=== PATIENT | female | born 1960 | race Caucasian/White ===

== ENCOUNTER 2019-12-29 12:49 | Outpatient (CLI) | payer OTHER, SELFPAY ==
[2019-12-29 13:36] LABS: Basophils Absolute Auto 0.1 K/mm3 (0.0-0.1); Basophils Percent Auto 0.7 % (0.2-1.2); Eosinophils Absolute Auto 0.5 K/mm3 (0-0.3); Eosinophils Percent Auto 4.9 % (0-4.4); Hematocrit 41.5 % (37.0-47.0); Immature Granulocyte Absolute 0.09 K/mm3 (0.00-0.031); Immature Granulocyte Percent A 0.9 % (0-0.5); Lymphocytes Absolute Auto 3.86 K/mm3 (0.9-3.2); Lymphocytes Percent Auto 38.1 % (18.3-44.2); Mean Corpuscular HGB Conc 31.3 g/dl (32-36); Mean Corpuscular Hemoglobin 27.8 pg (26-34); Mean Corpuscular Volume 88.9 fl (80-100); Mean Platelet Volume 9.9 fl (7.4-10.4); Monocytes Absolute Auto 0.7 K/mm3 (0.1-0.6); Monocytes Percent Auto 6.4 % (2.6-8.5); Platelet Count Result 323 k/mm3 (150-375); Red Blood Count 4.67 M/mm3 (4.2-5.4); Red Cell Distribution Width 14.9 % (11.5-14.5); White Blood Count 10.1 K/mm3 (4.5-10.0)
[2019-12-29 13:37] LABS: Albumin Level 4.2 g/dL (3.5-5.1); Blood Urea Nitrogen 11 mg/dL (7-17); Calcium 8.8 mg/dL (8.4-10.2); Carbon Dioxide 29 mmol/L (22-30); Chloride 96 mmol/L (98-107); Estimated Glomerular Filt Rate > 60; Glucose 175 mg/dL (65-105); Potassium 4.6 mmol/L (3.4-5.0); Sodium 138 mmol/L (137-145); Urine Cotinine NEGATIVE
[2019-12-29 13:39] LABS: Partial Thromboplastin Time 27.6 SECONDS (22.3-36.8)
[2019-12-29 13:42] LABS: Add Urine Microscopic? YES; Appearance Urine Clear (Clear); Bacteria Urine Trace /hpf; Bilirubin Urine Negative (Negative); Blood Urine Negative (Negative); Color Urine Yellow (Yellow); Glucose Urine UA Negative (Negative); Ketones Urine Trace mg/dL (Negative); Leukocyte Esterase Ur Trace LEU/UL (Negative); Mucus Urine Rare /lpf; Nitrate Urine Negative (Negative); Protein Urine Negative (Negative); RBC Urine 0-2 /hpf (0-2); Specific Grav Ur 1.017 (1.001-1.035); Squamous Epithelial Cell Urine Many /hpf (Few); WBC Urine 0-3 /hpf
[2019-12-29 13:52] LABS: Hemoglobin A1C 6.7 % (<5.7)
== END 2019-12-29 12:50 | disposition home or self-care (01) ==
LOC: ANHSURGERY 12:51
PROVIDERS: PCP Internal Medicine; Visit Provider Orthopaedic Surgery
DX: M16.11 Unilateral primary osteoarthritis, right hip (principal)
CPT/HCPCS: 36415; 80048; 80307; 81001; 82040; 83036; 85025; 85610; 85730; 86850; 86900; 86901; 87081

== ENCOUNTER 2020-01-08 15:27 | Observation (INO) | payer OTHER, SELFPAY ==
[2019-11-06 12:30] VITALS: BMI 41.8
[2019-11-06 13:54] VITALS: BP 129/69; PULSE 76; RESP 18; TEMP 36.6; O2SAT 96
[2019-11-06 14:04] VITALS: BMI 41.8
--- NOTE | 2019-12-18 13:47 | PC.NURSE ---
PT STATES NO CHANGE IN HEALTH HX
[2020-01-07] VITALS (16 sets, daily range): BP systolic 98–132; BP diastolic 53–80; PULSE 73–99; RESP 10–20; TEMP 36.1–36.8; O2SAT 91–100; BMI 46.9
[2020-01-07] MEDS: LACTATED RINGERS 1,000 ML 30 ML IV CONT ×2 (06:40→10:59)
[2020-01-07] MEDS: IBUPROFEN IV 800 MG/200 ML 800 MG/200 ML BAG 400 MG IVPB ×2 (06:46→20:31)
[2020-01-07 06:52] LABS: Glucose Point of Care 146 (65-105)
--- NOTE | 2020-01-07 06:52 | WPDANESEPPF ---
Anes - Initial Pre Proc Eval Procedure: Operation Date: 01/07/20 07:30 Proposed Procedures p Right Total Hip Arthroplasty(Right) - Darci Gonzalez MD Date/Time: 01/07/20 06:52 Surgeon: Darci Gonzalez MD Pre Op Diagnosis: Right Hip DJD Patient Data Age: 59 Gender: F Height: 5 ft 3 in Weight: 107 kg Last Vital Signs Temp 36.6 C 11/06/19 13:54 Pulse 76 11/06/19 13:54 Resp 18 11/06/19 13:54 BP 129/69 11/06/19 13:54 Pulse Ox 96 11/06/19 13:54 Allergies Allergy/AdvReac Type Severity Reaction Status Date / Time Sulfa (Sulfonamide Allergy Unknown NAUSEA AND Verified 01/02/20 11:57 Antibiotics) ITCHING Home Medications Medication Instructions Recorded Confirmed Type clopidogrel 75 mg tablet 75 mg PO DAILY #90 tablet 10/14/19 01/07/20 Rx metformin 1,000 mg tablet 1,000 mg PO BID #180 tablet 10/14/19 01/07/20 Rx metoprolol tartrate 50 mg tablet 50 mg PO BID #180 tablet 10/14/19 01/07/20 Rx pantoprazole 20 mg tablet,delayed 20 mg PO QAM #90 tablet 10/14/19 01/07/20 Rx release albuterol sulfate [Proventil HFA] 2 puff INHALATION QID PRN 11/06/19 01/07/20 History atorvastatin 10 mg PO HS 11/06/19 01/07/20 History cholecalciferol (vitamin D3) 50,000 unit PO MONTHLY 11/06/19 01/07/20 History duloxetine 30 mg PO DAILY 11/06/19 01/07/20 History fexofenadine [Kennedi Allergy] 180 mg PO DAILY 11/06/19 01/07/20 History gabapentin 600 mg PO BID 11/06/19 01/07/20 History insulin glargine U-300 conc 70 unit SUB-Q HS 11/06/19 01/07/20 History [Toujeo Max U-300 SoloStar] insulin glargine U-300 conc 24 unit SUBCUT DAILY 11/06/19 01/07/20 History [Toujeo SoloStar U-300 Insulin] nortriptyline 50 mg PO HS 11/06/19 01/07/20 History oxycodone-acetaminophen 5 mg-325 1 tablet PO Q6H PRN #120 tablet 12/03/19 01/07/20 Rx mg tablet Laboratory Tests 01/07/20 06:48 POC Capillary Glucose 146 mg/dl H mg/dl (65-105) Patient hx anesthesia problems: none Family hx anesthesia problems: none PMFSH Past Medical History Medical History Degenerative joint disease (DJD) of hip Right hip pain Family History Family History Sibling Patient's sister is in good health Patient's brother is in good health Father Family history of heart disease in male family member before age 55 Patient's father is Family history of cardiovascular disease Mother Family history of heart disease in male family member before age 55 Patient's mother is Family history of cardiovascular disease Other Diabetes mellitus Family history of arthritis Family history of malignant neoplasm Family history of tuberculosis Hypertension Social History Social History Smoking status: Former smoker Smoking end date: 11/19/03 Alcohol intake: never Anes - Eval Final PreProcedure Day of Procedure 01/07/20 06:52 Patient weight: morbidly obese Heart: regular rate and rhythm Lungs: decreased breath sounds Airway: Mallampati scale class III Neurological: alert and oriented Last oral intake: >/= 8 hours ASA classification: III Emergent: no Anesthetic plan: proceed Anesthesia type and monitoring: general ETT and standard monitoring Informed Consent: The patient's anesthetic plan and its attendant risks and benefits were discussed with the patient/family/POA. Questions were solicited and answers provided to the satisfaction of the patient/family/POA.
--- NOTE | 2020-01-07 07:36 | WPDHPUPDATE1 ---
History and Physical Update Update Date/Time: 01/07/20 07:36 History and Physical has been reviewed, including an updated exam of the patient. There are NO changes in the patient's condition. Risks, benefits, and alternatives have been discussed and questions answered. Patient agrees to proceed with procedure.
[2020-01-07] MEDS: ceFAZolin 2 GM/D5W 50 ML 2 GM/50 ML BAG IVPB ×3 (07:42→23:29)
--- NOTE | 2020-01-07 11:02 | PM.OP ---
Procedure Note - Brief Procedure Note - Brief Date of procedure: 01/07/20 Pre-op diagnosis: Right Hip DJD Post-op diagnosis: same Procedure performed: R HENRIETTA Anesthesia: GETA Surgeon: Darci Gonzalez MD Estimated blood loss (mL): 200 Drains: No Complications: No immediate complications Condition: stable Disposition: PACU
[2020-01-07 11:19] LABS: Glucose Point of Care 163 (65-105)
[2020-01-07] MEDS: HYDROMORPHONE HCL 1 MG/ML INJ 0.5 MG IV PUSH ×4 (12:08→12:41)
--- NOTE | 2020-01-07 12:14 | SUR.PHASEI ---
Report given to KUMAR Hurtado at 1211.
--- NOTE | 2020-01-07 13:00 | ADMGEN ---
This patient, Roseanna Blackwell, was admitted to [facility] Surg Room 326-01. Patient/family oriented to hospital policies and general routines including ID bracelet, bed and alarms, visiting hours, pain management, procedures, bathroom and other care routines, personal items, smoking policy, room service/diet, and visiting hours. Valuables list has been completed. Information on how to activate the Rapid Response Team has been discussed. Patient/Family are encouraged to report perceived risks to care and to ask questions if they do not understand what they are told or what they should do.
[2020-01-07 13:40] LABS: Hematocrit 34.3 % (37.0-47.0); Hemoglobin 10.4 g/dL (12.0-15.0)
[2020-01-07] MEDS: SODIUM CHLORIDE 0.9% IV 1,000 ML 125 ML IV CONT ×2 (13:44→23:22)
[2020-01-07 13:53] LABS: Estimated CRCL calculation 92 ml/min; Estimated Glomerular Filt Rate > 60
[2020-01-07] MEDS: DIAZEPAM 5 MG TABLET PO ×2 (17:30→23:27)
[2020-01-07] MEDS: DOCUSATE SODIUM 100 MG CAPSULE PO (17:30)
[2020-01-07] MEDS: metFORMIN HCL 500 MG TABLET 1000 MG PO (17:31)
[2020-01-07 18:10] LABS: Glucose Point of Care 211 (65-105)
[2020-01-07] MEDS: MORPHINE SULFATE 4 MG/ML INJ 3 MG IV PUSH (18:17)
[2020-01-07] MEDS: ONDANSETRON INJ 4 MG/2 ML VIAL IV PUSH (19:35)
[2020-01-07] MEDS: ATORVASTATIN 10 MG TABLET PO (20:39)
[2020-01-07] MEDS: NORTRIPTYLINE HCL 25 MG CAPSULE 50 MG PO (20:40)
[2020-01-07] MEDS: METOPROLOL TARTRATE 50 MG TAB PO (20:40)
[2020-01-07] MEDS: INSULIN GLARGINE (*BKC) 100 UNITS/ML 70 UNITS SUB-Q (20:52)
[2020-01-07 22:56] LABS: Glucose Point of Care 167 (65-105)
[2020-01-08] VITALS (9 sets, daily range): BP systolic 97–136; BP diastolic 48–57; PULSE 85–104; RESP 18–20; TEMP 36.6–37.1; O2SAT 94–100
--- NOTE | ~2020-01-08 | XR_ITS ---
EXAMINATION: XR hip RT 1V DATE: 01/07/2020 11:15 INDICATION: Postoperative evaluation following right total hip arthroplasty TECHNIQUE: Anteroposterior view of the right hip were obtained. COMPARISON: Intraoperative radiograph dated 11/06/2019 FINDINGS: Interval placement of a noncemented right total hip arthroplasty which appears well seated in near an atomic alignment on the single provided frontal projection. Acetabular component is affixed with at l east a single screw. Expected subcutaneous gas in the postoperative bed with overlying skin amari. No fractures identified. IMPRESSION: 1. Right total hip arthroplasty, negative for postoperative purposes. Reviewed, dictated and finalized at location A. [employer]
[2020-01-08] MEDS: IBUPROFEN IV 800 MG/200 ML 800 MG/200 ML BAG 400 MG IVPB ×2 (03:00→18:08)
[2020-01-08 06:34] LABS: Basophils Absolute Auto 0.1 K/mm3 (0.0-0.1); Basophils Percent Auto 0.6 % (0.2-1.2); Eosinophils Absolute Auto 0.1 K/mm3 (0-0.3); Eosinophils Percent Auto 0.4 % (0-4.4); Hematocrit 28.1 % (37.0-47.0); Hemoglobin 8.5 g/dL (12.0-15.0); Immature Granulocyte Absolute 0.04 K/mm3 (0.00-0.031); Immature Granulocyte Percent A 0.4 % (0-0.5); Lymphocytes Absolute Auto 3.18 K/mm3 (0.9-3.2); Lymphocytes Percent Auto 27.9 % (18.3-44.2); Mean Corpuscular HGB Conc 30.2 g/dl (32-36); Mean Corpuscular Hemoglobin 27.3 pg (26-34); Mean Corpuscular Volume 90.4 fl (80-100); Mean Platelet Volume 9.9 fl (7.4-10.4); Monocytes Absolute Auto 0.9 K/mm3 (0.1-0.6); Monocytes Percent Auto 8.2 % (2.6-8.5); Neutrophils Absolute Auto 7.1 K/mm3 (1.3-6.7); Neutrophils Percent Auto 62.5 % (45.5-73.1); Platelet Count Result 233 k/mm3 (150-375); Red Blood Count 3.11 M/mm3 (4.2-5.4); Red Cell Distribution Width 15.3 % (11.5-14.5); White Blood Count 11.4 K/mm3 (4.5-10.0)
[2020-01-08 06:49] LABS: Blood Urea Nitrogen 12 mg/dL (7-17); Calcium 7.6 mg/dL (8.4-10.2); Carbon Dioxide 29 mmol/L (22-30); Chloride 97 mmol/L (98-107); Estimated CRCL calculation 92 ml/min; Estimated Glomerular Filt Rate > 60; Glucose 123 mg/dL (65-105); Potassium 3.9 mmol/L (3.4-5.0); Sodium 137 mmol/L (137-145)
[2020-01-08] MEDS: SODIUM CHLORIDE 0.9% IV 1,000 ML 125 ML IV CONT ×2 (07:52→16:53)
[2020-01-08] MEDS: ceFAZolin 2 GM/D5W 50 ML 2 GM/50 ML BAG IVPB (08:22)
[2020-01-08] MEDS: DOCUSATE SODIUM 100 MG CAPSULE PO ×2 (08:23→16:59)
[2020-01-08] MEDS: ASPIRIN 325 MG ENTERIC TABLET 650 MG PO (08:23)
[2020-01-08] MEDS: CLOPIDOGREL BISULFATE 75 MG TABLET PO (08:23)
[2020-01-08] MEDS: metFORMIN HCL 500 MG TABLET 1000 MG PO ×2 (08:23→17:00)
[2020-01-08] MEDS: PANTOPRAZOLE SOD SESQUIHYDRATE 20 MG TAB PO (08:25)
--- NOTE | 2020-01-08 08:48 | WPDANESPN ---
Anes - Prog Note Post-Op Date/Time: 01/08/20 08:48 Cardiovascular status: normal Respiratory status: normal Airway patency: baseline Mental status: baseline Post-Op hydration status: normal Vital Signs: Last Vital Signs Temp 36.6 C 01/08/20 06:00 Pulse 88 01/08/20 08:25 Resp 20 01/08/20 06:00 BP 97/52 L 01/08/20 08:01 Pulse Ox 95 01/08/20 06:00 I/O: Intake & Output 01/07/20 01/08/20 01/08/20 23:59 07:59 15:59 Intake Total 1900 1450 Output Total 400 1200 Balance 1500 250 Laboratory Tests 01/08/20 06:16 01/08/20 06:16 01/07/20 01/07/20 01/07/20 11:17 13:25 13:25 WBC RBC Hgb 10.4 L Hct 34.3 L MCV MCH MCHC RDW Plt Count MPV Immature Gran % (Auto) Neut % (Auto) Lymph % (Auto) [place] % (Auto) Eos % (Auto) Baso % (Auto) Lymph # (Auto) [place] # (Auto) Eos # (Auto) Baso # (Auto) Abs Immat Gran (auto) Absolute Neuts (auto) Absolute Nucleated RBC Nucleated RBC % Sodium Potassium Chloride Carbon Dioxide BUN Creatinine 0.70 Estim Creat Clear Calc 92 Estimated GFR > 60 Glucose POC Capillary Glucose 163 H Calcium 01/07/20 01/07/20 01/08/20 18:08 20:58 06:16 WBC 11.4 H RBC 3.11 L Hgb 8.5 L Hct 28.1 L MCV 90.4 MCH 27.3 MCHC 30.2 L RDW 15.3 H Plt Count 233 MPV 9.9 Immature Gran % (Auto) 0.4 Neut % (Auto) 62.5 Lymph % (Auto) 27.9 [place] % (Auto) 8.2 Eos % (Auto) 0.4 Baso % (Auto) 0.6 Lymph # (Auto) 3.18 [place] # (Auto) 0.9 H Eos # (Auto) 0.1 Baso # (Auto) 0.1 Abs Immat Gran (auto) 0.04 H Absolute Neuts (auto) 7.1 H Absolute Nucleated RBC 0.0 Nucleated RBC % 0.0 Sodium Potassium Chloride Carbon Dioxide BUN Creatinine Estim Creat Clear Calc Estimated GFR Glucose POC Capillary Glucose 211 H 167 H Calcium 01/08/20 06:16 WBC RBC Hgb Hct MCV MCH MCHC RDW Plt Count MPV Immature Gran % (Auto) Neut % (Auto) Lymph % (Auto) [place] % (Auto) Eos % (Auto) Baso % (Auto) Lymph # (Auto) [place] # (Auto) Eos # (Auto) Baso # (Auto) Abs Immat Gran (auto) Absolute Neuts (auto) Absolute Nucleated RBC Nucleated RBC % Sodium 137 Potassium 3.9 Chloride 97 L Carbon Dioxide 29 BUN 12 Creatinine 0.70 Estim Creat Clear Calc 92 Estimated GFR > 60 Glucose 123 H POC Capillary Glucose Calcium 7.6 L Post-procedural complaints: none Patient Feedback: Patient satisfied with anesthetic care.
--- NOTE | 2020-01-08 09:15 | PM.IMCN ---
Assessment and Plan Assessment and plan (1) Degenerative joint disease (DJD) of hip: Qualifiers: Osteoarthritis type: primary Laterality: right Qualified Code(s): M16.11 - Unilateral primary osteoarthritis, right hip Code(s): M16.9 - Osteoarthritis of hip, unspecified Status: Acute Assessment and Plan: Doing well postoperative day 1 Continue with PT OT\ PE prophylaxis per Orthopedic Service (2) Chronic obstructive pulmonary disease, unspecified: Code(s): J44.9 - Chronic obstructive pulmonary disease, unspecified Status: Acute Assessment and Plan: Currently has only mild dyspnea on exertion Monitor for symptoms (3) Essential (primary) hypertension: Code(s): I10 - Essential (primary) hypertension Status: Acute Assessment and Plan: Antihypertensives held this morning due to relatively low blood pressure Continue to monitor (4) Type 2 diabetes mellitus with diabetic neuropathy, unspecified: Code(s): E11.40 - Type 2 diabetes mellitus with diabetic neuropathy, unspecified Status: Acute Assessment and Plan: Continue metformin Continue basal insulin at reduced dose Monitor with sliding scale insulin (5) GERD without esophagitis: Onset Date: 06/17/19 Code(s): K21.9 - Gastro-esophageal reflux disease without esophagitis Status: Acute Assessment and Plan: Continue PPI (6) Restless legs syndrome: Code(s): G25.81 - Restless legs syndrome Status: Acute Assessment and Plan: Continue carbidopa levodopa (7) Postoperative anemia: Code(s): D64.9 - Anemia, unspecified Status: Acute Assessment and Plan: Significant decrease and H&H overnight Continue to monitor and transfuse as needed for symptomatic anemia or hemoglobin below 7 HPI Data of Consult Consult date: 01/08/20 Requesting Physician: Darci Gonzalez MD Primary Care Provider: Angel Luis Rodgers DO Consult Narrative Narrative: Roseanna Blackwell is a 59 year old female with a history of severe osteoarthritis affecting the hips. She had an uncomplicated left total hip arthroplasty 2010. Right hip pain dose becoming severe, limiting her day-to-day activities, causing moderate to severe pain even at rest. Because the progression of pain and decreased mobility she opted to have an elective right total hip arthroplasty. Surgery was performed on January 07 and was uncomplicated. Currently only complaint is moderate to severe pain at the operative site. Worse with activity. She was unable to ambulate with a walker yesterday with physical therapy. But was able to get up and transfer to the chair. She has chronic dyspnea on exertion. No chest pain. History of recurrent UTIs but currently no dysuria or hematuria. Last bowel movement was 2 days ago. No abnormal bleeding. No focal weakness or numbness, except for chronic stinging and burning in her toes worse at night. She does have a history of restless leg syndrome at night control with medication. Review of Systems Review of Systems: All systems reviewed & are unremarkable except as noted in HPI and below PMFSH Past Medical History Medical History (Updated 01/08/20 @ 09:48 by Aristides Whitten MD) Chronic obstructive pulmonary disease, unspecified Degenerative joint disease (DJD) of hip GERD without esophagitis (06/17/19) Hyperlipidemia, unspecified Nontoxic multinodular goiter Restless legs syndrome Right hip pain Type 2 diabetes mellitus with diabetic neuropathy, unspecified Vitamin D deficiency (06/17/19) Surgical History Surgical History (Updated 01/08/20 @ 09:39 by Aristides Whitten MD) H/O oophorectomy History of coronary artery stent placement History of total left hip arthroplasty Hx of section S/P MARY-BSO Family History Family History (Updated 01/08/20 @ 09:40 by Aristides Whitten MD) Sibling Patient's sister is in good health Kajal
[2020-01-08 12:35] LABS: Glucose Point of Care 180 (65-105)
[2020-01-08] MEDS: ONDANSETRON INJ 4 MG/2 ML VIAL IV PUSH (14:11)
[2020-01-08] MEDS: DIAZEPAM 5 MG TABLET PO ×2 (14:11→20:12)
--- NOTE | 2020-01-08 16:57 | PM.PNORT ---
Progress Note: A&P Additional Plan POD 1 DOING WELL. SLOW PROGRESS WITH PT. RECOMMEND CONTINUE PT. Subjective Subjective Date/Time Seen: 01/08/20 16:57 POD 1 DOING WELL. SLOW PROGRESS WITH PT. 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 NEG [employer] SIGN Objective Data Vital Signs Vital Signs: Vital Signs - 24 hr 01/07/20 18:00 01/07/20 20:40 01/07/20 22:00 Temperature 36.7 C 36.8 C Pulse Rate 80 80 99 Respiratory Rate 19 20 Blood Pressure 125/71 115/53 L Pulse Oximetry 96 93 01/08/20 02:00 01/08/20 06:00 01/08/20 06:15 Temperature 36.8 C 36.6 C Pulse Rate 91 85 Respiratory Rate 20 20 Blood Pressure 102/48 L 98/56 L Pulse Oximetry 94 95 01/08/20 08:01 01/08/20 08:25 01/08/20 10:00 Temperature 36.7 C Pulse Rate 88 88 90 Respiratory Rate 20 Blood Pressure 97/52 L 100/57 L Pulse Oximetry 94 01/08/20 15:38 Temperature 36.7 C Pulse Rate 100 Respiratory Rate 18 Blood Pressure 136/57 L Pulse Oximetry 100 Intake/Output Intake/Output: Intake & Output 01/05/20 01/06/20 01/07/20 01/08/20 23:59 23:59 23:59 23:59 Intake Total 2450 1860 Output Total 540 1200 Balance 1910 660 Meds/Results Medications: Active Medications Generic Name Dose Route Start Last Admin Trade Name Freq PRN Reason Stop Dose Admin Hydrocodone Bitart/Acetaminophen 1 tab 01/07/20 11:04 [place] 7.5-325 Mg PO Q3H PRN Pain Rated 4-6 Albuterol 2 puff 01/07/20 11:10 Proventil Hfa INHALATION QID PRN Shortness Of Breath Aspirin 650 mg 01/08/20 09:00 01/08/20 08:23 Aspirin Ec PO 650 mg DAILY MAI Administration Atorvastatin Calcium 10 mg 01/07/20 21:00 01/07/20 20:39 Lipitor PO 10 mg HS MAI Administration Carbidopa/Levodopa 1 tablet 01/08/20 21:00 Sinemet 25/100 Mg PO HS MAI Clopidogrel Bisulfate 75 mg 01/08/20 09:00 01/08/20 08:23 Plavix PO 75 mg DAILY MAI Administration Dextrose 12.5 gm 01/07/20 16:56 Dextrose 50% Syringe IV PUSH PRN PRN Hypoglycemia Protocol Diazepam 5 mg 01/07/20 11:09 01/08/20 14:11 Valium Po PO 5 mg Q6H PRN Administration Anxiety/Muscle Spasm Docusate Sodium 100 mg 01/07/20 17:00 01/08/20 08:23 Colace Capsule PO 100 mg BID [facility] Administration Ergocalciferol 50,000 unit 01/22/20 09:00 Drisdol PO MONTHLY [facility] Glucagon 1 mg 01/07/20 16:56 Glucagon For Inj IM PRN PRN Hypoglycemia Protocol Glucose 15 gm 01/07/20 16:56 Glutose 15 PO PRN PRN Hypoglycemia Protocol Sodium Chloride 1,000 mls @ 125 mls/hr 01/07/20 11:05 01/08/20 07:52 Normal Saline Iv IV CONT 125 mls/hr .Q8H [facility] Administration Ibuprofen 800 mg in 200 mls @ 400 mls/hr 01/07/20 11:04 01/08/20 03:30 Caldolor 800 Mg/200 Ml IVPB Infused Q6H PRN Infusion Pain Rated 4-6 Dextrose 1,000 mls @ 100 mls/hr 01/07/20 16:56 Dextrose 5% 1,000 Ml IVPB PRN PRN Hypoglycemia Protocol Insulin Aspart 4 - 8 units 01/08/20 12:00 01/08/20 12:28 Novolog SUB-Q Not Given TIDWM [facility] Protocol Insulin Glargine 50 units 01/08/20 09:51 Lantus SUB-Q 01/10/20 21:01 [facility] Magnesium Hydroxide 30 ml 01/07/20 11:04 Milk Of Magnesia PO BID PRN Constipation Metformin HCl 1,000 mg 01/07/20 17:00 01/08/20 08:23 Glucophage PO 1,000 mg BIDWM [facility] Administration Metoprolol Tartrate 50 mg 01/07/20 21:00 01/08/20 08:25 Lopressor PO Not Given Q12HR MAI Morphine Sulfate 3 mg 01/07/20 11:04 01/07/20 18:17 Morphine Sulfate Inj IV PUSH 3 mg Q3H PRN Administration Pain Rated 7-10 Naloxone HCl 0.1 mg 01/07/20 11:04 Narcan IV PUSH Q2M PRN Opiate Reversal Nortriptyline HCl 50 mg 01/07/20 21:00 01/07/20 20:40 Pamelor PO 50 mg HS MAI Administration Ondansetron HCl 4 mg 01/07/20 11:09 01/08/20 14:11
[2020-01-08 17:11] LABS: Glucose Point of Care 149 (65-105)
[2020-01-08] MEDS: CARBIDOPA/LEVODOPA 25/100 MG TABLET 1 TABLET PO (21:14)
[2020-01-08] MEDS: NORTRIPTYLINE HCL 25 MG CAPSULE 50 MG PO (21:15)
[2020-01-08] MEDS: ATORVASTATIN 10 MG TABLET PO (21:17)
[2020-01-08] MEDS: INSULIN GLARGINE (*BKC) 100 UNITS/ML 50 UNITS SUB-Q (21:19)
[2020-01-08] MEDS: METOPROLOL TARTRATE 50 MG TAB PO (21:32)
[2020-01-08 22:35] LABS: Glucose Point of Care 139 (65-105)
[2020-01-09] MEDS: SODIUM CHLORIDE 0.9% IV 1,000 ML 125 ML IV CONT ×3 (00:03→12:10)
[2020-01-09] MEDS: DIAZEPAM 5 MG TABLET PO ×2 (02:00→08:15)
--- NOTE | 2020-01-09 06:18 | OP_ITS ---
DATE OF PROCEDURE: 01/07/2020 PREOPERATIVE DIAGNOSIS: Right hip degenerative joint disease. POSTOPERATIVE DIAGNOSIS: Right hip degenerative joint disease. PROCEDURE: Right total hip arthroplasty. ANESTHESIA: General. COMPLICATIONS: None. INDICATIONS: This is a 59-year-old female with end-stage right hip DJD. She was indicated for right total hip arthroplasty. DESCRIPTION OF PROCEDURE: The patient was taken to the operating room in stable condition and placed in the supine position. General anesthesia was induced and then she was placed in lateral decubitus with the right hip up and the right lower extremity, was prepped and draped sterilely from the toes to the iliac crest region. Incision was made over the greater trochanter down in line with the shaft of the femur and then down through the subcutaneous tissues until the fascia was identified. Bleeders were cauterized in the subcutaneous tissue. Incision was made over the fascia. Fascia was retracted in the short external rotators and the piriformis of the hip joint were identified. The gluteus medius and minimus were retracted and the piriformis tendon then was incised and as was the capsule of the hip joint and then the short external rotators as well were incised until the lesser trochanter was exposed. The hip was dislocated and an osteotomy approximately 1 cm proximal to the lesser trochanter was performed. There was severe arthrosis to the head of the femur into the acetabulum. Acetabulum then was exposed and then sequential reaming was performed, 1st starting with a 42 reamer and ending with a 47 reamer and approximately of 35 degrees of abduction and the version was in alignment with the transacetabular ligament. A 47 trial acetabular component was placed and it bottomed out well and was very stable and then a 48 Biomet acetabular component was press-fit into place in approximately 40 degrees abduction and version was in alignment with the transacetabular ligament. One screw was placed for extra security and had an excellent bite. Once that was performed, a liner was placed and it was secure. Next, the femur was prepared first with box chisel osteotome and canal finder and then sequential broaching was performed first with the 4 mm broach until a #5 broach and 50 degrees of anteversion was placed. A trial head/neck was placed with a high offset neck and a 32 mm +0 head. The hip was reduced, taken through range of motion. Leg lengths were grossly equal. The Shuck test was excellent and the hip was very stable in internal and external rotation 90 degrees. The trial components were removed and then a Biomet Taperloc #5 stem with a high offset neck was tapped into place. The fit was excellent. This was placed in 50 degrees of anteversion and then a ceramic +0 32 mm head was tapped on to the prosthesis and then it was reduced, taken through range of motion found to be very stable. Leg lengths were grossly equal. The hip joint was irrigated thoroughly with sterile Betadine and sterile water and then the capsule and the short external rotators were approximated with #1 Vicryl. The fascia was approximated with #2 Quill. Subcutaneous tissues were used on the subcu and amari were used on the skin. Sterile dressing was applied. The patient was placed back in the supine position. She was extubated and sent to Recovery. Hussein Roberto MT: Dennis
[2020-01-09 06:59] VITALS: BP 90/55; PULSE 87; RESP 18; TEMP 36.6; O2SAT 96
[2020-01-09] MEDS: IBUPROFEN IV 800 MG/200 ML 800 MG/200 ML BAG 400 MG IVPB ×3 (07:16→15:03)
[2020-01-09] MEDS: metFORMIN HCL 500 MG TABLET 1000 MG PO (08:07)
[2020-01-09 08:08] LABS: Glucose Point of Care 111 (65-105)
[2020-01-09] MEDS: PANTOPRAZOLE SOD SESQUIHYDRATE 20 MG TAB PO (08:08)
[2020-01-09] MEDS: DOCUSATE SODIUM 100 MG CAPSULE PO (08:08)
[2020-01-09] MEDS: CLOPIDOGREL BISULFATE 75 MG TABLET PO (08:08)
[2020-01-09] MEDS: ASPIRIN 325 MG ENTERIC TABLET 650 MG PO (08:08)
[2020-01-09 12:31] LABS: Glucose Point of Care 160 (65-105)
--- NOTE | 2020-01-09 13:20 | PCOTNOTE ---
Attempted to see patient this pm, however patient refused stating, If you don't want to do anything today, then I don't want to do anything either. I'm going to rehab tomorrow. Encouraged patient to participate in therapy at this time, however patient refused stating she was tired and experiencing increased pain. Pt reported having 6 out of 10 pain and having a pain pill just under an hour ago.
--- NOTE | 2020-01-09 14:10 | PM.IMPN ---
Progress Note: A&P Assessment and Plan (1) Degenerative joint disease (DJD) of hip: Qualifiers: Osteoarthritis type: primary Laterality: right Qualified Code(s): M16.11 - Unilateral primary osteoarthritis, right hip Code(s): M16.9 - Osteoarthritis of hip, unspecified Status: Acute Assessment and Plan: Doing well postoperative day 2 Continue with PT OT at [facility] PE prophylaxis per Orthopedic Service (2) Chronic obstructive pulmonary disease, unspecified: Code(s): J44.9 - Chronic obstructive pulmonary disease, unspecified Status: Acute Assessment and Plan: Currently has only mild dyspnea on exertion (3) Essential (primary) hypertension: Code(s): I10 - Essential (primary) hypertension Status: Acute Assessment and Plan: BP remains lower than her usual continue to hold antihypertensives (4) Type 2 diabetes mellitus with diabetic neuropathy, unspecified: Code(s): E11.40 - Type 2 diabetes mellitus with diabetic neuropathy, unspecified Status: Acute Assessment and Plan: Continue metformin Continue basal insulin at reduced dose Monitor with sliding scale insulin (5) GERD without esophagitis: Onset Date: 06/17/19 Code(s): K21.9 - Gastro-esophageal reflux disease without esophagitis Status: Acute Assessment and Plan: Continue PPI (6) Restless legs syndrome: Code(s): G25.81 - Restless legs syndrome Status: Acute Assessment and Plan: Continue carbidopa levodopa (7) Postoperative anemia: Code(s): D64.9 - Anemia, unspecified Status: Acute Assessment and Plan: Hgb 8.5 and asymptomatic 01/09 without overt signs of bleeding Subjective Date/time seen: 01/09/20 14:10 Interval history: Pain is tolerable. Tolerating diet. Bowels have not moved yet. Pain only at operative site. No chest pain abdominal pain back pain. No shortness of breath. No abnormal bleeding. No fevers or chills. No nausea or vomiting. No dysuria or hematuria. Review of Systems Review of Systems: All systems reviewed & are unremarkable except as noted in HPI and below Exam Narrative: Exam Narrative: HEENT: EOMI, PERRL, pharyngeal mucosa pink and intact NECK: No JVD CHEST: Clear to auscultation. Normal effort. HEART: NL S1/S2, regular, no murmur ABDOMEN: BS+, soft, nontender, no mass, no bruits EXTREMITIES: No cyanosis, edema, or clubbing NEUROLOGIC: CN intact and symmetric to inspection. MUSCULOSKELETAL: Tone and strength symmetric. PSYCH: Alert. Oriented to person, place, and time. Objective Data Vital Signs Vital Signs: Vital Signs - 24 hr 01/08/20 15:38 01/08/20 21:32 01/08/20 22:00 Temperature 98.0 F 98.7 F Pulse Rate 100 102 H 104 H Respiratory Rate 18 18 Blood Pressure 136/57 L 118/54 L Pulse Oximetry 100 97 01/09/20 06:59 Temperature 98 F Pulse Rate 87 Respiratory Rate 18 Blood Pressure 90/55 L Pulse Oximetry 96 Intake/Output Intake/Output: Intake & Output 01/06/20 01/07/20 01/08/20 01/09/20 23:59 23:59 23:59 23:59 Intake Total 2450 3060 4440 Output Total 540 1200 1000 Balance 1910 1860 3440 Meds/Results Medications: Active Medications Generic Name Dose Route Start Last Admin Trade Name Freq PRN Reason Stop Dose Admin Hydrocodone Bitart/Acetaminophen 1 tab 01/07/20 11:04 01/09/20 12:32 [place] 7.5-325 Mg PO 1 tab Q3H PRN Administration Pain Rated 4-6 Albuterol 2 puff 01/07/20 11:10 Proventil Hfa INHALATION QID PRN Shortness Of Breath Aspirin 650 mg 01/08/20 09:00 01/09/20 08:08 Aspirin Ec PO 650 mg DAILY MAI Administration Atorvastatin Calcium 10 mg 01/07/20 21:00 01/08/20 21:17 Lipitor PO 10 mg HS MAI Administration Carbidopa/Levodopa 1 tablet 01/08/20 21:00 01/08/20 21:14 Sinemet 25/100 Mg PO 1 tablet HS MAI Administration Clopidogrel Bisulfate 75 mg 01/08/20
--- NOTE | 2020-01-09 14:15 | PCPTNOTE ---
Patient refused treatment this session due to expected discharge.
--- NOTE | 2020-01-09 14:24 | PM.PNORT ---
Progress Note: A&P Additional Plan POD 2 DOING WELL, SLOW PROGRESS WITH PT. RECOMMEND SNF PLACEMENT. SHE WILL F/U IN 3 WEEKS. Time Spent With Patient Time with patient: 15 - 25 minutes Subjective Subjective Date/Time Seen: 01/09/20 14:24 pod 2. DOING MUCH BETTER. PAIN IS WELL CONTROLLED. 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 CALF SOFT NON TENDER NEG HOMANS SIGN Objective Data Vital Signs Vital Signs: Vital Signs - 24 hr 01/08/20 15:38 01/08/20 21:32 01/08/20 22:00 Temperature 36.7 C 37.1 C Pulse Rate 100 102 H 104 H Respiratory Rate 18 18 Blood Pressure 136/57 L 118/54 L Pulse Oximetry 100 97 01/09/20 06:59 Temperature 36.6 C Pulse Rate 87 Respiratory Rate 18 Blood Pressure 90/55 L Pulse Oximetry 96 Intake/Output Intake/Output: Intake & Output 01/06/20 01/07/20 01/08/20 01/09/20 23:59 23:59 23:59 23:59 Intake Total 2450 3060 4440 Output Total 540 1200 1000 Balance 1910 1860 3440 Meds/Results Medications: Active Medications Generic Name Dose Route Start Last Admin Trade Name Freq PRN Reason Stop Dose Admin Hydrocodone Bitart/Acetaminophen 1 tab 01/07/20 11:04 01/09/20 12:32 [place] 7.5-325 Mg PO 1 tab Q3H PRN Administration Pain Rated 4-6 Albuterol 2 puff 01/07/20 11:10 Proventil Hfa INHALATION QID PRN Shortness Of Breath Aspirin 650 mg 01/08/20 09:00 01/09/20 08:08 Aspirin Ec PO 650 mg DAILY MAI Administration Atorvastatin Calcium 10 mg 01/07/20 21:00 01/08/20 21:17 Lipitor PO 10 mg HS MAI Administration Carbidopa/Levodopa 1 tablet 01/08/20 21:00 01/08/20 21:14 Sinemet 25/100 Mg PO 1 tablet HS MAI Administration Clopidogrel Bisulfate 75 mg 01/08/20 09:00 01/09/20 08:08 Plavix PO 75 mg DAILY MAI Administration Dextrose 12.5 gm 01/07/20 16:56 Dextrose 50% Syringe IV PUSH PRN PRN Hypoglycemia Protocol Diazepam 5 mg 01/07/20 11:09 01/09/20 08:15 Valium Po PO 5 mg Q6H PRN Administration Anxiety/Muscle Spasm Docusate Sodium 100 mg 01/07/20 17:00 01/09/20 08:08 Colace Capsule PO 100 mg BID MAI Administration Ergocalciferol 50,000 unit 01/22/20 09:00 Drisdol PO MONTHLY MAI Glucagon 1 mg 01/07/20 16:56 Glucagon For Inj IM PRN PRN Hypoglycemia Protocol Glucose 15 gm 01/07/20 16:56 Glutose 15 PO PRN PRN Hypoglycemia Protocol Sodium Chloride 1,000 mls @ 125 mls/hr 01/07/20 11:05 01/09/20 12:10 Normal Saline Iv IV CONT 125 mls/hr .Q8H MAI Administration Ibuprofen 800 mg in 200 mls @ 400 mls/hr 01/07/20 11:04 01/09/20 08:02 Caldolor 800 Mg/200 Ml IVPB Infused Q6H PRN Infusion Pain Rated 4-6 Dextrose 1,000 mls @ 100 mls/hr 01/07/20 16:56 Dextrose 5% 1,000 Ml IVPB PRN PRN Hypoglycemia Protocol Insulin Aspart 4 - 8 units 01/08/20 12:00 01/09/20 12:31 Novolog SUB-Q Not Given TIDWM [facility] Protocol Insulin Glargine 50 units 01/08/20 09:51 01/08/20 21:19 Lantus SUB-Q 01/10/20 21:01 50 units HS MAI Administration Magnesium Hydroxide 30 ml 01/07/20 11:04 Milk Of Magnesia PO BID PRN Constipation Metformin HCl 1,000 mg 01/07/20 17:00 01/09/20 08:07 Glucophage PO 1,000 mg BIDWM MAI Administration Metoprolol Tartrate 50 mg 01/07/20 21:00 01/08/20 21:32 Lopressor PO 50 mg Q12HR MAI Administration Morphine Sulfate 3 mg 01/07/20 11:04 01/07/20 18:17 Morphine Sulfate Inj IV PUSH 3 mg Q3H PRN Administration Pain Rated 7-10 Naloxone HCl 0.1 mg 01/07/20 11:04 Narcan IV PUSH Q2M PRN Opiate Reversal Nortriptyline HCl 50 mg 01/07/20 21:00 01/08/20 21:15 Pamelor PO 50 mg HS MAI Administration Ondansetron HCl 4 mg 01/07/20 11:09 01/08/20 14:11 Zofran Inj IV PUSH 4 mg Q4H PRN Administration Nausea And Vomiting Oxycod
--- NOTE | 2020-01-09 14:50 | PM.DS ---
DS: Diagnosis Admitting Diagnosis Admitting Diagnosis: Osteoarthritis of hip, unspecified DS: Summary Time Spent with Patient Time attestation: Total time spent providing and/or coordinating discharge services: DS: Data Data Completed and Pending Labs on day of discharge: Labs from last 24 hours 01/09/20 01/09/20 01/08/20 12:08 07:23 21:19 POC Capillary Glucose 160 H 111 H 139 H 01/08/20 16:56 POC Capillary Glucose 149 H Discharge Plan Discharge Attending physician on discharge: Darci Gonzalez Consulting providers: Kacey Finn Discharging Clinician: Aristides Whitten Patient Disposition: SNF Activity: may shower, no driving and follow weight bearing status Diet: as tolerated Wound Care Instructions: follow printed instructions and keep dressing dry Discharge Instructions: LEAVE DRESSING ON FOR 5 DYAS. [address]URSE WILL REPLACE WITH NEW DRESSING. NEW DRESSING SHOULD REMAIN ON TILL HEATHER ARE REMOVED ON THE 14TH DAY AFTER SURGERY Patient Instructions: How to Choose and Use a Walker (GEN), Total Hip Replacement (DC) Stand Alone Forms: General Discharge Information Follow-up/Referrals: Darci Gonazlez MD [Physician] - 3 Weeks Angel Luis Rodgers DO [Primary Care Provider] - 2 Weeks Discharge Medications: New Lantus U-100 Insulin 100 unit/mL Solution 50 units subcut HS Qty: 15 RF: 0 dextrose [Glutose-15] 40 % Gel 15 g PO PRN PRN (Reason: Hypoglycemia) Qty: 15 RF: 0 oxycodone-acetaminophen 5-325 mg Tablet 1 tablet PO Q4H PRN (Reason: Pain (Scale Score 7-10)) Qty: 30 RF: 0 magnesium hydroxide [Milk of Magnesia] 400 mg/5 mL Suspension 30 ml PO BID PRN (Reason: Constipation) Qty: 240 RF: 0 insulin aspart U-100 [Novolog U-100 Insulin aspart] 100 unit/mL Solution 4 - 8 units subcut TIDWM Qty: 15 RF: 0 docusate sodium 100 mg Capsule 100 mg PO BID Qty: 60 RF: 0 GlucaGen Diagnostic Kit 1 mg/mL Recon Soln 1 mg IM PRN PRN (Reason: Hypoglycemia) Qty: 1 RF: 0 hydrocodone-acetaminophen [[place]] 5-325 mg tablet 1 tablet PO Q6H PRN (Reason: pain) Qty: 60 RF: 0 Xarelto 10 mg tablet 10 mg PO DAILY Qty: 14 RF: 0 Continued fexofenadine [Kennedi Allergy] 180 mg Tablet 180 mg PO DAILY RF: 0 albuterol sulfate [Proventil HFA] 90 mcg/actuation Hfa Aerosol Inhaler 2 puff INHALATION QID PRN (Reason: Shortness Of Breath) RF: 0 cholecalciferol (vitamin D3) 50,000 unit Tablet 50,000 unit PO MONTHLY RF: 0 atorvastatin 10 mg tablet 10 mg PO DAILY RF: 0 gabapentin 300 mg capsule 600 mg PO BID RF: 0 nortriptyline 50 mg capsule 50 mg PO HS RF: 0 duloxetine 60 mg capsule,delayed release(DR/EC) 30 mg PO DAILY RF: 0 carbidopa-levodopa 25-100 mg tablet 1 tablet PO HS RF: 0 pantoprazole 20 mg tablet,delayed release (DR/EC) 20 mg PO QAM Qty: 90 RF: 1 metformin 1,000 mg tablet 1,000 mg PO BID Qty: 180 RF: 1 clopidogrel 75 mg tablet 75 mg PO DAILY Qty: 90 RF: 1 Changed oxycodone-acetaminophen [Percocet] 5-325 mg tablet 1 tablet PO Q4H PRN (Reason: Pain (Scale Score 4-6)) Qty: 10 RF: 0 Discontinued Toujeo SoloStar U-300 Insulin 300 unit/mL (1.5 mL) Insulin Pen 24 unit SUBCUT DAILY RF: 0 Toujeo Max U-300 SoloStar 300 unit/mL (3 mL) insulin pen 70 unit SUB-Q HS RF: 0 metoprolol tartrate 50 mg tablet 50 mg PO BID Qty: 180 RF: 1 Date of admission: 01/08/20 15:27 Primary Care Provider: Angel Luis Rodgers Admitting Provider: Darci Gonzalez Attending physician on admission: Darci Gonzalez Condition: Stable Quality VTE Prophylaxis VTE prophylaxis: mechanical ordered and pharmacologic ordered
--- NOTE | 2020-01-09 14:52 | PM.PNORT ---
Progress Note: A&P Additional Plan POD 2 DOING WELL BUT WITH STILL SOME SLOW PROGRESS WITH PT. SHE WILL GO TO SNF AND F/U IN 3 WEEKS Time Spent With Patient Time with patient: 15 - 25 minutes Subjective Subjective Date/Time Seen: 01/09/20 14:52 POD 2 IMPROVING. NO CALF PAIN. NO SOB OR CP Exam Extrem: Other: VSS AFEBRILE DRESSING DRY NV INTACT NEG HOMANS SIGN Objective Data Vital Signs Vital Signs: Vital Signs - 24 hr 01/08/20 15:38 01/08/20 21:32 01/08/20 22:00 Temperature 36.7 C 37.1 C Pulse Rate 100 102 H 104 H Respiratory Rate 18 18 Blood Pressure 136/57 L 118/54 L Pulse Oximetry 100 97 01/09/20 06:59 Temperature 36.6 C Pulse Rate 87 Respiratory Rate 18 Blood Pressure 90/55 L Pulse Oximetry 96 Intake/Output Intake/Output: Intake & Output 01/06/20 01/07/20 01/08/20 01/09/20 23:59 23:59 23:59 23:59 Intake Total 2450 3060 4440 Output Total 540 1200 1000 Balance 1910 1860 3440 Meds/Results Medications: Active Medications Generic Name Dose Route Start Last Admin Trade Name Freq PRN Reason Stop Dose Admin Hydrocodone Bitart/Acetaminophen 1 tab 01/07/20 11:04 01/09/20 12:32 [place] 7.5-325 Mg PO 1 tab Q3H PRN Administration Pain Rated 4-6 Albuterol 2 puff 01/07/20 11:10 Proventil Hfa INHALATION QID PRN Shortness Of Breath Aspirin 650 mg 01/08/20 09:00 01/09/20 08:08 Aspirin Ec PO 650 mg DAILY MAI Administration Atorvastatin Calcium 10 mg 01/07/20 21:00 01/08/20 21:17 Lipitor PO 10 mg HS MAI Administration Carbidopa/Levodopa 1 tablet 01/08/20 21:00 01/08/20 21:14 Sinemet 25/100 Mg PO 1 tablet HS MAI Administration Clopidogrel Bisulfate 75 mg 01/08/20 09:00 01/09/20 08:08 Plavix PO 75 mg DAILY MAI Administration Dextrose 12.5 gm 01/07/20 16:56 Dextrose 50% Syringe IV PUSH PRN PRN Hypoglycemia Protocol Diazepam 5 mg 01/07/20 11:09 01/09/20 08:15 Valium Po PO 5 mg Q6H PRN Administration Anxiety/Muscle Spasm Docusate Sodium 100 mg 01/07/20 17:00 01/09/20 08:08 Colace Capsule PO 100 mg BID MAI Administration Ergocalciferol 50,000 unit 01/22/20 09:00 Drisdol PO MONTHLY MAI Glucagon 1 mg 01/07/20 16:56 Glucagon For Inj IM PRN PRN Hypoglycemia Protocol Glucose 15 gm 01/07/20 16:56 Glutose 15 PO PRN PRN Hypoglycemia Protocol Sodium Chloride 1,000 mls @ 125 mls/hr 01/07/20 11:05 01/09/20 12:10 Normal Saline Iv IV CONT 125 mls/hr .Q8H MAI Administration Ibuprofen 800 mg in 200 mls @ 400 mls/hr 01/07/20 11:04 01/09/20 08:02 Caldolor 800 Mg/200 Ml IVPB Infused Q6H PRN Infusion Pain Rated 4-6 Dextrose 1,000 mls @ 100 mls/hr 01/07/20 16:56 Dextrose 5% 1,000 Ml IVPB PRN PRN Hypoglycemia Protocol Insulin Aspart 4 - 8 units 01/08/20 12:00 01/09/20 12:31 Novolog SUB-Q Not Given TIDWM [facility] Protocol Insulin Glargine 50 units 01/08/20 09:51 01/08/20 21:19 Lantus SUB-Q 01/10/20 21:01 50 units HS MAI Administration Magnesium Hydroxide 30 ml 01/07/20 11:04 Milk Of Magnesia PO BID PRN Constipation Metformin HCl 1,000 mg 01/07/20 17:00 01/09/20 08:07 Glucophage PO 1,000 mg BIDWM MAI Administration Metoprolol Tartrate 50 mg 01/07/20 21:00 01/08/20 21:32 Lopressor PO 50 mg Q12HR MAI Administration Morphine Sulfate 3 mg 01/07/20 11:04 01/07/20 18:17 Morphine Sulfate Inj IV PUSH 3 mg Q3H PRN Administration Pain Rated 7-10 Naloxone HCl 0.1 mg 01/07/20 11:04 Narcan IV PUSH Q2M PRN Opiate Reversal Nortriptyline HCl 50 mg 01/07/20 21:00 01/08/20 21:15 Pamelor PO 50 mg HS MAI Administration Ondansetron HCl 4 mg 01/07/20 11:09 01/08/20 14:11 Zofran Inj IV PUSH 4 mg Q4H PRN Administration Nausea And Vomiting Oxycodone/Acetaminophen 2 tablet
== END 2020-01-09 15:50 ==
LOC: ANHSURGERY 18:45 → ANH3MEDSUR 18:45
PROVIDERS: Admitting Provider Orthopaedic Surgery; PCP Internal Medicine; Visit Provider Orthopaedic Surgery
PROC: (CPT 27130; principal; 2020-01-07 07:30)
DX: M16.11 Unilateral primary osteoarthritis, right hip (principal); J44.9 Chronic obstructive pulmonary disease, unspecified; I10 Essential (primary) hypertension; E11.40 Type 2 diabetes mellitus with diabetic neuropathy, unspecified; K21.9 Gastro-esophageal reflux disease without esophagitis; G25.81 Restless legs syndrome; D64.9 Anemia, unspecified; E78.5 Hyperlipidemia, unspecified; E55.9 Vitamin D deficiency, unspecified; E66.01 Morbid (severe) obesity due to excess calories; Z68.41 Body mass index [BMI] 40.0-44.9, adult; Z79.4 Long term (current) use of insulin; Z79.899 Other long term (current) drug therapy; Z87.891 Personal history of nicotine dependence; Z88.2 Allergy status to sulfonamides
CPT/HCPCS: 27130; 36415; 73501; 80048; 82565; 85014; 85018; 85025; 97110; 97116; 97161; 97165; 97530; A9270; C1776; G0378; J0131; J0171; J0690; J1100; J1170; J1741; J1815; J2250; J2270; J2370; J2405; J2704; J2710; J2795; J3010; J7030; J7120

== ENCOUNTER 2020-03-17 12:30 | Outpatient (RCR) | payer OTHER, SELFPAY ==
--- NOTE | 2020-02-18 13:35 | PTOPEVAL ---
PHYSICAL THERAPY EVALUATION AND PLAN OF CARE 02-18-2020 The PT evaluation was completed for the diagnosis of s/p R THR. The plan of treatment is 1-2x/week for 5 weeks. Thank you for referring Leilani to [facility]. Please review, sign, date and return this plan of care AURELIA. I agree with and certify that the following plan of care is medically necessary. Referring Physician Date Attending Provider: Darci Gonzalez MD *PT Outpatient Evaluation Start: 02/18/20 12:41 Document 02/18/20 12:41 RAMÓN (Rec: 02/18/20 13:31 RAMÓN [id number]) Outpatient Past Medical History Neurological History Hx Other Neurological Disorders Yes: RLS, NEUROPATHY LEGS AND FEET Cardiovascular History Hx Coronary Artery Disease Yes Hx Coronary Stent Yes: ONE STENT 2005 AND ONE STENT 2016 Hx Hypercholesterolemia Yes: meds Hx Hypertension Yes: meds Hx Other Cardiac Disorders Yes: DR KAYE Q 6 MONTHS. LAST SEEN Sep 2019 Respiratory History Hx Asthma Yes Hx Chronic Obstructive Pulmonary Disease Yes: USES INHALER PRN (COPD) Hx Sleep Apnea Yes: DOES NOT USE CPAP. STATES CAN'T TOLERATE Gastrointestinal History Hx Gastroesophageal Reflux Disease Yes Genitourinary History Hx Genitourinary Disorders No Significant History Musculoskeletal History Hx Arthritis Yes: GENERALIZED Hx Back Pain Yes Hx Fibromyalgia Yes: take percocet for pain; overall pain and achiness Hx Fractures Yes: RT WRIST as child Hx Joint Replacement Yes: 2010 L HEN[place], 01/07/2020 R [place] Hx Other Musculoskeletal Disorders Yes Hematological History Hx Hematological Disorders No Significant History Endocrine History Hx Diabetes Yes: meds Hx Other Endocrine Disorders Yes: NODULES ON THYROID HEENT History Hx Sinus Problems Yes Integumentary History Hx Other Skin Disorders Yes: MRSA infection over stomach and back-surgery debride Reproductive History Hx Hysterectomy Yes Psychosocial History Hx Depression Yes Pain History Has Past Pain Affected Your Daily Life Yes: CHRONIC BACK PAIN History of Long-Term Prescription Pain Yes: PERCOCET X 10 YRS Medication Use (Opiates) Anesthesia History Hx Anesthesia Reactions No Significant History Other History Hx MRSA Yes: 2003 ABD Evaluation Information Problem Diagnosis s/p R THR Onset Dec Subjective Information in pt rehab and ECF, [facility]
--- NOTE | 2020-03-03 12:47 | PCPTNOTE ---
Patient called & cancelled scheduled appointment this date, just can't make it.
--- NOTE | 2020-03-24 13:32 | PCPTNOTE ---
pt did not show for today's reevaluation; called pt and left message on her voice mail.
--- NOTE | 2020-04-05 11:48 | PCPTNOTE ---
PHYSICAL THERAPY DISCHARGE 04-05-2020 Attending Provider: Darci Gonzalez MD Patient:Roseanna Blackwell Date of :1960 Ms. Blackwell has not returned for any further treatments since 03/17/2020, therefore she will be discharged at this time. She received 4 PT sessions, from February 17 to , for the diagnosis of s/p R THR. She did not show for one and called/canceled one appointment. The goals were not assessed. Thank you for referring Leilani to [facility]. Please review, sign, date and return this discharge summary AURELIA. I have been updated about the patient's current status and I agree with discharge from the above service at this time. Referring Physician Date
== END 2020-04-05 16:14 | disposition home or self-care (01) ==
LOC: ANHPT 12:30
PROVIDERS: PCP Internal Medicine; Visit Provider Orthopaedic Surgery
DX: Z47.1 Aftercare following joint replacement surgery (principal); Z96.641 Presence of right artificial hip joint; J44.9 Chronic obstructive pulmonary disease, unspecified; E11.40 Type 2 diabetes mellitus with diabetic neuropathy, unspecified
CPT/HCPCS: 97110; 97116; 97161

== ENCOUNTER 2020-07-12 13:26 | Outpatient (CLI) | payer OTHER, SELFPAY ==
--- NOTE | ~2020-07-12 | US_ITS ---
EXAMINATION: US soft tissue UE LT DATE: 07/12/2020 14:05 INDICATION: Localized swelling, mass or lump at the left upper arm TECHNIQUE: Multiple grayscale and Doppler ultrasound images of the anterior left upper arm at the reg ion of concern were obtained. COMPARISON: None FINDINGS: No abnormal masses or fluid collections identified. There is focal thickening of the subcutaneous fat with a bulging inferior contour in the region of concern. No clearly definable capsule identified to more specifically suggest lipoma. IMPRESSION: 1. Focal thickening of the subcutaneous fat at the region of concern without a clearly defined lipoma . Reviewed, dictated and finalized at location A. IMPRESSION: 1. Focal thickening of the subcutaneous fat at the region of concern without a clearly defined lipoma.
--- NOTE | ~2020-07-12 | CT_ITS ---
EXAMINATION: CT abdomen wo con EXAM DATE: 07/12/2020 14:13 INDICATION: Upper abdominal pain. Early satiety. Gastric pain, bloating, nausea. TECHNIQUE: Spiral CT of the abdomen was performed without contrast. Axial, coronal and sagittal jeremy ges were reviewed. The dose-length product (DLP) for this examination was 959.30 mGy-cm. The exposu re was tailored according to patient size (auto mA exposure control), and iterative reconstruction (A SIR) was used as additional dose reduction technique. Comparison is made to prior examination from . FINDINGS: The liver, spleen, adrenal glands and pancreas are unremarkable. Gallbladder is unremarkab le. No biliary obstruction. There is no nephrolithiasis or hydronephrosis. There is no retroperi toneal lymphadenopathy. The stomach and small bowel are unremarkable. There is expected amount of colonic stool. No free i ntraperitoneal gas. The heart is normal in size. There are no pericardial or pleural effusions. T he lung bases are unremarkable. There are no osteoblastic or osteolytic lesions identified. IMPRESSION: Unremarkable abdomen CT exam. Reviewed, dictated and finalized at location A.
== END 2020-07-12 13:27 | disposition home or self-care (01) ==
LOC: ANHIMG 13:31
PROVIDERS: PCP Internal Medicine; Visit Provider Internal Medicine
DX: R10.9 Unspecified abdominal pain (principal); R22.32 Localized swelling, mass and lump, left upper limb
CPT/HCPCS: 74150; 76882

== ENCOUNTER 2020-07-22 15:30 | Outpatient (CLI) | payer OTHER, SELFPAY ==
--- NOTE | ~2020-07-22 | MR_ITS ---
EXAMINATION: MR lumbar spine wo con DATE: 07/22/2020 16:27 INDICATION: Low back pain. TECHNIQUE: Magnetic resonance imaging (MRI) of the lumbar spine was performed without intravenous con trast. Sequences included sagittal T2-weighted FSE, sagittal T2-weighted FS FSE, sagittal T1-weighted FSE, and axial T2-weighted FSE. COMPARISON: Lumbar spine MRI 02/25/2011 FINDINGS: There is 7 degrees dextrocurvature of lumbar spine. There is mild chronic anterior wedging of T12 and L1 vertebral bodies, likely physiologic. Intervertebral disc heights are normal. The dista l spinal cord signal intensity is normal. The conus medullaris is at L1. The following disc levels ar e specifically discussed: L1-L2: The disc does not extend beyond the endplate margin. There is mild bilateral facet joint osteo arthritis. There is no neural foraminal stenosis. There is no central canal stenosis. L2-L3: The disc does not extend beyond the endplate margin. There is no facet joint osteoarthritis. T here is no neural foraminal stenosis. There is no central canal stenosis. L3-L4: The disc does not extend beyond the endplate margin. There is moderate left facet joint osteoa rthritis. There is mild left neural foraminal stenosis. There is no central canal stenosis. L4-L5: The disc does not extend beyond the endplate margin. There is severe bilateral facet joint ost eoarthritis. There is mild bilateral neural foraminal stenosis. There is no central canal stenosis. L5-S1: The disc is bulging with superimposed central extrusion. There is severe bilateral facet joint osteoarthritis. There is mild bilateral neural foraminal stenosis. There is mild central canal steno sis. IMPRESSION: 1. Mild lumbar spondylosis, slightly worsened from 02/21/2011. Reviewed, dictated and finalized at location A.
== END 2020-07-22 15:31 | disposition home or self-care (01) ==
PROVIDERS: PCP Internal Medicine; Visit Provider Internal Medicine
DX: M47.896 Other spondylosis, lumbar region (principal)
CPT/HCPCS: 72148

== ENCOUNTER 2020-10-30 22:06 | Observation (INO) | payer OTHER, SELFPAY ==
--- NOTE | ~2020-10-30 | XR_ITS ---
EXAMINATION: XR chest 1V portable DATE: 10/30/2020 22:55 INDICATION: Shortness of breath TECHNIQUE: frontal view of the chest was obtained. COMPARISON: Chest radiograph dated 11/03/2011 FINDINGS: The lungs remain clear with no focal airspace opacities, pulmonary edema, pleural effusion or pneumot horax. The cardiomediastinal silhouette is normal. Mild thoracic spondylosis. IMPRESSION: 1. No acute cardiopulmonary disease. Reviewed, dictated and finalized at location A. RINGER
--- NOTE | 2020-10-30 22:18 | ECG_ITS ---
Measurements Intervals [place] Rate: 98 P: 26 DC: 124 QRS: 10 QRSD: 109 T: 32 QT: 364 QTc: 465 Interpretive Statements SINUS RHYTHM VOLTAGE CRITERIA FOR LVH NONSPECIFIC ST & T-WAVE ABNORMALITY- ANT/INF LEADS BASELINE WANDER- V1-V6 BORDERLINE ECG Electronically Signed On 10-31-2020 9:22:27 FIRE EXTINGU[employer] MECH[employer]IC by Joseph Bowling D.O.
[2020-10-30 22:19] VITALS: BP 118/59; PULSE 99; RESP 20; TEMP 36.3; O2SAT 92
[2020-10-30 22:41] LABS: Glucose Point of Care 205 (65-105)
[2020-10-30 22:45] LABS: Basophils Percent Auto 0.3 % (0.2-1.2); Eosinophils Absolute Auto 0.1 K/mm3 (0-0.3); Eosinophils Percent Auto 1.2 % (0-4.4); Hematocrit 39.3 % (37.0-47.0); Hemoglobin 11.6 g/dL (12.0-15.0); Immature Granulocyte Absolute 0.05 K/mm3 (0.00-0.031); Immature Granulocyte Percent A 0.7 % (0-0.5); Lymphocytes Absolute Auto 1.92 K/mm3 (0.9-3.2); Lymphocytes Percent Auto 25.4 % (18.3-44.2); Mean Corpuscular HGB Conc 29.5 g/dl (32-36); Mean Corpuscular Hemoglobin 22.1 pg (26-34); Monocytes Absolute Auto 0.6 K/mm3 (0.1-0.6); Monocytes Percent Auto 8.2 % (2.6-8.5); Neutrophils Absolute Auto 4.9 K/mm3 (1.3-6.7); Neutrophils Percent Auto 64.2 % (45.5-73.1); Platelet Count Result 259 k/mm3 (150-375); Red Blood Count 5.24 M/mm3 (4.2-5.4); White Blood Count 7.6 K/mm3 (4.5-10.0)
[2020-10-30 22:59] LABS: Anion Gap 14 mmol/L (8-16); Blood Urea Nitrogen 12 mg/dL (7-17); Calcium 8.5 mg/dL (8.4-10.2); Carbon Dioxide 24 mmol/L (22-30); Chloride 95 mmol/L (98-107); Estimated CRCL calculation 96 ml/min; Estimated Glomerular Filt Rate > 60; Glucose 230 mg/dL (65-105); Potassium 4.2 mmol/L (3.4-5.0); Sodium 133 mmol/L (137-145)
[2020-10-30 23:14] LABS: Platelet Estimate Adequate (Adequate)
[2020-10-30 23:15] LABS: Hyperchromasia 2+ (NORMAL); Hypochromasia 1+ (NORMAL)
--- NOTE | 2020-10-30 23:45 | ED.SOB ---
HPI - SOB/Dyspnea General Chief Complaint: Shortness of Breath/Dyspnea Stated Complaint: sob, weak Time Seen by Provider: 10/30/20 22:39 History of Present Illness HPI Narrative: Patient is a 60-year-old female who presents ER with shortness of breath and weakness. Patient reports she was diagnosed with a UTI 1 week ago however when 2 days later she began to develop productive cough and weakness. Patient did develop exertional shortness of breath to the point today where she could barely walk to her bathroom and nearly fell. She not strike her head. She does report that she has had fevers and chills. No known sick contacts. She is without exertional chest pain. Related Data Home Medications Medication Instructions Recorded Confirmed albuterol sulfate [Proventil HFA] 2 puff INHALATION QID PRN 11/06/19 03/04/20 fexofenadine [Kennedi Allergy] 180 mg PO DAILY 11/06/19 03/04/20 Allergies Allergy/AdvReac Type Severity Reaction Status Date / Time Sulfa (Sulfonamide Allergy Unknown NAUSEA AND Verified 10/30/20 22:22 Antibiotics) ITCHING Review of Systems Constitutional: Constitutional: Reports chills, Reports fever(s) and Reports weakness ENT: Denies nasal congestion and Denies sore throat Cardiovascular: Cardiovascular: Denies chest pain and Denies radiating jaw, neck or arm pain Respiratory: Respiratory: Reports chest congestion, Reports cough, Reports dyspnea and Reports wheezing Gastrointestinal: Gastrointestinal: Denies abdominal pain, Denies nausea and Denies vomiting PMFSH Past Medical History Medical History (Updated 10/31/20 @ 00:41 by Vadim Hernandez MD) Chronic obstructive pulmonary disease, unspecified Degenerative joint disease (DJD) of hip GERD without esophagitis (06/17/19) Hyperlipidemia, unspecified Nontoxic multinodular goiter Postmenopausal Restless legs syndrome Right hip pain Screening for breast cancer Type 2 diabetes mellitus with diabetic neuropathy, unspecified Vitamin D deficiency (06/17/19) Surgical History Surgical History (Updated 07/08/20 @ 10:23 by Darci Gonzalez MD) H/O oophorectomy History of coronary artery stent placement History of total left hip arthroplasty Hx of section S/P MARY-BSO Family History Family History Sibling Patient's sister is in good health Patient's brother is in good health Father Family history of heart disease in male family member before age 55 Patient's father is Family history of cardiovascular disease Diabetes mellitus Mother Patient's mother is Family history of cardiovascular disease Diabetes mellitus Other Family history of arthritis Family history of malignant neoplasm Family history of tuberculosis Hypertension Social History Social History Smoking status: Former smoker Smoking end date: 11/19/03 Alcohol intake: never Substance use: never Additional living arrangements comments: Lives with 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: [employer] Gender identity (if verbalized by the patient): Female Exam Narrative: Exam Narrative: GENERAL: Well-appearing, well-nourished, and in no acute distress. HEAD: Normocephalic, atraumatic. ENT: Mucous membranes moist. CHEST: Coarse rales wheezing throughout, frequent coughing. No respiratory distress. HEART: Regular rate and rhythm. Normal peripheral pulses. ABDOMEN: Soft, nontender, nondistended. EXTREMITIES: Normal range of motion. No edema. SKIN: Warm, dry, no rash. NEURO: Alert and oriented x3. PSYCH: Normal mood and affect. Course Course Emergency Course: Hypoxic with ambulation to the commode. Patient with significant coarse wheezing. Admit for [place]. Will swab for Covid. Vital Signs Vital signs: Vital Signs Temperature 97.3 F L 10/30/20 22:19 Pulse Rate
[2020-10-31] VITALS (10 sets, daily range): BP systolic 104–122; BP diastolic 49–75; PULSE 70–95; RESP 18–22; TEMP 36–38.8; O2SAT 91–95; BMI 38.9
[2020-10-31] MEDS: methylPREDNISolone SOD SUCC 125 MG VIAL 60 MG IV PUSH ×3 (01:10→11:08)
[2020-10-31] MEDS: HYDROcodone/acetaminophen (*CRX) 5-325 MG TABLET 1 TAB PO ×3 (02:08→20:14)
[2020-10-31] MEDS: ACETAMINOPHEN 325 MG TABLET 650 MG PO (02:08)
--- NOTE | 2020-10-31 07:58 | PM.IMHP ---
H&P: HPI History of Present Illness Date/Time: 10/31/20 07:58 Chief complaint: copd exacerbation, covid pui Narrative: Roseanna Blackwell is a 60 year old female With history of COPD. She was in her usual state of health until October 24. At that time she developed a cough productive of peacock sputum and shortness of breath with wheezing. She was short of breath with walking 10 ft her last. No increased edema orthopnea or PND. No chest pain. Did feel some chest tightness with her shortness of breath that resolved with the shortness of breath. No pleuritic pain. Some body aches. Some loose stools. Some chills and sweats. Thinks she might have had a low-grade temperature but did not measure it. Has had some Mild headache. Denied history of travel or exposure to ill individuals or individuals who had known exposure or prior COVID-19. however she [facility]. Chronic low back pain is not changed. Has chronic joint and musculoskeletal discomfort but no joint swelling. Review of Systems Review of Systems: All systems reviewed & are unremarkable except as noted in HPI and below PMFSH Past Medical History Medical History Chronic obstructive pulmonary disease, unspecified Degenerative joint disease (DJD) of hip GERD without esophagitis (06/17/19) Hyperlipidemia, unspecified Nontoxic multinodular goiter Postmenopausal Restless legs syndrome Right hip pain Screening for breast cancer Type 2 diabetes mellitus with diabetic neuropathy, unspecified Vitamin D deficiency (06/17/19) Surgical History Surgical History H/O oophorectomy History of coronary artery stent placement History of total left hip arthroplasty Hx of section S/P MARY-BSO Family History Family History Sibling Patient's sister is in good health Patient's brother is in good health Father Family history of heart disease in male family member before age 55 Patient's father is Family history of cardiovascular disease Diabetes mellitus Mother Patient's mother is Family history of cardiovascular disease Diabetes mellitus Other Family history of arthritis Family history of malignant neoplasm Family history of tuberculosis Hypertension Social History Social History (Updated 10/31/20 @ 11:24 by Aristides Whitten MD) Smoking packs per day: 1.5 Smoking cigarettes per day: 30.0 Years smoked: 30 Smoking pack-years: 45.00 Smoking status: Former smoker Smoking end date: 11/19/03 Alcohol intake: never Substance use: never Living arrangements: with family Additional living arrangements comments: Lives with Occupation/Education: retired 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: 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 Gender identity (if verbalized by the patient): Female Spiritual care concerns: No Meds Home Medications and Allergies Home Medications Medication Instructions Recorded Confirmed Type albuterol sulfate [Proventil HFA] 2 puff INHALATION QID PRN 11/06/19 10/31/20 History fexofenadine [Kennedi Allergy] 180 mg PO DAILY 11/06/19 10/31/20 History glucagon (human recombinant) 1 mg IM PRN PRN #1 ea 01/09/20 10/31/20 Rx [GlucaGen Diagnostic Kit] flash glucose scanning reader #1 each 01/21/20 10/31/20 Rx flash glucose sensor #1 each 01/21/20 10/31/20 Rx metoprolol tartrate 50 mg tablet 50 mg PO BID #180 tablet 04/27/20 10/31/20 Rx pen needle, diabetic 31 gauge x #200 each 07/06/20 10/31/20 Rx 04/03 insulin glargine U-300 conc 300 See Rx Instructions .ROUTE 07/28/20 10/31/20 Rx unit/mL (3 mL) subcutaneous pen .COMPLEX #9 syringe carbidopa 25 mg-levodopa 100 mg 1 tablet PO HS #90 tablet 09/17/20 10/31/20 Rx tablet oxycodone-acetaminophen 5 mg-325 1
[2020-10-31] MEDS: GABAPENTIN 300 MG CAPSULE 600 MG PO ×2 (11:06→20:11)
[2020-10-31] MEDS: ATORVASTATIN 10 MG TABLET PO (11:06)
[2020-10-31] MEDS: LORATADINE 10 MG TABLET PO (11:06)
[2020-10-31] MEDS: metFORMIN HCL 500 MG TABLET 1000 MG PO ×2 (11:06→17:41)
[2020-10-31] MEDS: PANTOPRAZOLE SOD SESQUIHYDRATE 20 MG TAB PO (11:06)
[2020-10-31] MEDS: DULoxetine HCL 60 MG CAPSULE.DR PO (11:06)
[2020-10-31] MEDS: METOPROLOL TARTRATE 50 MG TAB PO ×2 (11:07→20:12)
[2020-10-31 12:02] LABS: Hematocrit 34.4 % (37.0-47.0); Hemoglobin 10.6 g/dL (12.0-15.0); Mean Corpuscular HGB Conc 30.8 g/dl (32-36); Mean Corpuscular Hemoglobin 22.4 pg (26-34); Mean Corpuscular Volume 72.7 fl (80-100); Mean Platelet Volume 9.8 fl (7.4-10.4); Platelet Count Result 239 k/mm3 (150-375); Red Blood Count 4.73 M/mm3 (4.2-5.4); Red Cell Distribution Width 18.4 % (11.5-14.5); White Blood Count 4.1 K/mm3 (4.5-10.0)
[2020-10-31] MEDS: ALBUTEROL SULFATE (*SP) AEROSOL 1 PUFF 2 PUFF INHALATION ×3 (12:15→20:07)
[2020-10-31 12:16] LABS: D Dimer 0.58 ug/mL (<0.48); Potassium 4.1 mmol/L (3.4-5.0)
[2020-10-31 12:25] LABS: Troponin I < 0.012 ng/mL (0.000-0.034)
[2020-10-31 12:27] LABS: Alanine Aminotransferase 38 U/L (4-35); Albumin Level 3.6 g/dL (3.5-5.1); Alkaline Phosphatase 75 U/L (38-126); Anion Gap 10 mmol/L (8-16); Aspartate Amino Transferase 39 U/L (14-36); Bilirubin,Total 0.4 mg/dL (0.2-1.3); Blood Urea Nitrogen 15 mg/dL (7-17); CRP 4.4 mg/dL (<1.0); Calcium 8.4 mg/dL (8.4-10.2); Carbon Dioxide 22 mmol/L (22-30); Chloride 100 mmol/L (98-107); Estimated CRCL calculation 111 ml/min; Estimated Glomerular Filt Rate > 60; Glucose 323 mg/dL (65-105); Lactate Dehydrogenase 426 U/L (313-618); Sodium 132 mmol/L (137-145)
[2020-10-31] MEDS: CLOPIDOGREL BISULFATE 75 MG TABLET PO (13:00)
[2020-10-31] MEDS: CEFDINIR 300 MG CAPSULE PO ×2 (13:00→20:11)
[2020-10-31] MEDS: DOXYCYCLINE HYCLATE 100 MG TABLET PO ×2 (13:01→20:12)
[2020-10-31] MEDS: INSULIN ASPART (*BKC) 100 UNITS/ML 8 UNITS SUB-Q ×2 (13:02→17:43)
[2020-10-31 13:07] LABS: Glucose Point of Care 317 (65-105)
[2020-10-31] MEDS: ENOXAPARIN 40 MG/0.4 ML SYRINGE SUB-Q (17:41)
[2020-10-31 17:56] LABS: Glucose Point of Care 275 (65-105)
[2020-10-31] MEDS: NORTRIPTYLINE HCL 25 MG CAPSULE 50 MG PO (20:11)
[2020-10-31] MEDS: INSULIN GLARGINE (*BKC) 100 UNITS/ML 30 UNITS SUB-Q (20:12)
[2020-10-31] MEDS: CARBIDOPA/LEVODOPA 25/100 MG TABLET 1 TABLET PO (20:12)
[2020-10-31 21:59] LABS: Glucose Point of Care 272 (65-105)
[2020-11-01] VITALS (11 sets, daily range): BP systolic 109–136; BP diastolic 45–67; PULSE 64–96; RESP 16–22; TEMP 36.1–36.5; O2SAT 93–100
[2020-11-01] MEDS: HYDROcodone/acetaminophen (*CRX) 5-325 MG TABLET 1 TAB PO ×3 (05:44→22:15)
[2020-11-01 08:56] LABS: Glucose Point of Care 157 (65-105)
[2020-11-01] MEDS: INSULIN ASPART (*BKC) 100 UNITS/ML 8 UNITS SUB-Q ×3 (09:06→17:22)
[2020-11-01] MEDS: DOXYCYCLINE HYCLATE 100 MG TABLET PO ×2 (09:10→21:56)
[2020-11-01] MEDS: CLOPIDOGREL BISULFATE 75 MG TABLET PO (09:10)
[2020-11-01] MEDS: metFORMIN HCL 500 MG TABLET 1000 MG PO ×2 (09:10→17:24)
[2020-11-01] MEDS: ATORVASTATIN 10 MG TABLET PO (09:10)
[2020-11-01] MEDS: LORATADINE 10 MG TABLET PO (09:10)
[2020-11-01] MEDS: DULoxetine HCL 60 MG CAPSULE.DR PO (09:10)
[2020-11-01] MEDS: CEFDINIR 300 MG CAPSULE PO ×2 (09:11→21:55)
[2020-11-01] MEDS: DEXAMETHASONE SOD PHOS INJ 4 MG/ML VIAL 6 MG IV PUSH (09:11)
[2020-11-01] MEDS: PANTOPRAZOLE SOD SESQUIHYDRATE 20 MG TAB PO (09:11)
[2020-11-01] MEDS: GABAPENTIN 300 MG CAPSULE 600 MG PO ×2 (09:11→21:56)
[2020-11-01] MEDS: ALBUTEROL SULFATE (*SP) AEROSOL 1 PUFF 2 PUFF INHALATION ×4 (09:14→23:28)
[2020-11-01] MEDS: METOPROLOL TARTRATE 50 MG TAB PO ×2 (09:14→21:55)
[2020-11-01 13:21] LABS: Glucose Point of Care 200 (65-105)
--- NOTE | 2020-11-01 16:50 | P.PNIM_ITS ---
Progress Note: A&P Assessment and Plan (1) COPD exacerbation: Code(s): J44.1 - Chronic obstructive pulmonary disease with (acute) exacerbation Status: Acute Assessment and Plan: * differential diagnosis includes: COVID-19, pulmonary embolus, congestive heart failure, anginal equivalent * reduce steroids to dexamethasone 6 mg IV daily * due to increased sputum production add cefdinir and doxycycline * continue bronchodilators * continue supplemental oxygen as needed (2) Person under investigation for COVID-19: Code(s): Z20.828 - Contact with and (suspected) exposure to other viral communicable diseases Status: Acute Assessment and Plan: * SARS-CoV-2 RT PCR pending * Dexamethasone 6mg iv daily for COPD and empirically for possible COVID-19 * change IV to oral as pt is having high glucose levels (3) Hypoxia: Code(s): R09.02 - Hypoxemia Status: Acute Assessment and Plan: * due to COPD exacerbation * exclude COVID with PCR pending (4) GERD without esophagitis: Onset Date: 06/17/19 Code(s): K21.9 - Gastro-esophageal reflux disease without esophagitis Status: Acute (5) Type 2 diabetes mellitus with diabetic neuropathy, unspecified: Qualifiers: Diabetes mellitus intermediate school teacher insulin use: with intermediate school teacher use Qualified Code(s): E11.40 - Type 2 diabetes mellitus with diabetic neuropathy, unspecified; Z79.4 - assisted (current) use of insulin Code(s): E11.40 - Type 2 diabetes mellitus with diabetic neuropathy, unspecified Status: Acute Assessment and Plan: * basal Lantus 30 units with pre meal insulin 8 units * continue metformin (6) Degenerative joint disease (DJD) of hip: Qualifiers: Osteoarthritis type: primary Laterality: right Qualified Code(s): M16.11 - Unilateral primary osteoarthritis, right hip Code(s): M16.9 - Osteoarthritis of hip, unspecified Status: Acute Assessment and Plan: * analgesics as needed (7) Hepatic steatosis: Code(s): K76.0 - Fatty (change of) liver, not elsewhere classified Status: Acute Assessment and Plan: * due to morbid obesity (8) Fibromyalgia: Onset Date: 06/17/19 Code(s): M79.7 - Fibromyalgia Status: Acute Assessment and Plan: * analgesics as needed * may benefit from physical therapy pending COVID-19 testing (9) Obstructive sleep apnea (adult) (pediatric): Code(s): G47.33 - Obstructive sleep apnea (adult) (pediatric) Status: Acute Subjective Date/time seen: 11/01/20 16:50 Interval history: Pt is having sore throat cough and heartburn. pt feels sob when she walks, home oxygen assessment before she leaves, pt still awaiting covid test. Review of Systems Review of Systems: All systems reviewed & are unremarkable except as noted in HPI and below Exam Narrative: Exam Narrative: HEENT: EOMI, Bernadine, wet cough NECK: No JVD CHEST: Normal respiratory pattern on RA HEART: NL S1/S2, regular, no murmur ABDOMEN: BS+, soft, nontender, no mass, no bruits EXTREMITIES: No cyanosis, edema, or clubbing NEUROLOGIC: CN intact and symmetric to inspection. MUSCULOSKELETAL: Tone and strength symmetric. PSYCH: Alert. Oriented to person, place, and time. Objective Data Vital Signs Vital Signs: Vital Signs - 24 hr 10/31/20 20:00 10/31/20 20:12 11/01/20 00:00 Temperature 36.1 C L 36.2 C L
--- NOTE | 2020-11-01 16:50 | PM.IMPN ---
Progress Note: A&P Assessment and Plan (1) COPD exacerbation: Code(s): J44.1 - Chronic obstructive pulmonary disease with (acute) exacerbation Status: Acute Assessment and Plan: differential diagnosis includes: COVID-19, pulmonary embolus, congestive heart failure, anginal equivalent reduce steroids to dexamethasone 6 mg IV daily due to increased sputum production add cefdinir and doxycycline continue bronchodilators continue supplemental oxygen as needed (2) Person under investigation for COVID-19: Code(s): Z20.828 - Contact with and (suspected) exposure to other viral communicable diseases Status: Acute Assessment and Plan: SARS-CoV-2 RT PCR pending Dexamethasone 6mg iv daily for COPD and empirically for possible COVID-19 change IV to oral as pt is having high glucose levels (3) Hypoxia: Code(s): R09.02 - Hypoxemia Status: Acute Assessment and Plan: due to COPD exacerbation exclude COVID with PCR pending (4) GERD without esophagitis: Onset Date: 06/17/19 Code(s): K21.9 - Gastro-esophageal reflux disease without esophagitis Status: Acute (5) Type 2 diabetes mellitus with diabetic neuropathy, unspecified: Qualifiers: Diabetes mellitus skilled nursing insulin use: with intermediate card tender use Qualified Code(s): E11.40 - Type 2 diabetes mellitus with diabetic neuropathy, unspecified; Z79.4 - intermediate card tender (current) use of insulin Code(s): E11.40 - Type 2 diabetes mellitus with diabetic neuropathy, unspecified Status: Acute Assessment and Plan: basal Lantus 30 units with pre meal insulin 8 units continue metformin (6) Degenerative joint disease (DJD) of hip: Qualifiers: Osteoarthritis type: primary Laterality: right Qualified Code(s): M16.11 - Unilateral primary osteoarthritis, right hip Code(s): M16.9 - Osteoarthritis of hip, unspecified Status: Acute Assessment and Plan: analgesics as needed (7) Hepatic steatosis: Code(s): K76.0 - Fatty (change of) liver, not elsewhere classified Status: Acute Assessment and Plan: due to morbid obesity (8) Fibromyalgia: Onset Date: 06/17/19 Code(s): M79.7 - Fibromyalgia Status: Acute Assessment and Plan: analgesics as needed may benefit from physical therapy pending COVID-19 testing (9) Obstructive sleep apnea (adult) (pediatric): Code(s): G47.33 - Obstructive sleep apnea (adult) (pediatric) Status: Acute Subjective Date/time seen: 11/01/20 16:50 Interval history: Pt is having sore throat cough and heartburn. pt feels sob when she walks, home oxygen assessment before she leaves, pt still awaiting covid test. Review of Systems Review of Systems: All systems reviewed & are unremarkable except as noted in HPI and below Exam Narrative: Exam Narrative: HEENT: EOMI, Bernadine, wet cough NECK: No JVD CHEST: Normal respiratory pattern on RA HEART: NL S1/S2, regular, no murmur ABDOMEN: BS+, soft, nontender, no mass, no bruits EXTREMITIES: No cyanosis, edema, or clubbing NEUROLOGIC: CN intact and symmetric to inspection. MUSCULOSKELETAL: Tone and strength symmetric. PSYCH: Alert. Oriented to person, place, and time. Objective Data Vital Signs Vital Signs: Vital Signs - 24 hr 10/31/20 20:00 10/31/20 20:12 11/01/20 00:00 Temperature 36.1 C L 36.2 C L Pulse Rate 87 80 82 Respiratory Rate 20 18 Blood Pressure 116/58 L 123/67 Pulse Oximetry 93 95 11/01/20 04:00 11/01/20 08:00 11/01/20 09:14 Temperature 36.2 C L 36.1 C L Pulse Rate 73 72 64 Respiratory Rate 18 16 Blood Pressure 116/58 L 115/55 L Pulse Oximetry 95 100 11/01/20 11:00 11/01/20 12:00 Temperature 36.2 C L Pulse Rate 78 Respiratory Rate 16 Blood Pressure 135/61 Pulse Oximetry 93 94 Intake/Output Intake/Output: Intake & Output 10/29/20 10/30/20 10/31/20 11/01/20 23
[2020-11-01] MEDS: ENOXAPARIN 40 MG/0.4 ML SYRINGE SUB-Q (17:25)
[2020-11-01 17:41] LABS: Glucose Point of Care 208 (65-105)
[2020-11-01 18:35] LABS: SARS-CoV-2 RNA PCR Positive
[2020-11-01] MEDS: NORTRIPTYLINE HCL 25 MG CAPSULE 50 MG PO (21:55)
[2020-11-01] MEDS: CARBIDOPA/LEVODOPA 25/100 MG TABLET 1 TABLET PO (21:55)
[2020-11-01] MEDS: INSULIN GLARGINE (*BKC) 100 UNITS/ML 30 UNITS SUB-Q (21:57)
[2020-11-02] VITALS (9 sets, daily range): BP systolic 106–137; BP diastolic 48–66; PULSE 64–99; RESP 18–20; TEMP 36.2–38; O2SAT 91–97
[2020-11-02 03:23] LABS: Glucose Point of Care 155 (65-105)
[2020-11-02] MEDS: HYDROcodone/acetaminophen (*CRX) 5-325 MG TABLET 1 TAB PO ×4 (04:56→22:45)
[2020-11-02 08:20] LABS: Glucose Point of Care 96 (65-105)
[2020-11-02] MEDS: metFORMIN HCL 500 MG TABLET 1000 MG PO ×2 (08:29→17:54)
[2020-11-02] MEDS: CEFDINIR 300 MG CAPSULE PO ×2 (08:29→21:02)
[2020-11-02] MEDS: DEXAMETHASONE 2 MG TABLET 6 MG PO (08:29)
[2020-11-02] MEDS: DULoxetine HCL 60 MG CAPSULE.DR PO (08:29)
[2020-11-02] MEDS: DOXYCYCLINE HYCLATE 100 MG TABLET PO ×2 (08:29→21:02)
[2020-11-02] MEDS: LORATADINE 10 MG TABLET PO (08:29)
[2020-11-02] MEDS: ATORVASTATIN 10 MG TABLET PO (08:29)
[2020-11-02] MEDS: ACETAMINOPHEN 325 MG TABLET 650 MG PO (08:30)
[2020-11-02] MEDS: GABAPENTIN 300 MG CAPSULE 600 MG PO ×2 (08:30→21:02)
[2020-11-02] MEDS: CLOPIDOGREL BISULFATE 75 MG TABLET PO (08:30)
[2020-11-02] MEDS: METOPROLOL TARTRATE 50 MG TAB PO ×2 (08:30→21:02)
[2020-11-02] MEDS: ALBUTEROL SULFATE (*SP) AEROSOL 1 PUFF 2 PUFF INHALATION ×4 (08:31→21:01)
[2020-11-02 12:34] LABS: Glucose Point of Care 195 (65-105)
--- NOTE | 2020-11-02 12:39 | PC.NURSE ---
This nurse took a call from the patients daughter. She was yelling and screaming at the day nurse that was taking care of the patient. She began yelling and cussing at me saying how dare I dictate who gets to call for updates. She said if you think I am bad wait for my dad to call up here. I apologized and explained the process of one family member for each patient to give updates to and she continued to scream at me. She demanded to speak to administration and I gave her the patient advocates number. The nurse caring for the patient stated that she was fine with us making the daughter the contact and service clerks supervisor but the daughter was not happy with that.
[2020-11-02] MEDS: PANTOPRAZOLE SOD SESQUIHYDRATE 20 MG TAB PO (12:49)
[2020-11-02 17:18] LABS: Glucose Point of Care 289 (65-105)
--- NOTE | 2020-11-02 17:42 | PM.IMPN ---
Progress Note: A&P Assessment and Plan (1) COPD exacerbation: Code(s): J44.1 - Chronic obstructive pulmonary disease with (acute) exacerbation Status: Acute Assessment and Plan: reduce steroids to dexamethasone 6 mg oral as sugars are running too high due to increased sputum production add cefdinir and doxycycline continue bronchodilators Dc feng after home oxygen assessment (2) Person under investigation for COVID-19: Code(s): Z20.828 - Contact with and (suspected) exposure to other viral communicable diseases Status: Acute Assessment and Plan: SARS-CoV-2 RT is positive Dexamethasone 6mg oral COPD and empirically for possible COVID-19 (3) Hypoxia: Code(s): R09.02 - Hypoxemia Status: Acute Assessment and Plan: due to COPD exacerbation not needing oxygen so far (4) GERD without esophagitis: Onset Date: 06/17/19 Code(s): K21.9 - Gastro-esophageal reflux disease without esophagitis Status: Acute (5) Type 2 diabetes mellitus with diabetic neuropathy, unspecified: Qualifiers: Diabetes mellitus senior care insulin use: with senior care use Qualified Code(s): E11.40 - Type 2 diabetes mellitus with diabetic neuropathy, unspecified; Z79.4 - roasterman (current) use of insulin Code(s): E11.40 - Type 2 diabetes mellitus with diabetic neuropathy, unspecified Status: Acute Assessment and Plan: basal Lantus 30 units with pre meal insulin 8 units continue metformin (6) Degenerative joint disease (DJD) of hip: Qualifiers: Osteoarthritis type: primary Laterality: right Qualified Code(s): M16.11 - Unilateral primary osteoarthritis, right hip Code(s): M16.9 - Osteoarthritis of hip, unspecified Status: Acute Assessment and Plan: analgesics as needed (7) Hepatic steatosis: Code(s): K76.0 - Fatty (change of) liver, not elsewhere classified Status: Acute Assessment and Plan: due to morbid obesity (8) Fibromyalgia: Onset Date: 06/17/19 Code(s): M79.7 - Fibromyalgia Status: Acute Assessment and Plan: analgesics as needed may benefit from physical therapy pending COVID-19 testing (9) Obstructive sleep apnea (adult) (pediatric): Code(s): G47.33 - Obstructive sleep apnea (adult) (pediatric) Status: Acute Subjective Date/time seen: 11/02/20 17:42 Interval history: Pt is having sore throat cough and heartburn. pt feels sob when she walks, home oxygen assessment tomorrow and discharge. pt is covid positive but not requiring oxygen. pt states she does not feel well enough to leave today Review of Systems Review of Systems: All systems reviewed & are unremarkable except as noted in HPI and below Exam Narrative: Exam Narrative: HEENT: EOMI, Bernadine, wet cough NECK: No JVD CHEST: Normal respiratory pattern on RA HEART: NL S1/S2, regular, no murmur ABDOMEN: BS+, soft, nontender, no mass, no bruits EXTREMITIES: No cyanosis, edema, or clubbing NEUROLOGIC: CN intact and symmetric to inspection. MUSCULOSKELETAL: Tone and strength symmetric. PSYCH: Alert. Oriented to person, place, and time. Objective Data Vital Signs Vital Signs: Vital Signs - 24 hr 11/01/20 20:00 11/01/20 21:00 11/01/20 21:55 Temperature 36.4 C L Pulse Rate 86 96 Respiratory Rate 20 Blood Pressure 136/45 L Pulse Oximetry 97 96 11/01/20 23:48 11/02/20 04:00 11/02/20 05:43 Temperature 36.3 C L 36.6 C 36.9 C Pulse Rate 73 85 84 Respiratory Rate 22 H 20 20 Blood Pressure 109/56 L 128/51 L 137/56 L Pulse Oximetry 96 97 97 11/02/20 08:30 11/02/20 08:58 11/02/20 12:00 Temperature 38.0 C H 38.0 C H 37.1 C Pulse Rate 93 93 95 Respiratory Rate 20 18 Blood Pressure 108/48 L 106/49 L Pulse Oximetry 91 93 11/02/20 16:30 Temperature 36.4 C L Pulse Rate 99 Respiratory Rate 20 Blood Pressure 134/66 Pulse Oximetry 94
[2020-11-02] MEDS: ENOXAPARIN 40 MG/0.4 ML SYRINGE SUB-Q (17:54)
[2020-11-02] MEDS: INSULIN ASPART (*BKC) 100 UNITS/ML 8 UNITS SUB-Q (17:55)
[2020-11-02] MEDS: BENZONATATE 100 MG CAPSULE PO (18:49)
[2020-11-02] MEDS: INSULIN GLARGINE (*BKC) 100 UNITS/ML 30 UNITS SUB-Q (21:01)
[2020-11-02] MEDS: CARBIDOPA/LEVODOPA 25/100 MG TABLET 1 TABLET PO (21:02)
[2020-11-02] MEDS: NORTRIPTYLINE HCL 25 MG CAPSULE 50 MG PO (21:13)
[2020-11-02 21:51] LABS: Glucose Point of Care 202 (65-105)
[2020-11-03] VITALS (8 sets, daily range): BP systolic 105–143; BP diastolic 50–68; PULSE 73–94; RESP 18; TEMP 36.4–37; O2SAT 90–96
[2020-11-03] MEDS: HYDROcodone/acetaminophen (*CRX) 5-325 MG TABLET 1 TAB PO ×3 (06:05→14:35)
[2020-11-03 08:17] LABS: Glucose Point of Care 125 (65-105)
[2020-11-03] MEDS: DEXAMETHASONE 2 MG TABLET 6 MG PO (10:29)
[2020-11-03] MEDS: INSULIN ASPART (*BKC) 100 UNITS/ML 8 UNITS SUB-Q ×2 (10:29→12:28)
[2020-11-03] MEDS: CLOPIDOGREL BISULFATE 75 MG TABLET PO (10:30)
[2020-11-03] MEDS: BENZONATATE 100 MG CAPSULE PO ×2 (10:30→14:42)
[2020-11-03] MEDS: CEFDINIR 300 MG CAPSULE PO (10:30)
[2020-11-03] MEDS: PANTOPRAZOLE SOD SESQUIHYDRATE 20 MG TAB PO (10:30)
[2020-11-03] MEDS: LORATADINE 10 MG TABLET PO (10:30)
[2020-11-03] MEDS: metFORMIN HCL 500 MG TABLET 1000 MG PO (10:31)
[2020-11-03] MEDS: GABAPENTIN 300 MG CAPSULE 600 MG PO (10:31)
[2020-11-03] MEDS: DULoxetine HCL 60 MG CAPSULE.DR PO (10:31)
[2020-11-03] MEDS: DOXYCYCLINE HYCLATE 100 MG TABLET PO (10:31)
[2020-11-03] MEDS: ATORVASTATIN 10 MG TABLET PO (10:31)
[2020-11-03] MEDS: METOPROLOL TARTRATE 50 MG TAB PO (10:33)
[2020-11-03] MEDS: ALBUTEROL SULFATE (*SP) AEROSOL 1 PUFF 2 PUFF INHALATION ×2 (10:33→12:28)
--- NOTE | 2020-11-03 12:11 | PM.DS ---
DS: Admitting Diagnosis Admitting Diagnosis Admitting Diagnosis: copd exacerbation, covid pui DS: Discharge Diagnosis Discharge Diagnosis (1) COPD exacerbation: Code(s): J44.1 - Chronic obstructive pulmonary disease with (acute) exacerbation Status: Acute Assessment and Plan: Pt is doing better not needing oxygen pt was on iv steroids switched to oral now. cefdinir and doxycycline added to help with wet cough continue bronchodilators and tessalon perles, abx and steroids at home. Dc feng after home oxygen assessment (2) Person under investigation for COVID-19: Code(s): Z20.828 - Contact with and (suspected) exposure to other viral communicable diseases Status: Acute Assessment and Plan: SARS-CoV-2 RT is positive Dexamethasone 6mg oral COPD and COVID (3) Hypoxia: Code(s): R09.02 - Hypoxemia Status: Resolved Assessment and Plan: home oxygen assessment prior to discharge not needing oxygen so far (4) GERD without esophagitis: Onset Date: 06/17/19 Code(s): K21.9 - Gastro-esophageal reflux disease without esophagitis Status: Acute (5) Type 2 diabetes mellitus with diabetic neuropathy, unspecified: Qualifiers: Diabetes mellitus group home insulin use: with group home use Qualified Code(s): E11.40 - Type 2 diabetes mellitus with diabetic neuropathy, unspecified; Z79.4 - longterm (current) use of insulin Code(s): E11.40 - Type 2 diabetes mellitus with diabetic neuropathy, unspecified Status: Acute Assessment and Plan: discharge on pts home regime continue metformin (6) Degenerative joint disease (DJD) of hip: Qualifiers: Osteoarthritis type: primary Laterality: right Qualified Code(s): M16.11 - Unilateral primary osteoarthritis, right hip Code(s): M16.9 - Osteoarthritis of hip, unspecified Status: Acute Assessment and Plan: analgesics as needed (7) Hepatic steatosis: Code(s): K76.0 - Fatty (change of) liver, not elsewhere classified Status: Acute Assessment and Plan: due to morbid obesity (8) Fibromyalgia: Onset Date: 06/17/19 Code(s): M79.7 - Fibromyalgia Status: Acute Assessment and Plan: analgesics as needed (9) Obstructive sleep apnea (adult) (pediatric): Code(s): G47.33 - Obstructive sleep apnea (adult) (pediatric) Status: Acute Assessment and Plan: Pt uses CPAP at home DS: Summary Hospital Course Hospital Course: Pt is having sore throat cough and heartburn. Pt is being treated for COpd excerbation and is found to be COVID positive. Pt feels sob when she walks, home oxygen assessment prior to discharge. Pt is covid positive but has not required oxygen and feels better, pt stable for discharge on oral steroids, oral ABX, albuterol inhaler and Tessalon perles. Time Spent with Patient Time attestation: Total time spent providing and/or coordinating discharge services:40 minutes on day of discharge Exam Narrative: Exam Narrative: HEENT: EOMI, wet cough NECK: No JVD CHEST: Normal respiratory pattern HEART: NL S1/S2, regular, no murmur ABDOMEN: BS+, soft, nontender, no mass, no bruits EXTREMITIES: No cyanosis, edema, or clubbing NEUROLOGIC: CN intact and symmetric to inspection. MUSCULOSKELETAL: Tone and strength symmetric. PSYCH: Alert. Oriented to person, place, and time. DS: Data Data Completed and Pending Labs on day of discharge: Labs from last 24 hours 11/03/20 11/02/20 11/02/20 07:58 21:03 16:43 POC Capillary Glucose 125 H 202 H 289 H 11/02/20 12:06 POC Capillary Glucose 195 H Discharge Plan Discharge Attending physician on discharge: Lexy Ramírez Discharging Clinician: Lexy Ramírez Anticipated Discharge Date/Time: 11/03/20 13:00 Patient Disposition: Home, Self-Care Activity: as tolerated Diet: diabetic
[2020-11-03 12:15] LABS: Glucose Point of Care 128 (65-105)
--- NOTE | 2020-11-03 15:21 | PCRCNOTE ---
HOME O2 EVAL COMPLETE, NO REQUIREMENTS
== END 2020-11-03 15:11 | disposition home or self-care (01) ==
LOC: ANHED 10-31 00:05 → ANH3MEDSUR 10-31 00:41
PROVIDERS: Emergency Medicine; Internal Medicine; Admitting Provider Student in an Organized Health Care Education/Training Program; Emergency Provider Emergency Medicine; PCP Internal Medicine; Visit Provider Family Medicine
DX: U07.1 COVID-19 (principal); J44.1 Chronic obstructive pulmonary disease with (acute) exacerbation; R09.02 Hypoxemia; E11.42 Type 2 diabetes mellitus with diabetic polyneuropathy; E78.5 Hyperlipidemia, unspecified; G47.33 Obstructive sleep apnea (adult) (pediatric); K21.9 Gastro-esophageal reflux disease without esophagitis; K76.0 Fatty (change of) liver, not elsewhere classified; M79.7 Fibromyalgia; M16.11 Unilateral primary osteoarthritis, right hip; Z79.4 Long term (current) use of insulin; Z96.642 Presence of left artificial hip joint; Z87.891 Personal history of nicotine dependence; Z95.5 Presence of coronary angioplasty implant and graft
CPT/HCPCS: 36415; 71045; 80048; 80053; 82728; 83615; 84484; 85025; 85027; 85380; 86140; 87635; 93005; 94618; 94640; 96372; 96374; 96375; 96376; 99285; A9270; C9803; G0378; J1100; J1650; J1815; J2930; J8540; U0003

== ENCOUNTER 2021-01-25 08:08 | Outpatient (CLI) | payer OTHER, SELFPAY ==
--- NOTE | ~2021-01-25 | MM_ITS ---
EXAMINATION: MM screening esthela BI w charla HISTORY: Screening mammogram TECHNIQUE: Craniocaudal and mediolateral oblique 3-D tomosynthesis images were obtained and synthetic 2-D images were generated. CAD analysis was submitted and interpreted. COMPARISON: 08/27/2019, 07/16/2018, 06/06/2017 bilateral digital screening mammogram examinations BREAST PARENCHYMAL COMPOSITION: The breasts are almost entirely fatty. FINDINGS: There is no evidence of suspicious mass, calcification, or architectural distortion to sugg est malignancy in either breast. There has been no suspicious interval change. IMPRESSION: 1. No mammographic evidence of malignancy. 2. Recommend routine screening mammography in one year. BI-RADS Category 1: Negative Reviewed, dictated and finalized at location A. ER OPERATOR
== END 2021-01-25 08:09 | disposition home or self-care (01) ==
LOC: ANHIMG 08:12
PROVIDERS: PCP Internal Medicine; Visit Provider Surgery
DX: Z12.31 Encounter for screening mammogram for malignant neoplasm of breast (principal)
CPT/HCPCS: 77063; 77067

== ENCOUNTER → 2021-03-26 01:07 | Outpatient (CLI) | payer OTHER, SELFPAY ==
[2021-03-27 14:52] LABS: SARS-CoV-2 RNA PCR Negative
== END ==
PROVIDERS: PCP Internal Medicine; Visit Provider Internal Medicine Gastroenterology
DX: Z01.812 Encounter for preprocedural laboratory examination (principal); Z20.822 Contact with and (suspected) exposure to COVID-19
CPT/HCPCS: C9803; U0003; U0005

== ENCOUNTER 2021-03-30 00:26 | Day surgery (SDC) | payer OTHER, SELFPAY ==
[2021-03-22 11:53] VITALS: BMI 42.5
[2021-03-30 07:30] VITALS: BP 138/76; PULSE 104; RESP 19; TEMP 36.9; O2SAT 97; BMI 41.1
--- NOTE | 2021-03-30 07:35 | WPDANESEPPF ---
Anes - Initial Pre Proc Eval Procedure: Operation Date: 03/30/21 08:30 Proposed Procedures p Screening Colonoscopy - Rinku Zavala MD Date/Time: 03/30/21 07:35 Surgeon: Rinku Zavala MD Pre Op Diagnosis: hx colon polyps Patient Data Age: 60 Gender: F Height: 1.6 m Weight: 105.2 kg Last Vital Signs Temp 36.9 C 03/30/21 07:30 Pulse 104 H 03/30/21 07:30 Resp 19 03/30/21 07:30 BP 138/76 03/30/21 07:30 Pulse Ox 97 03/30/21 07:30 Allergies Allergy/AdvReac Type Severity Reaction Status Date / Time Sulfa (Sulfonamide Allergy Mild NAUSEA AND Verified 03/30/21 07:27 Antibiotics) ITCHING Home Medications Medication Instructions Recorded Confirmed Type albuterol sulfate [Proventil HFA] 2 puff INHALATION QID PRN 11/06/19 03/30/21 History fexofenadine [Kennedi Allergy] 180 mg PO DAILY 11/06/19 03/30/21 History GlucaGen Diagnostic Kit 1 mg IM PRN PRN #1 ea 01/09/20 03/30/21 Rx flash glucose scanning reader #1 each 01/21/20 03/30/21 Rx flash glucose sensor #1 each 01/21/20 03/30/21 Rx pen needle, diabetic 31 gauge x #200 each 07/06/20 03/30/21 Rx 5/16 atorvastatin 10 mg PO DAILY 10/31/20 03/30/21 History duloxetine 60 mg PO DAILY 10/31/20 03/30/21 History gabapentin 600 mg PO BID 10/31/20 03/30/21 History metformin 1,000 mg PO BID 10/31/20 03/30/21 History nortriptyline 50 mg PO HS 10/31/20 03/30/21 History albuterol sulfate [Proventil HFA] 2 puff INHALATION QIDRT #1 inh 11/03/20 03/30/21 Rx cholecalciferol (vitamin D3) 1,250 See Rx Instructions .ROUTE 12/14/20 03/30/21 Rx mcg (50,000 unit) capsule .COMPLEX #4 capsule pantoprazole 40 mg tablet,delayed 40 mg PO QAM #90 tablet 01/13/21 03/30/21 Rx release ferrous sulfate 325 mg (65 mg 325 mg PO DAILY #90 tablet 01/14/21 03/30/21 Rx iron) tablet,delayed release baclofen 10 mg tablet See Rx Instructions .ROUTE 02/07/21 03/30/21 Rx .COMPLEX #60 tablet clopidogrel 75 mg tablet 75 mg PO DAILY #90 tablet 03/04/21 03/30/21 Rx oxycodone-acetaminophen 5 mg-325 1 tablet PO Q4H PRN #120 tablet 03/10/21 03/30/21 Rx mg tablet carbidopa-levodopa 1 tablet PO HS 03/22/21 03/30/21 History metoprolol tartrate 50 mg PO BID 03/22/21 03/30/21 History insulin glargine U-300 conc 300 See Rx Instructions .ROUTE 03/24/21 03/30/21 Rx unit/mL (3 mL) subcutaneous pen .COMPLEX #6 syr Patient hx anesthesia problems: none Family hx anesthesia problems: none PMFSH Past Medical History Medical History (Updated 03/29/21 @ 13:02 by Merritt Olivera DO) Chronic obstructive pulmonary disease, unspecified Degenerative joint disease (DJD) of hip Fibromyalgia (06/17/19) GERD without esophagitis (06/17/19) Hyperlipidemia, unspecified Nontoxic multinodular goiter Postmenopausal Restless legs syndrome Right hip pain Screening for breast cancer Type 2 diabetes mellitus with diabetic neuropathy, unspecified Vitamin D deficiency (06/17/19) Surgical History Surgical History (Updated 03/29/21 @ 13:02 by Merritt Olivera DO) H/O oophorectomy History of coronary artery stent placement x1 2006, x1 2017 History of total left hip arthroplasty Hx of section S/P MARY-BSO Family History Family History Sibling Patient's sister is in good health Patient's brother is in good health Father Family history of heart disease in male family member before age 55 Patient's father is Family history of cardiovascular disease Diabetes mellitus Mother Patient's mother is Family history of cardiovascular disease Diabetes mellitus Other Family history of arthritis Family history of malignant neoplasm Family history of tuberculosis Hypertension Social History Social History Smoking packs per day: 1.5 Smoking cigarettes per day: 30.0 Years smoked: 30 [employer]
[2021-03-30 07:47] LABS: Glucose Point of Care 177 (65-105)
[2021-03-30] MEDS: LACTATED RINGERS 1,000 ML 150 ML IV CONT (08:00)
--- NOTE | 2021-03-30 08:21 | PM.HPGS ---
History of Present Illness History of Present Illness Consent: Risks, benefits, and alternatives have been discussed and questions answered. Patient agrees to proceed with procedure. Chief complaint: hx colon polyps Narrative: Roseanna Blackwell is a 60 year old female with colon polyps 2018, due to have another colonoscopy Review of Systems Constitutional: Constitutional: Denies headache(s) and Denies weakness Eyes: Eyes: Denies blurry vision ENT: Reports Normal hearing present, Denies headache(s) and Denies neck pain Cardiovascular: Cardiovascular: Denies chest pain and Denies dyspnea Respiratory: Respiratory: Denies dyspnea Gastrointestinal: Gastrointestinal: Reports no additional gastrointestinal complaints Genitourinary: Genitourinary: Denies dysuria Musculoskeletal: Musculoskeletal: Denies neck pain Integumentary/Breasts: Skin/Breast: Denies dry skin Neurologic: Reports Normal hearing present, Denies headache(s) and Denies weakness Psychiatric: Psychiatric: Denies anxiety Endocrine: Endocrine: Denies change in body appearance Hematologic/Lymphatic: Hematologic/Lymphatic: Denies easy bleeding Allergic/Immunologic: Allergic/Immunologic: Denies urticaria PMFSH Past Medical History Medical History (Updated 03/29/21 @ 13:02 by Merritt Olivera DO) Chronic obstructive pulmonary disease, unspecified Degenerative joint disease (DJD) of hip Fibromyalgia (06/17/19) GERD without esophagitis (06/17/19) Hyperlipidemia, unspecified Nontoxic multinodular goiter Postmenopausal Restless legs syndrome Right hip pain Screening for breast cancer Type 2 diabetes mellitus with diabetic neuropathy, unspecified Vitamin D deficiency (06/17/19) Surgical History Surgical History (Updated 03/29/21 @ 13:02 by Merritt Olivera DO) H/O oophorectomy History of coronary artery stent placement x1 2006, x1 2017 History of total left hip arthroplasty Hx of section S/P MARY-BSO Family History Family History Sibling Patient's sister is in good health Patient's brother is in good health Father Family history of heart disease in male family member before age 55 Patient's father is Family history of cardiovascular disease Diabetes mellitus Mother Patient's mother is Family history of cardiovascular disease Diabetes mellitus Other Family history of arthritis Family history of malignant neoplasm Family history of tuberculosis Hypertension Social History Social History Smoking packs per day: 1.5 Smoking cigarettes per day: 30.0 Years smoked: 30 Smoking pack-years: 45.00 Smoking status: Former smoker Tobacco type: cigarettes Smoking end date: 11/19/03 Alcohol intake: never Substance use: never Substance use type: does not use Living arrangements: with family Additional living arrangements comments: Lives with 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: 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 Gender identity (if verbalized by the patient): Female Spiritual care concerns: No Meds Home Medications and Allergies Home Medications Medication Instructions Recorded Confirmed Type albuterol sulfate [Proventil HFA] 2 puff INHALATION QID PRN 11/06/19 03/30/21 History fexofenadine [Kennedi Allergy] 180 mg PO DAILY 11/06/19 03/30/21 History GlucaGen Diagnostic Kit 1 mg IM PRN PRN #1 ea 01/09/20 03/30/21 Rx flash glucose scanning reader #1 each 01/21/20 03/30/21 Rx flash glucose sensor #1 each 01/21/20 03/30/21 Rx pen needle, diabetic 31 gauge x #200 each 07/06/20 03/30/21 Rx 5/16 atorvastatin 10 mg PO DAILY 10/31/20 03/30/21 History duloxetine 60 mg PO DAILY 10/31/20 03/30/21 History gabapentin 600 mg PO BID 10/31/20 03/30/21 History metformin 1,000 mg PO BID 10/31/20 03/30/21 History nortriptyline 50 mg PO HS 10/31/2003/19
[2021-03-30 08:44] VITALS: BP 94/50; PULSE 75; RESP 14; O2SAT 95
[2021-03-30 08:54] VITALS: BP 85/57; PULSE 79; RESP 21; O2SAT 96
[2021-03-30 09:04] VITALS: BP 99/78; PULSE 74; RESP 17; O2SAT 94
== END 2021-03-30 09:10 | disposition home or self-care (01) ==
PROVIDERS: PCP Internal Medicine; Visit Provider Internal Medicine Gastroenterology
PROC: 0DJD8ZZ Inspection of Lower Intestinal Tract, Via Natural or Artificial Opening Endoscopic (ICD-10-PCS; CPT 45378; principal; 2021-03-30 08:30)
DX: Z12.11 Encounter for screening for malignant neoplasm of colon (principal); D12.4 Benign neoplasm of descending colon; K64.8 Other hemorrhoids; J44.9 Chronic obstructive pulmonary disease, unspecified; M79.7 Fibromyalgia; E78.5 Hyperlipidemia, unspecified; K21.9 Gastro-esophageal reflux disease without esophagitis; G25.81 Restless legs syndrome; E11.40 Type 2 diabetes mellitus with diabetic neuropathy, unspecified; E55.9 Vitamin D deficiency, unspecified; E04.2 Nontoxic multinodular goiter; Z95.5 Presence of coronary angioplasty implant and graft; Z87.891 Personal history of nicotine dependence; E66.01 Morbid (severe) obesity due to excess calories; Z68.41 Body mass index [BMI] 40.0-44.9, adult; Z79.51 Long term (current) use of inhaled steroids; Z79.84 Long term (current) use of oral hypoglycemic drugs; Z79.02 Long term (current) use of antithrombotics/antiplatelets; Z79.4 Long term (current) use of insulin; Z79.891 Long term (current) use of opiate analgesic
CPT/HCPCS: 45385; 82948; 88305; C9803; J2001; J2704; J7120; U0003; U0005

== ENCOUNTER → 2021-04-11 12:41 | Outpatient (CLI) | payer OTHER, SELFPAY ==
--- NOTE | ~2021-04-11 | US_ITS ---
US retroperitoneal comp 04/11/2021 13:07 Procedure: Realtime transabdominal ultrasound of the kidneys and bladder. Indication: Abdominal pain. Frequency of urination. Comparison: No prior studies for comparison. Findings: Renal echotexture is normal bilaterally without hydronephrosis, contour deforming mass or r enal calculus. The right kidney measures 10.8 cm and left kidney measures 10.4 cm. Bladder within no rmal limits. Impression: 1: Unremarkable renal ultrasound. No stones, masses or hydronephrosis. Reviewed, dictated and finalized at location A. Impression: 1: Unremarkable renal ultrasound. No stones, masses or hydronephrosis.
== END ==
PROVIDERS: PCP Internal Medicine; Visit Provider Nurse Practitioner Adult Health
DX: R10.84 Generalized abdominal pain (principal)
CPT/HCPCS: 76770

== ENCOUNTER → 2021-06-28 12:41 | Outpatient (CLI) | payer OTHER, SELFPAY ==
--- NOTE | ~2021-06-28 | US_ITS ---
EXAMINATION: US thyroid DATE: 06/28/2021 13:01 INDICATION: Nontoxic single thyroid nodule TECHNIQUE: Multiple ultrasound images of the thyroid were obtained. COMPARISON: 08/27/2019 FINDINGS: The right thyroid lobe measures 4.9 x 1.0 x 1.9 cm. The left thyroid lobe measures 4.1 x 1.0 x 1.3 c m. No interval change in a 4 mm is solid, very hypoechoic wider than tall nodule with smooth margins and without echogenic foci. (TI-RADS 4, moderately suspicious , FNA if >=1.5 cm, annual followup is >=1 cm) in the right thyroid lobe. Also unchanged in the right thyroid lobe is a 7 mm solid hypoechoi c wider than tall nodule with ill-defined margins and without echogenic foci (TI-RADS 3, mildly suspi cious , FNA if >=2.5 cm, annual followup is >=1.5 cm). Mild increase in size of a now 7 mm wider than tall, solid very hypoechoic nodule with ill-defined margins in the left thyroid lobe, also TI RADS 4 . IMPRESSION: 1. No significant change in several small bilateral thyroid nodules, all of which remain below size c riteria for recommendation of either biopsy or follow-up. Reviewed, dictated and finalized at location A. IMPRESSION: 1. No significant change in several small bilateral thyroid nodules, all of whi ch remain below size criteria for recommendation of either biopsy or follow-up.
== END ==
PROVIDERS: PCP Internal Medicine; Visit Provider Nurse Practitioner
DX: E04.1 Nontoxic single thyroid nodule (principal)
CPT/HCPCS: 76536

== ENCOUNTER → 2021-07-19 15:15 | Outpatient (REF) | payer OTHER, SELFPAY | LOC: ANHLAB 15:15 | PROVIDERS: PCP Internal Medicine; Visit Provider Nurse Practitioner | DX: L82.1 Other seborrheic keratosis (principal) | CPT/HCPCS: 88305 ==

== ENCOUNTER → 2021-07-21 15:19 | Outpatient (CLI) | payer OTHER, SELFPAY ==
--- NOTE | ~2021-07-21 | XR_ITS ---
EXAMINATION: XR foot RT min 3V DATE: 07/21/2021 15:50 INDICATION: Right foot hammertoe. TECHNIQUE: 3 views of right foot standing were obtained. COMPARISON: None. FINDINGS: There is flexion of some of the interphalangeal joints of the lesser toes. There is mild os teoarthritis of first through fourth metatarsophalangeal joints and some of the interphalangeal joint s and midfoot joints. There are enthesophytes at the posterior and plantar aspects of calcaneal tuber osity. IMPRESSION: 1. Polyarticular osteoarthritis. Reviewed, dictated and finalized at location A.
--- NOTE | ~2021-07-21 | XR_ITS ---
EXAMINATION: XR foot LT min 3V DATE: 07/21/2021 15:50 INDICATION: Left foot hammertoe. TECHNIQUE: 3 views of left ascending were obtained. COMPARISON: None. FINDINGS: There is flexion of some of the interphalangeal joints of the lesser toes. No fracture. The re is moderate osteoarthritis of first metatarsophalangeal joint and mild osteoarthritis of second-fo urth metatarsophalangeal joints and some of the interphalangeal joints and midfoot joints. There is m oderate osteoarthritis of talonavicular joint. There are enthesophytes at the posterior and plantar a spects of calcaneal tuberosity. IMPRESSION: 1. Polyarticular osteoarthritis. Reviewed, dictated and finalized at location A.
== END ==
PROVIDERS: Visit Provider Podiatrist Foot & Ankle Surgery
DX: M20.42 Other hammer toe(s) (acquired), left foot (principal); M20.41 Other hammer toe(s) (acquired), right foot; M15.9 Polyosteoarthritis, unspecified
CPT/HCPCS: 73630

== ENCOUNTER → 2021-10-03 12:40 | Outpatient (CLI) | payer OTHER, SELFPAY ==
--- NOTE | ~2021-10-03 | XR_ITS ---
XR foot LT min 3V DATE: 10/03/2021 14:07 INDICATION: Bilateral foot pain TECHNIQUE: 3 views COMPARISON: 07/21/2021 left foot FINDINGS: There is osteoarthritic change at the first metatarsophalangeal joint and tarsal joints. There is prominent plantar and posterior calcaneal enthesopathy. No recent fracture or dislocation, periosteal reaction or bone destruction. Pro able postoperative change at the second digit proximal and middle phalanges. IMPRESSION: Osteoarthritis Calcaneal enthesopathy Reviewed, dictated and finalized at location A. CAL BILLING REPRESENTATIVE
--- NOTE | ~2021-10-03 | XR_ITS ---
XR foot RT min 3V DATE: 10/03/2021 13:18 INDICATION: Bilateral foot pain TECHNIQUE: 3 views COMPARISON: None FINDINGS: A K wire extends longitudinally in the distal aspect of the second digit to the midshaft of the proximal phalanx. No fracture or dislocation is detected. There is mild osteoarthritis at the first metatarsophalangeal joint. There is osteoarthritis at the tarsal and tarsal metatarsal joints. Prominent plantar and posterior calcaneal enthesopathy. IMPRESSION: K wire of second digit Plantar and posterior calcaneal enthesopathy Osteoarthritic changes Reviewed, dictated and finalized at location A. AL SERVICES OFFICER
== END ==
PROVIDERS: Visit Provider Podiatrist Foot & Ankle Surgery
DX: M19.072 Primary osteoarthritis, left ankle and foot (principal); M77.32 Calcaneal spur, left foot; M19.071 Primary osteoarthritis, right ankle and foot; M77.31 Calcaneal spur, right foot
CPT/HCPCS: 73630

== ENCOUNTER → 2021-10-17 11:30 | Outpatient (CLI) | payer OTHER, SELFPAY ==
--- NOTE | ~2021-10-17 | XR_ITS ---
EXAMINATION: XR foot LT min 3V DATE: 10/17/2021 12:08 INDICATION: Hammertoe. TECHNIQUE: 3 views of left foot standing were obtained. COMPARISON: Left foot radiographs 10/03/2021 FINDINGS: Pes planus is noted. There are changes of arthrodesis procedure at second proximal interpha langeal joint. No fracture. There is mild osteoarthritis of first and second metatarsophalangeal join t and some of the interphalangeal joints. There is moderate osteoarthritis of talonavicular joint and mild osteoarthritis of some of the other midfoot joints. There are enthesophytes at the posterior an d plantar aspects of calcaneal tuberosity. IMPRESSION: 1. Arthrodesis procedure of second proximal interphalangeal joint. 2. Polyarticular osteoarthritis. 3. Pes planus. Reviewed, dictated and finalized at location A. UNTING MACHINE SERVICER
--- NOTE | ~2021-10-17 | XR_ITS ---
EXAMINATION: XR foot RT min 3V DATE: 10/17/2021 12:08 INDICATION: Hammertoe. TECHNIQUE: 3 views of right foot standing were obtained. COMPARISON: Right foot radiographs 10/03/2021 FINDINGS: Pes planus is noted. There are changes of resection of the heads of the second and third pr oximal phalanges. There is a percutaneous wire through second distal, middle, and proximal phalanges. No fracture. There is moderate osteoarthritis of talonavicular joint. There is mild osteoarthritis o f many of the midfoot and forefoot joints. There are enthesophytes at the posterior and plantar aspec ts of calcaneal tuberosity. IMPRESSION: 1. Wire fixation of second digit. 2. Polyarticular osteoarthritis. 3. Pes planus. Reviewed, dictated and finalized at location A. TAPER HELPER
== END ==
PROVIDERS: PCP Internal Medicine; Visit Provider Podiatrist Foot & Ankle Surgery
DX: M20.42 Other hammer toe(s) (acquired), left foot (principal); M20.41 Other hammer toe(s) (acquired), right foot
CPT/HCPCS: 73630

== ENCOUNTER → 2021-10-27 11:17 | Outpatient (CLI) | payer OTHER, SELFPAY ==
--- NOTE | ~2021-10-27 | XR_ITS ---
EXAMINATION: XR foot LT min 3V, XR foot RT min 3V DATE: 10/27/2021 12:00 INDICATION: Follow-up bilateral hammertoe surgeries. TECHNIQUE: 1. Standing dorsal plantar, oblique and lateral views of the affected foot were obtained. 2. Standing dorsal plantar, oblique and lateral views of the affected foot were obtained. COMPARISON: None. FINDINGS: Left foot: Pes planus. No fracture. Osteotomy at the head of the left second proximal phalanx consistent with pr ovided history of prior hammertoe correction. Lucent fixation pin tract seen extending across the rem aining head of the second proximal phalanx in the mid and distal phalanges. Polyarticular osteoarthri tis, mild to moderate at the talonavicular joint and mild at the ankle and many of the remaining join ts throughout the left foot. Moderate to large Achilles and plantar calcaneal spurs. Additional smaller enthesophytes at the dorsal aspect of the tarsal bones. Right foot: Pes planus and hindfoot valgus. Osteotomies at the heads of the right second and third metatarsals fo r hammertoe corrections with additional residual lucent fixation pin tracks at the second and third t oes. Relatively symmetric pattern of polyarticular osteoarthritis the right foot, mild to moderate at the talonavicular and ankle joints and mild at many of the remaining joints throughout the right rekha t. Similar there is also asymmetric moderate to large Achilles and plantar calcaneal spurs. Additiona l smaller enthesophytes at the dorsal aspect of the tarsal bones. IMPRESSION: 1. Expected appearance of osteotomies for hammertoe corrections at the left second and right second a nd third proximal phalanges. 2. Bilateral pes planus and mild right hindfoot valgus. 3. Relatively symmetric bilateral mild to moderate polyarticular osteoarthritis at the feet and ankle s. 4. Relatively symmetric moderate to large Achilles and plantar calcaneal spurs. Reviewed, dictated and finalized at location B. SHER HOT STRIP IMPRESSION: 1. Expected appearance of osteotomies for hammertoe corrections at the left sec ond and right second and third proximal phalanges. 2. Bilateral pes planus and mild right hindfoot valgus. 3. Relatively symmetric bilateral mild to moderate polyarticular osteoarthritis at the feet and ankles. 4. Relatively symmetric moderate to large Achilles and plantar calcaneal spurs.
== END ==
PROVIDERS: Visit Provider Podiatrist Foot & Ankle Surgery
DX: M20.42 Other hammer toe(s) (acquired), left foot (principal); M20.41 Other hammer toe(s) (acquired), right foot
CPT/HCPCS: 73630

== ENCOUNTER → 2021-11-14 13:31 | Outpatient (CLI) | payer OTHER, SELFPAY ==
--- NOTE | ~2021-11-14 | CT_ITS ---
EXAMINATION: CT abdomen wo con DATE: 11/14/2021 13:47 INDICATION: Generalized abdominal pain TECHNIQUE: Computed tomography (CT) of the abdomen was performed without intravenous contrast. The do se-length product (DLP) was 747.97 mGy-cm. Automated exposure control and iterative reconstruction te chnique were employed. COMPARISON: 07/12/2020 FINDINGS: The lung bases are clear. The heart size is normal. Punctate calcification in an otherwise normal liver likely represents healed granulomatous disease. The spleen, pancreas, gallbladder, and a drenal glands are normal. The kidneys are unremarkable. There are no pathologically enlarged abdomina l lymph nodes. There is no free intraperitoneal gas or evidence of bowel obstruction. There is modera te thoracolumbar spondylosis. There is a circumscribed area of fat attenuation to the right of midli ne in the anterior right upper abdominal wall likely reflecting a small area of fat necrosis, possibl y related to prior trauma. IMPRESSION: 1. No CT correlate for the patient's symptoms. Reviewed, dictated and finalized at location F. ER MACHINE HAND
== END ==
PROVIDERS: PCP Internal Medicine; Visit Provider Internal Medicine
DX: R10.9 Unspecified abdominal pain (principal)
CPT/HCPCS: 74150

== ENCOUNTER → 2021-12-06 09:02 | Outpatient (CLI) | payer OTHER, SELFPAY ==
--- NOTE | ~2021-12-06 | XR_ITS ---
EXAMINATION: XR foot RT min 3V EXAM DATE: 12/06/2021 09:34 INDICATION: Arthrodesis 2nd toe, hammertoe bilateral TECHNIQUE: Right foot dorsoplantar, lateral and oblique projections obtained and reviewed. Images o btained standing. Comparison is made to prior examination from 10/27/2021. FINDINGS: Right metatarsal bones unremarkable. Surgical changes right 2nd, 3rd proximal phalangeal h johana again noted. Pes planus. Moderate sized inferior, small posterior calcaneal spurs. Mild to moder ate polyarticular midfoot Polyarticular osteoarthritis. There are no acute fractures or dislocations identified. There is no subcutaneous gas. The soft tissue is unremarkable. There are no radiopaqu e foreign bodies. IMPRESSION: Pes planus. Surgical changes. Polyarticular osteoarthritis. Reviewed, dictated and finalized at location G. FINISHER
--- NOTE | ~2021-12-06 | XR_ITS ---
EXAMINATION: XR foot LT min 3V DATE: 12/06/2021 09:34 INDICATION: Hammertoe correction width arthrodesis at the left second proximal interphalangeal joint. TECHNIQUE: Dorsoplantar, oblique and lateral views of the left foot were obtained. COMPARISON: 10/27/2021 and 10/03/2021 FINDINGS: Mild pes planus. Again seen is an osteotomy at the head of the left second proximal phalanx with luce nt tract from a prior fixation pin extending across the middle phalanx into the neck of the proximal phalanx. The second proximal interphalangeal joint. Remain ununited with residual lucency and no evid ent osseous bridging on the lateral projection which profiles the joint space. No fracture. Mild to m oderate osteoarthritis of the talonavicular joint and mild osteoarthritis at the left ankle and multi ple joints in the remainder of the left foot. Achilles and plantar calcaneal spurs. IMPRESSION: 1. Osteotomy for hammertoe correction at the head of the left second proximal phalanx without evident fusion across the second proximal interphalangeal joint space. Reviewed, dictated and finalized at location A. PERFORMANCE SUPPORT ANALYST IMPRESSION: 1. Osteotomy for hammertoe correction at the head of the left second proximal p halanx without evident fusion across the second proximal interphalangeal joint space.
== END ==
PROVIDERS: PCP Internal Medicine; Visit Provider Podiatrist Foot & Ankle Surgery
DX: M20.41 Other hammer toe(s) (acquired), right foot (principal); M20.42 Other hammer toe(s) (acquired), left foot
CPT/HCPCS: 73630

== ENCOUNTER 2022-03-16 07:23 | Outpatient (CLI) | payer OTHER, SELFPAY ==
--- NOTE | ~2022-03-16 | XR_ITS ---
EXAMINATION: XR UGIAC w barium swallow DATE: 03/16/2022 08:26 INDICATION: Dysphagia. TECHNIQUE: The patient drank thick barium, gas-producing crystals, and thin barium. Fluoroscopy of th e esophagus, stomach, and proximal small bowel was performed. Fluoroscopy exposure time was 0.6 minut es. The total number of images was 279. Total dose-area product was 3.0 Gy-cm^2. COMPARISON: Chest CT 03/16/2022 FINDINGS: There is no mass or stricture of the esophagus. Esophageal motility is normal. There is no hiatal hernia. The stomach and proximal small bowel show normal folding patterns. IMPRESSION: 1. Normal esophagram and upper gastrointestinal series. Reviewed, dictated and finalized at location A.
--- NOTE | ~2022-03-16 | CT_ITS ---
EXAMINATION: CT lung screening DATE: 03/16/2022 07:54 INDICATION: Z87.891 - Personal history of nicotine dependence TECHNIQUE: Computed tomography (CT) of the chest was performed without intravenous contrast. Addition al 3D reconstructions utilizing coronal maximum intensity projection (MIP) were performed. Automated exposure control and iterative reconstruction technique were employed. The dose-length product was 38 1.56 mGy-cm. COMPARISON: 08/17/2007 FINDINGS: Lungs are clear with no suspicious pulmonary nodules, pneumonia, pulmonary edema or pleural effusion. Heart size is normal. Atherosclerotic coronary artery calcification. No pericardial effusion. Thorac ic aorta is normal in caliber. No pathologically enlarged thoracic lymphadenopathy. Small hepatic liliane cific lesions consistent with old granulomatous disease. There are bridging osteophytes at multiple l evels in the spine, consistent with diffuse idiopathic skeletal hyperostosis (DISH). IMPRESSION: 1. . Lung-RADS category 1: Negative. Continue annual screening with noncontrast low-dose chest CT in 12 months. Reviewed, dictated and finalized at location B.
== END 2022-03-16 07:24 | disposition home or self-care (01) ==
PROVIDERS: PCP Internal Medicine; Visit Provider Nurse Practitioner
DX: Z12.2 Encounter for screening for malignant neoplasm of respiratory organs (principal); Z87.891 Personal history of nicotine dependence; R13.10 Dysphagia, unspecified
CPT/HCPCS: 71271; 74246

== ENCOUNTER 2023-01-04 08:00 | Outpatient (CLI) | payer OTHER, SELFPAY ==
--- NOTE | ~2023-01-04 | MM_ITS ---
EXAMINATION: MM screening esthela BI w charla HISTORY: Screening mammogram TECHNIQUE: Craniocaudal and mediolateral oblique 3-D tomosynthesis images were obtained and synthetic 2-D images were generated. CAD analysis was submitted and interpreted. COMPARISON: 01/25/2021, 08/27/2019, 07/16/2018 bilateral screening mammogram examinations BREAST PARENCHYMAL COMPOSITION: The breasts are almost entirely fatty. FINDINGS: There is no evidence of suspicious mass, calcification, or architectural distortion to sugg est malignancy in either breast. There has been no suspicious interval change. IMPRESSION: 1. No mammographic evidence of malignancy. 2. Recommend routine screening mammography in one year. BI-RADS Category 1: Negative Reviewed, dictated and finalized at location A. STAPLER
== END 2023-01-04 08:01 | disposition home or self-care (01) ==
LOC: ANHIMG 08:01
PROVIDERS: PCP Internal Medicine; Visit Provider Nurse Practitioner
DX: Z12.31 Encounter for screening mammogram for malignant neoplasm of breast (principal)
CPT/HCPCS: 77063; 77067

== ENCOUNTER → 2023-04-18 11:37 | Outpatient (CLI) | payer OTHER, SELFPAY ==
--- NOTE | ~2023-04-18 | XR_ITS ---
EXAM: XR soft tissue neck DATE: 04/18/2023 12:55 HISTORY: R05.9 - Cough, unspecified . COMPARISON: None available. FINDINGS: Normal airway soft tissues. Normal mineralization. No fracture or dislocation. No abnormal intracranial calcification. Aerated spaces are clear. Clear lung apices. Generative changes in the c ervical spine. IMPRESSION: Normal airway soft tissues. Reviewed, dictated and finalized at location K. IMPRESSION: Normal airway soft tissues.
--- NOTE | ~2023-04-18 | XR_ITS ---
Clinical Indication: COPD PA and lateral views of the chest: Comparison: 10/30/2020 Findings: The lungs are clear, without evidence of focal consolidation or pleural effusion. Cardiome diastinal silhouette is within normal limits. Bones and soft tissues are unremarkable. Impression: Normal chest. Reviewed, dictated and finalized at [facility]. Impression: Normal chest.
== END ==
PROVIDERS: PCP Family Medicine; Visit Provider Nurse Practitioner Family
DX: E04.1 Nontoxic single thyroid nodule (principal); J44.1 Chronic obstructive pulmonary disease with (acute) exacerbation; R05.9 Cough, unspecified
CPT/HCPCS: 70360; 71046

== ENCOUNTER → 2023-04-23 10:39 | Outpatient (CLI) | payer OTHER, SELFPAY ==
--- NOTE | ~2023-04-23 | US_ITS ---
EXAMINATION: US thyroid DATE: 04/23/2023 11:32 INDICATION: Nontoxic single thyroid nodule. TECHNIQUE: Multiple ultrasound images of the thyroid were obtained. COMPARISON: Ultrasound 03/28/2021, 07/16/2018 FINDINGS: The right thyroid lobe measures 5.1 x 1.1 x 1.3 cm. The left thyroid lobe measures 4.4 x 1.1 x 1.0 c m. In the left thyroid lobe, there is a 7 mm solid, very hypoechoic, wider than tall nodule with lob ulated margin without echogenic foci (TI-RADS TR5), stable from 07/16/18. In the right thyroid lobe, t here is a 6 mm solid, very hypoechoic, more than tall nodule with smooth margin without echogenic foc i (TR4). In the left thyroid lobe, there is a 3 mm nodule. IMPRESSION: 1. Small thyroid nodules, likely not clinically significant. No follow-up is needed. Reviewed, dictated and finalized at location A. IMPRESSION: 1. Small thyroid nodules, likely not clinically significant. No follow-up is ne eded.
== END ==
PROVIDERS: PCP Nurse Practitioner Family; Visit Provider Nurse Practitioner Family
DX: E04.2 Nontoxic multinodular goiter (principal)
CPT/HCPCS: 76536

== ENCOUNTER 2023-05-30 08:57 | Outpatient (CLI) | payer OTHER, SELFPAY ==
[2023-05-30 09:05] VITALS: PULSE 80; O2SAT 95
[2023-05-30 09:10] VITALS: PULSE 96; O2SAT 92
[2023-05-30 09:15] VITALS: PULSE 82; O2SAT 94
--- NOTE | 2023-05-30 09:34 | HOMEO2EVAL ---
Evaluation was performed at [facility] Home Oxygen Evaluation RC: Home Oxygen (O2) Evaluation Start: 05/30/23 09:30 Freq: Status: Active Protocol: RPE Activity Type Activity Date Activity User E-sign Co-sign Detail Recorded Client Recorded Date Recorded By Document 05/30/23 09:05 DJO [email or web address] 05/30/23 09:34 DJO Document 05/30/23 09:10 DJO [id number] 05/30/23 09:34 DJO Document 05/30/23 09:15 DJO [email or web address] 05/30/23 09:34 DJO 05/30/23 05/30/23 05/30/23 09:05 09:10 09:15 Home O2 Evaluation [Oxygen] -Test Phase Resting Exercise Resting -Oxygen Delivery Room Air Room Air Room Air [Pulse Oximetry] -Pulse Oximetry (90-100 %) 95 92 94 [Pulse Rate] -Pulse Rate (60-100 beats/min) 80 96 82 [Evaluation] -Activity Tolerance Poor [Exercise] -Ambulation Distance (feet) 120 -Ambulation Distance (meters) 36.57 [Comments] -Home Oxygen Evaluation Comments PT ORDERED ON A 6 MINUTE WALK. PT WAS ONLY ABLE TO WALK 2 MINUTES AND HAD TO STOP DUE TO WEAKNESS. PT WALKED WITH A CANE. [Charges] -Treatment Charges O2 Evaluation - Outpatient
--- NOTE | 2023-06-01 15:42 | WPDPFTINT ---
PFT Procedure Performed PFT Procedure Performed Spirometry with Pre/Post Bronchodilator Plethysmography (Lung Vol) Diffusing Cap (DLCO) Flow Vol Loop PFT Interpretation DOS: 05/30/2023 REQUESTING: Fatoumata Espino PA-C REASON FOR TESTING: Cough PULMONARY FUNCTION TESTS Results are reliable and reproducible. Spirometry: Pre bronchodilator FEV1 is 1.43 L, 61%, decreased. Pre bronchodilator FEV1 is 1.79 L, 60%, reduced. FEV1/FVC ratio is 80, normal. After bronchodilator there is a 9% increase in FEV1, 1.56 L, 67% predicted, not significant increased. After bronchodilator there is a 5% increase in the FVC, 1.88 L, 63% predicted, insignificant increase. Lung volumes: Total lung capacity is 3.37 L, 69%, below normal, consistent with a restrictive pattern. Residual volume is 1.57 L, 79% predicted, normal. RV/TLC is 47%, in the normal range. Diffusion: DLCO is 13.8, 66% predicted, below normal. DLCO/VA is 5.49 L, 123%, normal. Flow volume loop: This shows a restrictive pattern. IMPRESSION: This study shows a mild restrictive pattern, no obvious obstruction, a mild decrease in diffusion that corrects for alveolar volume, without response to bronchodilator. Restriction can mask obstruction. No prior studies for comparison, clinical correlation is recommended. Althea Low MD
== END 2023-05-30 08:58 | disposition home or self-care (01) ==
LOC: ANHPFT 08:58
PROVIDERS: PCP Family Medicine; Visit Provider Physician Assistant
DX: J44.9 Chronic obstructive pulmonary disease, unspecified (principal); R94.2 Abnormal results of pulmonary function studies
CPT/HCPCS: 94060; 94618; 94726; 94729

== ENCOUNTER → 2023-06-07 11:48 | Outpatient (CLI) | payer OTHER, SELFPAY ==
--- NOTE | ~2023-06-07 | XR_ITS ---
Left foot Technique: AP, oblique, and lateral views were obtained. Clinical History: [facility] COMPARISON: 12/06/2021 Findings: No acute fracture or dislocation is seen. Osseous alignment is anatomic. Mild degenerative change of the first metatarsophalangeal joint is similar to prior exam. There is stable lucent change s about the second PIP joint. Plantar calcaneal spur is present. Degenerative changes of the talonavi cular articulation noted.. Soft tissues are unremarkable. Impression: Degenerative changes, as above, particularly the talonavicular articulation and first MTP joint, esse ntially stable from prior exam. Stable lucency about the second PIP joint, which could be postoperative in nature. Reviewed, dictated and finalized at location M. Impression: Degenerative changes, as above, particularly the talonavicular articulation and first MTP joint, essentially stable from prior exam. Stable lucency about the second PIP joint, which could be postoperative in natu re.
== END ==
PROVIDERS: PCP Podiatrist Foot & Ankle Surgery; Visit Provider Podiatrist Foot & Ankle Surgery
DX: M20.42 Other hammer toe(s) (acquired), left foot (principal); M19.072 Primary osteoarthritis, left ankle and foot
CPT/HCPCS: 73630

== ENCOUNTER 2023-06-27 01:38 | Day surgery (SDC) | payer OTHER, SELFPAY ==
[2023-06-19 09:59] VITALS: BMI 40.8
[2023-06-27 07:16] VITALS: BP 148/82; PULSE 76; RESP 18; TEMP 36.3; O2SAT 97; BMI 38.8
[2023-06-27] MEDS: LACTATED RINGERS 1,000 ML 150 ML IV CONT (07:32)
[2023-06-27 07:33] LABS: Glucose Point of Care 123 mg/dl (65-105)
--- NOTE | 2023-06-27 08:00 | WPDANESEPPF ---
Anes - Initial Pre Proc Eval Procedure: Operation Date: 06/27/23 08:30 Proposed Procedures p Esophagogastroduodenoscopy - Rinku Zavala MD Date/Time: 06/27/23 08:00 Surgeon: Rinku Zavala MD Pre Op Diagnosis: GERD, Dysphagia Patient Data Age: 63 Gender: F Height: 1.6 m Weight: 99.5 kg Last Vital Signs Temp 97.3 F L 06/27/23 07:16 Pulse 76 06/27/23 07:16 Resp 18 06/27/23 07:16 BP 148/82 H 06/27/23 07:16 Pulse Ox 97 06/27/23 07:16 O2 Del Method Room Air 06/27/23 07:16 Allergies Allergy/AdvReac Type Severity Reaction Status Date / Time Sulfa (Sulfonamide Allergy Intermediate Itching Verified 06/27/23 07:14 Antibiotics) Home Medications Medication Instructions Recorded Confirmed Type blood sugar diagnostic (Contour #100 ea 12/20/21 06/27/23 Rx Next Test Strips) pen needle, diabetic 31 gauge x #200 ea 06/15/22 06/27/23 Rx 5/16 (Comfort EZ Pen Jesse) albuterol sulfate 90 mcg/actuation 2 puff inhalation QID PRN 10/27/22 06/27/23 Rx aerosol inhaler (Proventil HFA) Shortness Of Breath #8.5 grams cholecalciferol (vitamin D3) 1,250 See Rx Instructions .Route 11/08/22 06/27/23 Rx mcg (50,000 unit) capsule .COMPLEX #4 caps fexofenadine 180 mg tablet 180 mg PO DAILY 12/28/22 06/27/23 History (Kennedi Allergy) insulin glargine U-300 conc 300 See Rx Instructions .Route .COMPLEX 12/28/22 06/27/23 History unit/mL (3 mL) subcutaneous pen (Toujeo Max U-300 SoloStar) tolterodine 4 mg capsule,extended 4 mg PO DAILY #90 caps 01/22/23 06/27/23 Rx release 24 hr atorvastatin 10 mg tablet 10 mg PO DAILY #90 tabs 02/12/23 06/27/23 Rx duloxetine 30 mg capsule,delayed 30 mg PO QHS #90 caps 02/12/23 06/27/23 Rx release (Cymbalta) fluticasone propionate 50 2 spray intranasal DAILY #16 mL 03/12/23 06/27/23 Rx mcg/actuation nasal spray,suspension (Flonase Allergy Relief) nortriptyline 50 mg capsule 50 mg PO HS #90 caps 04/11/23 06/27/23 Rx budesonide 160 mcg-glycopyr 9 2 inh inhalation BID #10.7 grams 04/18/23 06/27/23 Rx mcg-formot 4.8 mcg/actuation HFA inhaler (Breztri Aerosphere) carbidopa 25 mg-levodopa 100 mg 1 tablet PO HS #90 tabs 04/26/23 06/27/23 Rx tablet gabapentin 600 mg tablet 600 mg PO TID #180 tabs 04/27/23 06/27/23 Rx (Neurontin) baclofen 10 mg tablet See Rx Instructions .Route 05/11/23 06/27/23 Rx .COMPLEX #90 tabs ferrous sulfate 325 mg (65 mg 325 mg PO DAILY #90 tabs 05/11/23 06/27/23 Rx iron) tablet terbinafine HCl 250 mg tablet 250 mg PO DAILY #84 tabs 05/11/23 06/27/23 Rx duloxetine 60 mg capsule,delayed 60 mg PO DAILY #90 caps 05/24/23 06/27/23 Rx release hydrocodone 7.5 mg-acetaminophen 1 tablet PO Q6H PRN pain #120 tabs 05/30/23 06/27/23 Rx 325 mg tablet semaglutide 0.25 mg or 0.5 mg (2 0.25 mg subcut WEEKLY 06/12/23 06/27/23 History mg/3 mL) subcutaneous pen injector (Ozempic) clobetasol 0.05 % scalp solution See Rx Instructions .Route 06/19/23 06/27/23 History .COMPLEX PRN Rash clopidogrel 75 mg tablet 75 mg PO DAILY 06/19/23 06/27/23 History metformin 1,000 mg tablet 1,000 mg PO BID 06/19/23 06/27/23 History metoprolol tartrate 50 mg tablet 50 mg PO BID 06/19/23 06/27/23 History pantoprazole 40 mg tablet,delayed 40 mg PO DAILY 06/19/23 06/27/23 History release Laboratory Tests 06/27/23 07:27 POC Capillary Glucose 123 H mg/dl (65-105) Patient hx anesthesia problems: none Family hx anesthesia problems: none Results Review: All pre-operative results and documents have been reviewed as part of the pre-operative evaluation. [facility] Past Medical History Medical History Adenomatous colon polyp Chronic obstructive pulmonary disease, unspecified Degenerative joint disease (DJD) of hip Essential (primary) hypertension Fibromyalgia (06/17/19) GERD without esophagitis (06/17/19) Hyperlipidemi
--- NOTE | 2023-06-27 08:06 | WPDHPUPDATE1 ---
History and Physical Update Update Date/Time: 06/27/23 08:06 History and Physical has been reviewed, including an updated exam of the patient. There are NO changes in the patient's condition. Risks, benefits, and alternatives have been discussed and questions answered. Patient agrees to proceed with procedure.
[2023-06-27 08:33] VITALS: BP 107/46; PULSE 77; RESP 13; O2SAT 94
[2023-06-27 08:43] VITALS: BP 112/53; PULSE 79; RESP 22; O2SAT 99
[2023-06-27 08:53] VITALS: BP 127/63; PULSE 76; RESP 18; O2SAT 99
[2023-06-27 09:07] LABS: Glucose Point of Care 87 mg/dl (65-105)
== END 2023-06-27 09:06 | disposition home or self-care (01) ==
PROVIDERS: PCP Family Medicine; Visit Provider Internal Medicine Gastroenterology
PROC: 0DJ08ZZ Inspection of Upper Intestinal Tract, Via Natural or Artificial Opening Endoscopic (ICD-10-PCS; CPT 43235; principal; 2023-06-27 08:30)
DX: R13.10 Dysphagia, unspecified (principal); K21.9 Gastro-esophageal reflux disease without esophagitis; J44.9 Chronic obstructive pulmonary disease, unspecified; I10 Essential (primary) hypertension; M79.7 Fibromyalgia; E78.5 Hyperlipidemia, unspecified; E11.40 Type 2 diabetes mellitus with diabetic neuropathy, unspecified; E55.9 Vitamin D deficiency, unspecified; G25.81 Restless legs syndrome; Z79.4 Long term (current) use of insulin; Z79.51 Long term (current) use of inhaled steroids; Z79.891 Long term (current) use of opiate analgesic; Z79.899 Other long term (current) drug therapy; Z79.02 Long term (current) use of antithrombotics/antiplatelets; Z79.84 Long term (current) use of oral hypoglycemic drugs; Z95.5 Presence of coronary angioplasty implant and graft; Z87.891 Personal history of nicotine dependence; E66.9 Obesity, unspecified; Z68.38 Body mass index [BMI] 38.0-38.9, adult
CPT/HCPCS: 43239; 82948; 88305; 88342; J2704; J7120

== ENCOUNTER 2023-08-30 19:17 | Observation (INO) | payer OTHER, SELFPAY ==
[2023-08-30] VITALS (22 sets, daily range): BP systolic 97–112; BP diastolic 66–76; PULSE 102–125; RESP 18–28; TEMP 37.7; O2SAT 93–100
--- NOTE | ~2023-08-30 | XR_ITS ---
XR chest 2V 08/30/2023 21:26 Indication: Fever Procedure: 2 view chest Comparison: Comparison to multiple prior studies sequentially, with oldest reviewed study dated 05/06. Findings: Borderline heart size. Bibasilar interstitial infiltrates with peribronchial thickening. No pleural effusion or pneumothorax. No acute osseous abnormality. Impression: 1: Bibasilar interstitial infiltrates with peribronchial thickening. Consider bronchitis, atypical pn eumonia and interstitial edema. Reviewed, dictated and finalized at location A. Impression: 1: Bibasilar interstitial infiltrates with peribronchial thickening. Consider b ronchitis, atypical pneumonia and interstitial edema.
--- NOTE | 2023-08-30 21:11 | ECG_ITS ---
Measurements Intervals [place] Rate: 113 P: 24 IN: 131 QRS: -2 QRSD: 101 T: 18 QT: 302 QTc: 415 Interpretive Statements SINUS TACHYCARDIA LEFT VENTRICULAR HYPERTROPHY AND ST-T CHANGE [VOLTAGE CRITERIA PLUS ST/T ABNORMALITY] ABNORMAL ECG COMPARED TO ECG 10/30/2020 22:17:55 HEART RATE INCREASED NO OTHER SIGNIFICANT CHANGE Electronically Signed On 08-31-2023 7:38:25 CDT by Augustus Medina M.D.
[2023-08-30] MEDS: LACTATED RINGERS 1,000 ML 999 ML IV CONT (21:39)
[2023-08-30 21:42] LABS: Basophils Percent Auto 0.4 % (0.2-1.2); Eosinophils Absolute Auto 0.4 K/mm3 (0-0.3); Eosinophils Percent Auto 3.8 % (0-4.4); Hematocrit 36.8 % (37.0-47.0); Hemoglobin 11.6 g/dL (12.0-15.0); Immature Granulocyte Absolute 0.07 K/mm3 (0.00-0.031); Immature Granulocyte Percent A 0.7 % (0-0.5); Lymphocytes Absolute Auto 1.14 K/mm3 (0.9-3.2); Lymphocytes Percent Auto 11.2 % (18.3-44.2); Mean Corpuscular HGB Conc 31.5 g/dl (32-36); Mean Corpuscular Hemoglobin 25.3 pg (26-34); Mean Corpuscular Volume 80.2 fl (80-100); Mean Platelet Volume 9.1 fl (7.4-10.4); Monocytes Absolute Auto 0.6 K/mm3 (0.1-0.6); Monocytes Percent Auto 6.1 % (2.6-8.5); Neutrophils Absolute Auto 7.9 K/mm3 (1.3-6.7); Neutrophils Percent Auto 77.8 % (45.5-73.1); Platelet Count Result 285 k/mm3 (150-375); Red Blood Count 4.59 M/mm3 (4.2-5.4); Red Cell Distribution Width 16.6 % (11.5-14.5); White Blood Count 10.1 K/mm3 (4.5-10.0)
[2023-08-30 21:50] LABS: Lactic Acid Reflex 2.9 mmol/L (0.7-2.0)
[2023-08-30 21:52] LABS: INR 1.1; Prothrombin Time 14.5 Seconds (11.1-14.7)
[2023-08-30 21:53] LABS: Partial Thromboplastin Time 29.2 SECONDS (22.3-36.8)
[2023-08-30 22:26] LABS: Alanine Aminotransferase 27 U/L (6-35); Albumin Level 3.9 g/dL (3.5-5.1); Alkaline Phosphatase 70 U/L (38-126); Anion Gap 12 mmol/L (8-16); Aspartate Amino Transferase 29 U/L (14-36); Bilirubin,Total 0.6 mg/dL (0.2-1.3); Blood Urea Nitrogen 12 mg/dL (7-17); CRP 4.1 mg/dL (<1.0); Calcium 8.7 mg/dL (8.4-10.2); Carbon Dioxide 24 mmol/L (22-30); Chloride 95 mmol/L (98-107); Estimated CRCL calculation 79 ml/min; Estimated Glomerular Filt Rate > 60; Glucose 152 mg/dL (65-110); Sodium 131 mmol/L (137-145)
[2023-08-30 22:36] LABS: Appearance Urine Clear (Clear); Bacteria Urine None Seen /hpf; Bilirubin Urine Negative (Negative); Blood Urine Negative (Negative); Color Urine Yellow (Yellow); Glucose Urine UA Negative (Negative); Ketones Urine Negative (Negative); Leukocyte Esterase Ur Trace LEU/UL (Negative); Nitrate Urine Negative (Negative); Non Pathogenic Casts 0-2; Protein Urine Negative (Negative); RBC Urine 0-2 /hpf (0-2); Squamous Epithelial Cell Urine None seen /hpf (Few); WBC Urine 0-5 /hpf; pH Urine 7.5 (5.0-9.0)
[2023-08-30 22:38] LABS: Add Urine Microscopic? YES
[2023-08-30] MEDS: ACETAMINOPHEN 500 MG TABLET 1000 MG PO (23:09)
[2023-08-30] MEDS: AZITHROMYCIN 500 MG/NS 250 ML 500 MG/250 ML BAG 250 MG IVPB (23:10)
--- NOTE | 2023-08-30 23:16 | ED.WEAKNESS ---
HPI - Weakness General Chief complaint: Weakness Stated complaint: weakness Time Seen by Provider: 08/30/23 21:10 Source: patient Mode of arrival: ambulatory Limitations: no limitations History of Present Illness HPI Narrative: 63-year-old female presents today with concerns for weakness, dizziness, confusion, and shakiness, not feeling well. Patient did get her COVID and flu vaccine yesterday and last night she started not feeling well. Does endorse fevers, body aches, chills, cough, runny nose, and confusion. Patient is alert and oriented upon assessment. She is tachycardic. Patient did not take her temp at home but stated she was very hot. Temp here was 98.8 oral 99.9 temporal. Patient is very warm to the touch. Denies any chest pain, or shortness of breath at this time Related Data Home Medications Medication Instructions Recorded Confirmed fexofenadine 180 mg tablet 180 mg PO DAILY 12/28/22 08/31/23 (Kennedi Allergy) clobetasol 0.05 % scalp solution See Rx Instructions .Route 06/19/23 08/31/23 .COMPLEX PRN Rash clopidogrel 75 mg tablet 75 mg PO DAILY 06/19/23 08/31/23 metformin 1,000 mg tablet 1,000 mg PO BID 06/19/23 08/31/23 metoprolol tartrate 50 mg tablet 50 mg PO BID 06/19/23 08/31/23 pantoprazole 40 mg tablet,delayed 40 mg PO DAILY 06/19/23 08/31/23 release atorvastatin 10 mg tablet 10 mg PO HS 08/31/23 08/31/23 baclofen 10 mg tablet 10 mg PO BID PRN Muscle Spasm 08/31/23 08/31/23 insulin glargine U-300 conc 300 35 unit subcut QAM 08/31/23 08/31/23 unit/mL (3 mL) subcutaneous pen (Toujeo Max U-300 SoloStar) insulin glargine U-300 conc 300 80 unit subcut HS 08/31/23 08/31/23 unit/mL (3 mL) subcutaneous pen (Toujeo Max U-300 SoloStar) Allergies Allergy/AdvReac Type Severity Reaction Status Date / Time Sulfa (Sulfonamide Allergy Intermediate Itching Verified 07/11/23 15:08 Antibiotics) Review of Systems Review of Systems: All systems reviewed & are unremarkable except as noted in HPI and below PMFSH Past Medical History Medical History Adenomatous colon polyp Chronic obstructive pulmonary disease, unspecified Degenerative joint disease (DJD) of hip Essential (primary) hypertension Fibromyalgia (06/17/19) GERD without esophagitis (06/17/19) Hyperlipidemia, unspecified Nontoxic multinodular goiter Postmenopausal Restless legs syndrome Right hip pain Screening for breast cancer Type 2 diabetes mellitus with diabetic neuropathy, unspecified Vitamin D deficiency (06/17/19) Surgical History Surgical History H/O oophorectomy History of coronary artery stent placement x1 2006, x1 2017 History of total left hip arthroplasty Hx of section S/P MARY-BSO Family History Family History Sibling Patient's sister is in good health Patient's brother is in good health Father Family history of heart disease in male family member before age 55 Patient's father is Family history of cardiovascular disease Diabetes mellitus Mother Patient's mother is Family history of cardiovascular disease Diabetes mellitus Other Family history of arthritis Family history of malignant neoplasm Family history of tuberculosis Hypertension Social History Social History Smoking packs per day: 1 Smoking cigarettes per day: 20.0 Years smoked: 30 Smoking pack-years: 30.00 Smoking status: Former smoker Tobacco type: cigarettes Second hand tobacco smoke exposure: Yes Smoking end date: 11/19/03 Alcohol intake: never Substance use: never Substance use type: does not use Lack of Transportation: No Lack of Food: Never True Current Housing: I Have Housing Concerned About Future Housing: No Difficulty Pay
--- NOTE | 2023-08-30 23:25 | PC.NURSE ---
Patient report given to KUMAR Brown. All questions answered and care of patient transferred
[2023-08-30] MEDS: ALBUTEROL SULFATE NEB 2.5 MG/3 ML INH INHALATION (23:34)
[2023-08-31] VITALS (13 sets, daily range): BP systolic 100–127; BP diastolic 48–65; PULSE 74–108; RESP 13–21; TEMP 36.6–37.4; O2SAT 94–99; BMI 42.3
[2023-08-31] MEDS: LACTATED RINGERS 1,000 ML 999 ML IV CONT (00:08)
[2023-08-31 00:37] LABS: Reflex Lactic Acid Yes or No Add Lactic
[2023-08-31 01:14] LABS: Glucose Point of Care 127 mg/dl (65-105)
[2023-08-31] MEDS: BACLOFEN 10 MG TABLET PO ×2 (01:31→20:56)
[2023-08-31] MEDS: HYDROcodone/acetaminophen (*CRX) 7.5-325 MG TABLET 1 TAB PO ×4 (01:31→20:56)
--- NOTE | 2023-08-31 01:37 | ADMGEN ---
This patient, Roseanna Blackwell, was admitted to [facility] Surg Room 327-01. Patient/family oriented to hospital policies and general routines including ID bracelet, bed and alarms, visiting hours, pain management, procedures, bathroom and other care routines, personal items, smoking policy, room service/diet, and visiting hours. Information on how to activate the Rapid Response Team has been discussed. Patient/Family are encouraged to report perceived risks to care and to ask questions if they do not understand what they are told or what they should do.
--- NOTE | 2023-08-31 03:10 | PC.NURSE ---
Pt reports hx sleep apnea, does not wear device or mask, reports that she only elevates her head when sleeping.
[2023-08-31 06:16] LABS: Basophils Percent Auto 0.3 % (0.2-1.2); Eosinophils Percent Auto 0.2 % (0-4.4); Hematocrit 32.7 % (37.0-47.0); Hemoglobin 10.1 g/dL (12.0-15.0); Immature Granulocyte Absolute 0.04 K/mm3 (0.00-0.031); Immature Granulocyte Percent A 0.7 % (0-0.5); Lymphocytes Absolute Auto 1.29 K/mm3 (0.9-3.2); Lymphocytes Percent Auto 21.3 % (18.3-44.2); Mean Corpuscular HGB Conc 30.9 g/dl (32-36); Mean Corpuscular Hemoglobin 25.1 pg (26-34); Mean Corpuscular Volume 81.1 fl (80-100); Mean Platelet Volume 9.5 fl (7.4-10.4); Monocytes Absolute Auto 0.5 K/mm3 (0.1-0.6); Monocytes Percent Auto 8.1 % (2.6-8.5); Neutrophils Absolute Auto 4.2 K/mm3 (1.3-6.7); Neutrophils Percent Auto 69.4 % (45.5-73.1); Platelet Count Result 255 k/mm3 (150-375); Red Blood Count 4.03 M/mm3 (4.2-5.4); Red Cell Distribution Width 16.8 % (11.5-14.5); White Blood Count 6.1 K/mm3 (4.5-10.0)
[2023-08-31 06:21] LABS: Lactic Acid 1.2 mmol/L (0.7-2.0)
[2023-08-31 06:24] LABS: Anion Gap 5 mmol/L (8-16); Blood Urea Nitrogen 10 mg/dL (7-17); Calcium 8.3 mg/dL (8.4-10.2); Carbon Dioxide 31 mmol/L (22-30); Chloride 98 mmol/L (98-107); Estimated CRCL calculation 83 ml/min; Estimated Glomerular Filt Rate > 60; Glucose 119 mg/dL (65-110); Potassium 3.6 mmol/L (3.4-5.0); Sodium 134 mmol/L (137-145)
[2023-08-31 07:50] LABS: Glucose Point of Care 100 mg/dl (65-105)
[2023-08-31] MEDS: FERROUS SULFATE 325 MG TABLET DR PO (08:01)
[2023-08-31] MEDS: CLOPIDOGREL BISULFATE 75 MG TABLET PO (08:01)
[2023-08-31] MEDS: DULoxetine HCL 60 MG CAPSULE.DR PO (08:01)
[2023-08-31] MEDS: METOPROLOL TARTRATE 50 MG TAB PO ×2 (08:01→20:48)
[2023-08-31] MEDS: LORATADINE 10 MG TABLET PO (08:01)
[2023-08-31] MEDS: PANTOPRAZOLE 40 MG TABLET PO (08:02)
[2023-08-31] MEDS: GABAPENTIN 300 MG CAPSULE 600 MG PO ×3 (08:02→16:27)
[2023-08-31] MEDS: TOLTERODINE TARTRATE LA 4 MG CAP.ER.24H PO (08:31)
--- NOTE | 2023-08-31 09:07 | PM.IMHP ---
H&P: HPI History of Present Illness Date/Time: 08/31/23 09:07 Chief Complaint: Weakness Narrative: 63yo female with fibromyalgia, DM and HTN who presents to the ED with complaints of weakness. Patient received a flu and COVID vaccine on 08/29/2023. Prior to the vaccine, she denied any fever, chills, cough, nausea, vomiting. She has chronic shortness of breath without change prior to the vaccines. Patient received the vaccines on 08/29/2023 and the following day around 2:00 p.m. she became weak. She has poor memory of the events but states that she had trouble walking because of pain as well as difficulty talking. She felt confused. No loss of consciousness. She was dizzy with lightheadedness. No tongue biting or urine incontinence. No history of seizures. No sick contacts. No recent travel. She feels ?hot all the time? but no max fevers or chills. She does have fibromyalgia with chronic muscle aches but this was worse. She also had nausea with vomiting. No abdominal pain. No diarrhea. She was having left lower back pain but again this is chronic. She had a slight cough developed that is nonproductive but no increasing shortness of breath. She denies chest pain, palpitations, dysuria or hematuria. Family insisted that she come to the emergency room and she present to the emergency room last evening for evaluation. In the emergency room, patient was tachycardic at 125 and mildly tachypneic with respiratory rate of 22. Lactic acid was 2.9. White count was 10K and sodium 131. CRP 4.1. UA was clear. EKG shows sinus tachycardia with LVH but overall no significant change from prior. Chest x-ray showed bibasilar interstitial infiltrates with peribronchial thickening. Patient given IV fluids and started on Rocephin and azithromycin. She was given Tylenol and nebulizer treatment. She was admitted for further care. Review of Systems Review of Systems: All systems reviewed & are unremarkable except as noted in HPI and below PMFSH Past Medical History Medical History (Updated 08/31/23 @ 09:32 by Marshall Lafleur MD) Adenomatous colon polyp CAD (coronary artery disease) Chronic obstructive pulmonary disease, unspecified Degenerative joint disease (DJD) of hip Essential (primary) hypertension Fibromyalgia (06/17/19) GERD without esophagitis (06/17/19) Hyperlipidemia, unspecified Nontoxic multinodular goiter Postmenopausal Restless legs syndrome Right hip pain Screening for breast cancer Type 2 diabetes mellitus with diabetic neuropathy, unspecified Vitamin D deficiency (06/17/19) Surgical History Surgical History H/O oophorectomy History of coronary artery stent placement x1 2006, x1 2017 History of total left hip arthroplasty History of total right hip arthroplasty Hx of section S/P MARY-BSO Family History Family History Sibling Patient's sister is in good health Patient's brother is in good health Father Family history of heart disease in male family member before age 55 Patient's father is Family history of cardiovascular disease Diabetes mellitus Mother Patient's mother is Family history of cardiovascular disease Diabetes mellitus Other Family history of arthritis Family history of malignant neoplasm Family history of tuberculosis Hypertension Social History Social History (Updated 08/31/23 @ 09:17 by Marshall Lafleur MD) Social History: Patient smoked a pack a day for 30 years and quit in 2003. No alcohol use. No drug use history. Lives at home with her . She is a full code. She nominates her to be the individual would make medical decisions for her if she is unable. Smoking packs per day: 1 Smoking cigarettes per day: 20.0 Years smoked: 30 Smoking pack-years: 30.00 Smoking status: Former
[2023-08-31] MEDS: ALBUTEROL SULFATE NEB 2.5 MG/3 ML INH INHALATION ×3 (10:10→20:52)
[2023-08-31 10:12] LABS: NT Pro B Type Natriuretic Pept 626 pg/mL (19.9-100)
[2023-08-31 10:31] LABS: Lactate Dehydrogenase 163 U/L (120-246)
[2023-08-31 11:13] LABS: Folic Acid 5.3 ng/mL (2.76->20)
[2023-08-31] MEDS: ENOXAPARIN 40 MG/0.4 ML SYRINGE SUB-Q (11:19)
[2023-08-31 11:38] LABS: Glucose Point of Care 149 mg/dl (65-105)
[2023-08-31 12:04] LABS: Influenza A QL RT-PCR Negative (Negative); Influenza B QL RT-PCR Negative (Negative); RSV RNA, RT-PCR Negative (Negative); SARS-CoV-2 RNA PCR Negative (Negative)
[2023-08-31 16:42] LABS: Glucose Point of Care 110 mg/dl (65-105)
[2023-08-31 20:19] LABS: Glucose Point of Care 137 mg/dl (65-105)
[2023-08-31] MEDS: ATORVASTATIN 10 MG TABLET PO (20:47)
[2023-08-31] MEDS: CARBIDOPA/LEVODOPA 25/100 MG TABLET 1 TABLET PO (20:47)
[2023-08-31] MEDS: DULoxetine HCL 30 MG CAPSULE.DR PO (20:48)
[2023-08-31] MEDS: NORTRIPTYLINE HCL 25 MG CAPSULE 50 MG PO (20:48)
[2023-08-31] MEDS: AZITHROMYCIN 500 MG/NS 250 ML 500 MG/250 ML BAG 250 MG IVPB (23:15)
[2023-09-01] VITALS (11 sets, daily range): BP systolic 103–118; BP diastolic 54; PULSE 71–96; RESP 12–18; TEMP 37–37.1; O2SAT 93–96
[2023-09-01] MEDS: ALBUTEROL SULFATE NEB 2.5 MG/3 ML INH INHALATION ×3 (02:27→14:54)
[2023-09-01] MEDS: HYDROcodone/acetaminophen (*CRX) 7.5-325 MG TABLET 1 TAB PO ×2 (06:45→12:31)
[2023-09-01 06:58] LABS: Basophils Percent Auto 0.5 % (0.2-1.2); Eosinophils Absolute Auto 0.1 K/mm3 (0-0.3); Eosinophils Percent Auto 2.1 % (0-4.4); Hematocrit 36.3 % (37.0-47.0); Hemoglobin 10.6 g/dL (12.0-15.0); Immature Granulocyte Absolute 0.04 K/mm3 (0.00-0.031); Immature Granulocyte Percent A 0.6 % (0-0.5); Lymphocytes Absolute Auto 1.74 K/mm3 (0.9-3.2); Lymphocytes Percent Auto 28.1 % (18.3-44.2); Mean Corpuscular HGB Conc 29.2 g/dl (32-36); Mean Corpuscular Hemoglobin 24.8 pg (26-34); Mean Platelet Volume 9.4 fl (7.4-10.4); Monocytes Absolute Auto 0.6 K/mm3 (0.1-0.6); Monocytes Percent Auto 8.9 % (2.6-8.5); Neutrophils Absolute Auto 3.7 K/mm3 (1.3-6.7); Neutrophils Percent Auto 59.8 % (45.5-73.1); Platelet Count Result 242 k/mm3 (150-375); Red Blood Count 4.27 M/mm3 (4.2-5.4); Red Cell Distribution Width 17.2 % (11.5-14.5); White Blood Count 6.2 K/mm3 (4.5-10.0)
[2023-09-01 07:10] LABS: Anion Gap 9 mmol/L (8-16); Blood Urea Nitrogen 10 mg/dL (7-17); Calcium 8.3 mg/dL (8.4-10.2); Carbon Dioxide 27 mmol/L (22-30); Chloride 98 mmol/L (98-107); Estimated CRCL calculation 83 ml/min; Estimated Glomerular Filt Rate > 60; Glucose 137 mg/dL (65-110); Potassium 3.8 mmol/L (3.4-5.0); Sodium 134 mmol/L (137-145)
[2023-09-01 07:42] LABS: Glucose Point of Care 139 mg/dl (65-105)
[2023-09-01 08:34] LABS: Hypochromasia 2+ (NORMAL); Platelet Estimate Adequate (Adequate); Schistocytes None Seen (NORMAL)
[2023-09-01 08:35] LABS: Anisocytosis 1+ (NORMAL)
[2023-09-01] MEDS: ENOXAPARIN 40 MG/0.4 ML SYRINGE SUB-Q (08:39)
[2023-09-01] MEDS: CYANOCOBALAMIN 1,000 MCG TABLET 1000 MCG PO (08:39)
[2023-09-01] MEDS: CLOPIDOGREL BISULFATE 75 MG TABLET PO (08:39)
[2023-09-01] MEDS: DULoxetine HCL 60 MG CAPSULE.DR PO (08:39)
[2023-09-01] MEDS: GABAPENTIN 300 MG CAPSULE 600 MG PO ×3 (08:39→16:40)
[2023-09-01] MEDS: FERROUS SULFATE 325 MG TABLET DR PO (08:39)
[2023-09-01] MEDS: METOPROLOL TARTRATE 50 MG TAB PO (08:40)
[2023-09-01] MEDS: LORATADINE 10 MG TABLET PO (08:40)
[2023-09-01] MEDS: TOLTERODINE TARTRATE LA 4 MG CAP.ER.24H PO (08:41)
[2023-09-01] MEDS: PANTOPRAZOLE 40 MG TABLET PO (08:41)
[2023-09-01] MEDS: INSULIN GLARGINE (*BKC) 100 UNITS/ML 35 UNITS SUB-Q (08:42)
[2023-09-01] MEDS: CYANOCOBALAMIN INJ 1,000 MCG/ML VIAL 1000 MCG IM (08:45)
[2023-09-01 11:36] LABS: Glucose Point of Care 191 mg/dl (65-105)
--- NOTE | 2023-09-01 15:58 | PM.DS ---
DS: Admitting Diagnosis Discharge Date 09/01/23 Admitting Diagnosis Weakness DS: Discharge Diagnosis Discharge Diagnosis (1) Sepsis: Code(s): A41.9 - Sepsis, unspecified organism Status: Acute (2) Pneumonia: Qualifiers: Laterality: bilateral Lung location: lower lobe of lung Pneumonia type: due to unspecified organism Qualified Code(s): J18.9 - Pneumonia, unspecified organism Code(s): J18.9 - Pneumonia, unspecified organism Status: Acute (3) Weakness: Code(s): R53.1 - Weakness Status: Acute (4) Hyponatremia: Code(s): E87.1 - Hypo-osmolality and hyponatremia Status: Acute (5) Chronic obstructive pulmonary disease, unspecified: Code(s): J44.9 - Chronic obstructive pulmonary disease, unspecified Status: Acute (6) Type 2 diabetes mellitus with diabetic neuropathy, unspecified: Qualifiers: 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: with local intermodal truck driver use Qualified Code(s): E11.40 - Type 2 diabetes mellitus with diabetic neuropathy, unspecified; Z79.4 - termite helper (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 Please see H&P for details. Hospital Course: Patient presents with weakness and found to be tachycardic, tachypneic with elevated white count and lactic acid.? Probably sepsis related to atypical pneumonia.? Blood cultures were collected and are negative to date.? Chest x-ray on admission shows bibasilar interstitial infiltrates with peribronchial thickening.? This could be bronchitis or atypical pneumonia.? Given the severity of her symptoms, concern for pneumonia.?COVID, RSV and influenza PCR negative.? BNP was 626. She was started on Rocephin and azithromycin.? White count has normalized.? Lactic acid has also normalized.? Patient with weakness but also with trouble talking. No focal weakness on exam. Probably related to above. TSH normal but she was found to be B12 deficient. B12 was replaced. Opted not to order CT brain since she had a normal neuro exam and other diagnoses more likely. She worked with PT/OT and was walking in the halls 160ft. Na 131 on admission. [place] related to dehydration. With IV fluids, Na better at 134. Patient with known COPD.? She had some mild wheezing noted probably related to the atypical pneumonia more so than from COPD exacerbation.?She was treated with albuterol nebulizer treatments.?She overall did well and was able to be discharged home on 09/01/23. Status at Discharge Cognitive/behavioral status at discharge: stable Time Spent with Patient Time attestation: Total time spent providing and/or coordinating discharge services: 35 minutes Time spent: Greater than 30 minutes Exam Narrative: AF 98.7 118/54 74 18 95% ra Gen - NARD sitting up in the chair Chest - few basilar crackles o/w clear. nml RR CV - RRR, S1-S2. Abd - soft, obese, NT Ext - no pedal edema. Psych - normal mood and affect. Skin - warm and dry. DS: Data Data Completed and Pending Labs on day of discharge: Labs from last 24 hours 09/01/23 09/01/23 09/01/23 11:31 07:38 06:46 WBC 6.2 RBC 4.27 Hgb 10.6 L Hct 36.3 L MCV 85.0 MCH 24.8 L MCHC 29.2 L RDW 17.2 H Plt Count 242 MPV 9.4 Immature Gran % (Auto) 0.6 H Neut % (Auto) 59.8 Lymph % (Auto) 28.1 [place] % (Auto) 8.9 H Eos % (Auto) 2.1 Baso % (Auto) 0.5 Lymph # (Auto) 1.74 [place] # (Auto) 0.6
[2023-09-01 16:30] LABS: Glucose Point of Care 139 mg/dl (65-105)
[2023-09-02 23:02] LABS: Pneumococcal Antigen Urine Not Detected (Not Detected)
[2023-09-04 03:16] LABS: Legionella pneumophila Ag Ur Not Detected (Not Detected)
--- NOTE | 2023-09-04 09:53 | PC.NURSE ---
Urine legionella and urine pneumococcal Ag are both not detected. Dr. Miquel everett.
--- NOTE | 2023-09-07 07:04 | PC.NURSE ---
Blood cx are negative. Dr. Miquel everett.
== END 2023-09-01 18:00 | disposition home or self-care (01) ==
LOC: ANHED 23:50 → ANH3MEDSUR 08-31 00:25
PROVIDERS: Internal Medicine; Admitting Provider Internal Medicine; Emergency Provider Nurse Practitioner Family; PCP Family Medicine; Visit Provider Internal Medicine
DX: J18.9 Pneumonia, unspecified organism (principal); R53.81 Other malaise; R42 Dizziness and giddiness; Z20.822 Contact with and (suspected) exposure to COVID-19; I10 Essential (primary) hypertension; J44.9 Chronic obstructive pulmonary disease, unspecified; K21.9 Gastro-esophageal reflux disease without esophagitis; E78.5 Hyperlipidemia, unspecified; E11.42 Type 2 diabetes mellitus with diabetic polyneuropathy; M79.7 Fibromyalgia; I25.10 Atherosclerotic heart disease of native coronary artery without angina pectoris; Z95.5 Presence of coronary angioplasty implant and graft; R94.31 Abnormal electrocardiogram [ECG] [EKG]; G25.81 Restless legs syndrome; R21 Rash and other nonspecific skin eruption; E55.9 Vitamin D deficiency, unspecified; M62.838 Other muscle spasm; Z87.891 Personal history of nicotine dependence; Z79.01 Long term (current) use of anticoagulants; Z79.85 Long-term (current) use of injectable non-insulin antidiabetic drugs; Z79.84 Long term (current) use of oral hypoglycemic drugs; Z79.02 Long term (current) use of antithrombotics/antiplatelets; Z79.4 Long term (current) use of insulin; Z79.899 Other long term (current) drug therapy
CPT/HCPCS: 36415; 71046; 80048; 80053; 81001; 82607; 82746; 82948; 83036; 83605; 83615; 83880; 84443; 85025; 85610; 85730; 86140; 87040; 87449; 87637; 87899; 93005; 94640; 96361; 96365; 96366; 96368; 96372; 97110; 97116; 97161; 97165; 97530; 99285; A9270; G0378; J0456; J0696; J1650; J1815; J3420; J7120

== ENCOUNTER 2024-04-11 13:51 | Outpatient (CLI) | payer OTHER, SELFPAY ==
--- NOTE | ~2024-04-11 | DEXA_ITS ---
Bone Density Report Name: ABRAHAM BARRIENTOS Age: 63 Sex: Female Ethnicity: White Date of : 1960 Indication: postmenopausal; screening for osteoporosis; history of glucocorticoids; asthma or emphysema; hysterectomy; Referring Provider: SURJIT LINDSAY Study: Bone densitometry was performed. Exam Date: April 11, 2024 Accession number: [id number] Bone Density: Region BMD T-score Z-score Classification AP Spine(L1-L4) 1.152 1.0 2.7 Normal World Health Organization criteria for BMD impression classify patients as: Normal (T-score at or above -1.0), Osteopenia (T-score between -1.0 and -2.5), or Osteoporosis (T-score at or below -2.5). Clinical Information Provided by Patient: Has taken Glucocorticoids Is being treated for osteoporosis Has used the following medications: Vitamin D Has the following medical conditions: Asthma or Emphysema, Hysterectomy Patient maximum height was 63 Menopause Age: 34 No regular weight bearing exercise Onset of menses at age 10 Number of children 1 Impression: The patient has normal bone mass. The patient has risk factors, including: history of glucocorticoid therapy. Discussion: It is important to ask patients whether they are taking their medications and to encourage continued and appropriate compliance with their osteoporosis therapies to reduce fracture risk. It is also important to review their risk factors and encourage appropriate calcium and vitamin D intakes, exercise, fall prevention and other lifestyle measures. Follow-Up: Consider a repeat BMD and Vertebral Fracture Assessment (VFA) exam in 2 years or sooner if medically necessary, to reassess this patient's status. Reported by: JESSICA on 04/11/2024 2:17:00 PM. Reviewed, dictated and finalized at location A.
--- NOTE | ~2024-04-11 | MM_ITS ---
EXAMINATION: MM screening esthela BI w charla HISTORY: Screening mammogram TECHNIQUE: Craniocaudal and mediolateral oblique 3-D tomosynthesis images were obtained and synthetic 2-D images were generated. CAD analysis was submitted and interpreted. COMPARISON: January 04, 2023, January 25, 2021 bilateral screening mammogram examinations BREAST PARENCHYMAL COMPOSITION: The breasts are almost entirely fatty. FINDINGS: There is no evidence of suspicious mass, calcification, or architectural distortion to sugg est malignancy in either breast. There has been no suspicious interval change. IMPRESSION: 1. No mammographic evidence of malignancy. 2. Recommend routine screening mammography in one year. BI-RADS Category 1: Negative Reviewed, dictated and finalized at location B.
== END 2024-04-11 13:52 | disposition home or self-care (01) ==
LOC: ANHIMG 13:54
PROVIDERS: PCP Family Medicine; Visit Provider Nurse Practitioner Family
DX: Z12.31 Encounter for screening mammogram for malignant neoplasm of breast (principal); Z78.0 Asymptomatic menopausal state
CPT/HCPCS: 77063; 77067; 77080

== ENCOUNTER 2024-06-28 21:01 | Emergency (ER) | payer OTHER, SELFPAY ==
--- NOTE | ~2024-06-28 | CT_ITS ---
EXAMINATION: CT brain wo con DATE: 06/28/2024 21:45 INDICATION: Head injury. TECHNIQUE: Computed tomography (CT) of the head was performed without intravenous contrast. The mA wa s adjusted according to patient size. Iterative reconstruction technique was employed. The dose-lengt h product was 605.33 mGy-cm. COMPARISON: Head CT 08/07/2019 FINDINGS: There is no intracranial hemorrhage, acute infarction, or abnormal intracranial mass lesion . The ventricles are normal in size. The orbits are normal. There is mucosal thickening in right maxi llary sinus. The mastoid air cells are normal. IMPRESSION: 1. Normal brain. Reviewed, dictated and finalized at location E. IMPRESSION: 1. Normal brain.
--- NOTE | ~2024-06-28 | XR_ITS ---
EXAMINATION: XR shoulder RT min 2V DATE: 06/28/2024 21:38 INDICATION: Fall. TECHNIQUE: 4 views of right shoulder were obtained. COMPARISON: None. FINDINGS: Bone alignment is normal. There is a fracture of anteroinferior glenoid. There is mild oste oarthritis of glenohumeral joint and severe osteoarthritis of acromioclavicular joint. IMPRESSION: 1. Fracture of anteroinferior glenoid. 2. Polyarticular osteoarthritis. Reviewed, dictated and finalized at location E.
--- NOTE | ~2024-06-28 | CT_ITS ---
EXAMINATION: CT cervical spine wo con DATE: 06/28/2024 21:45 INDICATION: Head injury. TECHNIQUE: Computed tomography (CT) of the cervical spine was performed without intravenous contrast. Automated exposure control and iterative reconstruction technique were employed. The dose-length pro duct was 605.33 mGy-cm. COMPARISON: CT cervical spine 08/07/2019 FINDINGS: Bone alignment is normal. Vertebral body heights are normal. There is mildly decreased disc height at C5-C6 and C6-C7. The following disc levels are specifically discussed: C2-C3: There is no uncovertebral joint osteoarthritis. There is mild right and moderate left facet joan int osteoarthritis. There is no neural foraminal stenosis. There is no central canal stenosis. C3-C4: There is mild bilateral uncovertebral joint osteoarthritis. There is mild bilateral facet join t osteoarthritis. There is no neural foraminal stenosis. There is mild central canal stenosis. C4-C5: There is no uncovertebral joint osteoarthritis. There is no facet joint osteoarthritis. There is no neural foraminal stenosis. There is mild central canal stenosis. C5-C6: There is mild left uncovertebral joint osteoarthritis. There is no facet joint osteoarthritis. There is no neural foraminal stenosis. There is mild central canal stenosis. C6-C7: There is no uncovertebral joint osteoarthritis. There is mild right and moderate left facet joan int osteoarthritis. There is no neural foraminal stenosis. There is mild central canal stenosis. C7-T1: There is no uncovertebral joint osteoarthritis. There is moderate right and severe left facet joint osteoarthritis. There is mild left neural foraminal stenosis. There is no central canal stenosi s. IMPRESSION: 1. No fracture. 2. Mild cervical spondylosis. Reviewed, dictated and finalized at location E.
[2024-06-28 21:04] VITALS: PULSE 87; RESP 18; TEMP 36.8; O2SAT 100
--- NOTE | 2024-06-28 22:25 | PC.NURSE ---
Ice pack provided
--- NOTE | 2024-06-28 23:40 | ED.FALL ---
HPI - Fall General Chief Complaint: Fall Stated Complaint: fall Time Seen by Provider: 06/28/24 22:20 History of Present Illness HPI Narrative: Patient was sitting on her walker being pushed along when the walker hit a large bump and she unfortunately fell backwards and hit her head and upper right shoulder/neck/upper back. Reporting some pain there initially had some nausea which has resolved. No loss of consciousness or focal numbness or weakness Related Data Home Medications Medication Instructions Recorded Confirmed fexofenadine 180 mg tablet 180 mg PO DAILY 12/28/22 06/03/24 (Kennedi Allergy) clobetasol 0.05 % scalp solution See Rx Instructions .Route 06/19/23 06/03/24 .COMPLEX PRN Rash budesonide 160 mcg-glycopyr 9 2 inh inhalation BID 06/03/24 06/03/24 mcg-formot 4.8 mcg/actuation HFA inhaler (Breztri Aerosphere) Allergies Allergy/AdvReac Type Severity Reaction Status Date / Time Sulfa (Sulfonamide Allergy Intermediate Itching Verified 06/03/24 14:59 Antibiotics) Review of Systems Review of Systems: All systems reviewed & are unremarkable except as noted in HPI and below PMFSH Past Medical History Medical History Adenomatous colon polyp CAD (coronary artery disease) Chronic obstructive pulmonary disease, unspecified Degenerative joint disease (DJD) of hip Essential (primary) hypertension Fibromyalgia (06/17/19) GERD without esophagitis (06/17/19) Hyperlipidemia, unspecified Nontoxic multinodular goiter Postmenopausal Restless legs syndrome Right hip pain Screening for breast cancer Type 2 diabetes mellitus with diabetic neuropathy, unspecified Vitamin D deficiency (06/17/19) Surgical History Surgical History H/O oophorectomy History of coronary artery stent placement x1 2006, x1 2017 History of total left hip arthroplasty History of total right hip arthroplasty Hx of section S/P MARY-BSO Family History Family History Sibling Patient's sister is in good health Patient's brother is in good health Father Family history of heart disease in male family member before age 55 Patient's father is Family history of cardiovascular disease Diabetes mellitus Mother Patient's mother is Family history of cardiovascular disease Diabetes mellitus Other Family history of arthritis Family history of malignant neoplasm Family history of tuberculosis Hypertension Social History Social History Social History: Patient smoked a pack a day for 30 years and quit in 2003. No alcohol use. No drug use history. Lives at home with her . She is a full code. She nominates her to be the individual would make medical decisions for her if she is unable. Smoking packs per day: 1 Smoking cigarettes per day: 20.0 Years smoked: 30 Smoking pack-years: 30.00 Smoking status: Former smoker Tobacco type: cigarettes Second hand tobacco smoke exposure: Yes Smoking end date: 11/19/03 Alcohol intake: never Substance use: never Substance use type: does not use Lack of Transportation: No Lack of Food: Never True Current Housing: I Have Housing Concerned About Future Housing: No Difficulty Paying Gas/Electric Bills: No Difficulty Paying for Meds: No Currently Unemployed: No Education: Grade School Difficulty w/ Childcare or Family Care: No Living arrangements: with family Additional living arrangements comments: Lives with Occupation/Education: retired 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: disabled [employer] Gender identity (if verbalized by the patient): Female Spiritual care concerns: No Exam Narrative: EXAMINATION OF ORGAN SYSTEMS/BODY
== END 2024-06-28 22:33 | disposition home or self-care (01) ==
PROVIDERS: Emergency Provider Emergency Medicine; PCP Family Medicine
DX: S42.141A Displaced fracture of glenoid cavity of scapula, right shoulder, initial encounter for closed fracture (principal); I25.10 Atherosclerotic heart disease of native coronary artery without angina pectoris; J44.9 Chronic obstructive pulmonary disease, unspecified; I10 Essential (primary) hypertension; E78.5 Hyperlipidemia, unspecified; E11.9 Type 2 diabetes mellitus without complications; Z87.891 Personal history of nicotine dependence; W18.30XA Fall on same level, unspecified, initial encounter
CPT/HCPCS: 70450; 72125; 73030; 99284; A4565

== ENCOUNTER 2024-07-02 15:14 | Outpatient (CLI) | payer OTHER, SELFPAY ==
--- NOTE | ~2024-07-02 | XR_ITS ---
EXAMINATION: XR shoulder LT min 2V, XR humerus LT DATE: 07/02/2024 15:40 INDICATION: Left upper arm and shoulder pain post fall TECHNIQUE: 1. AP internally and externally rotated, AP oblique externally rotated and transscapular Y views of t he left shoulder were obtained. 2. AP and lateral views of the left humerus were obtained. COMPARISON: None FINDINGS: Normal alignment. No fracture. Glenohumeral joint is normal. Mild osteoarthritis at the left acromio clavicular and elbow joints. Moderate-sized subacromial spur. There are enthesophytes along the more cephalad margin of the lateral rim of the acromion on the origin of the deltoid muscle and enthesophy ricardo at the medial and lateral epicondyles of the elbow at the origins of the common flexor and extens or tendon wads respectively. Small calcific lesions along the posterior facet of the greater tuberosi ty consistent with rotator cuff calcific tendinitis. Soft tissues are unremarkable. Left lung is nhung r with no pleural effusion or pneumothorax. IMPRESSION: 1. Mild osteoarthritis at the left acromioclavicular and elbow joints. No acute osseous abnormality. 2. Likely left rotator cuff calcific tendinitis region of the distal teres minor or subscapularis ten dons. Reviewed, dictated and finalized at location A. IMPRESSION: 1. Mild osteoarthritis at the left acromioclavicular and elbow joints. No acute osseous abnormality. 2. Likely left rotator cuff calcific tendinitis region of the distal teres robert r or subscapularis tendons.
== END 2024-07-02 15:15 | disposition home or self-care (01) ==
PROVIDERS: PCP Family Medicine; Visit Provider Nurse Practitioner Family
DX: M19.012 Primary osteoarthritis, left shoulder (principal); M75.32 Calcific tendinitis of left shoulder
CPT/HCPCS: 73030; 73060

== ENCOUNTER 2024-07-09 13:27 | Outpatient (CLI) | payer OTHER, SELFPAY ==
[2024-07-09 13:49] LABS: Basophils Absolute Auto 0.1 K/mm3 (0.0-0.1); Basophils Percent Auto 0.5 % (0.2-1.2); Eosinophils Absolute Auto 0.2 K/mm3 (0-0.3); Eosinophils Percent Auto 0.9 % (0-4.4); Hematocrit 44.4 % (37.0-47.0); Hemoglobin 14.1 g/dL (12.0-15.0); Immature Granulocyte Absolute 0.14 K/mm3 (0.00-0.031); Immature Granulocyte Percent A 0.8 % (0-0.5); Lymphocytes Absolute Auto 3.46 K/mm3 (0.9-3.2); Lymphocytes Percent Auto 19.9 % (18.3-44.2); Mean Corpuscular HGB Conc 31.8 g/dl (32-36); Mean Corpuscular Hemoglobin 28.8 pg (26-34); Mean Corpuscular Volume 90.6 fl (80-100); Mean Platelet Volume 9.4 fl (7.4-10.4); Monocytes Percent Auto 5.6 % (2.6-8.5); Neutrophils Absolute Auto 12.6 K/mm3 (1.3-6.7); Neutrophils Percent Auto 72.3 % (45.5-73.1); Platelet Count Result 341 k/mm3 (150-375); Red Cell Distribution Width 14.7 % (11.5-14.5); White Blood Count 17.4 K/mm3 (4.5-10.0)
[2024-07-09 13:52] LABS: Blood Urea Nitrogen 22 mg/dL (8-26); Carbon Dioxide 29 mmol/L (22-30); Chloride 96 mmol/L (98-109); Estimated Glomerular Filt Rate > 60; Glucose 148 mg/dL (70-105); Ionized Calcium (POC) 1.17 mmol/L (1.11-1.31); Potassium 4.6 mmol/L (3.5-4.9); Sodium 135 mmol/L (138-146)
[2024-07-09 16:31] LABS: Alanine Aminotransferase 50 U/L (6-35); Alkaline Phosphatase 78 U/L (38-126); Anion Gap 11 mmol/L (4-12); Aspartate Amino Transferase 42 U/L (14-36); Bilirubin,Total 0.3 mg/dL (0.2-1.3); Blood Urea Nitrogen 22 mg/dL (7-17); Calcium 9.2 mg/dL (8.4-10.2); Carbon Dioxide 28 mmol/L (22-30); Chloride 94 mmol/L (98-107); Estimated Glomerular Filt Rate > 60; Glucose 147 mg/dL (65-110); Potassium 4.6 mmol/L (3.4-5.0); Sodium 133 mmol/L (137-145)
== END 2024-07-09 13:28 | disposition home or self-care (01) ==
LOC: ANHLAB 13:29
PROVIDERS: Nurse Practitioner Family; PCP Family Medicine; Visit Provider Internal Medicine Hematology & Oncology
DX: D72.829 Elevated white blood cell count, unspecified (principal)
CPT/HCPCS: 36415; 80047; 80053; 85025; 88184

== ENCOUNTER 2024-10-22 14:09 | Outpatient (CLI) | payer OTHER, SELFPAY ==
[2024-10-22 14:26] LABS: Basophils Absolute Auto 0.1 K/mm3 (0.0-0.1); Basophils Percent Auto 0.6 % (0.2-1.2); Eosinophils Absolute Auto 0.3 K/mm3 (0-0.3); Eosinophils Percent Auto 2.1 % (0-4.4); Hematocrit 42.3 % (37.0-47.0); Hemoglobin 13.6 g/dL (12.0-15.0); Immature Granulocyte Absolute 0.05 K/mm3 (0.00-0.031); Immature Granulocyte Percent A 0.4 % (0-0.5); Lymphocytes Absolute Auto 3.79 K/mm3 (0.9-3.2); Lymphocytes Percent Auto 31.7 % (18.3-44.2); Mean Corpuscular HGB Conc 32.2 g/dl (32-36); Mean Corpuscular Hemoglobin 28.9 pg (26-34); Mean Corpuscular Volume 89.8 fl (80-100); Mean Platelet Volume 9.4 fl (7.4-10.4); Monocytes Absolute Auto 0.7 K/mm3 (0.1-0.6); Monocytes Percent Auto 5.7 % (2.6-8.5); Neutrophils Absolute Auto 7.1 K/mm3 (1.3-6.7); Neutrophils Percent Auto 59.5 % (45.5-73.1); Platelet Count Result 289 k/mm3 (150-375); Red Blood Count 4.71 M/mm3 (4.2-5.4); Red Cell Distribution Width 13.8 % (11.5-14.5)
[2024-10-22 14:30] LABS: Blood Urea Nitrogen 10 mg/dL (8-26); Carbon Dioxide 26 mmol/L (22-30); Chloride 96 mmol/L (98-109); Estimated Glomerular Filt Rate > 60; Glucose 123 mg/dL (70-105); Ionized Calcium (POC) 1.19 mmol/L (1.11-1.31); Potassium 4.8 mmol/L (3.5-4.9); Sodium 134 mmol/L (138-146)
== END 2024-10-22 14:10 | disposition home or self-care (01) ==
LOC: ANHLAB 14:10
PROVIDERS: PCP Family Medicine; Visit Provider Internal Medicine Hematology & Oncology
DX: D72.829 Elevated white blood cell count, unspecified (principal)
CPT/HCPCS: 36415; 80047; 85025

== ENCOUNTER 2024-12-30 12:20 | Emergency (ER) | payer OTHER, SELFPAY ==
--- NOTE | ~2024-12-30 | CT_ITS ---
EXAMINATION: CT brain wo con DATE: 12/30/2024 12:56 INDICATION: Head injury. TECHNIQUE: Computed tomography (CT) of the head was performed without intravenous contrast. The mA wa s adjusted according to patient size. Iterative reconstruction technique was employed. The dose-lengt h product was 605.33 mGy-cm. COMPARISON: Head CT 06/28/2024 FINDINGS: There is no intracranial hemorrhage, acute infarction, or abnormal intracranial mass lesion . The ventricles are normal in size. The orbits are normal. There is mucosal thickening in right sphe noid sinus. The mastoid air cells are normal. There is left-sided scalp soft tissue swelling. IMPRESSION: 1. Normal brain. Reviewed, dictated and finalized at location A. ING SAW OPERATOR IMPRESSION: 1. Normal brain.
--- NOTE | ~2024-12-30 | CT_ITS ---
EXAMINATION: CT cervical spine wo con DATE: 12/30/2024 12:57 INDICATION: Head injury. TECHNIQUE: Computed tomography (CT) of the cervical spine was performed without intravenous contrast. Automated exposure control and iterative reconstruction technique were employed. The dose-length pro duct was 415.74 mGy-cm. COMPARISON: CT cervical spine 06/28/24 FINDINGS: Alignment is normal. Vertebral body heights are normal. There is mildly decreased disc heig ht at C5-C6, C6-C7, and C7-T1. The following disc levels are specifically discussed: C2-C3: There is no uncovertebral joint osteoarthritis. There is mild right and severe left facet join t osteoarthritis. There is no neural foraminal stenosis. There is no central canal stenosis. C3-C4: There is mild bilateral uncovertebral joint osteoarthritis. There is mild right and moderate l eft facet joint osteoarthritis. There is no neural foraminal stenosis. There is no central canal sten osis. C4-C5: There is mild left uncovertebral joint osteoarthritis. There is mild bilateral facet joint ost eoarthritis. There is no neural foraminal stenosis. There is mild central canal stenosis. C5-C6: There is mild left uncovertebral joint osteoarthritis. There is mild left facet joint osteoart hritis. There is mild bilateral neural foraminal stenosis. There is mild central canal stenosis. C6-C7: There is mild right uncovertebral joint osteoarthritis. There is mild right facet joint osteoa rthritis. There is no neural foraminal stenosis. There is mild central canal stenosis. C7-T1: There is no uncovertebral joint osteoarthritis. There is moderate bilateral facet joint osteoa rthritis. There is mild left neural foraminal stenosis. There is no central canal stenosis. IMPRESSION: 1. No fracture. 2. Mild cervical spondylosis. Reviewed, dictated and finalized at location A. ATION REVIEWER
[2024-12-30 12:24] VITALS: BP 111/62; PULSE 88; RESP 16; TEMP 36.6; O2SAT 96
--- NOTE | 2024-12-30 14:57 | ED.HEATRA ---
HPI - Head Injury General Chief complaint: Head Injury Stated complaint: fall, hit head, no LOC head laceration, on antigoa Time Seen by Provider: 12/30/24 14:57 Source: patient Mode of arrival: EMS Limitations: no limitations History of Present Illness HPI Narrative: Patient is a 64-year-old female who presents the ED via EMS with report of a head injury. Patient reports he was at physical therapy today and doing squats when she lost her balance and fell. She hit her L sided head against a metal door frame. Sustained a laceration to her L scalp. Patient is on plavix for hx of CAD. Sent here for further evaluation. Patient denied LOC. Denies dizziness or lightheadedness. Denies vision changes, nausea, vomiting. Denies any other areas of pain. Tetanus unknown. Related Data Home Medications ?Medication ?Instructions ?Recorded ?Confirmed ?Last Taken ?Type fexofenadine 180 mg tablet 180 mg PO DAILY 12/28/22 12/03/24 08/30/23 History (Kennedi Allergy) clobetasol 0.05 % scalp solution See Rx Instructions .Route 06/19/23 12/03/24 08/20/23 History .COMPLEX PRN Rash budesonide 160 mcg-glycopyr 9 2 inh inhalation BID 06/03/24 12/03/24 Unknown History mcg-formot 4.8 mcg/actuation HFA inhaler (Breztri Aerosphere) Allergies Allergy/AdvReac Type Severity Reaction Status Date / Time Sulfa (Sulfonamide Allergy Intermediate Itching Verified 10/06/24 10:13 Antibiotics) Review of Systems Review of Systems: All systems reviewed & are unremarkable except as noted in HPI. All systems reviewed & are unremarkable except as noted in HPI and below PMFSH Past Medical History Medical History Diabetic polyneuropathy Adenomatous colon polyp CAD (coronary artery disease) Screening for breast cancer Postmenopausal Degenerative joint disease (DJD) of hip Right hip pain Chronic obstructive pulmonary disease, unspecified Essential (primary) hypertension Fibromyalgia (06/17/19) GERD without esophagitis (06/17/19) Hyperlipidemia, unspecified Nontoxic multinodular goiter Restless legs syndrome Type 2 diabetes mellitus with diabetic neuropathy, unspecified Vitamin D deficiency (06/17/19) Surgical History Surgical History History of total right hip arthroplasty Hx of section H/O oophorectomy S/P MARY-BSO History of total left hip arthroplasty History of coronary artery stent placement x1 2006, x1 2017 Family History Family History Sibling Patient's sister is in good health Patient's brother is in good health Father Family history of heart disease in male family member before age 55 Patient's father is Family history of cardiovascular disease Diabetes mellitus Mother Patient's mother is Family history of cardiovascular disease Diabetes mellitus Other Family history of arthritis Family history of malignant neoplasm Family history of tuberculosis Hypertension Social History Social History Social History: Patient smoked a pack a day for 30 years and quit in 2003. No alcohol use. No drug use history. Lives at home with her . She is a full code. She nominates her to be the individual would make medical decisions for her if she is unable. Smoking packs per day: 1 Smoking cigarettes per day: 20.0 Years smoked: 30 Smoking pack-years: 30.00 Smoking status: Former smoker Tobacco type: cigarettes Second hand tobacco smoke exposure: Yes Smoking end date: 11/19/03 Alcohol intake: never Substance use: never Substance use type: does not use Lack of Transportation: No Lack of Food: Never True Current Housing: I Have Housing Concerned About Future Housing: No Difficulty Paying Gas/Electric Bills: No Difficulty Paying for Meds: No Currently Unemployed: No Education: Grade School Difficulty w/ Childcare or Family Care: No Living arrangements: with family Additional living arrangements comments: Lives with Occupation/Education: retired 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 HEAD: Normocephalic. 2cm laceration to L temporal region without active bleeding. Dried blood throughout hair EYES: PERRL/EOMI NECK: No tenderness throughout midline cervical spine. RESPIRATORY: Airway patent, respirations nonlabored. Clear to auscultation bilaterally, no rales, rhonchi, wheezing. CARDIOVASCULAR: Regular rate and rhythm MUSCULOSKELETAL: Moves all extremities. No gross deformities. No tenderness throughout thoracic midline spine. SKIN: Warm, dry, normal color. NEURO: A&O X3. Speech clear. Cranial nerves II-XII grossly intact. Steady gait. No ataxic movements. No focal deficits. PSYCHIATRIC: Appropriate mood and affect. Normal interaction. Course Vital Signs Vital signs: Vital Signs Temperature 97.9 F 12/30/24 12:24 Pulse Rate 88 12/30/24 12:24 Respiratory Rate 16 12/30/24 12:24 Blood Pressure 111/62 12/30/24 12:24 Pulse Oximetry 96 12/30/24 12:24 Oxygen Delivery Room Air 12/30/24 12:24 Temperature 97.9 F 12/30/24 12:24 Pulse Rate 88 12/30/24 12:24 Respiratory Rate 16 12/30/24 12:24 Blood Pressure 111/62 12/30/24 12:24 Pulse Oximetry 96 12/30/24 12:24 Oxygen Delivery Room Air 12/30/24 12:24 Procedures Laceration Laceration 1: Date: 12/30/24 Time: 15:30 Site: scalp Side (If applicable): left Size (cm): 2 Description: linear Depth: simple, single layer Local Anesthetic: none Pre-repair: wound explored and irrigated ====== Skin Level ====== Skin layer closed with: amari (#4) ====== Subcutaneous Layer ====== ====== Muscle Layer ====== ====== Tendon Layer ====== MDM - Head Injury MDM Narrative Medical decision making narrative: Patient presented to ED status post ground level mechanical fall with head injury. Sustained small laceration to left scalp. On plavix. VSS upon arrival. Patient in no acute distress. Wound was cleaned in the ED and approximated with amari. Patient tolerated this well. CT brain and cervical spine are without acute traumatic findings. Patient denies any other areas of pain or concern. Patient is otherwise neurologically intact. Tetanus updated in the ED. Feel she is safe for discharge home with close outpatient follow-up. Recommended close follow-up with PCP for further evaluation in stable removal. Patient given strict return precautions. She agrees with plan. Discharged in stable condition. Medical Records Attestation: I reviewed the patient's medical records. Imaging Data Attestation: I personally reviewed and interpreted this imaging study as follows: Radiologist's impression: ITS Impressions Head CT 12/30/24 12:57 IMPRESSION: 1. Normal brain. Cervical Spine CT 12/30/24 13:03 IMPRESSION: 1. No fracture. 2. Mild cervical spondylosis. Discharge Plan Discharge Clinical Impression: Fall from ground level Closed head injury Qualifiers: Encounter type: initial encounter Qualified Code(s): S09.90XA - Unspecified injury of head, initial encounter Laceration of scalp Qualifiers: Encounter type: initial encounter Qualified Code(s): S01.01XA - Laceration without foreign body of scalp, initial encounter Patient Disposition: Home, Self-Care Condition: Stable Instructions: Antibiotic Form, Concussion (ED), Head Injury (ED), Scalp Contusion in Adults (ED), Staple Care (ED) Additional Instructions: Your imaging here did not show any evidence of traumatic findings. You received 4 amari in your scalp. Your amari will need to be removed within the next 1 week. Follow-up with your primary care doctor for further evaluation of this. Recommend ice to areas of pain, Tylenol as needed for pain. Return to the ED if you experience worsening or severe pain, recurrent fall or injury, severe dizziness, passing out, vision changes, confusion, or any other symptoms of concern. Patient Language: Icelandic Prescriptions: No Action Breztri Aerosphere 160-9-4.8 mcg/actuation HFA aerosol inhaler 2 inh inhalation BID carbidopa-levodopa 25-100 mg tablet See Rx Instructions .ROUTE .COMPLEX Qty: 90 4RF Dose Instruction: TAKE 1 TABLET BY MOUTH EVERYDAY AT BEDTIME Rx Instructions: TAKE 1 TABLET BY MOUTH EVERYDAY AT BEDTIME vitamin O42-poxtp acid 500-400 mcg tablet 1 tablet PO DAILY Qty: 90 3RF Rx Instructions: administer with a meal albuterol sulfate 90 mcg/actuation HFA aerosol inhaler 2 puff INHALATION QID PRN (Reason: Shortness Of Breath) Qty: 8.5 4RF fexofenadine [Kennedi Allergy] 180 mg tablet 180 mg PO DAILY clobetasol 0.05 % solution See Rx Instructions .ROUTE .COMPLEX PRN (Reason: Rash) Rx Instructions: APPLY TO AFFECTED AREA EVERY DAY ferrous sulfate 325 mg (65 mg iron) tablet See Rx Instructions .ROUTE .COMPLEX Qty: 180 0RF Dose Instruction: TAKE 1 TABLET ORALLY TWICE A DAY Rx Instructions: TAKE 1 TABLET ORALLY TWICE A DAY gabapentin [Neurontin] 600 mg tablet 600 mg PO TID Qty: 180 1RF Mounjaro 7.5 mg/0.5 mL pen injector 7.5 mg subcut WEEKLY Qty: 2 3RF duloxetine 60 mg capsule,delayed release(DR/EC) See Rx Instructions .ROUTE .COMPLEX Qty: 90 1RF Dose Instruction: TAKE 1 CAPSULE BY MOUTH EVERY DAY Rx Instructions: TAKE 1 CAPSULE BY MOUTH EVERY DAY Mounjaro 10 mg/0.5 mL pen injector 10 mg subcut WEEKLY Qty: 2 0RF metformin 1,000 mg tablet See Rx Instructions .ROUTE .COMPLEX Qty: 180 1RF Dose Instruction: TAKE 1 TABLET BY MOUTH TWICE A DAY Rx Instructions: TAKE 1 TABLET BY MOUTH TWICE A DAY pantoprazole 40 mg tablet,delayed release (DR/EC) See Rx Instructions .ROUTE .COMPLEX Qty: 90 1RF Dose Instruction: TAKE 1 TABLET BY MOUTH EVERY DAY IN THE MORNING Rx Instructions: TAKE 1 TABLET BY MOUTH EVERY DAY IN THE MORNING metoprolol tartrate 50 mg tablet See Rx Instructions .ROUTE .COMPLEX Qty: 180 1RF Dose Instruction: TAKE 1 TABLET BY MOUTH TWICE A DAY Rx Instructions: TAKE 1 TABLET BY MOUTH TWICE A DAY tolterodine 4 mg capsule,extended release 24hr See Rx Instructions .ROUTE .COMPLEX Qty: 90 1RF Dose Instruction: TAKE 1 CAPSULE BY MOUTH EVERY DAY Rx Instructions: TAKE 1 CAPSULE BY MOUTH EVERY DAY folic acid 1 mg tablet 1 mg PO DAILY Qty: 90 3RF nortriptyline 50 mg capsule 50 mg PO HS Qty: 90 1RF clopidogrel 75 mg tablet See Rx Instructions .ROUTE .COMPLEX Qty: 90 1RF Dose Instruction: TAKE 1 TABLET BY MOUTH EVERY DAY Rx Instructions: TAKE 1 TABLET BY MOUTH EVERY DAY atorvastatin 10 mg tablet 10 mg PO HS Qty: 90 1RF Rx Instructions: TAKE 1 TABLET BY MOUTH EVERY DAY Mounjaro 15 mg/0.5 mL pen injector 15 mg subcut WEEKLY Qty: 2 3RF baclofen 10 mg tablet See Rx Instructions .ROUTE .COMPLEX Qty: 180 0RF Dose Instruction: TAKE 1 TABLET BY MOUTH TWICE A DAY NEEDED FOR MUSCLE SPASMS Rx Instructions: TAKE 1 TABLET BY MOUTH TWICE A DAY NEEDED FOR MUSCLE SPASMS (DME) Contour Next Test Strips Strip See Rx Instructions .ROUTE .COMPLEX Qty: 100 1RF Dose Instruction: USE 3-4 TIMES A DAY Rx Instructions: USE 3-4 TIMES A DAY duloxetine 30 mg capsule,delayed release(DR/EC) See Rx Instructions .ROUTE .COMPLEX Qty: 90 1RF Dose Instruction: TAKE 1 CAPSULE BY MOUTH AT BEDTIME Rx Instructions: TAKE 1 CAPSULE BY MOUTH AT BEDTIME hydrocodone-acetaminophen 7.5-325 mg tablet 1 tablet PO Q6H PRN (Reason: pain) Qty: 120 0RF Follow-up/Referrals: PHYSICIAN NOT ON STAFF,NONSTAFF [Non-Staff] - Time of Disposition: 15:40
[2024-12-30] MEDS: HYDROcodone/acetaminophen (*CRX) 5-325 MG TABLET 1 TAB PO (15:33)
[2024-12-30] MEDS: TETANUS,DIPHTHERIA,AC PERTUSSIS ADULT (0.5 ML) BOOSTRIX IM (15:43)
--- OUTSIDE RECORDS SUMMARY | 2024-12-30 16:01 | XMS_ITS | Encounter Summary ---
Author Organization [employer] [facility] Address [address] [place] [address] Care Team Providers Care Crystal Mounter Name Role Phone Alahji Mendez MD Primary Care Provider [phone] Encounter Details Date Type Department Care Team (Late st Contact Info) Description 02/25/2007 Outpatient Historical [facility] Support Serv. (Adt Cardiology-[facility]) [address] 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
--- OUTSIDE RECORDS SUMMARY | 2024-12-30 16:01 | XMS_ITS | Encounter Summary ---
Author Organization [facility] Address [address] [place] [address] Care Team Providers Care Credit Consultant Name Role Phone Alhaji Mendez MD Primary Care Provider [phone] Encounter Details Date Type Department Care Team (Late st Contact Info) Description 06/12/2003 Outpatient Historical [facility] Internal Medicine - [place] [address] [place] [address] [place] [address] [place] [id number] Social History Tobacco Use Types Packs/Day Years Used Date Smoking Tobacco: Never Assessed Comments Unknown Sex and Gender Information Value Date Recorded Sex Assigned at Not on file 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 Gender Identity Not on file Sexual Orientation Not on file documented as of this encounter Last Filed Vital Signs Vital Sign Reading Time Taken Comments Blood Pressure 110/70 06/12/2003 1:30 PM CDT Pulse 68 06/12/2003 1:30 PM CDT Temperature - - Respiratory Rate - - Oxygen Saturation - - Inhaled Oxygen Concentration - - Weight 105.7 kg (233 lb) 06/12/2003 1:30 PM CDT Height - - Body Mass Index - - documented in this encounter Plan of Treatment Not on file documented as of this encounter Visit Diagnoses Not on filedocumented in this encounter Care Teams Credit Consultant Relationship Specialty Start Date End Date Alhaji Mendez MD [address] [place] [address] PCP - General Family Practice 06/04/24 documented as of this encounter
--- OUTSIDE RECORDS SUMMARY | 2024-12-30 16:01 | XMS_ITS | Encounter Summary ---
Author Organization [email or web address] Address [address] [place] [address] Care Team Providers Care Door Frame Builder Name Role Phone Alhaji Mendez MD Primary Care Provider [phone] Encounter Details Date Type Department Care Team (Late st Contact Info) Description 06/26/2004 Outpatient Historical [facility] Support Serv. (Adt Cardiology[facility]) [address] 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
--- OUTSIDE RECORDS SUMMARY | 2024-12-30 16:01 | XMS_ITS | Encounter Summary ---
Author Organization [facility] Address 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
--- OUTSIDE RECORDS SUMMARY | 2024-12-30 16:01 | XMS_ITS | Encounter Summary ---
Author Organization [facility] Address [address] [place] [address] Care Team Providers Care [employer] Executive Director Name Role Phone Alhaji Mendez MD Primary Care Provider [phone] Encounter Details Date Type Department Care Team (Late st Contact Info) Description 04/28/2004 Outpatient Historical [facility] Internal Medicine - [place] [address] [place] [address] [place] [address] [place] [address] Social History Tobacco Use Types Packs/Day Years Used Date Smoking Tobacco: Never Assessed Comments Unknown Sex and Gender Information Value Date Recorded Sex Assigned at Not on file 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 Gender Identity Not on file Sexual Orientation Not on file documented as of this encounter Last Filed Vital Signs Vital Sign Reading Time Taken Comments Blood Pressure 118/76 04/28/2004 3:00 PM CDT Pulse 72 04/28/2004 3:00 PM CDT Temperature - - Respiratory Rate - - Oxygen Saturation - - Inhaled Oxygen Concentration - - Weight 95.3 kg (210 lb) 04/28/2004 3:00 PM CDT Height - - Body Mass Index - - documented in this encounter Plan of Treatment Not on file documented as of this encounter Visit Diagnoses Not on filedocumented in this encounter Care Teams [employer] Executive Director Relationship Specialty Start Date End Date Alhaji Mendez MD [address] [place] [address] PCP - General Family Practice 06/04/24 documented as of this encounter
--- OUTSIDE RECORDS SUMMARY | 2024-12-30 16:01 | XMS_ITS | Encounter Summary ---
Author Organization [facility] Address [address] [place] [address] Care Team Providers Care Shield Cleaner Name Role Phone Alhaji Mendez MD Primary Care Provider +1 [phone] Encounter Details Date Type Department Care Team (Late st Contact Info) Description 12/23/2003 Outpatient Historical [facility] Internal Medicine - [place] [address] [place] [address] [place] [address] [facility] [place] [address]2004 Social History Tobacco Use Types Packs/Day Years Used Date Smoking Tobacco: Never Assessed Comments Unknown Sex and Gender Information Value Date Recorded Sex Assigned at Not on file 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 Gender Identity Not on file Sexual Orientation Not on file documented as of this encounter Last Filed Vital Signs Vital Sign Reading Time Taken Comments Blood Pressure 108/76 12/23/2003 11:30 AM CLASSIFYING MACHINE OPERATOR Pulse 58 12/23/2003 11:30 AM CLASSIFYING MACHINE OPERATOR Temperature - - Respiratory Rate - - Oxygen Saturation - - Inhaled Oxygen Concentration - - Weight 103.4 kg (228 lb) 12/23/2003 11:30 AM CLASSIFYING MACHINE OPERATOR Height - - Body Mass Index - - documented in this encounter Plan of Treatment Not on file documented as of this encounter Visit Diagnoses Not on filedocumented in this encounter Care Teams Shield Cleaner Relationship Specialty Start Date End Date Alhaji Mendez MD [address] [place] [address] PCP - General Family Practice 06/04/24 documented as of this encounter
--- OUTSIDE RECORDS SUMMARY | 2024-12-30 16:01 | XMS_ITS | Encounter Summary ---
Author Organization [facility] Address 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 Delta[facility] Augustus Medina MD [address] [facility] [address] [place] [address] Coronary Atherosclerosis of [place] Coronary Artery (Primary Dx) Social History Tobacco Use Types Packs/Day Years Used Date Smoking Tobacco: Never Assessed Comments Unknown Sex and Gender Information Value Date Recorded Sex Assigned at Not on file 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 Gender Identity Not on file Sexual Orientation Not on file documented as of this encounter Plan of Treatment Not on file documented as of this encounter Procedures Procedure Name Priority Date/Time Associated Diagnosis Comments CKMB W/REFLEX CK Routine 02/26/2007 10:0 0 AM CDT CBC WITH DIFFERENTIAL Routine 02/26/2007 10:00 AM CDT CBC WITH DIFFERENTIAL Routine 02/26/2007 10:00 AM CDT POC ACTIVATED CLOTTING TIME Routine 02/25/2007 8:58 PM CDT CBC WITH DIFFERENTIAL Routine 02/25/2007 8:55 PM CDT CBC WITH DIFFERENTIAL Routine 02/25/2007 8:55 PM CDT POC ACTIVATED CLOTTING TIME Routine 02/25/2007 6:04 PM CDT POC ACTIVATED CLOTTING TIME Routine 02/25/2007 3:42 PM CDT documented in this encounter Results * CKMB W/REFLEX CK (02/26/2007 10:00 AM CDT) CKMB 1.9 <=3.8 ng/mL INTERFACE SYSTEM CKMB INTERP Negative INTERFAC E SYSTEM 02/26/2007 10:0 0 AM CDT us Augustus Medina MD CHEMISTRY ORDERABLES Edit ed Performing Organization Address [facility] Phone Number INTERFACE SYSTEM Refer to clinic/hospital department * (ABNORMAL) CBC WITH DIFFERENTIAL (02/26/2007 10:00 AM CDT) NEUTROPHILS 71(H) 45 - 70 % INTERFAC E SYSTEM LYMPHOCYTES 21 16 - 45 % INTERFAC E SYSTEM MONOCYTES 7 3 - 13 % INTERFACE SYSTEM EOSINOPHILS 1 0 - 7 % INTERFAC E SYSTEM BASOPHILS 0 0 - 2 % INTERFACE SYSTEM NEUTROPHIL ABSOLUTE 5.32 1.90 - 7.00 K/uL INTERFACE SYSTEM LYMPHOCYTE ABSOLUTE 1.56 0.70 - 4.50 K/uL INTERFACE SYSTEM MONOCYTE ABSOLUTE 0.53 0.10 - 1.30 K/uL INTERFACE SYSTEM EOSINOPHIL ABSOLUTE 0.07 0.00 - 0.70 K/uL INTERFACE SYSTEM BASOPHILS ABSOLUTE 0.02 0.00 - 0.20 K/uL INTERFACE SYSTEM 02/26/2007 10:0 0 AM CDT us Augustus Median MD HEMATOLOGY ORDERABLES Chris amrita Performing Organization Address [facility] Co de Phone Number INTERFACE SYSTEM Refer to clinic/hospital department * CBC WITH DIFFERENTIAL (02/26/2007 10:00 AM CDT) WBC 7.5 4.0 - 9.8 K/uL INTERFACE SYSTEM RBC 4.68 3.90 - 4.90 M/uL INTERFACE SYSTEM HEMOGLOBIN 14.5 11.8 - 14.8 g/dL INTERFACE SYSTEM HEMATOCRIT 42.2 35.5 - 44.0 % INTERFACE SYSTEM MCV 90.2 82.0 - 99.0 fL INTERFACE SYSTEM MCH 31.0 27.2 - 32.6 pg INTERFACE SYSTEM MCHC 34.4 31.5 - 35.5 % INTERFACE SYSTEM RDW 13.3 11.5 - 14.5 % INTERFACE SYSTEM RDW-STDEV 43.6 37.1 - 48.7 fL INTERFACE SYSTEM PLATELETS 227 140 - 350 K/uL INTERFACE SYSTEM MPV 11.0 9.3 - 12.4 fL INTERFACE SYSTEM 02/26/2007 10:0 0 AM CDT us Augustus Medina MD HEMATOLOGY ORDERABLES Chris amrita Performing Organization Address City/[facility] Co de Phone Number INTERFACE SYSTEM Refer to clinic/hospital department * POC ACTIVATED CLOTTING TIME (02/25/2007 8:58 PM CDT) ACT POC 123 Seconds INTERFACE SYSTEM Comment: Note sheath pull range change effective 05/11/2006. ACT value for sheath pull at [facility] has been established to be < or = to 1 40. (See also Nursing Procedures for sheath pull in related nursing areas) 02/25/2007 8:58 PM CDT us Augustus Medina MD POINT OF CARE TESTING Chris amrita Performing Organization Address [facility] Co de Phone Number INTERFACE SYSTEM Refer to clinic/hospital department * CBC WITH DIFFERENTIAL (02/25/2007 8:55 PM CDT) NEUTROPHILS 63 45 - 70 % INTERFAC E SYSTEM LYMPHOCYTES 29 16 - 45 % INTERFAC E SYSTEM MONOCYTES 8 3 - 13 % INTERFACE SYSTEM EOSINOPHILS 1 0 - 7 % INTERFAC E SYSTEM BASOPHILS 0 0 - 2 % INTERFACE SYSTEM NEUTROPHIL ABSOLUTE 6.88 1.90 - 7.00 K/uL INTERFACE SYSTEM LYMPHOCYTE ABSOLUTE 3.13 0.70 - 4.50 K/uL INTERFACE SYSTEM MONOCYTE ABSOLUTE 0.82 0.10 - 1.30 K/uL INTERFACE SYSTEM EOSINOPHIL ABSOLUTE 0.10 0.00 - 0.70 K/uL INTERFACE SYSTEM BASOPHILS ABSOLUTE 0.02 0.00 - 0.20 K/uL INTERFACE SYSTEM 02/25/2007 8:55 PM CDT Augustus Medina MD HEMATOLOGY ORDERABLES Chris amrita Performing Organization Address [facility] Phone Number INTERFACE SYSTEM Refer to clinic/hospital department * (ABNORMAL) CBC WITH DIFFERENTIAL (02/25/2007 8:55 PM CDT) WBC 11.0(H) 4.0 - 9.8 K/uL INTERFACE SYSTEM RBC 4.84 3.90 - 4.90 M/uL INTERFACE SYSTEM HEMOGLOBIN 15.0(H) 11.8 - 14.8 g/dL INTERFACE SYSTEM HEMATOCRIT 43.3 35.5 - 44.0 % INTERFACE SYSTEM MCV 89.5 82.0 - 99.0 fL INTERFACE SYSTEM MCH 31.0 27.2 - 32.6 pg INTERFACE SYSTEM MCHC 34.6 31.5 - 35.5 % INTERFACE SYSTEM RDW 13.0 11.5 - 14.5 % INTERFACE SYSTEM RDW-STDEV 42.4 37.1 - 48.7 fL INTERFACE SYSTEM PLATELETS 249 140 - 350 K/uL INTERFACE SYSTEM MPV 11.1 9.3 - 12.4 fL INTERFACE SYSTEM 02/25/2007 8:55 PM CDT Augustus Medina MD HEMATOLOGY ORDERABLES Chris amrita Performing Organization Address [facility] Phone Number INTERFACE SYSTEM Refer to clinic/hospital department * POC ACTIVATED CLOTTING TIME (02/25/2007 6:04 PM CDT) ACT POC 178 Seconds INTERFACE SYSTEM Comment: Note sheath pull range change effective 05/11/2006. ACT value for sheath pull at [facility] has been established to be < or = to 1 40. (See also Nursing Procedures for sheath pull in related nursing areas) 02/25/2007 6:04 PM CDT Augustus Medina MD POINT OF CARE TESTING Chris amrita Performing Organization Address [facility] Phone Number INTERFACE SYSTEM Refer to clinic/hospital department * POC ACTIVATED CLOTTING TIME (02/25/2007 3:42 PM CDT) ACT POC 150 Seconds INTERFACE SYSTEM Comment: Note sheath pull range change effective 05/11/2006. ACT value for sheath pull at [facility] has been established to be < or = to 1 40. (See also Nursing Procedures for sheath pull in related nursing areas) 02/25/2007 3:42 PM CDT us Augustus Medina MD POINT OF CARE TESTING Chris amrita INTERFACE SYSTEM Refer to clinic/hospital department documented in this encounter Visit Diagnoses Diagnosis Coronary atherosclerosis of [place] coronary artery- Primary documented in this encounter Care Teams Rag Cutting Machine Tender Relationship Specialty Start Date End Date Alhaji Mendez MD [address] [place] [address] PCP - General Family Practice 06/04/24 documented as of this encounter
--- OUTSIDE RECORDS SUMMARY | 2024-12-30 16:01 | XMS_ITS | Clinical Summary ---
Author Organization [facility] [address] Address [address] [place] [address] Care Team Providers Care Support Architect Name Role Phone Alhaji Mendez MD Primary Care Provider +1 [phone] Allergies Active Allergy Reactions Criticality Noted Date Comments Sulfa (Sulfonamide Antibiotics) Itching Low Medications fexofenadine (ULISES) 180 mg tablet take 1 tablet (180MG) by oral route every day 0 2 Active oxyCODONE-aceta minophen (PERCOCET) 5-325 mg per tablet take 1 tablet by oral route every 6 hours as needed 0 2 Active metFORMIN (GLUCOPHAGE) 1,000 mg tablet take 1 tablet (1000MG) by oral route 2 times every day with morning and evening meals 0 3 Active atorvastatin (LIPITOR) 10 mg tablet take 1 tablet by oral route every day at bedtime 0 0 4 Active metoprolol (LOPRESSOR) 50 mg tablet take 1 Tablet by oral route 2 times every day with meals 15 0 3 Active albuterol HFA (PROVENTIL HFA,VENTOLIN HFA) 90 mcg/actuation inhaler Inhale 2 puffs every 6 (six) hours as needed for shortness of breath Active nortriptyline HCl (NORTRIPTYLINE ORAL) Take 50 mg by mouth nightly Active pantoprazole sodium (PANTOPRAZOLE ORAL) Take 40 mg by mouth daily Active aspirin 81 mg tablet Take 1 tablet (81 mg total) by mouth daily Active GABAPENTIN ORAL Take 600 mg by mouth 3 (three) times a day Active carbidopa-levod opa (SINEMET) 25-100 mg per tablet 1 tablet nightly 5 9 Active baclofen (LIORESAL) 10 mg tablet 0 Active clopidogreL (PLAVIX) 75 mg tablet Take 1 tablet (75 mg total) by mouth daily [address] (CYMBALTA) 60 mg capsule Take by mouth daily 0 Active oxybutynin (DITROPAN) 5 mg tablet Active cholecalciferol (VITAMIN D-3) 50,000 unit capsule TAKE 1 CAPSULE BY MOUTH ONCE MONTHLY ON THE OF EACH MONTH 1 Active clobetasoL (TEMOVATE) 0.05 % external solution Active ferrous sulfate 325 mg (65 mg of elemental iron) tablet ferrous sulfate 325 mg (65 mg iron) tablet TAKE 1 TABLET BY MOUTH EVERY DAY Active pen needle, diabetic 31 gauge x 02/01 needle 31 gauze x 04/03 Active fesoterodine ER (TOVIAZ) 4 mg tablet extended release 24 hr Take 1 tablet (4 mg total) by mouth daily Active tolterodine LA (DETROL LA) 4 mg 24 hr capsule Take 1 capsule (4 mg total) by mouth daily [address] (CYMBALTA) 30 mg capsule Take 1 capsule (30 mg total) by mouth nightly Active TOUJEO MAX 300 unit/mL (3 mL) pen for injection INJECT 35UNITS UNDER THE SKIN EVERY MORNING AND 80 UNITS AT BEDTIME 3 Active tirzepatide (MOUNJARO) 7.5 mg/0.5 mL pen injector 3 Active HYDROcodone-camelia taminophen (NORCO) 7.5-325 mg per tablet Take by mouth every 6 (six) hours as needed 4 Active nitroglycerin (NITROSTAT) 0.[address] 1 tablet (0.4 mg total) under the tongue every 5 (five) minutes as needed for chest pain 25 tablet 11 4 Active Active Problems Problem Noted Date Diagnosed Date Morbid (severe) obesity due to excess calories 0 12/05/2023 Body mass index 40.0-44.9, adult (CMS/HCC) 12/05 Exertional dyspnea 08/31/2020 Status post percutaneous transluminal coronary a ngioplasty 05/03/2017 Presence of stent in coronary artery 05/03/2017 Acute respiratory infection 05/03/2017 Dietary counseling 05/03/2017 Coronary arteriosclerosis in [place] artery 08/28 Overview (02/23/2017): Coronary arteriosclerosis in [place] artery Non-toxic multinodular goiter 04/04/2014 Overview (02/22/2017): NONTOX MULTINODUL GOITER Cyst of thyroid 04/04/2014 Overview (02/23/2017): CYST OF THYROID Medical History Medical History Date Comments Hypertension Hypertension Hx Other Medical Diabetes Type I I Adiposity Obesity Family History Medical History Relation Name Comments Coronary artery disease Brother 2 Ahmet nary Artery Bypass Graft; Heart failure Father Congestive Hea rt Failure; Cause of : Congestive Heart Failure Cardiomyopathy Mother Cardiomyopath y; Heart attack Mother Myocardial Infa rction; Other Mother Pacemaker; Thyroid disease Other 2 Thyroid diso rder; Relation Name Status Comments Brother 1 Alive Brother 2 Father Mother Alive Other 1 Alive Other 2 Social History Tobacco Use Types Packs/Day Years Used Date Smoking Tobacco: Former Smokeless Tobacco: Never Alcohol Use Standard Drinks/Week Comments No 0 (1 standard drink = 0.6 oz pur e alcohol) Personal Safety Answer Date Recorded Getting School Help Needed Not on file 11/14 Comments Unknown Sex and Gender Information Value Date Recorded Sex Assigned at Not on file 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 Gender Identity Not on file Sexual Orientation Not on file Obstetrics History Last Filed Vital Signs Vital Sign Reading Time Taken Comments Blood Pressure 120/74 07/31/2024 10:41 AM CDT Pulse 90 07/31/2024 10:41 AM CDT Temperature - - Respiratory Rate 16 08/09/2017 9:08 AM CDT Oxygen Saturation 95% 07/31/2024 10: 41 AM CDT Inhaled Oxygen Concentration - - Weight 93.4 kg (205 lb 14.4 oz) 024 10:41 AM CDT Height 160 cm (5' 3 ) 07/31/2024 10:41 AM CDT Body Mass Index 36.47 07/31/2024 10:41 AM CDT Plan of Treatment Health Maintenance Due Date Last Done Comments Breast Cancer Screening-Mammogram 1959 Cervical Cancer Screening 1959 Colon Cancer Screening-Colonoscopy 1959 Depression Screening 1959 Fall Risk Assessment 1959 Hepatitis C Screening 1959 Osteoporosis Screening-Bone Density Scan 1959 DTaP/Tdap/Td Vaccine (1 - Tdap) 1970 Hepatitis B Screening 1977 Zoster Vaccine (3 of 3) 05/24/2018 03/29/20 18, 12/31/2017, 12/24/2017 Pneumococcal vaccine 65+ (2 of 2 - PCV) 01/23/2019 01/23/2018 Well Visit 65+ 2024 Influenza Vaccine (#1) 2024 08/06/2018 Insurance [facility] Care Teams Support Architect Relationship Specialty Start Date End Date Alhaji Mendez MD PCP - General Family Practice 12/20/23
--- OUTSIDE RECORDS SUMMARY | 2024-12-30 16:01 | XMS_ITS | Encounter Summary ---
Author Organization [facility] Address [address] [place] [address] Care Team Providers Care Water Resource Manager Name Role Phone Alhaji Mendez MD Primary Care Provider +1 -[phone] Encounter Details Date Type Department Care Team (Late st Contact Info) Description 04/29/2004 Outpatient Historical [facility] Adult 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
--- OUTSIDE RECORDS SUMMARY | 2024-12-30 16:01 | XMS_ITS | Encounter Summary ---
Author Organization [facility] Address 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
--- OUTSIDE RECORDS SUMMARY | 2024-12-30 16:01 | XMS_ITS | Encounter Summary ---
Author Organization [facility] Address [address] [place] [address] Care Team Providers Care Milk Collector Name Role Phone Alhaji Mendez MD Primary Care Provider +1 -[phone] Encounter Details Date Type Department Care Team (Late st Contact Info) Description 04/25/2004 Outpatient Historical [facility] Internal Medicine - [place] [address] [place] [address] [place] [address] [place] [address] Social History Tobacco Use Types Packs/Day Years Used Date Smoking Tobacco: Never Assessed Comments Unknown Sex and Gender Information Value Date Recorded Sex Assigned at Not on file 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 Gender Identity Not on file Sexual Orientation Not on file documented as of this encounter Last Filed Vital Signs Vital Sign Reading Time Taken Comments Blood Pressure 120/80 04/25/2004 1:30 PM CDT Pulse 88 04/25/2004 1:30 PM CDT Temperature - - Respiratory Rate - - Oxygen Saturation - - Inhaled Oxygen Concentration - - Weight 95.7 kg (211 lb) 04/25/2004 1:30 PM CDT Height - - Body Mass Index - - documented in this encounter Plan of Treatment Not on file documented as of this encounter Visit Diagnoses Not on filedocumented in this encounter Care Teams Milk Collector Relationship Specialty Start Date End Date Alhaji Mendez MD [address] [place] [address] PCP - General Family Practice 06/04/24 documented as of this encounter
--- OUTSIDE RECORDS SUMMARY | 2024-12-30 16:01 | XMS_ITS | Encounter Summary ---
Author Organization [facility] Address 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
--- OUTSIDE RECORDS SUMMARY | 2024-12-30 16:01 | XMS_ITS | Encounter Summary ---
Author Organization [facility] Address [address] [place] [address] Care Team Providers Care Industrial Relations Specialist Name Role Phone Alhaji Mendez MD Primary Care Provider +1 [phone] Encounter Details Date Type Department Care Team (Late st Contact Info) Description 12/12/2002 Outpatient Historical [facility] Internal Medicine - [place] [address] [place] [address] [place] [address] [facility] [place] [address] Social History Tobacco Use Types Packs/Day Years Used Date Smoking Tobacco: Never Assessed Comments Unknown Sex and Gender Information Value Date Recorded Sex Assigned at Not on file 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
--- OUTSIDE RECORDS SUMMARY | 2024-12-30 16:01 | XMS_ITS | Encounter Summary ---
Author Organization [facility] Address [address] [place] [address] Care Team Providers Care Supervisor Extruding Department Name Role Phone Alhaji Mendez MD Primary Care Provider [phone] [phone] Encounter Details Date Type Department Care Team (Late st Contact Info) Description 05/11/2004 Outpatient Historical 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 Gender Identity Not on file Sexual Orientation Not on file documented as of this encounter Last Filed Vital Signs Vital Sign Reading Time Taken Comments Blood Pressure 110/70 05/11/2004 9:45 AM CDT Pulse 64 05/11/2004 9:45 AM CDT Temperature - - Respiratory Rate - - Oxygen Saturation - - Inhaled Oxygen Concentration - - Weight 96.6 kg (213 lb) 05/11/2004 9:45 AM CDT Height - - Body Mass Index - - documented in this encounter Plan of Treatment Not on file documented as of this encounter Visit Diagnoses Not on filedocumented in this encounter Care Teams Supervisor Extruding Department Relationship Specialty Start Date End Date Alhaji Mendez MD [address] [place] [address] PCP - General Family Practice 06/04/24 documented as of this encounter
--- OUTSIDE RECORDS SUMMARY | 2024-12-30 16:01 | XMS_ITS | Encounter Summary ---
Author Organization [facility] Address [address] [place] [address] Care Team Providers Care Playground Aide Name Role Phone Alhaji Mendez MD Primary Care Provider [phone] [phone] Encounter Details Date Type Department Care Team (Late st Contact Info) Description 06/18/2002 Outpatient Historical [facility] [facility] Internal Medicine - [place] [address] [place] [phone] [place] [address] [facility] [place] [id number] Social History Tobacco Use Types Packs/Day Years Used Date Smoking Tobacco: Never Assessed Comments Unknown Sex and Gender Information Value Date Recorded Sex Assigned at Not on file Legal 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
--- OUTSIDE RECORDS SUMMARY | 2024-12-30 16:01 | XMS_ITS | Referral Summary ---
Author Organization [facility] [address] Address [address] [place] [address] Care Team Providers Care Hand Finisher Name Role Phone Alhaji Mendez MD Primary Care Provider [phone] [phone] Allergies Active Allergy Reactions Criticality Noted Date [...] 05/03/2017 Dietary counseling 05/03/2017 Coronary arteriosclerosis in [place] artery 08/28 Overview (02/23/2017): Coronary arteriosclerosis in [place] artery Non-toxic multinodular goiter 04/04/2014 Overview (02/22/2017): NONTOX MULTINODUL GOITER Cyst of thyroid 04/04/2014 Overview (02/23/2017): CYST OF THYROID Social History Tobacco Use Types Packs/Day Years [...] on file 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 Care Teams Hand Finisher Relationship Specialty Start Date End Date Alhaji Mendez MD PCP - General Family Practice 12/20/23
--- OUTSIDE RECORDS SUMMARY | 2024-12-30 16:01 | XMS_ITS | Encounter Summary ---
Author Organization [facility] Address 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
--- OUTSIDE RECORDS SUMMARY | 2024-12-30 16:01 | XMS_ITS | Encounter Summary ---
Author Organization [facility] Address [address] [place] [address] Care Team Providers Care Tie Bucker Name Role Phone Alhaji Mendez MD Primary Care Provider [phone] [phone] Encounter Details Date Type Department Care Team (Late st Contact Info) Description 12/04/2003 Outpatient Historical [facility] Internal Medicine - [place] [address] [place] [phone] [place] [address] [facility] [place] [address] Social History Tobacco Use Types Packs/Day Years Used Date Smoking Tobacco: Never Assessed Comments Unknown Sex and Gender Information Value Date Recorded Sex Assigned at Not on file 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
--- OUTSIDE RECORDS SUMMARY | 2024-12-30 16:01 | XMS_ITS | Encounter Summary ---
Author Organization [facility] Address 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
--- OUTSIDE RECORDS SUMMARY | 2024-12-30 16:02 | XMS_ITS | Encounter Summary ---
Author Organization [facility] Address [address] [place] [address] Care Team Providers Care Buying Intern Name Role Phone Alhaji Mendez MD Primary Care Provider [phone] [phone] Encounter Details Date Type Department Care Team (Late st Contact Info) Description 08/21/2005 Outpatient Historical [facility] Internal Medicine - [place] [address] [place] [address] [place] [address] [facility] [place] [phone] Social History Tobacco Use Types Packs/Day Years Used Date Smoking Tobacco: Never Assessed Comments Unknown Sex and Gender Information Value Date Recorded Sex Assigned at Not on file Legal Sex Female 4:52 AM HHAS Gender Identity Not on file Sexual Orientation Not on file documented as of this encounter Last Filed Vital Signs Vital Sign Reading Time Taken Comments Blood Pressure 110/68 08/21/2005 2:30 PM CDT Pulse 74 08/21/2005 2:30 PM CDT Temperature - - Respiratory Rate - - Oxygen Saturation - - Inhaled Oxygen Concentration - - Weight 98.4 kg (217 lb) 08/21/2005 2:30 PM CDT Height - - Body Mass Index - - documented in this encounter Plan of Treatment Not on file documented as of this encounter Visit Diagnoses Not on filedocumented in this encounter Care Teams Buying Intern Relationship Specialty Start Date End Date Alhaji Mendez MD [address] [place] [address] PCP - General Family Practice 06/04/24 documented as of this encounter
--- OUTSIDE RECORDS SUMMARY | 2024-12-30 16:02 | XMS_ITS | Encounter Summary ---
Author Organization [facility] Address [address] [place] [address] Care Team Providers Care Rent Collector Name Role Phone Alhaji Mendez MD Primary Care Provider [phone] [phone] Encounter Details Date Type Department Care Team (Late st Contact Info) Description 07/04/2003 Outpatient Historical [facility] Internal Medicine - [place] [address] [place] [phone] [place] [address] [facility] [place] [phone] Social History Tobacco Use Types Packs/Day Years Used Date Smoking Tobacco: Never Assessed Comments Unknown Sex and Gender Information Value Date Recorded Sex Assigned at Not on file 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
--- OUTSIDE RECORDS SUMMARY | 2024-12-30 16:02 | XMS_ITS | Data Portability ---
Author Organization [place] [facility] [employer], Main Office Address [address] [place] [address] Care Team Providers Care Chemicals Distiller Name Role Phone VU ESTRADA Primary Care Provider JOSE A HUSTON Referring Provider [phone] Assessment Encounter Date Assessment Date Assessment LastModified by Organization Details LastModified Time 06/05/2023 06/05/2023 This note is dictated and transcribed by [employer]. Nursing Staff Development Coordinator variances may occur. Despite proofreading, typographical errors may occur. Not available 06/05/2023 17:25:22 06/12/2023 06/12/2023 This note is dictated and transcribed by [employer]. Nursing Staff Development Coordinator variances may occur. Despite proofreading, typographical errors may occur. Not available 06/12/2023 15:41:45 Plan of Treatment Reminders Order Date Submit Date Provider Last Modified By Organization Details Last Modified Time Details Appointments None record ed. Lab None record ed. Referral None record ed. Procedures None record ed. Surgeries None record ed. Imaging XR, foot, 3 or more view 023 06/05/20 23 [email or web address] [facility] ([facility]), [address] [facility], [place], [address], 08:58:33 Medication Orders None record ed. Patient TargetsNo targets recorded. Patient InstructionsNo instructions recorded. Reason for Referral None Reported. Results Created Date Observation Date Name Description Value Unit Range Abnormal Flag Note LastModifiedBy Organization Detail LastModifiedTime 06/05/20 23 06/05/2023 CULTU RE WOUND /TISS UE+GR .STAI N [email or web address] ===== ===== ===== ===== ===== ===== ===== ===== ===== ===== ===== ===== ===== ===== ===== ===== ===== ===== ===== ===== ===== ===== ===== ===== CULTU RE NO.: [id number] Exam Statu s: Final Exam Type: CULTU RE WOUND /TISS UE+ ===== ===== ===== ===== ===== ===== ===== ===== ===== ===== ===== ===== ===== ===== ===== ===== ===== ===== ===== ===== ===== ===== ===== ===== Cultu re Repor t: Organ ism #01 Staph yloco ccus aureu s (staa ur) Antib iotic s staau r Achie vable Achie vable (01) Dosag e Serum Level Urine Level mcg/m l mcg/m l Beta- Lacta torrey POS + 000A Cefox itin Scree n NEG - 000A Cipro floxa shabnam <=0.5 S 000A Clind amyci n R 000A Dapto mycin 0.25 S 000A Doxyc yclin e <=0.5 S 000A Eryth romyc in R 000A Genta micin <=0.5 S 000A Induc ible Clind amyci POS + 000A Levof loxac in 0.25 S 000A Linez olid 2 S 000A Moxif loxac in <=0.2 5 S 000A Oxaci llin AURELIO 0.5 S 000A Rifam pin <=0.5 S 000A Tetra cycli ne <=1 S 000A Tigec yclin e <=0.1 2 S 000A Trime thopr im/Hopkins lfame <=10 S 000A Vanco mycin 1 S 000A Not Available [facility] ([facility]) [address], [place], [address], 06/09/2023 08:09:32 05/04/20 22 XR, hip + pelvi s, unila teral No observ ation record ed. [id number] [facility] [place] [address] [facility], [place], [address], 01/17/2023 19:30:19 Result Notes None recorded. Problems Name Problem SNOMED Code Status Onset Date Resolution Date Notes Provider Name and Address Organization Details Recorded Time Hammer toe 613987761 Active 2017 Not Available [facility] 3 19:29:07 Postoperat yusuf care Active 2020 Not Available [facility] 3 19:29:07 Asthma 638142206 Active 2017 Not Available [facility] 3 19:29:07 Fibromyalg ia 151483986 Active 2017 Not Available [facility] 3 19:29:07 Neuropathy due to diabetes mellitus 378550524 Active 2017 Not Available [facility] 3 19:29:08 Subluxatio n of toe joint 678178204 Active 2020 Not Available [facility] 3 19:29:08 Pain of left hip joint 2844898759289 00 Active 2021 Not Available [facility] 3 19:29:08 Bronchitis 50946349 Active 2017 Not Available [facility] 3 19:29:08 Arthritis 5049691 Active 2017 Not Available [facility] 3 19:29:08 Migraine 87840338 Active 2017 Not Available [facility] 3 19:29:08 Sleep disorder 87894838 Active 2017 Not Available [facility] 3 19:29:08 Onychomyco sis of toenails 795774117 Active 2017 Not Available [facility] 3 19:29:08 Obesity 232847989 Active 2017 Not Available [facility] 3 19:29:08 Heart disease 05126108 Active 2017 Not Available [facility] 3 19:29:08 Cellulitis of toe 66586091 Active 2020 Not Available [facility] 3 19:29:08 Diabetes mellitus 64318895 Active 2017 Not Available [facility] 3 19:29:08 Dystrophia unguium 04834267 Active 2017 Not Available [facility] 3 19:29:08 Ulcer of toe 509092098 Active 2022 Lex Bosch DPM [address], [place], [address] , [employer] 3 17:16:00 Cellulitis of toe of left foot 3695376935755 9105 Active 2022 Lex Bosch DPM [address], [place], [address] , [employer] 3 17:16:11 Hammer toe 821074356 Active 2022 Lex Bosch DPM [address], [place], [address] , [employer] 3 17:23:47 Notes:allergies, back/neck p roblems, coronary artery disease, thyroid disease, urinary problems, use of blood thinners, vascular disease, constipation, shortness of breath, difficulty swallowing, dry mouth, wears glasses, vision problems, cataracts/glaucoma Problem Notes None recorded. Procedures Surgical History Date Name Laterality Status Provider Name and Address Organization Details Recorded Time 06/12/2023 Wound Care-Podiat ry completed Lex Bosch DPM [address], [place], [address], [employer] 06/12/2023 15:41:17 06/05/2023 Wound Care-Podiat ry completed Lex Bosch, VANESA [address] [facility], [address], [place], [address], [facility] [employer] [facility] 06/05/2023 17:22:37 Imaging Results Imaging Date Name Status LastModified by Organiz ation Details LastModified Time 05/04/2022 XR, hip + pelvis, unilateral completed [id number] [facility] [place] [address] [facility], [place], [address], 01/17/2023 19:30:19 Procedure Notes None recorded. Medical Equipment None Reported. Allergies Allergen ID Allergen Name Allergen Category Reaction Reaction Severity Criticality Documentation Date Start Date Code Code System Note Provider Name and Address Organization Details Recorded Time 28838 Substance with sulfonami de structure and antibacte rial mechanism of action (substanc e) medicatio n Not available Not available Not available 01/17/2023 07522 8003 SNOMED Not Available [facility] 19:30:17 Medications Name Sig Start Date Stop Date Status Note LastModified by Organization Details LastModified Time cyclobenzap rine 10 mg tablet 03/03 completed Not Available Not Available Not Available fluconazole 100 mg tablet 07/06 completed Not Available Not Available Not Available gabapentin 600 mg tablet TAKE 1 TABLET BY MOUTH THREE TIMES A DAY active Not Available Not Available No t Available doxycycline hyclate 100 mg capsule active Not Available Not Available N ot Available cefuroxime axetil 250 mg tablet 05/04 completed Not Available Not Available Not Available atorvastati n 10 mg tablet TAKE 1 TABLET BY MOUTH DAILY active Not Available Not Available No t Available azithromyci n 250 mg tablet TAKE 2 TABLETS BY MOUTH TODAY, THEN TAKE 1 TABLET DAILY FOR 4 DAYS 06/11 completed Not Available Not Available Not Available miconazole nitrate 2 % topical cream APPLY TOPICALLY TWICE A DAY 05/04 completed Not Available Not Available Not Available fluconazole 150 mg tablet TAKE 1 TABLET BY MOUTH ONCE FOR 1 DOSE 06/11 completed Not Available Not Available Not Available tolterodine ER 4 mg capsule,ext ended release 24 hr TAKE 1 CAPSULE BY MOUTH ONCE DAILY active Not Available Not Available No t Available prednisone 20 mg tablet TAKE 2 TABLETS BY MOUTH EVERY DAY 06/11 completed Not Available Not Available Not Available clopidogrel 75 mg tablet TAKE 1 TABLET BY MOUTH EVERY DAY active Not Available Not Available No t Available pantoprazol e 20 mg tablet,blake yed release TAKE 1 TABLET BY MOUTH EVERY DAY IN THE MORNING 05/04 completed Not Available Not Available Not Available oxycodone-a cetaminophe n 5 mg-325 mg tablet TAKE 1 TABLET BY MOUTH EVERY 4 HOURS NEEDED FOR PAIN (SCALE SCORE 7-10) active Not Available Not Available No t Available terbinafine HCl 250 mg tablet TAKE 1 TABLET BY MOUTH EVERY DAY active Not Available Not Available No t Available Kenalog 10 mg/mL suspension for injection In office injection administe red by the provider active [facility]: 0003- 0494- 20 Not Available Not Available Not Available baclofen 10 mg tablet TAKE 1 TABLET BY MOUTH TWICE A DAY NEEDED FOR MUSCLE SPASM active Not Available Not Available No t Available benzonatate 100 mg capsule TAKE 1 CAPSULE BY MOUTH THREE TIMES A DAY NEEDED FOR COUGH active Not Available Not Available No t Available dexamethaso ne 2 mg tablet TAKE 3 TABS BY MOUTH AT 8AM FOR 7 DAYS 05/04 completed Not Available Not Available Not Available hydrocodone 7.5 mg-acetamin ophen 325 mg tablet TAKE 1 TABLET BY MOUTH EVERY 6 HOURS NEEDED FOR PAIN active Not Available Not Available No t Available cephalexin 500 mg capsule TAKE 1 CAPSULE BY MOUTH EVERY 8 HOURS X7 DAYS 06/11 completed Not Available Not Available Not Available pantoprazol e 40 mg tablet,blake yed release TAKE 1 TABLET BY MOUTH EVERY DAY IN THE MORNING active Not Available Not Available No t Available ferrous sulfate 325 mg (65 mg iron) tablet TAKE 1 TABLET BY MOUTH EVERY DAY active Not Available Not Available No t Available metformin 1,000 mg tablet TAKE 1 TABLET BY MOUTH TWICE A DAY active Not Available Not Available No t Available nystatin 100,000 unit/gram topical cream 03/03 completed Not Available Not Available Not Available ranitidine 150 mg tablet 06/11 completed Not Available Not Available Not Available prednisone 50 mg tablet TAKE 1 TABLET BY MOUTH DAILY 06/11 completed Not Available Not Available Not Available metoprolol tartrate 50 mg tablet TAKE 1 TABLET BY MOUTH TWICE A DAY active Not Available Not Available No t Available gabapentin 300 mg capsule TAKE 1 CAPSULE BY MOUTH 5 TIMES DAILY active Not Available Not Available No t Available ergocalcife rol (vitamin D2) 1,250 mcg (50,000 unit) capsule TAKE 1 CAPSULE BY MOUTH ONCE MONTHLY 05/04 completed Not Available Not Available Not Available levofloxaci n 500 mg tablet 10/07 completed Not Available Not Available Not Available levofloxaci n 750 mg tablet TAKE 1 TABLET BY MOUTH EVERY DAY 06/11 completed Not Available Not Available Not Available albuterol sulfate HFA 90 mcg/actuati on aerosol inhaler INHALE 2 PUFFS BY MOUTH 4 TIMES DAILY NEEDED FOR SHORTNESS OF BREATH active Not Available Not Available No t Available carbidopa 25 mg-levodopa 100 mg tablet TAKE 1 TABLET BY MOUTH EVERY DAY AT BEDTIME active Not Available Not Available No t Available oxybutynin chloride 5 mg tablet 05/04 completed Not Available Not Available Not Available clobetasol 0.05 % scalp solution APPLY TO AFFECTED AREA EVERY DAY 05/04 completed Not Available Not Available Not Available cefdinir 300 mg capsule TAKE 1 CAPSULE BY MOUTH EVERY 12 HOURS 05/04 completed Not Available Not Available Not Available doxycycline hyclate 100 mg tablet TAKE 1 TABLET BY MOUTH EVERY 12 HOURS 05/04 completed Not Available Not Available Not Available nortriptyli ne 50 mg capsule TAKE 1 CAPSULE BY MOUTH EVERYDAY AT BEDTIME active Not Available Not Available No t Available amoxicillin 875 mg-potassiu m clavulanate 125 mg tablet TAKE 1 TABLET BY MOUTH TWICE A DAY 06/11 completed Not Available Not Available Not Available amoxicillin 500 mg-potassiu m clavulanate 125 mg tablet Take 1 tablet every 12 hours by oral route as directed for 10 days. 05/04 completed Not Available Not Available Not Available Pneumovax-2 3 25 mcg/0.5 mL injection syringe 09/21 completed Not Available Not Available Not Available nitrofurant oin monohydrate /macrocryst als 100 mg capsule TAKE 1 CAPSULE BY MOUTH TWICE A DAY 06/11 completed Not Available Not Available Not Available duloxetine 30 mg capsule,del ayed release TAKE 1 CAPSULE BY MOUTH EVERYDAY AT BEDTIME active Not Available Not Available No t Available duloxetine 60 mg capsule,del ayed release TAKE 1 CAPSULE BY MOUTH EVERY DAY active Not Available Not Available No t Available BD Ultra-Fine Mini Pen Needle 31 gauge x 3/16 USE TO INJECT INSULIN 2 TIMES DAILY 05/04 completed Not Available Not Available Not Available [facility] 100,000 unit/gram topical powder 03/03 completed Not Available Not Available Not Available lidocaine (PF) 5 mg/mL (0.5 %) injection solution In office injection administe red by the provider active Not Available Not Available No t Available BD Ultra-Fine Short Pen Needle 31 gauge x 5/16 USE TO INJECT INSULIN 2 TIMES DAILY active Not Available Not Available No t Available Advair HFA 115 mcg-21 mcg/actuati on aerosol inhaler INHALE 2 PUFFS TWICE A DAY active Not Available Not Available No t Available Advair HFA 230 mcg-21 mcg/actuati on aerosol inhaler 05/04 completed Not Available Not Available Not Available UltiCare Pen Needle 31 gauge x 1/4 active Not Available Not Available Not Available cholecalcif sabino (vitamin D3) 1,250 mcg (50,000 unit) capsule TAKE 1 CAPSULE BY MOUTH ONCE MONTHLY ON THE OF EACH MONTH active Not Available Not Available No t Available Lantus Solostar U-100 Insulin 100 unit/mL (3 mL) subcutaneou s pen 05/04 completed Not Available Not Available Not Available GaviLyte-N 420 gram oral solution 05/04 completed Not Available Not Available Not Available ropivacaine (PF) 5 mg/mL (0.5 %) injection solution In office injection administe red by the provider active Not Available Not Available No t Available Contour Next Test Strips USE 3-4 TIMES A DAY active Not Available Not Available No t Available Toujeo SoloStar U-300 Insulin 300 unit/mL (1.5 mL) subcutaneou s pen INJECT 23 UNITS INTO THE SKIN EACH MORNING AND 70 UNITS EACH EVENING active Not Available Not Available No t Available Shingrix (PF) 50 mcg/0.5 mL intramuscul ar suspension, kit 09/21 completed Not Available Not Available Not Available [employer]o Max U-300 SoloStar 300 unit/mL (3 mL) subcutaneou s insulin pen INJECT 30 UNITS UNDER THE SKIN EVERY MORNING AND 75 UNITS AT BEDTIME active Not Available Not Available No t Available Flucelvax Quad (PF) 60 mcg (15 mcg x 4)/0.5 mL IM syringe 05/04 completed Not Available Not Available Not Available Wixela Inhub 250 mcg-50 mcg/dose powder for inhalation INHALE 1 PUFF BY MOUTH TWICE A DAY active Not Available Not Available No t Available Fluzone Quad (PF) 60 mcg (15 mcg x 4)/0.5 mL IM syringe TO BE ADMINISTE RED BY PHARMACIS T FOR IMMUNIZAT ION active Not Available Not Available No t Available Vitals Date Recorded Body mass index (BMI) Body height Body height Body height Body weight Provider Name and Address Organization Details Last Updated DateTime 01/17/2023 46.3 kg/m2 157.48 cm 154.94 cm 154.94 cm 017703.1 3 g Not Available [facility] 01/17/2023 19:28:57 Date Recorded Body height Heart rate Respiratory rate Oxygen saturation Oxygen saturation in Arterial blood by Pulse oximetry Systolic blood pressure Diastolic blood pressure Provider Name and Address Organization Details Last Updated DateTime 3 154.94 cm 78 /min 18 /min 98 % 98 % 145 mm[Hg] 76 mm[Hg] Deyanira Thee [employer] 3 16:56:50 Date Recorded Body height Heart rate Respiratory rate Oxygen saturation Oxygen saturation in Arterial blood by Pulse oximetry Systolic blood pressure Diastolic blood pressure Provider Name and Address Organization Details Last Updated DateTime 3 154.94 cm 87 /min 16 /min 97 % 97 % 134 mm[Hg] 69 mm[Hg] Deyanira Thee [employer] 3 15:24:43 Social History Question Answer Notes LastModified by Organizat ion Details LastModified Time Tobacco Smoking Status Never Smoker Not Available [facility] 01/17/2023 19:28:21 What Is Your Level Of Alcohol Consumption? None [id number] Information not available 01/17/2023 Sex: Unknown Functional Status None recorded. Mental Status None recorded. Family History Relationship Description Onset Age of this Age Resolved Age Notes LastModified by Organization Details LastModified Time Brother Heart disease [id number] Not available 01/17/2023 19:28:26 Mother Heart disease [id number] Not available 01/17/2023 19:28:26 Mother Hypertensive disorder [id number] Not available 01/17/2023 19:28:26 Mother Diabetes mellitus [id number] Not available 01/17/2023 19:28:27 Father Diabetes mellitus [id number] Not available 01/17/2023 19:28:27 Medical History Condition Response BLINDNESS N KIDNEY STONES N MRSA N CARPAL TUNNEL SYNDROME N LUNG DISEASE/DISORDER N HISTORY OF DRUG ABUSE N RADIATION / CHEMOTHERAPY N COPD N SPORTS INJURY N ANKLE PAIN N BLOOD DISEASES N SCHIZOPHRENIA N SHINGLES N BOWEL PROBLEMS N SHOULDER PAIN N DEPRESSION (INCLUDING POST ) N STROKE/TIA N KNEE PAIN N ULCERS N BENIGN PROSTATIC HYPERPLASIA N OBESITY N GERD/NAUSEA N ANEURYSM N URINARY/BLADDER/KIDNEY PROBLEMS Y CORONARY ARTERY DISEASE (CAD) Y ADDICTION CONCERNS N USE OF BLOOD THINNERS Y SKIN PROBLEMS N EMPHYSEMA N MUSCLE,JOINT OR BONE PROBLEMS N DVT N STOMACH ULCERS N BLOOD CLOTS N USE OF NSAIDS N CONCUSSION OR SPINAL TRAUMA N NEUROPATHY N AIDS/HIV N FRACTURES N ELBOW PAIN N HYPERTENSION N TOURETTE'S N ANXIETY DISORDER N Metal allergy N BLOOD TRANSFUSION N ANEMIA/BLOOD DISORDER N BIPOLAR DISORDER N BRONCHITIS N OSTEOARTHRITIS N TUBERCULOSIS N FOOT PROBLEM N HEART VALVE DISORDERS N ALLERGIES/HAYFEVER N SOFT TISSUE INJURY N INFECTIOUS DISEASE N HEART ARRHYTHMIA N INSOMNIA N RHEUMATOID ARTHRITIS N HIGH CHOLESTEROL / HYPERLIPIDEMIA N EDEMA N CHRONIC PAIN SYNDROME N CAROTID BLOCKAGE N BACK / NECK PROBLEMS N HAVE YOU BEEN HOSPITALIZED OR SEEN IN [facility] IN THE PAST YEAR ? N BURSITIS N HERNIATED DISC N DIALYSIS N FIBROMYALGIA N OSTEOPOROSIS N ARTHRITIS Y NO SIGNIFICANT PAST MEDICAL HISTORY N PERIPHERAL NEUROPATHY N DIABETES, TYPE N HEARTBURN / REFLUX N HEPATITIS / LIVER DISEASE N GOUT N SLEEP DISORDER N ALZHEIMER'S DISEASE N HERPES N SEIZURES/EPILEPSY N HEADACHES/MIGRAINES N VASCULAR DISEASE N HIP PAIN N Blood Disorder N DIZZINESS N HEAD TRAUMA OR INJURY N HEART DISEASE/HEART PROBLEMS Y MULTIPLE SCLEROSIS N CARDIAC ARRHYTHMIA N CANCER: SPECIFY N ANESTHESIA COMPLICATIONS N ATRIAL FIBRILLATION N AUTOIMMUNE DISEASE N Gynecological HistoryNo gynecological history recorded. Obstetrics History GPAL:G 0 P 0 0 0 0 Past Encounters Encounter ID Performer Location Encounter Start Date Encounter Closed Date Diagnosis/Indication Diagnosis SNOMED-CT Code Diagnosis ICD10 Code Diagnosis Note [id number] [facility]ry [address], [address] [address] 06/16/2021 00:00:00 06/16/2021 22:07:18 [id number] [facility] [place] [address], [address] [place] [address] 07/21/2021 00:00:00 07/21/2021 14:44:46 [id number] [facility] [place] [address], [address] [place] [address] 08/11/2021 00:00:00 08/11/2021 20:34:03 [id number] [facility] [place] [address], [address] [place] [address] 09/26/2021 00:00:00 09/26/2021 12:03:25 [id number] [facility] [place] [address], [facility] [address] [place] [address] 10/03/2021 00:00:00 10/18/2021 15:11:55 [id number] [facility] [place] [address], [facility] [address] [place] [address] 10/04/2021 00:00:00 10/04/2021 09:03:04 [id number] [facility] [place] [address], [facility] [address] [place] [address] 10/10/2021 00:00:00 10/18/2021 15:06:37 [id number] [facility] [place] [address], [facility] [address] [place] [address] 10/18/2021 00:00:00 10/18/2021 14:09:10 [id number] [facility] [place] [address], [facility] [address] [place] [address] 10/31/2021 00:00:00 10/31/2021 13:09:37 [id number] [facility] [place] [address], [facility] [address] [place] [address] 12/08/2021 00:00:00 12/08/2021 14:14:56 [id number] [facility] [place] [address] [place] [address] 05/04/2022 00:00:00 05/04/2022 11:30:37 [id number] [facility] [address] [address] 09/21/2022 00:00:00 09/21/2022 11:38:09 [id number] Lex Bosch DPM [facility] [address], [address] [address] 06/05/2023 16:47:01 06/05/2023 18:01:45 Ulcer of toe 513063152 L97.509 left 3rd toewound debridedwo und care daily with triple antibiotic ointment and dressingof floading of toefollow- up on week Cellulitis of toe of left foot 2261769784 2179997 L03.032 Finish doxycyclin e Hammer toe 651193871 M20 .42 3rd toe [id number] Lex Bosch DPM [facility] [address], [address] [address] 06/12/2023 15:16:26 06/12/2023 15:48:14 Cellulitis of toe of left foot 3827945153 0698936 L03.032 resolved Ulcer of toe 002077836 L 97.509 left 3rd toewound debridedwo und care daily with triple antibiotic ointment and dressingof floading of toefollow- up on week Health Concerns Section Related Observation LastModified by Organization Detai ls LastModified Time None Recorded Concern Status LastModified by Organization Details LastModified Time None Recorded Advance Directives Directive None Recorded Payers Encounter Date Sequence Insurance Name Policy Number Policy Ferrell Covered Member ID Ferrell Member ID Guarantor Name 06/05/2023 1 [facility] (MEDICARE REPLACEMENT HMO) [id number] Roseanna Blackwell [id number] Roseanna Blackwell 06/12/2023 1 [employer] [facility] (MEDICARE REPLACEMENT HMO) [id number] Roseanna Blackwell [id number] Roseanna Blackwell Notes Date Note Type Note Provider Name and Address Organization Details Recorded Time 06/05/2023 text/html . Patient is 63-year-old female who returns to the office for a wound to the distal 3rd left toe. Patient states her is cutting her nails and cut her skin. Patient states she is a wound with eschar to the distal aspect of the toe. Patient states that yesterday she went to her PCP because she had redness and swelling of the toe which she was placed on doxycycline. Patient was referred back to my office for continued wound care. Patient denies any other pedal complaints. Lex Bosch DPM [address], [facility] [address], [place], [address], [employer] 06/05/2023 17:25:54 06/12/2023 text/html . Patient is a 63-year-old female who returns the office for open wound to the left 3rd toe. Patient has been applying Betadine wet-to-dry dressings and has been offloading the area which it has shown improvement. Patient has resumed dissolve the cellulitis of the toe. Patient denies any fever, chills, nausea or vomiting. Lex Bosch DPM [address], [place], [address], [employer] 06/12/2023 15:44:42 OBGyn Episode No OBEpisode recorded.
--- OUTSIDE RECORDS SUMMARY | 2024-12-30 16:02 | XMS_ITS | Encounter Summary ---
Author Organization [facility] Address [address] [place] [address] Care Team Providers Care Cutting Department Supervisor Name Role Phone Alhaji Mendez MD Primary Care Provider [phone] [phone] Encounter Details Date Type Department Care Team (Late st Contact Info) Description 07/29/2004 Outpatient Historical [facility] Internal Medicine - [place] [address] [place] [address] [place] [address] [place] [address] Social History Tobacco Use Types Packs/Day Years Used Date Smoking Tobacco: Never Assessed Comments Unknown Sex and Gender Information Value Date Recorded Sex Assigned at Not on file 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 Gender Identity Not on file Sexual Orientation Not on file documented as of this encounter Last Filed Vital Signs Vital Sign [place] Time Taken Comments Blood Pressure 110/80 07/29/2004 11:45 AM CDT Pulse 80 07/29/2004 11:45 AM CDT Temperature - - Respiratory Rate - - Oxygen Saturation - - Inhaled Oxygen Concentration - - Weight 98 kg (216 lb) 07/29/2004 11:45 AM CDT Height - - Body Mass Index - - documented in this encounter Plan of Treatment Not on file documented as of this encounter Visit Diagnoses Not on filedocumented in this encounter Care Teams Cutting Department Supervisor Relationship Specialty Start Date End Date Alhaji Mendez MD [address] [place] [address] PCP - General Family Practice 06/04/24 documented as of this encounter
--- OUTSIDE RECORDS SUMMARY | 2024-12-30 16:02 | XMS_ITS | Encounter Summary ---
Author Organization [facility] Address [address] [facility] [address] [place] [address] Care Team Providers Care Sales Ambassador Name Role Phone Aristides Whitten MD Primary Care Provider [phone] Angel Luis Rodgers DO Primary Care Provider [phone] Alhaji Mendez MD Primary Care Provider [phone] Encounter Details Date Type Department Care Team (Late st Contact Info) Description 03/13/2017 Orders Only [facility] ProviderMoustapha MD [address] [place] [address] Social History Tobacco Use Types Packs/Day Years Used Date Smoking Tobacco: Former Cigarettes Q uit: 11/19/2007 Alcohol Use Standard Drinks/Week Comments No 0 (1 standard drink = 0.6 oz pur e alcohol) Comments Unknown Sex and Gender Information Value Date Recorded Sex Assigned at Not on file Legal Sex Female 8:53 PM DBAS Gender Identity Not on file Sexual Orientation Not on file documented as of this encounter Plan of Treatment Not on file documented as of this encounter Procedures Procedure Name Priority Date/Time Associated Diagnosis Comments CARDIOLOGY REPORT 03/13/2017 CARDIOLOGY REPORT 03/13/2017 documented in this encounter Results * CARDIOLOGY REPORT (03/13/2017) Anatomical Region Laterality Modality Other Narrative 03/13/2017 Ordered by an unspecified provider. Historical Provider [facility] G[facility] Final Result * CARDIOLOGY REPORT (03/13/2017) Anatomical Region Laterality Modality Other Narrative 03/13/2017 Ordered by an unspecified provider. us Historical Provider [facility] GERALD[facility] HUNT Final Result documented in this encounter Visit Diagnoses Not on filedocumented in this encounter Care Teams Sales Ambassador Relationship Specialty Start Date End Date Aristides Whitten MD PCP - General 11/04/07 06/24/19 Angel Luis Rodgers DO PCP - General Internal Medicine 06/25/19 12/19/23 Alhaji Mendez MD PCP - General Family Practice 12/20/23 documented as of this encounter
--- OUTSIDE RECORDS SUMMARY | 2024-12-30 16:02 | XMS_ITS | Encounter Summary ---
Author Organization [facility] Address [address] [place] [address] Care Team Providers Care Sheet Rock Layer Name Role Phone Alhaji Mendez MD Primary Care Provider [phone] Encounter Details Date Type Department Care Team (Late st Contact Info) Description 04/24/2006 Outpatient Historical [facility] Internal Medicine - [place] [address] [place] [address] [place] [address] [facility] [place] [address] Social History Tobacco Use Types Packs/Day Years Used Date Smoking Tobacco: Never Assessed Comments Unknown Sex and Gender Information Value Date Recorded Sex Assigned at Not on file Legal Sex Female 4:52 AM INSTRUMENTATION FITTER Gender Identity Not on file Sexual Orientation Not on file documented as of this encounter Plan of Treatment Not on file documented as of this encounter Visit Diagnoses Not on filedocumented in this encounter Care Teams Sheet Rock Layer Relationship Specialty Start Date End Date Alhaji Mendez MD [address] [place] [address] PCP - General Family Practice 06/04/24 documented as of this encounter
--- OUTSIDE RECORDS SUMMARY | 2024-12-30 16:02 | XMS_ITS | Encounter Summary ---
Author Organization [facility] Address [address] [place] [address] Care Team Providers Care Metal Fabricator Apprentice Name Role Phone Alhaji Mendez MD Primary Care Provider [phone] Encounter Details Date Type Department Care Team (Late st Contact Info) Description 09/25/2006 Orders Only [facility] Internal Medicine - [place] [address] [place] [address] [place] [address] [facility] [place] [address] Social History Tobacco Use Types Packs/Day Years Used Date Smoking Tobacco: Never Assessed Comments Unknown Sex and Gender Information Value Date Recorded Sex Assigned at Not on file Legal Sex Female 4:52 AM HOOKER ON Gender Identity Not on file Sexual Orientation Not on file documented as of this encounter Plan of Treatment Not on file documented as of this encounter Visit Diagnoses Not on filedocumented in this encounter Care Teams Metal Fabricator Apprentice Relationship Specialty Start Date End Date Alhaji Mendez MD [address] [place] [address] PCP - General Family Practice 06/04/24 documented as of this encounter
--- OUTSIDE RECORDS SUMMARY | 2024-12-30 16:02 | XMS_ITS | Encounter Summary ---
Author Organization [facility] Address [address] [place] [address] Care Team Providers Care Environmental Science Program Director Name Role Phone Alhaji Mendez MD Primary Care Provider [phone] Encounter Details Date Type Department Care Team (Late st Contact Info) Description 08/08/2005 Outpatient Historical [facility] Internal Medicine - [place] [address] [place] [address] [place] [address] [facility] [place] [address] Social History Tobacco Use Types Packs/Day Years Used Date Smoking Tobacco: Never Assessed Comments Unknown Sex and Gender Information Value Date Recorded Sex Assigned at Not on file Legal Sex Female 4:52 AM POLYMER CHEMIST Gender Identity Not on file Sexual Orientation Not on file documented as of this encounter Plan of Treatment Not on file documented as of this encounter Visit Diagnoses Not on filedocumented in this encounter Care Teams Environmental Science Program Director Relationship Specialty Start Date End Date Alhaji Mendez MD [address] [place] [address] PCP - General Family Practice 06/04/24 documented as of this encounter
--- OUTSIDE RECORDS SUMMARY | 2024-12-30 16:02 | XMS_ITS | Encounter Summary ---
Author Organization [facility] Address [address] [place] [address] Care Team Providers Care Turner Machine Operator Name Role Phone Alhaji Mendez MD Primary Care Provider [phone] Encounter Details Date Type Department Care Team (Late st Contact Info) Description 12/08/2002 Outpatient Historical [facility] Internal Medicine - [place] [address] [place] [address] Joseph Hoffmann MD NO ADDRESS ON FILE Social History Tobacco Use Types Packs/Day Years Used Date Smoking Tobacco: Never Assessed Comments Unknown Sex and Gender Information Value Date Recorded Sex Assigned at Not on file Legal Sex Female 4:52 AM LEATHER BELT MAKER Gender Identity Not on file Sexual Orientation Not on file documented as of this encounter Plan of Treatment Not on file documented as of this encounter Visit Diagnoses Not on filedocumented in this encounter Care Teams Turner Machine Operator Relationship Specialty Start Date End Date Alhaji Mendez MD [address] [place] [address] PCP - General Family Practice 06/04/24 documented as of this encounter
--- OUTSIDE RECORDS SUMMARY | 2024-12-30 16:02 | XMS_ITS | Encounter Summary ---
Author Organization [facility] Address [address] [place] [address] Care Team Providers Care Dimpling Machine Operator Name Role Phone Alhaji Mendez MD Primary Care Provider [phone] Encounter Details Date Type Department Care Team (Late st Contact Info) Description 06/26/2004 Outpatient Historical [facility] Mark Naqvi MD [facility] [place], [place] [id number] [place], Authorized P NO ADDRESS ON FILE CHEST PAIN NEC (Primary Dx) Social History Tobacco Use Types Packs/Day Years Used Date Smoking Tobacco: Never Assessed Comments Unknown Sex and Gender Information Value Date Recorded Sex Assigned at Not on file Legal Sex Female 4:52 AM ASSEMBLER CARDS AND ANNOUNCEMENTS Gender Identity Not on file Sexual Orientation Not on file documented as of this encounter Plan of Treatment Not on file documented as of this encounter Visit Diagnoses Diagnosis Other chest pain- Primary documented in this encounter Care Teams Dimpling Machine Operator Relationship Specialty Start Date End Date Alhaji Mendez MD [address] [place] [address] PCP - General Family Practice 06/04/24 documented as of this encounter
--- OUTSIDE RECORDS SUMMARY | 2024-12-30 16:02 | XMS_ITS | Encounter Summary ---
Author Organization [facility] Address [address] [place] [address] Care Team Providers Care Carpenter Assistant Name Role Phone Alhaji Mendez MD Primary Care Provider [phone] Encounter Details Date Type Department Care Team (Late st Contact Info) Description 12/04/2003 Outpatient Historical [facility] Internal Medicine - [place] [address] [place] [address] [place] [address] [facility] [place] [address] Social History Tobacco Use Types Packs/Day Years Used Date Smoking Tobacco: Never Assessed Comments Unknown Sex and Gender Information Value Date Recorded Sex Assigned at Not on file Legal Sex Female 4:52 AM ALMOND BLANCHER Gender Identity Not on file Sexual Orientation Not on file documented as of this encounter Plan of Treatment Not on file documented as of this encounter Visit Diagnoses Not on filedocumented in this encounter Care Teams Carpenter Assistant Relationship Specialty Start Date End Date Alhaji Mendez MD [address] [place] [address] PCP - General Family Practice 06/04/24 documented as of this encounter
--- OUTSIDE RECORDS SUMMARY | 2024-12-30 16:02 | XMS_ITS | Encounter Summary ---
Author Organization [facility] Address [address] [place] [address] Care Team Providers Care Body Recall Instructor Name Role Phone Alhaji Mendez MD Primary Care Provider [phone] [phone] Encounter Details Date Type Department Care Team (Late st Contact Info) Description 07/04/2003 Outpatient Historical [facility] Internal Medicine - [place] [address] [place] [address] [place] [address] [facility] [place] [address] Social History Tobacco Use Types Packs/Day Years Used Date Smoking Tobacco: Never Assessed Comments Unknown Sex and Gender Information Value Date Recorded Sex Assigned at Not on file Legal Sex Female 4:52 AM RENTAL COORDINATOR Gender Identity Not on file Sexual Orientation Not on file documented as of this encounter Plan of Treatment Not on file documented as of this encounter Visit Diagnoses Not on filedocumented in this encounter Care Teams Body Recall Instructor Relationship Specialty Start Date End Date Alhaji Mendez MD [address] [place] [address] PCP - General Family Practice 06/04/24 documented as of this encounter
--- OUTSIDE RECORDS SUMMARY | 2024-12-30 16:02 | XMS_ITS | Clinical Summary ---
Author Organization [facility] [facility] Address [address] [place] [address] Care Team Providers Care Sales Operations Lead Name Role Phone Alhaji Mendez MD Primary Care Provider [phone] [phone] Allergies Active Allergy Reactions Criticality Noted Date Comments No Known Allergies 06/12/2003 Sulfa (Sulfonamide Antibiotics) Itching Low 08/19 Medications atorvastatin (LIPITOR) 10 mg tablet Take 10 mg by mouth daily. Active baclofen (LIORESAL) 10 mg tablet Take 10 mg by mouth 2 times daily. Active carbidopa-levod opa (SINEMET) 25-100 mg tablet Take 1 Tablet by mouth daily at bedtime. Active clopidogreL (PLAVIX) 75 mg Tablet Take 75 mg by mouth daily. Active DULoxetine (CYMBALTA) 60 mg Capsule, Delayed Release(E.C.) Take 60 mg by mouth daily. Active gabapentin (NEURONTIN) 300 mg capsule Take 300 mg by mouth 2 times daily. Active metFORMIN (GLUCOPHAGE) 1,000 mg tablet Take 1,000 mg by mouth 2 times daily with meals. Active nortriptyline (PAMELOR) 50 mg capsule Take 50 mg by mouth daily at bedtime. Active oxybutynin chloride (DITROPAN) 5 mg tablet Take 5 mg by mouth 3 times daily as needed for Spasm. Active oxyCODONE-aceta minophen (PERCOCET) 5-325 mg tablet Take 1 Tablet by mouth every 6 hours as needed for Pain, Moderate. Active pantoprazole (PROTONIX) 20 mg Tablet, Delayed Release (E.C.) Take 20 mg by mouth daily. Active calcium citrate-vitamin d3 (CITRACAL D) 315 mg-5 mcg (200 unit) Tablet Take 2 Tablets by mouth daily. Active CYANOCOBALAMIN, VITAMIN B-12, ORAL Take by mouth. Activ e folic acid (FOLVITE) 1 mg tablet Take 1 mg by mouth daily. Active tirzepatide (Mounjaro) 7.5 mg/0.5 mL Pen Injector Inject by subcutaneous injection. Active ferrous sulfate 325 mg (65 mg iron) tablet Take 325 mg by mouth 2 times daily. 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 Abdominal pain, generalized 04/24/2006 Unspecified hereditary and idiopathic peripheral neuropathy 04/24/2006 Insomnia, unspecified 08/21/2005 Routine general medical exam ination at a health care facility 08/08/2005 Inguinal hernia without ment ion of obstruction or gangrene, unilateral or unspecified, (not specified as recurrent) 07/29/2004 Calculus of kidney 07/29/2004 Abdominal pain, right upper quadrant 06/27/2004 Cellulitis and abscess of trunk 04/25/2004 Rash and other nonspecific skin eruption 004 Other and unspecified hyperlipidemia 12/23/2003 Cervicalgia 12/04/2003 Reflux esophagitis 12/04/2003 Allergic rhinitis, cause unspecified 12/04/2003 Unspecified disorder of thyroid 07/04/2003 Pain in joint, lower leg 07/04/2003 Simple or unspecified chronic serous otitis medi a 06/12/2003 Encounters Date Type Department Care Team Description 12/10/2024 External Device Data ST[facility] ABSTRACTION Provider, Abstract 12/09/2024 External Device Data ST[facility] ABSTRACTION Provider, Abstract 12/02/2024 External Device Data [facility] ABSTRACTION Provider, Abstract 10/24/2024 Orders Only [facility] Oncology and Hematology - [place] [address] [place] [address] Demar Claudio MD 10/22/2024 2:30 PM WIRE COATING OPERATOR METAL Office Visit [facility] Oncology and Hematology - [place] [address] [place] [address] Demar Claudio MD Leukocytosis, unspecified type (Primary Dx) from Last 3 Months Family History Medical History Relation Name Comments No Known Problems Brother 1 No Known Problems Brother 2 No Known Problems Daughter Diabetes Father Heart Disease Father Rheumatoid Arthritis Father Diabetes Mother Heart Disease Mother No Known Problems Sister Relation Name Status Comments Brother 1 Alive Brother 2 Alive Daughter Alive Father Mother Sister Alive Social History Tobacco Use Types Packs/Day Years Used Date Smoking Tobacco: Former Cigarettes Q uit: 2006 Smokeless Tobacco: Never Tobacco Cessation:Counseling Given: Not Answered Alcohol Use Standard Drinks/Week Comments Never 0 (1 standard drink = 0.6 oz pur e alcohol) Comments Unknown Sex and Gender Information Value Date Recorded Sex Assigned at Not on file Legal Sex Female 4:52 AM WIRE COATING OPERATOR METAL Gender Identity Not on file Sexual Orientation Not on file Last Filed Vital Signs Vital Sign [place] Time Taken Comments Blood Pressure 103/66 10/22/2024 2:31 PM WIRE COATING OPERATOR METAL Pulse 82 10/22/2024 2:31 PM WIRE COATING OPERATOR METAL Temperature 36.5 C (97.7 F) 10/22/2024 2:31 PM WIRE COATING OPERATOR METAL Respiratory Rate 16 10/22/2024 2:31 PM WIRE COATING OPERATOR METAL Oxygen Saturation 94% 10/22/2024 2:31 PM WIRE COATING OPERATOR METAL Inhaled Oxygen Concentration - - Weight 93.5 kg (206 lb 3.2 oz) 06/23/2024 1:25 P M CDT Height 160 cm (5' 3 ) 06/23/2024 1:25 PM CDT Body Mass Index 36.53 06/23/2024 1:25 PM CDT Plan of Treatment Health Maintenance Due Date Last Done Comments DIABETES ANNUAL FOOT EXAM 1977 DIABETES ANNUAL RETINAL EXAM 1977 DIABETES HBA1C Q 6 MONTHS 1977 DIABETES MICROALBUMIN ANNUAL SCREEN 1977 LDL CHOLESTEROL ANNUAL 1977 DTAP/TDAP/TD VACCINES (1 - Tdap) 1978 PNEUMOCOCCAL VACCINE 65+ YEARS (1 of 2 - PCV) 06/01/19 78 BREAST CANCER SCREENING 1999 COLORECTAL SCREENING 2004 Colorectal Cancer Screening 2004 FIT-DNA Q 3 years 2004 FIT/FOBT Q 1 year 2004 Flex Sig/CT Colonography Q 5 years 2004 ZOSTER VACCINE (1 of 2) 2009 RSV VACCINE (60+ or ) (1 - Risk 60-74 years 1-dose series) 2019 OSTEOPOROSIS SCREENING 2024 INFLUENZA VACCINE (#1) 2024 Procedures Procedure Name Priority Date/Time Associated Diagnosis Comments CBC WITH DIFFERENTIAL Routine 10/22/2024 12:41 PM WIRE COATING OPERATOR METAL BASIC METABOLIC PANEL Routine 10/22/2024 12:36 PM WIRE COATING OPERATOR METAL from Last 3 Months Results * CBC WITH DIFFERENTIAL (10/22/2024 12:41 PM WIRE COATING OPERATOR METAL) Blood Demar Claudio MD HEMATOLOGY ORDERABLES Final Res ult * BASIC METABOLIC PANEL (10/22/2024 12:36 PM WIRE COATING OPERATOR METAL) Blood Demar Claudio MD CHEMISTRY ORDERABLES Final Resu lt from Last 3 Months Insurance Care Teams Sales Operations Lead Relationship Specialty Start Date End Date Alhaji Mendez MD [address] [place] [address] PCP - General Family Practice 06/04/24
--- OUTSIDE RECORDS SUMMARY | 2024-12-30 16:02 | XMS_ITS | Encounter Summary ---
Author Organization [facility] Address [address] [place] [address] Care Team Providers Care Geometrician Name Role Phone Alhaji Mendez MD Primary Care Provider [phone] [phone] Encounter Details Date Type Department Care Team (Late st Contact Info) Description 08/08/2005 Outpatient Historical [facility] Internal Medicine - [place] [address] [place] [address] [place] [address] [facility] [place] [address] Social History Tobacco Use Types Packs/Day Years Used Date Smoking Tobacco: Never Assessed Comments Unknown Sex and Gender Information Value Date Recorded Sex Assigned at Not on file Legal Sex Female 4:52 AM CONSULTING INTERN Gender Identity Not on file Sexual Orientation Not on file documented as of this encounter Plan of Treatment Not on file documented as of this encounter Visit Diagnoses Not on filedocumented in this encounter Care Teams Geometrician Relationship Specialty Start Date End Date Alhaji Mendez MD [address] [place] [address] PCP - General Family Practice 06/04/24 documented as of this encounter
--- OUTSIDE RECORDS SUMMARY | 2024-12-30 16:02 | XMS_ITS | Encounter Summary ---
Author Organization [facility] Address [address] [place] [address] Care Team Providers Care Filter Pulp Washer Name Role Phone Alhaji Mendez MD Primary Care Provider [phone] [phone] Encounter Details Date Type Department Care Team (Late st Contact Info) Description 04/24/2006 Orders Only [facility] Internal Medicine - [place] [address] [place] [address] [place] [address] [facility] [place] [address] Social History Tobacco Use Types Packs/Day Years Used Date Smoking Tobacco: Never Assessed Comments Unknown Sex and Gender Information Value Date Recorded Sex Assigned at Not on file Legal Sex Female 4:52 AM REPLANTING MACHINE OPERATOR Gender Identity Not on file Sexual Orientation Not on file documented as of this encounter Progress Notes * Delta Morales MD - 08/28/2008 6:57 AM CDT WEIGHT: 220lbs BLOOD PRESSURE: 118/78 Right Arm Sitting PULSE: 72 Right Radial, Regular NURSE NAME: Lilia Currie S ALLERGIES: No known drug allergies. MEDICATIONS: Medication list current. CHIEF COMPLAINT Complains of abdominal pain located in the right lower quadrant. Patient complains of sore throat. numbness in feet HISTORY: HISTORY OF PRESENT ILLNESS: ABDOMINAL PAIN: The abdominal pain began approximately 4 days ago. The location of the pain is in the right lower quadrant. PHYSICAL EXAMINATION: CONSTITUTIONAL: GENERAL APPEARANCE: Healthy appearing patient in no distress. NECK/THYROID: Trachea midline. No thyroid enlargement, tenderness, or mass. No supraclavicular or cervical adenopathy. RESPIRATORY: Clear to auscultation and percussion. Normal respiratory effort. CARDIOVASCULAR: CARDIAC: Regular rhythm. No murmurs, rubs, or gallops. ARTERIAL: Aortic pulses of normal amplitude with no bruits. EDEMA/VARICOSITIES OF EXTREMITIES: No edema or varicosities. GASTROINTESTINAL: ABDOMEN: A TENDER MASS IS NOTED IN THE RIGHT LOWER QUADRANT. LIVER/SPLEEN/KIDNEY: No hepatosplenomegaly, tenderness or nodularity. Kidneys not palpable. OFFICE PROCEDURES: URINALYSIS RESULTS WBC: WBC`s were negative.. NITRITE: nitrites were negative.. UROBILINOGEN urobilinogen was normal. PROTEIN: protein was negative.. pH: pH was 5. U/A BLOOD: blood was negative.. SPECIFIC GRAVITY: specific gravity was 1.010. KETONES: ketones were negative.. BILIRUBIN: bilirubin was negative.. GLUCOSE: glucose was negative.. ASSESSMENT/PLAN: 789.07-ABDOMINAL PAIN GENERALIZED LAB ORDERS: Order number: [id number] Test Ordered: URINALYSIS W/O MICRO 18769 Order number: [id number] Test Ordered: CT ABDOMEN & PELVIS WITH CONTRAST 356.9-PERIPHERAL NEUROPATHY LAB ORDERS: Order number: [id number] Test Ordered: CBC W/ DIFFERENTIAL 3150 Order number: [id number] Test Ordered: COMPREHENSIVE METABOLIC PANEL & GFR 1099 Order number: [id number] Test Ordered: LIPID PANEL 1078 Order number: [id number] Test Ordered: TSH 1720 HEALTH MAINTENANCE: DIABETIC FOOT EXAM: 04-24-2006 Electronically Signed by: Mere Morales MD on Monday, April 24, 2006 documented in this encounter Plan of Treatment Not on file documented as of this encounter Visit Diagnoses Not on filedocumented in this encounter Care Teams Filter Pulp Washer Relationship Specialty Start Date End Date Alhaji Mendez MD [address] [place] [address] PCP - General Family Practice 06/04/24 documented as of this encounter
--- OUTSIDE RECORDS SUMMARY | 2024-12-30 16:02 | XMS_ITS | Encounter Summary ---
Author Organization [facility] Address [address] [place] [address] Care Team Providers Care Assembler Mechanical Ordnance Name Role Phone Alhaji Mendez MD Primary Care Provider +1 [phone] Encounter Details Date Type Department Care Team (Late st Contact Info) Description 04/24/2006 Outpatient Historical [facility] Internal Medicine - [place] [address] [place] [address] [place] [address] [facility] [address] Social History Tobacco Use Types Packs/Day Years Used Date Smoking Tobacco: Never Assessed Comments Unknown Sex and Gender Information Value Date Recorded Sex Assigned at Not on file Legal Sex Female 4:52 AM HYDROMETALLURGICAL ENGINEER Gender Identity Not on file Sexual Orientation Not on file documented as of this encounter Plan of Treatment Not on file documented as of this encounter Visit Diagnoses Not on filedocumented in this encounter Care Teams Assembler Mechanical Ordnance Relationship Specialty Start Date End Date Alhaji Mendez MD [address] [place] [address] PCP - General Family Practice 06/04/24 documented as of this encounter
--- OUTSIDE RECORDS SUMMARY | 2024-12-30 16:02 | XMS_ITS | Encounter Summary ---
Author Organization [facility] Address [address] [place] [address] Care Team Providers Care Home Improvement Installer Name Role Phone Alhaji Mendez MD Primary Care Provider +1 [phone] Encounter Details Date Type Department Care Team (Late st Contact Info) Description 07/01/2004 Outpatient Historical [facility] Juan Luis Morales ABDOMINAL PAIN RUQ (Primary Dx) Social History Tobacco Use Types Packs/Day Years Used Date Smoking Tobacco: Never Assessed Comments Unknown Sex and Gender Information Value Date Recorded Sex Assigned at Not on file Legal Sex Female 4:52 AM TATTOOER Gender Identity Not on file Sexual Orientation Not on file documented as of this encounter Plan of Treatment Not on file documented as of this encounter Visit Diagnoses Diagnosis Abdominal pain, right upper quadrant- Primary documented in this encounter Care Teams Home Improvement Installer Relationship Specialty Start Date End Date Alhaji Mendez MD [address] [place] [address] PCP - General Family Practice 06/04/24 documented as of this encounter
--- OUTSIDE RECORDS SUMMARY | 2024-12-30 16:02 | XMS_ITS | Encounter Summary ---
Author Organization [facility] Address [address] [place] [address] Care Team Providers Care Dot Net Architect Name Role Phone Alhaji Mendez MD Primary Care Provider +1 [phone] Encounter Details Date Type Department Care Team (Late st Contact Info) Description 05/09/2002 Outpatient Historical [facility] Internal Medicine - [place] [address] [place] [phone] [place] [address] [facility] [place] [address] Social History Tobacco Use Types Packs/Day Years Used Date Smoking Tobacco: Never Assessed Comments Unknown Sex and Gender Information Value Date Recorded Sex Assigned at Not on file Legal Sex Female 4:52 AM NARCOTICS AND VICE DETECTIVE Gender Identity Not on file Sexual Orientation Not on file documented as of this encounter Plan of Treatment Not on file documented as of this encounter Visit Diagnoses Not on filedocumented in this encounter Care Teams Dot Net Architect Relationship Specialty Start Date End Date Alhaji Mendez MD [address] [place] [address] PCP - General Family Practice 06/04/24 documented as of this encounter
--- OUTSIDE RECORDS SUMMARY | 2024-12-30 16:02 | XMS_ITS | Encounter Summary ---
Author Organization [facility] Address [address] [place] [address] Care Team Providers Care Blood Bank Technologist Name Role Phone Alhaji Mendez MD Primary Care Provider [phone] [phone] Encounter Details Date Type Department Care Team (Late st Contact Info) Description 04/24/2006 Outpatient Historical [facility] Internal Medicine - [place] [address] [place] [address] [place] [address] [facility] [place] [address] Social History Tobacco Use Types Packs/Day Years Used Date Smoking Tobacco: Never Assessed Comments Unknown Sex and Gender Information Value Date Recorded Sex Assigned at Not on file Legal Sex Female 4:52 AM TIME CLOCK INSPECTOR Gender Identity Not on file Sexual Orientation Not on file documented as of this encounter Plan of Treatment Not on file documented as of this encounter Visit Diagnoses Not on filedocumented in this encounter Care Teams Blood Bank Technologist Relationship Specialty Start Date End Date Alhaji Mendez MD [address] [place] [address] PCP - General Family Practice 06/04/24 documented as of this encounter
== END 2024-12-30 15:48 | disposition home or self-care (01) ==
PROVIDERS: Emergency Provider Physician Assistant; PCP Family Medicine
DX: S01.01XA Laceration without foreign body of scalp, initial encounter (principal); E11.42 Type 2 diabetes mellitus with diabetic polyneuropathy; I25.10 Atherosclerotic heart disease of native coronary artery without angina pectoris; J44.9 Chronic obstructive pulmonary disease, unspecified; I10 Essential (primary) hypertension; M79.7 Fibromyalgia; K21.9 Gastro-esophageal reflux disease without esophagitis; E78.5 Hyperlipidemia, unspecified; G25.81 Restless legs syndrome; Z23 Encounter for immunization; W18.30XA Fall on same level, unspecified, initial encounter
CPT/HCPCS: 12001; 70450; 72125; 90471; 90715; 99284; A9270

== ENCOUNTER 2025-02-18 14:20 | Outpatient (CLI) | payer OTHER, SELFPAY ==
--- NOTE | ~2025-02-18 | MR_ITS ---
MRI of the lumbar spine Clinical History: Back pain Technique: Axial T2-weighted images, and sagittal T1-weighted, T2-weighted, and and T2 fat-sat images were acquired. COMPARISON: 07/22/2020 Findings: There is no acute fracture or sublocation of the lumbar spine. Vertebral bodies maintain no rmal height and alignment. No bone marrow signal abnormality seen. At L1-L2, there is mild degenerative disc 9. No disc bulge or herniation. There is mild facet arthrop athy. No central canal stenosis or neural foraminal narrowing. At L2-L3, there is no disc bulge or herniation. There is mild facet arthropathy. No central canal jackie nosis or neural foraminal narrowing. At L3-L4, there is minimal disc bulge with moderate facet arthropathy. No central canal stenosis. The re is moderate left neural foraminal narrowing. Right neural foramen preserved. At L4-L5, there is minimal disc bulge and severe facet arthropathy. No central canal stenosis. There is mild bilateral neural foraminal narrowing. At L5-S1, there is mild disc bulge and small annular fissure. There is moderate to advanced facet art hropathy. No central canal stenosis. Neural foramina are preserved. Paravertebral soft tissues are unremarkable. Impression: Mild degenerative spondylosis overall, as above. Reviewed, dictated and finalized at [facility]. Impression: Mild degenerative spondylosis overall, as above.
== END 2025-02-18 14:21 | disposition home or self-care (01) ==
LOC: MICIMG 14:20
PROVIDERS: PCP Family Medicine; Visit Provider Nurse Practitioner Family
DX: M47.896 Other spondylosis, lumbar region (principal)
CPT/HCPCS: 72148

== ENCOUNTER 2025-05-01 07:48 | Outpatient (CLI) | payer OTHER, SELFPAY ==
--- NOTE | ~2025-05-01 | US_ITS ---
Thyroid ultrasound. Clinical History: Dysphonia COMPARISON: 04/23/2023 Findings: Real-time sonography of the thyroid gland was performed. The right lobe measures 5.2 x 1.5 x 1.7 cm. The left lobe measures 4.4 x 1.3 x 1.5 cm. The isthmus is 2 mm in AP diameter. There is a 9 mm hypoechoic nodule at the left midpole. There is a 4 mm hypoechoic nodule at the left upper pole. There is a 6 mm hypoechoic nodule at the right upper pole. There is an additional 6 mm no dule at the right lower pole. There is an additional 4 mm hypoechoic nodule at the right lower pole. There is additional probable 6 mm cystic nodule at the right lower pole. Impression: Multiple subcentimeter thyroid nodules, as above, largest measuring 9 mm. Appearance overall is relat ively similar to prior exam. No definite follow-up required.. Reviewed, dictated and finalized at location . Impression: Multiple subcentimeter thyroid nodules, as above, largest measuring 9 mm. Appea yamilka overall is relatively similar to prior exam. No definite follow-up requir ed..
== END 2025-05-01 07:49 | disposition home or self-care (01) ==
LOC: MICIMG 07:48
PROVIDERS: PCP Family Medicine; Visit Provider Family Medicine
DX: R49.0 Dysphonia (principal); R13.10 Dysphagia, unspecified; E04.2 Nontoxic multinodular goiter
CPT/HCPCS: 76536

== ENCOUNTER 2025-05-05 07:51 | Outpatient (CLI) | payer OTHER, SELFPAY ==
--- NOTE | ~2025-05-05 | MM_ITS ---
EXAMINATION: MM screening esthela BI w charla HISTORY: Screening TECHNIQUE: Craniocaudal and mediolateral oblique 3-D tomosynthesis images were obtained and synthetic 2-D images were generated. CAD analysis was submitted and interpreted. COMPARISON: Comparison to multiple prior studies sequentially, with oldest reviewed study dated 06/06. BREAST PARENCHYMAL COMPOSITION: Not Dense. The breasts are almost entirely fatty. FINDINGS: There is no evidence of suspicious mass, calcification, or architectural distortion to sugg est malignancy in either breast. There has been no suspicious interval change. IMPRESSION: 1. No mammographic evidence of malignancy. 2. Recommend routine screening mammography in one year. BI-RADS Category 1: Negative Reviewed, dictated and finalized at location A.
--- OUTSIDE RECORDS SUMMARY | 2025-05-05 07:57 | XMS_ITS | Encounter Summary ---
Author Organization [employer] Address [address] [place] [address] Care Team Providers Care Claims Auditor Name Role Phone Alhaji Mendez MD Primary Care Provider [phone] [phone] Encounter Details Date Type Department Care Team (Late st Contact Info) Description 02/25/2007 Outpatient Historical [facility] Support [facility] (Adt Cardiology[facility]) [address] [facility] [place] [address] Rohith Hill MD NO ADDRESS ON FILE Social History Tobacco Use Types Packs/Day Years Used Date Smoking Tobacco: Never Assessed Comments Unknown Sex and Gender Information Value Date Recorded Sex Assigned at Not on file Legal Sex Female 4:52 AM TOBACCO EDUCATOR Gender Identity Not on file Sexual Orientation Not on file documented as of this encounter Plan of Treatment Not on file documented as of this encounter Visit Diagnoses Not on filedocumented in this encounter Care Teams Claims Auditor Relationship Specialty Start Date End Date Alhaji Mendez MD [address] [place] [address] PCP - General Family Practice 06/04/24 documented as of this encounter
--- OUTSIDE RECORDS SUMMARY | 2025-05-05 07:57 | XMS_ITS | Encounter Summary ---
Author Organization [facility] Address [address] [place] [address] Care Team Providers Care Boilermaker Apprentice Name Role Phone Alhaji Mendez MD Primary Care Provider [phone] [phone] Encounter Details Date Type Department Care Team (Late st Contact Info) Description 04/24/2006 Outpatient Historical [facility] Internal Medicine - [place] [address] [place] [address] [place] [address] [facility] [place] [address] Social History Tobacco Use Types Packs/Day Years Used Date Smoking Tobacco: Never Assessed Comments Unknown Sex and Gender Information Value Date Recorded Sex Assigned at Not on file Legal Sex Female 4:52 AM CURATOR Gender Identity Not on file Sexual Orientation Not on file documented as of this encounter Plan of Treatment Not on file documented as of this encounter Visit Diagnoses Not on filedocumented in this encounter Care Teams Boilermaker Apprentice Relationship Specialty Start Date End Date Alhaji Mendez MD [address] [place] [address] PCP - General Family Practice 06/04/24 documented as of this encounter
--- OUTSIDE RECORDS SUMMARY | 2025-05-05 07:57 | XMS_ITS | Encounter Summary ---
Author Organization [facility] Address [address] [place] [address] Care Team Providers Care Data Processing Clerk Name Role Phone Alhaji Mendez MD Primary Care Provider +1 -[phone] Encounter Details Date Type Department Care Team (Late st Contact Info) Description 12/04/2003 Outpatient Historical [facility] Internal Medicine - [place] [address] [place] [address] [place] [address] [facility] [place] [address] Social History Tobacco Use Types Packs/Day Years Used Date Smoking Tobacco: Never Assessed Comments Unknown Sex and Gender Information Value Date Recorded Sex Assigned at Not on file Legal Sex Female 4:52 AM BAG SORTER Gender Identity Not on file Sexual Orientation Not on file documented as of this encounter Plan of Treatment Not on file documented as of this encounter Visit Diagnoses Not on filedocumented in this encounter Care Teams Data Processing Clerk Relationship Specialty Start Date End Date Alhaji Mendez MD [address] [place] [address] PCP - General Family Practice 06/04/24 documented as of this encounter
--- OUTSIDE RECORDS SUMMARY | 2025-05-05 07:57 | XMS_ITS | Encounter Summary ---
Author Organization [facility] Address [address] [place] [address] Care Team Providers Care Prefabricator Name Role Phone Alhaji Mendez MD Primary Care Provider +1 [phone] Encounter Details Date Type Department Care Team (Late st Contact Info) Description 05/11/2004 Outpatient Historical [facility] Internal Medicine - [place] [address] [place] [address] [place] [address] [facility] [place] [address] Social History Tobacco Use Types Packs/Day Years Used Date Smoking Tobacco: Never Assessed Comments Unknown Sex and Gender Information Value Date Recorded Sex Assigned at Not on file Legal Sex Female 4:52 AM ANALYST MARKET INTELLIGENCE Gender Identity Not on file Sexual Orientation [...] on filedocumented in this encounter Care Teams Prefabricator Relationship Specialty Start Date End Date Alhaji Mendez MD [address] [place] [address] PCP - General Family Practice 06/04/24 documented as of this encounter
--- OUTSIDE RECORDS SUMMARY | 2025-05-05 07:57 | XMS_ITS | Encounter Summary ---
Author Organization [facility] Address [address] [place] [address] Care Team Providers Care Wiping Cloth Cutter Name Role Phone Alhaji Mendez MD Primary Care Provider +1 [phone] Encounter Details Date Type Department Care Team (Late st Contact Info) Description 04/29/2004 Outpatient [facility] [address] [address] Husam Ware MD NO ADDRESS ON FILE Social History Tobacco Use Types Packs/Day Years Used Date Smoking Tobacco: Never Assessed Comments Unknown Sex and Gender Information Value Date Recorded Sex Assigned at Not on file Legal Sex Female 4:52 AM DIRECTOR OF ROOMS Gender Identity Not on file Sexual Orientation Not on file documented as of this encounter Plan of Treatment Not on file documented as of this encounter Visit Diagnoses Not on filedocumented in this encounter Care Teams Wiping Cloth Cutter Relationship Specialty Start Date End Date Alhaji Mendez MD [address] [place] [address] PCP - General Family Practice 06/04/24 documented as of this encounter
--- OUTSIDE RECORDS SUMMARY | 2025-05-05 07:57 | XMS_ITS | Encounter Summary ---
Author Organization [facility] Address [address] [place] [address] Care Team Providers Care Event Marketing Specialist Name Role Phone Alhaji Mendez MD Primary Care Provider [phone] [phone] Encounter Details Date Type Department Care Team (Latest Contact Info) Description 02/25/2007 Outpatient Historical [facility] CARD TEACHER VOCATIONAL TRAINING [facility] Augustus Medina MD [address] [facility] [address] [place] [address] Coronary Atherosclerosis of [place] Coronary Artery (Primary Dx) Social History Tobacco Use Types Packs/Day Years Used Date Smoking Tobacco: Never Assessed Comments Unknown Sex and Gender Information Value Date Recorded Sex Assigned at Not on file Legal Sex Female 4:52 AM JAVA J2EE ARCHITECT Gender Identity Not on file Sexual Orientation [...] CHEMISTRY ORDERABLES Edit ed Performing Organization Address [facility] Phone Number INTERFACE SYSTEM Refer to [...] HEMATOLOGY ORDERABLES Chris amrita Performing Organization Address [facility] Co de Phone Number INTERFACE SYSTEM Refer [...] HEMATOLOGY ORDERABLES Chris amrita Performing Organization Address [facility] Co de Phone Number INTERFACE SYSTEM Refer to clinic/hospital department * POC ACTIVATED CLOTTING TIME (02/25/2007 8:58 PM CDT) ACT POC 123 Seconds INTERFACE SYSTEM Comment: Note sheath pull range change effective 05/11/2006. ACT value for sheath pull at [facility] has been established to be < or = to 1 40. (See also Nursing Procedures for sheath pull in related nursing areas) 02/25/2007 8:58 PM CDT us Augustus Medina MD POINT OF CARE TESTING Chris amrita Performing Organization Address [facility] Co de Phone Number INTERFACE SYSTEM Refer [...] HEMATOLOGY ORDERABLES Chris amrita Performing Organization Address [facility] Phone Number INTERFACE SYSTEM Refer to [...] HEMATOLOGY ORDERABLES Chris amrita Performing Organization Address [facility] Phone Number INTERFACE SYSTEM Refer to clinic/hospital department * POC ACTIVATED CLOTTING TIME (02/25/2007 6:04 PM CDT) ACT POC 178 Seconds INTERFACE SYSTEM Comment: Note sheath pull range change effective 05/11/2006. ACT value for sheath pull at [facility] has been established to be < or = to 1 40. (See also Nursing Procedures for sheath pull in related nursing areas) 02/25/2007 6:04 PM CDT Augustus Medina MD POINT OF CARE TESTING Chris amrita Performing Organization Address [facility] Phone Number INTERFACE SYSTEM Refer to clinic/hospital department * POC ACTIVATED CLOTTING TIME (02/25/2007 3:42 PM CDT) ACT POC 150 Seconds INTERFACE SYSTEM Comment: Note sheath pull range change effective 05/11/2006. ACT value for sheath pull at [facility] has been established to be < or = to 1 40. (See also Nursing Procedures for sheath pull in related nursing areas) 02/25/2007 3:42 PM CDT us Augustus Medina MD POINT OF CARE TESTING Chris amrita INTERFACE SYSTEM Refer to clinic/hospital department documented in this encounter Visit Diagnoses Diagnosis Coronary atherosclerosis of [place] coronary artery- Primary documented in this encounter Care Teams Event Marketing Specialist Relationship Specialty Start Date End Date Alhaji Mendez MD [address] [place] [address] PCP - General Family Practice 06/04/24 documented as of this encounter
--- OUTSIDE RECORDS SUMMARY | 2025-05-05 07:57 | XMS_ITS | Encounter Summary ---
Author Organization [facility] Address [address] [place] [address] Care Team Providers Care Partner Integration Planner Name Role Phone Alhaji Mendez MD Primary Care Provider [phone] [phone] Encounter Details Date Type Department Care Team (Late st Contact Info) Description 06/26/2004 Outpatient Historical [facility] Mark Naqvi MD [facility] [place], [place] [id number] Er, Authorized P NO ADDRESS ON FILE CHEST PAIN NEC (Primary Dx) Social History Tobacco Use Types Packs/Day Years Used Date Smoking Tobacco: Never Assessed Comments Unknown Sex and Gender Information Value Date Recorded Sex Assigned at Not on file Legal Sex Female 4:52 AM BOOK CUTTER Gender Identity Not on file Sexual Orientation Not on file documented as of this encounter Plan of Treatment Not on file documented as of this encounter Visit Diagnoses Diagnosis Other chest pain- Primary documented in this encounter Care Teams Partner Integration Planner Relationship Specialty Start Date End Date Alhaji Mendez MD [address] [place] [address] PCP - General Family Practice 06/04/24 documented as of this encounter
--- OUTSIDE RECORDS SUMMARY | 2025-05-05 07:57 | XMS_ITS | Encounter Summary ---
Author Organization [facility] Address [address] [facility] [address] [place] [address] Care Team Providers Care Seo Intern Name Role Phone Aristides Whitten MD Primary Care Provider [phone] Angel Luis Rodgers DO Primary Care Provider [phone] Alhaji Mendez MD Primary Care Provider [phone] Encounter Details Date Type Department Care Team (Late st Contact Info) Description 03/13/2017 Orders Only [facility] ProviderMoustapha MD [address] [place] [address] Social History Tobacco Use Types Packs/Day Years Used Date Smoking Tobacco: Former Cigarettes Q uit: 11/19/2007 Alcohol Use Standard Drinks/Week Comments No 0 (1 standard drink = 0.6 oz pur e alcohol) Comments Unknown Sex and Gender Information Value Date Recorded Sex Assigned at Not on file Legal Sex Female 8:53 PM REHABILITATION CONSTRUCTION SPECIALIST Gender Identity Not on file Sexual Orientation [...] on filedocumented in this encounter Care Teams Seo Intern Relationship Specialty Start Date End Date Aristides Whitten MD PCP - General 11/04/07 06/24/19 Angel Luis Rodgers DO PCP - General Internal Medicine 06/25/19 12/19/23 Alhaji Mendez MD PCP - General Family Practice 12/20/23 documented as of this encounter
--- OUTSIDE RECORDS SUMMARY | 2025-05-05 07:57 | XMS_ITS | Encounter Summary ---
Author Organization [facility] Address [address] [place] [address] Care Team Providers Care Director Of Design Name Role Phone Alhaji Mendez MD Primary Care Provider [phone] [phone] Encounter Details Date Type Department Care Team (Late st Contact Info) Description 12/19/2002 Outpatient Historical [facility] Juan Luis Morales CYST OF THYROID (Primary Dx) Social History Tobacco Use Types Packs/Day Years Used Date Smoking Tobacco: Never Assessed Comments Unknown Sex and Gender Information Value Date Recorded Sex Assigned at Not on file Legal Sex Female 4:52 AM ELECTRONIC SECURITY SPECIALIST Gender Identity Not on file Sexual Orientation Not on file documented as of this encounter Plan of Treatment Not on file documented as of this encounter Visit Diagnoses Diagnosis Cyst of thyroid- Primary documented in this encounter Care Teams Director Of Design Relationship Specialty Start Date End Date Alhaji Mendez MD [address] [place] [address] PCP - General Family Practice 06/04/24 documented as of this encounter
--- OUTSIDE RECORDS SUMMARY | 2025-05-05 07:57 | XMS_ITS | Encounter Summary ---
Author Organization [facility] Address [address] [place] [address] Care Team Providers Care Photogrammetric Stereo Compiler Name Role Phone Alhaji Mendez MD Primary Care Provider +1 -[phone] Encounter Details Date Type Department Care Team (Late st Contact Info) Description 04/24/2006 Outpatient Historical [facility] Internal Medicine - [place] [address] [place] [address] [place] [address] [facility] [place] [address] Social History Tobacco Use Types Packs/Day Years Used Date Smoking Tobacco: Never Assessed Comments Unknown Sex and Gender Information Value Date Recorded Sex Assigned at Not on file Legal Sex Female 4:52 AM BAGGAGE PORTER HEAD Gender Identity Not on file Sexual Orientation Not on file documented as of this encounter Plan of Treatment Not on file documented as of this encounter Visit Diagnoses Not on filedocumented in this encounter Care Teams Photogrammetric Stereo Compiler Relationship Specialty Start Date End Date Alhaji Mendez MD [address] [place] [address] PCP - General Family Practice 06/04/24 documented as of this encounter
--- OUTSIDE RECORDS SUMMARY | 2025-05-05 07:57 | XMS_ITS | Encounter Summary ---
Author Organization [facility] Address [address] [place] [address] Care Team Providers Care Caddie Supervisor Name Role Phone Alhaji Mendez MD Primary Care Provider +1 -[phone] Encounter Details Date Type Department Care Team (Late st Contact Info) Description 07/04/2003 Outpatient Historical [facility] Internal Medicine - [place] [address] [place] [address] [place] [address] [facility] [place] [address] Social History Tobacco Use Types Packs/Day Years Used Date Smoking Tobacco: Never Assessed Comments Unknown Sex and Gender Information Value Date Recorded Sex Assigned at Not on file Legal Sex Female 4:52 AM DURABLE MEDICAL EQUIPMENT REPAIRER Gender Identity Not on file Sexual Orientation Not on file documented as of this encounter Plan of Treatment Not on file documented as of this encounter Visit Diagnoses Not on filedocumented in this encounter Care Teams Caddie Supervisor Relationship Specialty Start Date End Date Alhaji Mendez MD [address] [place] [address] PCP - General Family Practice 06/04/24 documented as of this encounter
--- OUTSIDE RECORDS SUMMARY | 2025-05-05 07:57 | XMS_ITS | Encounter Summary ---
Author Organization [facility] Address [address] [place] [address] Care Team Providers Care Steamboat Captain Name Role Phone Alhaji Mendez MD Primary Care Provider +1 -[phone] Encounter Details Date Type Department Care Team (Late st Contact Info) Description 04/24/2006 Orders Only [facility] Internal Medicine - [place] [address] [place] [address] [place] [address] [facility] [place] [address] Social History Tobacco Use Types Packs/Day Years Used Date Smoking Tobacco: Never Assessed Comments Unknown Sex and Gender Information Value Date Recorded Sex Assigned at Not on file Legal Sex Female 4:52 AM SHIFT BOSS Gender Identity Not on file Sexual Orientation [...] 789.07-ABDOMINAL PAIN GENERALIZED LAB ORDERS: Order number: [id number] Test Ordered: URINALYSIS W/O MICRO 34403 Order number: [id number] Test Ordered: CT ABDOMEN & PELVIS WITH CONTRAST 356.9-PERIPHERAL NEUROPATHY LAB ORDERS: Order number: [id number] Test Ordered: CBC W/ DIFFERENTIAL 3150 Order number: [id number] Test Ordered: COMPREHENSIVE METABOLIC PANEL & GFR 1099 Order number: [id number] Test Ordered: LIPID PANEL 1078 Order number: [id number] Test Ordered: TSH 1720 HEALTH MAINTENANCE: DIABETIC FOOT EXAM: 04-24-2006 Electronically Signed by: Mere Morales MD on Monday, April 24, 2006 documented in this encounter Plan of Treatment Not on file documented as of this encounter Visit Diagnoses Not on filedocumented in this encounter Care Teams Steamboat Captain Relationship Specialty Start Date End Date Alhaji Mendez MD [address] [place] [address] PCP - General Family Practice 06/04/24 documented as of this encounter
--- OUTSIDE RECORDS SUMMARY | 2025-05-05 07:57 | XMS_ITS | Encounter Summary ---
Author Organization [facility] Address [address] [place] [address] Care Team Providers Care Circulation Worker Name Role Phone lAhaji Mendez MD Primary Care Provider +1 -[phone] Encounter Details Date Type Department Care Team [...] on file Legal Sex Female 4:52 AM PARTS ROOM CLERK Gender Identity Not on file Sexual Orientation Not on file documented as of this encounter Plan of Treatment Not on file documented as of this encounter Visit Diagnoses Diagnosis Cellulitis and abscess of trunk- Primary documented in this encounter Care Teams Circulation Worker Relationship Specialty Start Date End Date Alhaji Mendez MD [address] [place] [address] PCP - General Family Practice 06/04/24 documented as of this encounter
--- OUTSIDE RECORDS SUMMARY | 2025-05-05 07:57 | XMS_ITS | Encounter Summary ---
Author Organization [facility] Address [address] [place] [address] Care Team Providers Care Chemistry Professor Name Role Phone Alhaji Mendez MD Primary Care Provider +1 -[phone] Encounter Details Date Type Department Care Team (Late st Contact Info) Description 08/08/2005 Outpatient Historical [facility] Internal Medicine - [place] [address] [place] [address] [place] [address] [address] [facility] [place] [address] Social History Tobacco Use Types Packs/Day Years [...] on filedocumented in this encounter Care Teams Chemistry Professor Relationship Specialty Start Date End Date Alhaji Mendez MD [address] [place] [address] PCP - General Family Practice 06/04/24 documented as of this encounter
--- OUTSIDE RECORDS SUMMARY | 2025-05-05 07:57 | XMS_ITS | Encounter Summary ---
Author Organization [facility] Address [address] [place] [address] Care Team Providers Care Security System Installer Name Role Phone Alhaji Mendez MD Primary Care Provider +1 -[phone] Encounter Details Date Type Department Care Team (Late st Contact Info) Description 08/21/2005 Outpatient Historical [facility] Internal Medicine - [place] [address] [place] [address] [place] [address] [facility] [place] [address] Social History Tobacco Use Types Packs/Day Years Used Date Smoking Tobacco: Never Assessed Comments Unknown Sex and Gender Information Value Date Recorded Sex Assigned at Not on file Legal Sex Female 4:52 AM DIRECTOR BLOOD BANK Gender Identity Not on file Sexual Orientation [...] on filedocumented in this encounter Care Teams Security System Installer Relationship Specialty Start Date End Date Alhaji Mendez MD [address] [place] [address] PCP - General Family Practice 06/04/24 documented as of this encounter
--- OUTSIDE RECORDS SUMMARY | 2025-05-05 07:57 | XMS_ITS | Encounter Summary ---
Author Organization [facility] Address [address] [place] [address] Care Team Providers Care Roof Plumber Name Role Phone Alhaji Mendez MD Primary Care Provider +1 -[phone] Encounter Details Date Type Department Care Team (Late st Contact Info) Description 08/08/2005 Outpatient Historical [facility] Internal Medicine - [place] [address] [place] [address] [place] [address] [facility] [place] [address] Social History Tobacco Use Types Packs/Day Years Used Date Smoking Tobacco: Never Assessed Comments Unknown Sex and Gender Information Value Date Recorded Sex Assigned at Not on file Legal Sex Female 4:52 AM MAMMAL CONTROL AGENT Gender Identity Not on file Sexual Orientation Not on file documented as of this encounter Plan of Treatment Not on file documented as of this encounter Visit Diagnoses Not on filedocumented in this encounter Care Teams Roof Plumber Relationship Specialty Start Date End Date Alhaji Mendez MD [address] [place] [address] PCP - General Family Practice 06/04/24 documented as of this encounter
--- OUTSIDE RECORDS SUMMARY | 2025-05-05 07:57 | XMS_ITS | Referral Summary ---
Author Organization [facility] [address] [facility] [address] Address [address] [place] [address] Care Team Providers Care Tube Sorter Name Role Phone Alhaji Mendez MD Primary Care Provider +1 -[phone] Encounters Date Type Department Care Team Description 02/25/2025 11:00 AM CDT Office Visit [facility] Cardiology [address] [place] [address] Augustus Medina MD Presence of stent in coronary artery (Primary Dx); Atherosclerosis of [place] coronary artery without angina pectoris, unspecified whether [place] or transplanted heart; Coronary arteriosclerosis in [place] artery from Last 3 Months Allergies Active Allergy Reactions Criticality Noted Date [...] 0 12/05/2023 Body mass index 40.0-44.9, adult ([facility]) 12/05 Exertional dyspnea 08/31/2020 Status post percutaneous transluminal coronary a ngioplasty 05/03/2017 Presence of stent in coronary artery 05/03/2017 Acute respiratory infection 05/03/2017 Dietary counseling 05/03/2017 Coronary arteriosclerosis in [place] artery 08/28 Overview (02/23/2017): Coronary arteriosclerosis in [place] artery Non-toxic multinodular goiter 04/04/2014 Overview (02/22/2017): [...] on file Legal Sex Female 8:53 PM DIRECTOR MOBILE MEDIA SOLUTIONS Gender Identity Not on file Sexual Orientation Not on file Last Filed Vital Signs Vital Sign Reading Time Taken Comments Blood Pressure 110/70 02/25/2025 10:41 AM CDT Pulse 76 02/25/2025 10:41 AM CDT Temperature - - Respiratory Rate 16 08/09/2017 9:08 AM CDT Oxygen Saturation 97% 02/25/2025 10: 41 AM CDT Inhaled Oxygen Concentration - - Weight 84.3 kg (185 lb 14.4 oz) 025 10:41 AM CDT Height 160 cm (5' 3) 02/25/2025 10:41 AM CDT Body Mass Index 32.93 02/25/2025 10:41 AM CDT Plan of Treatment Not on file Procedures Procedure Name Priority Date/Time Associated Diagnosis Comments POCT LIPID PANEL Routine 02/25/2025 11:2 3 AM CDT Coronary arteriosclerosis in [place] artery from Last 3 Months Results * POCT lipid panel (02/25/2025 11:23 AM CDT) Cholesterol, POC 117 mg/dL Comment:GLU = 135 HDL, POC 41 mg/dL Triglycerides, POC 186 mg/dL LDL Cholesterol POC 38 mg/dL Chol/HDL Ratio, POC 0.9 Non-HDL Cholesterol, POC 75 mg/dL Cholesterol Total, POC 117 mg/dL Capillary blood 02/25/2025 1 1:23 AM CDT us Augustus Medina MD POINT OF CARE TEST ORDER IVORY Final Result from Last 3 Months Insurance [facility] Care Teams Tube Sorter Relationship Specialty Start Date End Date Alhaji Mendez MD PCP - General Family Practice 12/20/23
--- OUTSIDE RECORDS SUMMARY | 2025-05-05 07:57 | XMS_ITS | Clinical Summary ---
Author Organization [facility] [address] Address [address] [place] [address] Care Team Providers Care Picture Frames Inspector Name Role Phone Alhaji Mendez MD Primary Care Provider +1 -[phone] Allergies Active Allergy Reactions Criticality Noted Date [...] 05/03/2017 Dietary counseling 05/03/2017 Coronary arteriosclerosis in [place] artery 08/28 Overview (02/23/2017): Coronary arteriosclerosis in [place] artery Non-toxic multinodular goiter 04/04/2014 Overview (02/22/2017): NONTOX MULTINODUL GOITER Cyst of thyroid 04/04/2014 Overview (02/23/2017): CYST OF THYROID Encounters Date Type Department Care Team Description 02/25/2025 11:00 AM CDT Office Visit 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 Gender Identity Not on file Sexual [...] 02/25/2025 10:41 AM CDT Plan of Treatment Health [...] 01/23/2018 Well Visit 65+ 2024 Influenza Vaccine (Season Ended) 2025 08/06/20 18 Procedures Procedure Name Priority Date/Time Associated Diagnosis Comments POCT LIPID PANEL Routine 02/25/2025 11:2 3 AM CDT Coronary arteriosclerosis in [place] artery from Last 3 Months Results * POCT lipid panel (02/25/2025 11:23 AM CDT) Cholesterol, POC 117 mg/dL Comment:GLU = 135 HDL, POC 41 mg/dL Triglycerides, POC 186 mg/dL LDL Cholesterol POC 38 mg/dL Chol/HDL Ratio, POC 0.9 Non-HDL Cholesterol, POC 75 mg/dL Cholesterol Total, POC 117 mg/dL Capillary blood 02/25/2025 1 1:23 AM CDT Augustus Medina MD POINT OF CARE TEST ORDER IVORY Final Result from Last 3 Months Insurance [facility] Member Subscriber Plan / Payer (Ef fective 2014-Present) Name:ROSEANNA BARRIENTOS Relation to Subscriber:Self Name:BarrientosRoseanna Payer ID:[id number] (NAIC) Type:MEDICARE RISK OTHER Address: [place] [id number] Care Teams Picture Frames Inspector Relationship Specialty Start Date End Date Alhaji Mendez MD PCP - General Family Practice 12/20/23
--- OUTSIDE RECORDS SUMMARY | 2025-05-05 07:57 | XMS_ITS | Encounter Summary ---
Author Organization [facility] Address [address] [place] [address] Care Team Providers Care Uplands Division Director Name Role Phone Alhaji Mendez MD Primary Care Provider +1 -[phone] Encounter Details Date Type Department Care Team (Late st Contact Info) Description 04/25/2004 Outpatient Historical [facility] Internal Medicine - [place] [address] [place] [address] [place] [address] [place] [address] Social History Tobacco Use Types Packs/Day Years Used Date Smoking Tobacco: Never Assessed Comments Unknown Sex and Gender Information Value Date Recorded Sex Assigned at Not on file Legal Sex Female 4:52 AM BOILER OPERATOR HELPER Gender Identity Not on file Sexual Orientation [...] on filedocumented in this encounter Care Teams Uplands Division Director Relationship Specialty Start Date End Date Alhaji Mendez MD [address] [place] [address] PCP - General Family Practice 06/04/24 documented as of this encounter
--- OUTSIDE RECORDS SUMMARY | 2025-05-05 07:57 | XMS_ITS | Encounter Summary ---
Author Organization [facility] Address [address] [place] [address] Care Team Providers Care Warehouse Logistics Coordinator Name Role Phone Alhaji Mendez MD Primary Care Provider +1 -[phone] Encounter Details Date Type Department Care Team (Late st Contact Info) Description 06/18/2002 Outpatient Historical [facility] Internal Medicine - [place] [address] [place] [address] [place] [address] [facility] [place] [address] Social History Tobacco Use Types Packs/Day Years Used Date Smoking Tobacco: Never Assessed Comments Unknown Sex and Gender Information Value Date Recorded Sex Assigned at Not on file Legal Sex Female 4:52 AM PROGRAMMER DEVELOPER Gender Identity Not on file Sexual Orientation Not on file documented as of this encounter Plan of Treatment Not on file documented as of this encounter Visit Diagnoses Not on filedocumented in this encounter Care Teams Warehouse Logistics Coordinator Relationship Specialty Start Date End Date Alhaji Mendez MD [address] [place] [address] PCP - General Family Practice 06/04/24 documented as of this encounter
--- OUTSIDE RECORDS SUMMARY | 2025-05-05 07:57 | XMS_ITS | Encounter Summary ---
Author Organization [facility] Address [address] [place] [address] Care Team Providers Care Accounts Receivable Executive Name Role Phone Alhaji Mendez MD Primary Care Provider +1 -[phone] Encounter Details Date Type Department Care Team (Late st Contact Info) Description 06/26/2004 Outpatient Historical [facility] Support Serv. (Adt Cardiology-[facility]) [address] [facility] [place] [address] Rohith Hill MD NO ADDRESS ON FILE Social History Tobacco Use Types Packs/Day Years Used Date Smoking Tobacco: Never Assessed Comments Unknown Sex and Gender Information Value Date Recorded Sex Assigned at Not on file Legal Sex Female 4:52 AM CHIMNEY MECHANIC Gender Identity Not on file Sexual Orientation Not on file documented as of this encounter Plan of Treatment Not on file documented as of this encounter Visit Diagnoses Not on filedocumented in this encounter Care Teams Accounts Receivable Executive Relationship Specialty Start Date End Date Alhaji Mendez MD [address] [place] [address] PCP - General Family Practice 06/04/24 documented as of this encounter
--- OUTSIDE RECORDS SUMMARY | 2025-05-05 07:57 | XMS_ITS | Encounter Summary ---
Author Organization [facility] Address [address] [place] [address] Care Team Providers Care Riveting Machine Operator Automatic Name Role Phone Alhaji Mendez MD Primary Care Provider +1 -[phone] Encounter Details Date Type Department Care Team (Late st Contact Info) Description 09/25/2006 Orders Only [facility] Internal Medicine - [place] [address] [place] [address] [place] [address] [address] [facility] [place] [address] Social History Tobacco Use Types Packs/Day Years Used Date Smoking Tobacco: Never Assessed Comments Unknown Sex and Gender Information Value Date Recorded Sex Assigned at Not on file Legal Sex Female 4:52 AM OFFENDER JOB RETENTION SPECIALIST Gender Identity Not on file Sexual Orientation Not on file documented as of this encounter Plan of Treatment Not on file documented as of this encounter Visit Diagnoses Not on filedocumented in this encounter Care Teams Riveting Machine Operator Automatic Relationship Specialty Start Date End Date Alhaji Mendez MD [address] [place] [address] PCP - General Family Practice 06/04/24 documented as of this encounter
--- OUTSIDE RECORDS SUMMARY | 2025-05-05 07:57 | XMS_ITS | Encounter Summary ---
Author Organization [facility] Address [address] [place] [address] Care Team Providers Care Marine Surveyor Name Role Phone Alhaji Mendez MD Primary Care Provider +1 -[phone] Encounter Details Date Type Department Care Team (Late st Contact Info) Description 12/12/2002 Outpatient Historical [facility] Internal Medicine - [place] [address] [place] [address] [place] [address] [address] [facility] [place] [address] Social History Tobacco Use Types Packs/Day Years Used Date Smoking Tobacco: Never Assessed Comments Unknown Sex and Gender Information Value Date Recorded Sex Assigned at Not on file Legal Sex Female 4:52 AM SENIOR UNIX ADMINISTRATOR Gender Identity Not on file Sexual Orientation Not on file documented as of this encounter Plan of Treatment Not on file documented as of this encounter Visit Diagnoses Not on filedocumented in this encounter Care Teams Marine Surveyor Relationship Specialty Start Date End Date Alhaji Mendez MD [address] [place] [address] PCP - General Family Practice 06/04/24 documented as of this encounter
--- OUTSIDE RECORDS SUMMARY | 2025-05-05 07:57 | XMS_ITS | Encounter Summary ---
Author Organization [facility] Address [address] [place] [address] Care Team Providers Care Senior Javascript Developer Name Role Phone Alhaji Mendez MD Primary Care Provider +1 -[phone] Encounter Details Date Type Department Care Team (Late st Contact Info) Description 04/30/2004 Outpatient Historical [facility] [address] [phone] Mallory Campbell MD NO ADDRESS ON FILE Social History Tobacco Use Types Packs/Day Years Used Date Smoking Tobacco: Never Assessed Comments Unknown Sex and Gender Information Value Date Recorded Sex Assigned at Not on file Legal Sex Female 4:52 AM FURNACE WORKER Gender Identity Not on file Sexual Orientation Not on file documented as of this encounter Plan of Treatment Not on file documented as of this encounter Visit Diagnoses Not on filedocumented in this encounter Care Teams Senior Javascript Developer Relationship Specialty Start Date End Date Alhaji Mendez MD [address] [place] [address] PCP - General Family Practice 06/04/24 documented as of this encounter
--- OUTSIDE RECORDS SUMMARY | 2025-05-05 07:57 | XMS_ITS | Encounter Summary ---
Author Organization [facility] Address [address] [place] [address] Care Team Providers Care Crm Marketing Analyst Name Role Phone Alhaji Mendez MD Primary Care Provider +1 -[phone] Encounter Details Date Type Department Care Team (Late st Contact Info) Description 04/24/2006 Outpatient Historical [facility] Internal Medicine - [place] [address] [place] [address] [place] [address] [facility] [place] [address] Social History Tobacco Use Types Packs/Day Years Used Date Smoking Tobacco: Never Assessed Comments Unknown Sex and Gender Information Value Date Recorded Sex Assigned at Not on file Legal Sex Female 4:52 AM SERVICE CAR DRIVER Gender Identity Not on file Sexual Orientation Not on file documented as of this encounter Plan of Treatment Not on file documented as of this encounter Visit Diagnoses Not on filedocumented in this encounter Care Teams Crm Marketing Analyst Relationship Specialty Start Date End Date Alhaji Mendez MD [address] [place] [address] PCP - General Family Practice 06/04/24 documented as of this encounter
--- OUTSIDE RECORDS SUMMARY | 2025-05-05 07:57 | XMS_ITS | Encounter Summary ---
Author Organization [facility] Address [address] [place] [address] Care Team Providers Care Salt Washer Name Role Phone Alhaji Mendez MD Primary Care Provider +1 -[phone] Encounter Details Date Type Department Care Team (Late st Contact Info) Description 12/19/2003 Outpatient Historical [facility] Juan Luis Morales CERVICALGIA (Primary Dx) Social History Tobacco Use Types Packs/Day Years Used Date Smoking Tobacco: Never Assessed Comments Unknown Sex and Gender Information Value Date Recorded Sex Assigned at Not on file Legal Sex Female 4:52 AM BOX BENDER Gender Identity Not on file Sexual Orientation Not on file documented as of this encounter Plan of Treatment Not on file documented as of this encounter Visit Diagnoses Diagnosis Cervicalgia- Primary documented in this encounter Care Teams Salt Washer Relationship Specialty Start Date End Date Alahji Mendez MD [address] [place] [address] PCP - General Family Practice 06/04/24 documented as of this encounter
--- OUTSIDE RECORDS SUMMARY | 2025-05-05 07:57 | XMS_ITS | Encounter Summary ---
Author Organization [facility] Address [address] [place] [address] Care Team Providers Care Cake Froster Name Role Phone Alhaji Mendez MD Primary Care Provider [phone] [phone] Encounter Details Date Type Department Care Team (Late st Contact Info) Description 12/23/2003 Outpatient Historical [facility] Internal Medicine - [place] [address] [place] [address] [place] [address] [facility] [place] [place] [address] Social History Tobacco Use Types Packs/Day Years Used Date Smoking Tobacco: Never Assessed Comments Unknown Sex and Gender Information Value Date Recorded Sex Assigned at Not on file Legal Sex Female 4:52 AM TRANSMISSION LINE ENGINEER Gender Identity Not on file Sexual Orientation Not on file documented as of this encounter Last Filed Vital Signs Vital Sign Reading Time Taken Comments Blood Pressure 108/76 12/23/2003 11:30 AM TRANSMISSION LINE ENGINEER Pulse 58 12/23/2003 11:30 AM TRANSMISSION LINE ENGINEER Temperature - - Respiratory Rate - - Oxygen Saturation - - Inhaled Oxygen Concentration - - Weight 103.4 kg (228 lb) 12/23/2003 11:30 AM TRANSMISSION LINE ENGINEER Height - - Body Mass Index - - documented in this encounter Plan of Treatment Not on file documented as of this encounter Visit Diagnoses Not on filedocumented in this encounter Care Teams Cake Froster Relationship Specialty Start Date End Date Alhaji Mendez MD [address] [place] [address] PCP - General Family Practice 06/04/24 documented as of this encounter
--- OUTSIDE RECORDS SUMMARY | 2025-05-05 07:57 | XMS_ITS | Encounter Summary ---
Author Organization [facility] Address [address] [place] [address] Care Team Providers Care Director Of Golf Name Role Phone Alhaji Mendez MD Primary Care Provider [phone] [phone] Encounter Details Date Type Department Care Team (Late st Contact Info) Description 06/12/2003 Outpatient Historical [facility] Internal Medicine - [place] [address] [place] [address] [place] [address] [place] [id number] Social History Tobacco Use Types Packs/Day Years Used Date Smoking Tobacco: Never Assessed Comments Unknown Sex and Gender Information Value Date Recorded Sex Assigned at Not on file Legal Sex Female 4:52 AM THERMOSTAT MAKER Gender Identity Not on file Sexual [...] on filedocumented in this encounter Care Teams Director Of Golf Relationship Specialty Start Date End Date Alhaji Mendez MD [address] [place] [address] PCP - General Family Practice 06/04/24 documented as of this encounter
--- OUTSIDE RECORDS SUMMARY | 2025-05-05 07:57 | XMS_ITS | Encounter Summary ---
Author Organization [facility] Address [address] [place] [address] Care Team Providers Care Housekeeping Supervisor Hotel Name Role Phone Alhaji Mendez MD Primary Care Provider [phone] [phone] Encounter Details Date Type Department Care Team (Late st Contact Info) Description 07/01/2004 Outpatient Historical [facility] Juan Luis Morales ABDOMINAL PAIN RUQ (Primary Dx) Social History Tobacco Use Types Packs/Day Years Used Date Smoking Tobacco: Never Assessed Comments Unknown Sex and Gender Information Value Date Recorded Sex Assigned at Not on file Legal Sex Female 4:52 AM FAST FOOD SERVICES MANAGER Gender Identity Not on file Sexual Orientation Not on file documented as of this encounter Plan of Treatment Not on file documented as of this encounter Visit Diagnoses Diagnosis Abdominal pain, right upper quadrant- Primary documented in this encounter Care Teams Housekeeping Supervisor Hotel Relationship Specialty Start Date End Date Alhaji Mendez MD [address] [place] [place] [address] PCP - General Family Practice 06/04/24 documented as of this encounter
--- OUTSIDE RECORDS SUMMARY | 2025-05-05 07:57 | XMS_ITS | Encounter Summary ---
Author Organization [facility] Address [address] [place] [address] Care Team Providers Care Manager Social Services Name Role Phone Alhaji Mendez MD Primary Care Provider [phone] [phone] Encounter Details Date Type Department Care Team (Late st Contact Info) Description 12/04/2003 Outpatient Historical [facility] Internal Medicine - [place] [address] [place] [address] [place] [address] [facility] [place] [address] Social History Tobacco Use Types Packs/Day Years Used Date Smoking Tobacco: Never Assessed Comments Unknown Sex and Gender Information Value Date Recorded Sex Assigned at Not on file Legal Sex Female 4:52 AM SUPERINTENDENT POLICE Gender Identity Not on file Sexual Orientation Not on file documented as of this encounter Plan of Treatment Not on file documented as of this encounter Visit Diagnoses Not on filedocumented in this encounter Care Teams Manager Social Services Relationship Specialty Start Date End Date Alhaji Mendez MD [address] [place] [address] PCP - General Family Practice 06/04/24 documented as of this encounter
--- OUTSIDE RECORDS SUMMARY | 2025-05-05 07:57 | XMS_ITS | Encounter Summary ---
Author Organization [facility] Address [address] [place] [address] Care Team Providers Care Roll Coverer Name Role Phone Alhaji Mendez MD Primary Care Provider [phone] [phone] Encounter Details Date Type Department Care Team (Late st Contact Info) Description 01/15/2003 Outpatient Historical [facility] Mari Hernandez MD [address] [facility] [address] [place] [address] ABDOMINAL PAIN OTHER SPEC SITE (Primary Dx) Social History Tobacco Use Types Packs/Day Years Used Date Smoking Tobacco: Never Assessed Comments Unknown Sex and Gender Information Value Date Recorded Sex Assigned at Not on file Legal Sex Female 4:52 AM SECONDARY SPECIAL EDUCATION TEACHER Gender Identity Not on file Sexual Orientation Not on file documented as of this encounter Plan of Treatment Not on file documented as of this encounter Visit Diagnoses Diagnosis Abdominal pain, other specified site- Primary documented in this encounter Care Teams Roll Coverer Relationship Specialty Start Date End Date Alhaji Mendez MD [address] [place] [address] PCP - General Family Practice 06/04/24 documented as of this encounter
--- OUTSIDE RECORDS SUMMARY | 2025-05-05 07:57 | XMS_ITS | Encounter Summary ---
Author Organization [facility] Address [address] [place] [address] Care Team Providers Care Concrete Tile Machine Operator Name Role Phone Alhaji Mendez MD Primary Care Provider [phone] [phone] Encounter Details Date Type Department Care Team (Late st Contact Info) Description 04/28/2004 Outpatient Historical [facility] Internal Medicine - [place] [address] [place] [address] [place] [address] [place] [address] Social History Tobacco Use Types Packs/Day Years Used Date Smoking Tobacco: Never Assessed Comments Unknown Sex and Gender Information Value Date Recorded Sex Assigned at Not on file Legal Sex Female 4:52 AM PROOF MACHINE OPERATOR Gender Identity Not on file [...] on filedocumented in this encounter Care Teams Concrete Tile Machine Operator Relationship Specialty Start Date End Date Alhaji Mendez MD [address] [place] [address] PCP - General Family Practice 06/04/24 documented as of this encounter
--- OUTSIDE RECORDS SUMMARY | 2025-05-05 07:57 | XMS_ITS | Encounter Summary ---
Author Organization [facility] Address [address] [place] [address] Care Team Providers Care Indoor Landscape Architect Name Role Phone Alhaji Mendez MD Primary Care Provider [phone] [phone] Encounter Details Date Type Department Care Team (Late st Contact Info) Description 12/08/2002 Outpatient Historical [facility] Internal Medicine - [place] [address] [place] [address] Joseph Hoffmann MD NO ADDRESS ON FILE Social History Tobacco Use Types Packs/Day Years Used Date Smoking Tobacco: Never Assessed Comments Unknown Sex and Gender Information Value Date Recorded Sex Assigned at Not on file Legal Sex Female 4:52 AM UNIT RECEPTIONIST Gender Identity Not on file Sexual Orientation Not on file documented as of this encounter Plan of Treatment Not on file documented as of this encounter Visit Diagnoses Not on filedocumented in this encounter Care Teams Indoor Landscape Architect Relationship Specialty Start Date End Date Alhaji Mendez MD [address] [place] [address] PCP - General Family Practice 06/04/24 documented as of this encounter
--- OUTSIDE RECORDS SUMMARY | 2025-05-05 07:57 | XMS_ITS | Encounter Summary ---
Author Organization [facility] Address [address] [place] [address] Care Team Providers Care Manager College Name Role Phone Alhaji Mendez MD Primary Care Provider [phone] [phone] Encounter Details Date Type Department Care Team (Late st Contact Info) Description 07/04/2003 Outpatient Historical [facility] Internal Medicine - [place] [address] [place] [address] [place] [address] [facility] [place] [address] Social History Tobacco Use Types Packs/Day Years Used Date Smoking Tobacco: Never Assessed Comments Unknown Sex and Gender Information Value Date Recorded Sex Assigned at Not on file Legal Sex Female 4:52 AM SIDE SAWYER Gender Identity Not on file Sexual Orientation Not on file documented as of this encounter Plan of Treatment Not on file documented as of this encounter Visit Diagnoses Not on filedocumented in this encounter Care Teams Manager College Relationship Specialty Start Date End Date Alhaji Mendez MD [address] [address] PCP - General Family Practice 06/04/24 documented as of this encounter
--- OUTSIDE RECORDS SUMMARY | 2025-05-05 07:58 | XMS_ITS | Patient Health Record ---
Author Organization [facility] Address [address] [facility]. [address] [place] [address] Care Team Providers Care Dry Pan Operator Name Role Phone Chasidy Long MD Primary Care Provider Unavailabl e Reason For Referral No Information Plan Of Treatment No Information Insurance Providers Payer Name Payer Address Payer Phone Subscriber Number Group Number Insured Name Patient Relationship to Insured Coverage Start Date Coverage End Date [employer] Pos E2 [address] [place] [address] [phone] [id number] Roseanna Blackwell Self - patient is the insured
--- OUTSIDE RECORDS SUMMARY | 2025-05-05 07:58 | XMS_ITS | Encounter Summary ---
Author Organization [facility] Address [address] [place] [address] Care Team Providers Care Loading Supervisor Name Role Phone Alhaji Mendez MD Primary Care Provider [phone] [phone] Encounter Details Date Type Department Care Team (Late st Contact Info) Description 05/09/2002 Outpatient Historical [facility] Internal Medicine - [place] [address] [place] [address] [place] [address] [facility] [place] [address] Social History Tobacco Use Types Packs/Day Years Used Date Smoking Tobacco: Never Assessed Comments Unknown Sex and Gender Information Value Date Recorded Sex Assigned at Not on file Legal Sex Female 4:52 AM PRINCIPAL TECHNOLOGIST Gender Identity Not on file Sexual Orientation Not on file documented as of this encounter Plan of Treatment Not on file documented as of this encounter Visit Diagnoses Not on filedocumented in this encounter Care Teams Loading Supervisor Relationship Specialty Start Date End Date Alhaji Mendez MD [address] [place] [address] PCP - General Family Practice 06/04/24 documented as of this encounter
--- OUTSIDE RECORDS SUMMARY | 2025-05-05 07:58 | XMS_ITS | Data Portability ---
Author Organization [employer] [facility] [employer], Main Office Address [address] [place] [address] Care Team Providers Care Automotive Product Specialist Name Role Phone VU ESTRADA Primary Care Provider [phone] JOSE A HUSTON Referring Provider [phone] Assessment Encounter Date Assessment Date Assessment LastModified by Organization Details LastModified Time 06/05/2023 06/05/2023 This note is dictated and transcribed by [employer]. Seals Engraver variances may occur. Despite proofreading, typographical errors may occur. Not available 06/05/2023 17:25:22 06/12/2023 06/12/2023 This note is dictated and transcribed by [employer]. [employer] Eng[employer] variances may occur. Despite proofreading, typographical errors may occur. Not available 06/12/2023 15:41:45 Plan of Treatment Reminders Order Date Submit Date Provider Last Modified By Organization Details Last Modified Time Details Appointments None record ed. Lab None record ed. Referral None record ed. Procedures None record ed. Surgeries None record ed. Imaging XR, foot, 3 or more view 023 06/05/20 [email or web address] [facility] ([facility]), [address], [place], [address], 08:58:33 Medication Orders None record ed. Patient [...] ===== ===== ===== ===== CULTU RE NO.: [id number] Exam Statu s: Final Exam Type: [...] Vanco mycin 1 S 000A Not Available [facility] ([facility]) [address], [place], [address], 06/09/2023 08:09:32 05/04/20 22 XR, hip + pelvi s, unila teral No observ ation record ed. [id number] [place] [address] [facility], [place], [address], 01/17/2023 19:30:19 Result Notes None recorded. Problems Name Problem SNOMED Code Status Onset Date Resolution Date Notes Provider Name and Address Organization Details Recorded Time Hammer toe 261754822 Active 2017 Not Available [facility] 3 19:29:07 Postoperat yusuf care Active 2020 Not Available [facility] 3 19:29:07 Asthma 723184222 Active 2017 Not Available [facility] 3 19:29:07 Fibromyalg ia 337095297 Active 2017 Not Available [facility] 3 19:29:07 Neuropathy due to diabetes mellitus 547573517 Active 2017 Not Available [facility] 3 19:29:08 Subluxatio n of toe joint 163798537 Active 2020 Not Available [facility] 3 19:29:08 Pain of left hip joint 4169557529148 00 Active 2021 Not Available [facility] 3 19:29:08 Bronchitis 23497393 Active 2017 Not Available [facility] 3 19:29:08 Arthritis 2575317 Active 2017 Not Available [facility] 3 19:29:08 Migraine 98952429 Active 2017 Not Available [facility] 3 19:29:08 Sleep disorder 71485369 Active 2017 Not Available [facility] 3 19:29:08 Onychomyco sis of toenails 578749977 Active 2017 Not Available [facility] 3 19:29:08 Obesity 334173303 Active 2017 Not Available [facility] 3 19:29:08 Heart disease 92931166 Active 2017 Not Available [facility] 3 19:29:08 Cellulitis of toe 17263419 Active 2020 Not Available [facility] 3 19:29:08 Diabetes mellitus 63562123 Active 2017 Not Available [facility] 3 19:29:08 Dystrophia unguium 24767473 Active 2017 Not Available [facility] 3 19:29:08 Ulcer of toe 353934408 Active 2022 Lex Bosch DPM [address], [place], [address] , [facility] 3 17:16:00 Cellulitis of toe of left foot 5521767028768 9105 Active 2022 Lex Bosch DPM [address], [place], [address] , [facility] 3 17:16:11 Hammer toe 928866177 Active 2022 Lex Bosch DPM [address], [place], [address] , [facility] 3 17:23:47 Notes:allergies, back/neck p roblems, coronary artery disease, thyroid disease, urinary problems, use of blood thinners, vascular disease, constipation, shortness of breath, difficulty swallowing, dry mouth, wears glasses, vision problems, cataracts/glaucoma Problem Notes None recorded. Procedures Surgical History Date Name Laterality Status Provider Name and Address Organization Details Recorded Time 06/12/2023 Wound Care-Podiat ry completed Lex Bosch DPM [address], [place], [address], [facility] 06/12/2023 15:41:17 06/05/2023 Wound Care-Podiat ry completed Lex Bosch DPM [address] [facility], [facility] [address], [place], [address], [facility] [employer] 06/05/2023 17:22:37 Imaging Results None recorded. Procedure Notes None recorded. Medical Equipment None Reported. Allergies Allergen ID Allergen Name Allergen Category Reaction Reaction Severity Criticality Documentation Date Start Date Code Code System Note Provider Name and Address Organization Details Recorded Time 22481 Substance with sulfonami de structure and antibacte rial mechanism of action (substanc e) medicatio n Not available Not available Not available 01/17/2023 57919 8003 SNOMED Not Available [facility] 19:30:17 Medications Name Sig Start Date Stop [...] injection administe red by the provider active [facility]: 0003- 0494- 20 Not Available Not Available [...] Ultra-Fine Mini Pen Needle 31 gauge x 02/01 USE TO INJECT INSULIN 2 TIMES DAILY 05/04 completed Not Available Not Available Not Available Nyamyc 100,000 unit/gram topical powder 03/03 completed Not Available Not Available Not Available lidocaine (PF) 5 mg/mL (0.5 %) injection solution In office injection administe red by the provider active Not Available Not Available No t Available BD Ultra-Fine Short Pen Needle 31 gauge x 04/03 USE TO INJECT INSULIN 2 TIMES DAILY active Not Available Not Available No t Available Advair HFA 115 mcg-21 mcg/actuati on aerosol inhaler INHALE 2 PUFFS TWICE A DAY active Not Available Not Available No t Available Advair HFA 230 mcg-21 mcg/actuati on aerosol inhaler 05/04 completed Not Available Not Available Not Available UltiCare Pen Needle 31 gauge x 11/22 active Not Available Not Available Not Available [...] No t Available Vitals Date Recorded Body height Provider Name an d Address Organization Details Last Updated DateTime 12/08/2021 157.48 cm Not Available [facility] 3 19:28:56 Date Recorded Body mass index (BMI) Body height Body weight Provider Name and Address Organization Details Last Updated DateTime 05/04/2022 46.3 kg/m2 154.94 cm 807789.13 g Not Available [facility] 01/17/2023 19:28:57 Date Recorded Body height Heart rate Respiratory rate Oxygen saturation Oxygen saturation in Arterial blood by Pulse oximetry Systolic blood pressure Diastolic blood pressure Provider Name and Address Organization Details Last Updated DateTime 3 154.94 cm 78 /min 18 /min 98 % 98 % 145 mm[Hg] 76 mm[Hg] [facility] 3 16:56:50 Date Recorded Body height Heart rate Respiratory rate Oxygen saturation Oxygen saturation in Arterial blood by Pulse oximetry Systolic blood pressure Diastolic blood pressure Provider Name and Address Organization Details Last Updated DateTime 3 154.94 cm 87 /min 16 /min 97 % 97 % 134 mm[Hg] 69 mm[Hg] [facility] 3 15:24:43 Date Recorded Body height Provider Name an d Address Organization Details Last Updated DateTime 09/21/2022 154.94 cm Not Available [facility] 3 19:28:56 Social History None recorded. Functional Status Question Answer Note LastModified by Organizat ion Details LastModified Time What is your level of alcohol consumption? None [id number] Information not available 01/17/2023 Mental Status None recorded. Family History Relationship Description Onset Age of this Age Resolved Age Notes LastModified by Organization Details LastModified Time Brother Heart disease [id number] Not available 01/17/2023 19:28:26 Mother Heart disease [id number] Not available 01/17/2023 19:28:26 Mother Hypertensive disorder [id number] Not available 01/17/2023 19:28:26 Mother Diabetes mellitus [id number] Not available 01/17/2023 19:28:27 Father Diabetes mellitus [id number] Not available 01/17/2023 19:28:27 Medical History Condition Response BLINDNESS N KIDNEY STONES N MRSA N CARPAL TUNNEL SYNDROME N LUNG DISEASE/DISORDER N HISTORY OF DRUG ABUSE N COPD N RADIATION / CHEMOTHERAPY N SPORTS INJURY N ANKLE PAIN N BLOOD DISEASES N SCHIZOPHRENIA N SHINGLES N SHOULDER PAIN N DEPRESSION (INCLUDING POST ) N BOWEL PROBLEMS N STROKE/TIA N ULCERS N KNEE PAIN N BENIGN PROSTATIC HYPERPLASIA N OBESITY N GERD/NAUSEA N ANEURYSM N URINARY/BLADDER/KIDNEY PROBLEMS Y CORONARY ARTERY DISEASE (CAD) Y ADDICTION CONCERNS N USE OF BLOOD THINNERS Y SKIN PROBLEMS N EMPHYSEMA N MUSCLE,JOINT OR BONE PROBLEMS N DVT N STOMACH ULCERS N BLOOD CLOTS N USE OF NSAIDS N CONCUSSION OR SPINAL TRAUMA N NEUROPATHY N AIDS/HIV N FRACTURES N HYPERTENSION N ELBOW PAIN N TOURETTE'S N Metal allergy N ANXIETY DISORDER N BLOOD TRANSFUSION N ANEMIA/BLOOD DISORDER N BIPOLAR DISORDER N BRONCHITIS N OSTEOARTHRITIS N TUBERCULOSIS N FOOT PROBLEM N HEART VALVE DISORDERS N SOFT TISSUE INJURY N ALLERGIES/HAYFEVER N INFECTIOUS DISEASE N HEART ARRHYTHMIA N INSOMNIA N RHEUMATOID ARTHRITIS N HIGH CHOLESTEROL / HYPERLIPIDEMIA N EDEMA N CHRONIC PAIN SYNDROME N CAROTID BLOCKAGE N BACK / NECK PROBLEMS N HAVE YOU BEEN HOSPITALIZED OR SEEN IN [facility] ER IN THE PAST YEAR ? N BURSITIS [...] SNOMED-CT Code Diagnosis ICD10 Code Diagnosis Note [id number] Lex Bosch DPM [facility] [address] [address] 06/16/2021 00:00:00 06/16/2021 22:07:18 [id number] Lex Bosch DPM [facility] [address] [address] 07/21/2021 00:00:00 07/21/2021 14:44:46 [id number] Lex Bosch DPM [facility] [place] [address] [place] [place] [address] 08/11/2021 00:00:00 08/11/2021 20:34:03 [id number] Lex Bosch DPM [facility] [place] [address] [place] [address] 09/26/2021 00:00:00 09/26/2021 12:03:25 [id number] Lex Bosch DPM [facility] [place] [address] [place] [address] 0 10/03/2021 00:00:00 10/18/2021 15:11:55 [id number] Lex Bosch DPM [facility] [place] [address] [place] [address] 0 10/04/2021 00:00:00 10/04/2021 09:03:04 [id number] [facility] [address] [place] [address] 0 10/10/2021 00:00:00 10/18/2021 15:06:37 [id number] Lex Bosch DPM [facility] [place] [address] [place] [address] 0 10/18/2021 00:00:00 10/18/2021 14:09:10 [id number] Lex Bosch DPM [facility] [place] [address] [place] [address] 0 10/31/2021 00:00:00 10/31/2021 13:09:37 [id number] Lex Bosch DPM [facility] [place] [address] [place] [address] 0 12/08/2021 00:00:00 12/08/2021 14:14:56 [id number] Frederick Thomas MD [facility] [address] [place] [address] 05/04/2022 00:00:00 05/04/2022 11:30:37 [id number] Frederick Thomas MD [facility]_[address] [address] 09/21/2022 00:00:00 09/21/2022 11:38:09 [id number] Lex Bosch DPM [facility] [place] [address] [place] [address] 06/05/2023 16:47:01 06/05/2023 18:01:45 Ulcer of toe 065578653 L97.509 left 3rd toewound debridedwo und care daily with triple antibiotic ointment and dressingof floading of toefollow- up on week Cellulitis of toe of left foot 4013995520 8157439 L03.032 Finish doxycyclin e Hammer toe 785824765 M20 .42 3rd toe [id number] Lex [facility]ch [facility]PM [facility] [address] [place] [address] 06/12/2023 15:16:26 06/12/2023 15:48:14 Cellulitis of toe of left foot 1682401084 5401378 L03.032 resolved Ulcer of toe 390263628 L 97.509 left 3rd toewound debridedwo und care daily with triple antibiotic ointment and dressingof floading of toefollow- up on week Health Concerns Section Related Observation LastModified by Organization Detai ls LastModified Time None Recorded Concern Status LastModified by Organization Details LastModified Time None Recorded Advance Directives Directive None Recorded Payers Insurance Date Sequence Insurance Name Policy Number Policy Ferrell Covered Member ID Ferrell Member ID Guarantor Name 06/19/2023 1 [facility] (MEDICARE REPLACEMENT HMO) [id number] Roseanna Blackwell [id number] Roseanna Blackwell Notes Date Note Type Note [...] complaints. Lex Bosch DPM [address], [facility] [address], [place], [address], [employer] 06/05/2023 17:25:54 06/12/2023 text/html . Patient is [...] Bosch DPM [address], [place], [address], [employer] 06/12/2023 15:44:42 OBGyn Episode No OBEpisode recorded.
--- OUTSIDE RECORDS SUMMARY | 2025-05-05 07:58 | XMS_ITS | Clinical Summary ---
Author Organization [email or web address] [id number] [facility] Address [address] [place] [address] Care Team Providers Care Automotive Service Professional Name Role Phone Alhaji Mendez MD Primary Care Provider [phone] Allergies Active Allergy Reactions Criticality Noted Date [...] Encounters Date Type Department Care Team Description 04/07/2025 External Device Data ST[facility] ABSTRACTION Provider, Abstract 02/04/2025 External Device Data [facility] ABSTRACTION Provider, Abstract from Last 3 Months Family History Medical [...] on file Legal Sex Female 4:52 AM VIDEO SOFTWARE ENGINEER Gender Identity Not on file Sexual Orientation Not on file Last Filed Vital Signs Vital Sign Reading Time Taken Comments Blood Pressure 103/66 10/22/2024 2:31 PM VIDEO SOFTWARE ENGINEER Pulse 82 10/22/2024 2:31 PM VIDEO SOFTWARE ENGINEER Temperature 36.5 C (97.7 F) 10/22/2024 2:31 PM VIDEO SOFTWARE ENGINEER Respiratory Rate 16 10/22/2024 2:31 PM VIDEO SOFTWARE ENGINEER Oxygen Saturation 94% 10/22/2024 2:31 PM VIDEO SOFTWARE ENGINEER Inhaled Oxygen Concentration - - Weight 93.5 kg (206 lb 3.2 oz) 06/23/2024 1:25 P M CDT Height 160 cm (5' 3) 06/23/2024 1:25 PM CDT Body Mass Index 36.53 06/23/2024 1:25 PM CDT Plan of Treatment Health Maintenance Due Date Last Done Comments DIABETES ANNUAL FOOT EXAM 1977 DIABETES ANNUAL RETINAL EXAM 1977 DIABETES HBA1C Q 6 MONTHS 1977 DIABETES MICROALBUMIN ANNUAL SCREEN 1977 LDL CHOLESTEROL ANNUAL 1977 DTAP/TDAP/TD VACCINES (1 - Tdap) 1978 PNEUMOCOCCAL VACCINE 50+ YEARS (1 of 2 - PCV) 06/01/19 78 BREAST CANCER SCREENING 1999 COLORECTAL SCREENING 2004 Colorectal Cancer Screening 2004 FIT-DNA Q 3 years 2004 FIT/FOBT Q 1 year 2004 Flex Sig/CT Colonography Q 5 years 2004 ZOSTER VACCINE (1 of 2) 2009 RSV VACCINE (60+ or ) (1 - Risk 60-74 years 1-dose series) 2019 OSTEOPOROSIS SCREENING 2024 INFLUENZA VACCINE (#1) 2024 Insurance [facility] MCR Care Teams Automotive Service Professional Relationship Specialty Start Date End Date Alhaji Mendez MD [address] [place] [address] PCP - General Family Practice 06/04/24
--- OUTSIDE RECORDS SUMMARY | 2025-05-05 07:58 | XMS_ITS | Encounter Summary ---
Author Organization [facility] Address [address] [place] [address] Care Team Providers Care Oil Well Logging Engineer Name Role Phone Alhaji Mendez MD Primary Care Provider [phone] Encounter Details Date Type Department Care Team (Late st Contact Info) Description 07/29/2004 Outpatient Historical [facility] Internal Medicine - [place] [address] [place] [address] [place] [address] [place] [address] Social History Tobacco Use Types Packs/Day Years Used Date Smoking Tobacco: Never Assessed Comments Unknown Sex and Gender Information Value Date Recorded Sex Assigned at Not on file Legal Sex Female 4:52 AM LABORER CUTTING TOOL Gender Identity Not on file Sexual Orientation [...] on filedocumented in this encounter Care Teams Oil Well Logging Engineer Relationship Specialty Start Date End Date Alhaji Mendez MD [address] [place] [address] PCP - General Family Practice 06/04/24 documented as of this encounter
== END 2025-05-05 07:52 | disposition home or self-care (01) ==
PROVIDERS: PCP Family Medicine; Visit Provider Family Medicine
DX: Z12.31 Encounter for screening mammogram for malignant neoplasm of breast (principal)
CPT/HCPCS: 77063; 77067

== ENCOUNTER 2025-07-07 01:00 | Day surgery (SDC) | payer OTHER, SELFPAY ==
[2025-06-29 15:29] VITALS: BMI 30.1
--- NOTE | 2025-06-29 15:47 | PC.NURSE ---
Spoke with _PATIENT regarding medication _PLAVIX_. _PATIENT_verbalizes understanding that the last dose is to be taken on 07/02/2025_ and the Endoscopist will instruct them when to restart after the procedure.
--- OUTSIDE RECORDS SUMMARY | 2025-07-07 01:06 | XMS_ITS | Encounter Summary ---
Author Organization [facility] Address [address] [place] [address] Care Team Providers Care Hot Oiler Name Role Phone Alhaji Mendez MD Primary Care Provider [phone] [phone] Encounter Details Date Type Department Care Team (Late st Contact Info) Description 12/12/2002 Outpatient Historical [facility] Internal Medicine - [place] [address] [place] [address] [place] [address] [facility] [place] [address] Social History Tobacco Use Types Packs/Day Years Used Date Smoking Tobacco: Never Assessed Comments Unknown Sex and Gender Information Value Date Recorded Sex Assigned at Not on file Legal Sex Female 4:52 AM SOLAR INSTALLER TECHNICIAN Gender Identity Not on file Sexual Orientation Not on file documented as of this encounter Plan of Treatment Not on file documented as of this encounter Visit Diagnoses Not on filedocumented in this encounter Care Teams Hot Oiler Relationship Specialty Start Date End Date Alhaji Mendez MD [address] [place] [address] PCP - General Family Practice 06/04/24 documented as of this encounter
--- OUTSIDE RECORDS SUMMARY | 2025-07-07 01:06 | XMS_ITS | Encounter Summary ---
Author Organization [facility] Address [address] [place] [address] Care Team Providers Care Vehicle And Equipment Cleaner Name Role Phone Alhaji Mendez MD Primary Care Provider [phone] [phone] Encounter Details Date Type Department Care Team (Late st Contact Info) Description 09/25/2006 Orders Only [facility] Internal Medicine - [place] [address] [place] [address] [place] [address] [facility] [place] [address] Social History Tobacco Use Types Packs/Day Years Used Date Smoking Tobacco: Never Assessed Comments Unknown Sex and Gender Information Value Date Recorded Sex Assigned at Not on file Legal Sex Female 4:52 AM NAVAL MARINE ENGINEER Gender Identity Not on file Sexual Orientation Not on file documented as of this encounter Plan of Treatment Not on file documented as of this encounter Visit Diagnoses Not on filedocumented in this encounter Care Teams Vehicle And Equipment Cleaner Relationship Specialty Start Date End Date Alhaji Mendez MD [address] [place] [address] PCP - General Family Practice 06/04/24 documented as of this encounter
--- OUTSIDE RECORDS SUMMARY | 2025-07-07 01:06 | XMS_ITS | Encounter Summary ---
Author Organization [facility] Address [address] [place] [address] Care Team Providers Care Thread Puller Name Role Phone Alhaji Mendez MD Primary Care Provider [phone] [phone] Encounter Details Date Type Department Care Team (Late st Contact Info) Description 12/04/2003 Outpatient Historical [facility] Internal Medicine - [place] [address] [place] [address] [place] [address] [facility] [place] [address] Social History Tobacco Use Types Packs/Day Years Used Date Smoking Tobacco: Never Assessed Comments Unknown Sex and Gender Information Value Date Recorded Sex Assigned at Not on file Legal Sex Female 4:52 AM ORAL SURGEON Gender Identity Not on file Sexual Orientation Not on file documented as of this encounter Plan of Treatment Not on file documented as of this encounter Visit Diagnoses Not on filedocumented in this encounter Care Teams Thread Puller Relationship Specialty Start Date End Date Alhaji Mendez MD [address] [place] [address] PCP - General Family Practice 06/04/24 documented as of this encounter
--- OUTSIDE RECORDS SUMMARY | 2025-07-07 01:06 | XMS_ITS | Patient Health Record ---
Author Organization [employer] Address [address] [facility]. [address] [place] [address] Care Team Providers Care Primer Waterproofing Machine Operator Name Role Phone Chasidy Long MD Primary Care Provider Unavailabl e Reason For Referral No Information Plan Of Treatment No Information Insurance Providers Payer Name Payer Address Payer Phone Subscriber Number Group Number Insured Name Patient Relationship to Insured Coverage Start Date Coverage End Date [employer] Pos E2 [address] [place] [address] [phone] [id number] Roseanna Blackwell Self - patient is the insured
--- OUTSIDE RECORDS SUMMARY | 2025-07-07 01:06 | XMS_ITS | Encounter Summary ---
Author Organization [facility] Address 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
--- OUTSIDE RECORDS SUMMARY | 2025-07-07 01:06 | XMS_ITS | Encounter Summary ---
Author Organization [employer] Address [address] [place] [address] Care Team Providers Care Senior Technical Support Engineer Name Role Phone Alhaji Mendez MD Primary Care Provider +1 -[phone] Encounter Details Date Type Department Care Team (Late st Contact Info) Description 02/25/2007 Outpatient Historical [facility] [place] Support [facility]. (Adt Cardiology-[place]) [address] 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
--- OUTSIDE RECORDS SUMMARY | 2025-07-07 01:06 | XMS_ITS | Encounter Summary ---
Author Organization [facility] Address [address] [place] [address] Care Team Providers Care Code And Test Clerk Name Role Phone Alhaji Mendez MD Primary Care Provider +1 -[phone] Encounter Details Date Type Department Care Team (Late st Contact Info) Description 06/12/2003 Outpatient Historical [facility] Internal Medicine - [place] [address] [place] [address] [place] [address] [place] [address] Social History Tobacco Use Types Packs/Day Years Used Date Smoking Tobacco: Never Assessed Comments Unknown Sex and Gender Information Value Date Recorded Sex Assigned at Not on file Legal Sex Female 4:52 AM SELF PAY COLLECTOR Gender Identity Not on file Sexual Orientation [...] on filedocumented in this encounter Care Teams Code And Test Clerk Relationship Specialty Start Date End Date Alhaji Mendez MD [address] [place] [address] PCP - General Family Practice 06/04/24 documented as of this encounter
--- OUTSIDE RECORDS SUMMARY | 2025-07-07 01:06 | XMS_ITS | Encounter Summary ---
Author Organization [facility] Address [address] [place] [address] Care Team Providers Care Bridal Gown Fitter Name Role Phone Alhaji Mendez MD Primary Care Provider +1 -[phone] Encounter Details Date Type Department Care Team (Late st Contact Info) Description 12/08/2002 Outpatient Historical [facility] Internal Medicine - [place] [address] [place] [address] Joseph Hoffmann MD NO ADDRESS ON FILE Social History Tobacco Use Types Packs/Day Years Used Date Smoking Tobacco: Never Assessed Comments Unknown Sex and Gender Information Value Date Recorded Sex Assigned at Not on file Legal Sex Female 4:52 AM ENVIRONMENT FRIENDLY LANDSCAPE DESIGNER Gender Identity Not on file Sexual Orientation Not on file documented as of this encounter Plan of Treatment Not on file documented as of this encounter Visit Diagnoses Not on filedocumented in this encounter Care Teams Bridal Gown Fitter Relationship Specialty Start Date End Date Alhaji Mendez MD [address] [place] [address] PCP - General Family Practice 06/04/24 documented as of this encounter
--- OUTSIDE RECORDS SUMMARY | 2025-07-07 01:06 | XMS_ITS | Encounter Summary ---
Author Organization [facility] Address [address] [place] [address] Care Team Providers Care Naphtha Washing System Operator Name Role Phone Alhaji Mendez MD Primary Care Provider +1 -[phone] Encounter Details Date Type Department Care Team (Late st Contact Info) Description 01/15/2003 Outpatient Historical [facility] Mari Hernandez MD [address] [facility] [address] [place] [address] ABDOMINAL PAIN OTHER SPEC SITE (Primary Dx) Social History Tobacco Use Types Packs/Day Years Used Date Smoking Tobacco: Never Assessed Comments Unknown Sex and Gender Information Value Date Recorded Sex Assigned at Not on file Legal Sex Female 4:52 AM 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
--- OUTSIDE RECORDS SUMMARY | 2025-07-07 01:06 | XMS_ITS | Encounter Summary ---
Author Organization [facility] Address [address] [place] [address] Care Team Providers Care Sole Cutter Name Role Phone Alhaji Mendez MD Primary Care Provider +1 -[phone] Encounter Details Date Type Department Care Team (Late st Contact Info) Description 04/25/2004 Outpatient Historical [facility] Internal Medicine - [place] [address] [place] [address] [place] [address] [place] [address] Social History Tobacco Use Types Packs/Day Years Used Date Smoking Tobacco: Never Assessed Comments Unknown Sex and Gender Information Value Date Recorded Sex Assigned at Not on file Legal Sex Female 4:52 AM DAIRY TESTER Gender Identity Not on file Sexual Orientation [...] on filedocumented in this encounter Care Teams Sole Cutter Relationship Specialty Start Date End Date Alhaji Mendez MD [address] [place] [address] PCP - General Family Practice 06/04/24 documented as of this encounter
--- OUTSIDE RECORDS SUMMARY | 2025-07-07 01:06 | XMS_ITS | Encounter Summary ---
Author Organization [facility] Address [address] [place] [address] Care Team Providers Care Jelly Maker Name Role Phone Alhaji Mendez MD Primary Care Provider +1 -[phone] Encounter Details Date Type Department Care Team (Late st Contact Info) Description 06/26/2004 Emergency [facility] Mark Naqvi MD [facility] [place], [place] [id number] Er, Authorized P NO ADDRESS ON FILE CHEST PAIN NEC (Primary Dx) Social History Tobacco Use Types Packs/Day Years Used Date Smoking Tobacco: Never Assessed Comments Unknown Sex and Gender Information Value Date Recorded Sex Assigned at Not on file Legal Sex Female 4:52 AM MATERIAL EXPEDITOR Gender Identity Not on file Sexual Orientation Not on file documented as of this encounter Plan of Treatment Not on file documented as of this encounter Visit Diagnoses Diagnosis Other chest pain- Primary documented in this encounter Care Teams Jelly Maker Relationship Specialty Start Date End Date Alhaji Mendez MD [address] [place] [address] PCP - General Family Practice 06/04/24 documented as of this encounter
--- OUTSIDE RECORDS SUMMARY | 2025-07-07 01:06 | XMS_ITS | Encounter Summary ---
Author Organization [facility] Address [address] [place] [address] Care Team Providers Care Electroneurodiagnostic Technologist Name Role Phone Alhaji Mendez MD Primary Care Provider +1 -[phone] Encounter Details Date Type Department Care Team (Late st Contact Info) Description 04/24/2006 Outpatient Historical [facility] Internal Medicine - [place] [address] [place] [address] [place] [address] [facility] [place] [address] Social History Tobacco Use Types Packs/Day Years Used Date Smoking Tobacco: Never Assessed Comments Unknown Sex and Gender Information Value Date Recorded Sex Assigned at Not on file Legal Sex Female 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
--- OUTSIDE RECORDS SUMMARY | 2025-07-07 01:06 | XMS_ITS | Encounter Summary ---
Author Organization [facility] Address [address] [place] [address] Care Team Providers Care Curing Bin Operator Name Role Phone Alhaji Mendez MD Primary Care Provider +1 -[phone] Encounter Details Date Type Department Care Team (Late st Contact Info) Description 07/01/2004 Outpatient Historical [facility] Juan Luis Morales ABDOMINAL PAIN RUQ (Primary Dx) Social History Tobacco Use Types Packs/Day Years Used Date Smoking Tobacco: Never Assessed Comments Unknown Sex and Gender Information Value Date Recorded Sex Assigned at Not on file Legal Sex Female 4:52 AM CAMP DIRECTOR Gender Identity Not on file Sexual Orientation Not on file documented as of this encounter Plan of Treatment Not on file documented as of this encounter Visit Diagnoses Diagnosis Abdominal pain, right upper quadrant- Primary documented in this encounter Care Teams Curing Bin Operator Relationship Specialty Start Date End Date Alhaji Mendez MD [address] [place] [address] PCP - General Family Practice 06/04/24 documented as of this encounter
--- OUTSIDE RECORDS SUMMARY | 2025-07-07 01:06 | XMS_ITS | Encounter Summary ---
Author Organization [facility] Address [address] [place] [address] Care Team Providers Care Hvac Engineer Name Role Phone Alhaji Mendez MD Primary Care Provider +1 -[phone] Encounter Details Date Type Department Care Team (Late st Contact Info) Description 07/29/2004 Outpatient Historical [facility] Internal Medicine - [place] [address] [place] [address] [place] [address] [place] [address] Social History Tobacco Use Types Packs/Day Years Used Date Smoking Tobacco: Never Assessed Comments Unknown Sex and Gender Information Value Date Recorded Sex Assigned at Not on file Legal Sex Female 4:52 AM COSMETOLOGY EDUCATOR Gender Identity Not on file Sexual [...] on filedocumented in this encounter Care Teams Hvac Engineer Relationship Specialty Start Date End Date Alhaji Mendez MD [address] [place] [address] PCP - General Family Practice 06/04/24 documented as of this encounter
--- OUTSIDE RECORDS SUMMARY | 2025-07-07 01:06 | XMS_ITS | Encounter Summary ---
Author Organization [facility] Address [address] [place] [address] Care Team Providers Care Mail Messenger Contractor Name Role Phone Alhaji Mendez MD Primary Care Provider +1 -[phone] Encounter Details Date Type Department Care Team (Late st Contact Info) Description 12/23/2003 Outpatient Historical [facility] Internal Medicine - [place] [address] [place] [address] [place] [address] [facility] [place] [address] Social History Tobacco Use Types Packs/Day Years Used Date Smoking Tobacco: Never Assessed Comments Unknown Sex and Gender Information Value Date Recorded Sex Assigned at Not on file Legal Sex Female 4:52 AM HUMAN RESOURCES RECORDS CLERK Gender Identity Not on file Sexual Orientation Not on file documented as of this encounter Last Filed Vital Signs Vital Sign Reading Time Taken Comments Blood Pressure 108/76 12/23/2003 11:30 AM HUMAN RESOURCES RECORDS CLERK Pulse 58 12/23/2003 11:30 AM HUMAN RESOURCES RECORDS CLERK Temperature - - Respiratory Rate - - Oxygen Saturation - - Inhaled Oxygen Concentration - - Weight 103.4 kg (228 lb) 12/23/2003 11:30 AM HUMAN RESOURCES RECORDS CLERK Height - - Body Mass Index - - documented in this encounter Plan of Treatment Not on file documented as of this encounter Visit Diagnoses Not on filedocumented in this encounter Care Teams Mail Messenger Contractor Relationship Specialty Start Date End Date Alhaji Mendez MD [address] [place] [address] PCP - General Family Practice 06/04/24 documented as of this encounter
--- OUTSIDE RECORDS SUMMARY | 2025-07-07 01:06 | XMS_ITS | Encounter Summary ---
Author Organization [facility] Address [address] [place] [address] Care Team Providers Care Brick And Block Mason Name Role Phone Alhaji Mendez MD Primary Care Provider +1 -[phone] Encounter Details Date Type Department Care Team (Latest Contact Info) Description 02/25/2007 Outpatient Historical [facility] Augustus Medina MD [address] [facility] [address] [place] [address] Coronary Atherosclerosis of [place] Coronary Artery (Primary Dx) Social History Tobacco Use Types Packs/Day Years Used Date Smoking Tobacco: Never Assessed Comments Unknown Sex and Gender Information Value Date Recorded Sex Assigned at Not on file Legal Sex Female 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 Gender Identity Not on file Sexual Orientation [...] CHEMISTRY ORDERABLES Edit ed Performing Organization Address [facility] Phone Number INTERFACE SYSTEM Refer to [...] HEMATOLOGY ORDERABLES Chris amrita Performing Organization Address [facility] Co de Phone Number INTERFACE SYSTEM Refer [...] HEMATOLOGY ORDERABLES Chris amrita Performing Organization Address City/[facility] Co de Phone Number INTERFACE SYSTEM Refer to clinic/hospital department * POC ACTIVATED CLOTTING TIME (02/25/2007 8:58 PM CDT) ACT POC 123 Seconds INTERFACE SYSTEM Comment: Note sheath pull range change effective 05/11/2006. ACT value for sheath pull at [facility] has been established to be < or = to 1 40. (See also Nursing Procedures for sheath pull in related nursing areas) 02/25/2007 8:58 PM CDT us Augustus Medina MD POINT OF CARE TESTING Chris amrita Performing Organization Address City/[facility] Co de Phone Number INTERFACE SYSTEM Refer [...] HEMATOLOGY ORDERABLES Chris amrita Performing Organization Address [facility] Phone Number INTERFACE SYSTEM Refer to [...] HEMATOLOGY ORDERABLES Chris amrita Performing Organization Address [facility] Phone Number INTERFACE SYSTEM Refer to clinic/hospital department * POC ACTIVATED CLOTTING TIME (02/25/2007 6:04 PM CDT) ACT POC 178 Seconds INTERFACE SYSTEM Comment: Note sheath pull range change effective 05/11/2006. ACT value for sheath pull at [facility] has been established to be < or = to 1 40. (See also Nursing Procedures for sheath pull in related nursing areas) 02/25/2007 6:04 PM CDT Augustus Medina MD POINT OF CARE TESTING Chris amrita Performing Organization Address [facility] Phone Number INTERFACE SYSTEM Refer to clinic/hospital department * POC ACTIVATED CLOTTING TIME (02/25/2007 3:42 PM CDT) ACT POC 150 Seconds INTERFACE SYSTEM Comment: Note sheath pull range change effective 05/11/2006. ACT value for sheath pull at [facility] has been established to be < or = to 1 40. (See also Nursing Procedures for sheath pull in related nursing areas) 02/25/2007 3:42 PM CDT us Augustus Medina MD POINT OF CARE TESTING Chris amrita INTERFACE SYSTEM Refer to clinic/hospital department documented in this encounter Visit Diagnoses Diagnosis Coronary atherosclerosis of [place] coronary artery- Primary documented in this encounter Care Teams Brick And Block Mason Relationship Specialty Start Date End Date Alhaji Mendez MD [address] [place] [address] PCP - General Family Practice 06/04/24 documented as of this encounter
--- OUTSIDE RECORDS SUMMARY | 2025-07-07 01:06 | XMS_ITS | Encounter Summary ---
Author Organization [facility] Address [address] [place] [address] Care Team Providers Care Wrapper Off Name Role Phone Alhaji Mendez MD Primary Care Provider +1 -[phone] Encounter Details Date Type Department Care Team (Late st Contact Info) Description 08/08/2005 Outpatient Historical [facility] Internal Medicine - [place] [address] [place] [address] [place] [address] [facility] [place] [address] Social History Tobacco Use Types Packs/Day Years Used Date Smoking Tobacco: Never Assessed Comments Unknown Sex and Gender Information Value Date Recorded Sex Assigned at Not on file Legal Sex Female 4:52 AM CAKE WINDER Gender Identity Not on file Sexual Orientation Not on file documented as of this encounter Plan of Treatment Not on file documented as of this encounter Visit Diagnoses Not on filedocumented in this encounter Care Teams Wrapper Off Relationship Specialty Start Date End Date Alhaji Mendez MD [address] [place] [address] PCP - General Family Practice 06/04/24 documented as of this encounter
--- OUTSIDE RECORDS SUMMARY | 2025-07-07 01:06 | XMS_ITS | Encounter Summary ---
Author Organization [facility] Address [address] [place] [address] Care Team Providers Care Sprinkler Fitter Apprentice Name Role Phone Alhaji Mendez MD Primary Care Provider +1 -[phone] Encounter Details Date Type Department Care Team (Late st Contact Info) Description 04/30/2004 Outpatient Historical [facility] [address] [phone] Mallory Campbell MD NO ADDRESS ON FILE Social History Tobacco Use Types Packs/Day Years Used Date Smoking Tobacco: Never Assessed Comments Unknown Sex and Gender Information Value Date Recorded Sex Assigned at Not on file Legal Sex Female 4:52 AM NEGATIVE RETOUCHER Gender Identity Not on file Sexual Orientation Not on file documented as of this encounter Plan of Treatment Not on file documented as of this encounter Visit Diagnoses Not on filedocumented in this encounter Care Teams Sprinkler Fitter Apprentice Relationship Specialty Start Date End Date Alhaji Mendez MD [address] [place] [address] PCP - General Family Practice 06/04/24 documented as of this encounter
--- OUTSIDE RECORDS SUMMARY | 2025-07-07 01:06 | XMS_ITS | Encounter Summary ---
Author Organization [facility] Address [address] [place] [address] Care Team Providers Care Burr Grinder Name Role Phone Alhaji Mendez MD Primary Care Provider +1 -[phone] Encounter Details Date Type Department Care Team (Late st Contact Info) Description 12/04/2003 Outpatient Historical [facility] Internal Medicine - [place] [address] [place] [address] [place] [address] [facility] [place] [address] Social History Tobacco Use Types Packs/Day Years Used Date Smoking Tobacco: Never Assessed Comments Unknown Sex and Gender Information Value Date Recorded Sex Assigned at Not on file Legal Sex Female 4:52 AM MECHANICAL ENGINEER Gender Identity Not on file Sexual Orientation Not on file documented as of this encounter Plan of Treatment Not on file documented as of this encounter Visit Diagnoses Not on filedocumented in this encounter Care Teams Burr Grinder Relationship Specialty Start Date End Date Alhaji Mendez MD [address] [place] [address] PCP - General Family Practice 06/04/24 documented as of this encounter
--- OUTSIDE RECORDS SUMMARY | 2025-07-07 01:06 | XMS_ITS | Encounter Summary ---
Author Organization [facility] Address [address] [place] [address] Care Team Providers Care Edging Machine Operator Name Role Phone Alhaji Mendez MD Primary Care Provider +1 -[phone] Encounter Details Date Type Department Care Team (Late st Contact Info) Description 05/09/2002 Outpatient Historical [facility] Internal Medicine - [place] [address] [place] [address] [place] [address] [facility] [place] [address] Social History Tobacco Use Types Packs/Day Years Used Date Smoking Tobacco: Never Assessed Comments Unknown Sex and Gender Information Value Date Recorded Sex Assigned at Not on file Legal Sex Female 4:52 AM FIELD COIL WINDER Gender Identity Not on file Sexual Orientation Not on file documented as of this encounter Plan of Treatment Not on file documented as of this encounter Visit Diagnoses Not on filedocumented in this encounter Care Teams Edging Machine Operator Relationship Specialty Start Date End Date Alhaji Mendez MD [address] [place] [address] PCP - General Family Practice 06/04/24 documented as of this encounter
--- OUTSIDE RECORDS SUMMARY | 2025-07-07 01:06 | XMS_ITS | Encounter Summary ---
Author Organization [facility] Address [address] [place] [address] Care Team Providers Care Drapery Hand Name Role Phone Alhaji Mendez MD Primary Care Provider +1 -[phone] Encounter Details Date Type Department Care Team (Late st Contact Info) Description 04/24/2006 Orders Only [facility] Internal Medicine - [place] [address] [place] [address] [place] [address] [facility] [place] [address] Social History Tobacco Use Types Packs/Day Years Used Date Smoking Tobacco: Never Assessed Comments Unknown Sex and Gender Information Value Date Recorded Sex Assigned at Not on file Legal Sex Female 4:52 AM PRODUCTION TEAM MEMBER Gender Identity Not on file Sexual Orientation [...] 789.07-ABDOMINAL PAIN GENERALIZED LAB ORDERS: Order number: [id number] Test Ordered: URINALYSIS W/O MICRO 80453 Order number: [id number] Test Ordered: CT ABDOMEN & PELVIS WITH CONTRAST 356.9-PERIPHERAL NEUROPATHY LAB ORDERS: Order number: [id number] Test Ordered: CBC W/ DIFFERENTIAL 3150 Order number: [id number] Test Ordered: COMPREHENSIVE METABOLIC PANEL & GFR 1099 Order number: [id number] Test Ordered: LIPID PANEL 1078 Order number: [id number] Test Ordered: TSH 1720 HEALTH MAINTENANCE: DIABETIC FOOT EXAM: 04-24-2006 Electronically Signed by: Mere Morales MD on Monday, April 24, 2006 documented in this encounter Plan of Treatment Not on file documented as of this encounter Visit Diagnoses Not on filedocumented in this encounter Care Teams Drapery Hand Relationship Specialty Start Date End Date Alhaji Mendez MD [address] [place] [address] PCP - General Family Practice 06/04/24 documented as of this encounter
--- OUTSIDE RECORDS SUMMARY | 2025-07-07 01:06 | XMS_ITS | Encounter Summary ---
Author Organization [facility] Address [address] [facility] [address] [place] [address] Care Team Providers Care Machine Packager Name Role Phone Aristides Whitten MD Primary Care Provider [phone] Angel Luis Rodgers DO Primary Care Provider [phone] Alhaji Mendez MD Primary Care Provider [phone] Encounter Details Date Type Department Care Team (Late st Contact Info) Description 03/13/2017 Orders Only [facility] ProviderMoustapha MD [address] [place] [address] Social History Tobacco Use Types Packs/Day Years Used Date Smoking Tobacco: Former Cigarettes Q uit: 11/19/2007 Alcohol Use Standard Drinks/Week Comments No 0 (1 standard drink = 0.6 oz pur e alcohol) Comments Unknown Sex and Gender Information Value Date Recorded Sex Assigned at Not on file Legal Sex Female 8:53 PM RN CARE TRANSITION Gender Identity Not on file Sexual Orientation [...] on filedocumented in this encounter Care Teams Machine Packager Relationship Specialty Start Date End Date Aristides Whitten MD PCP - General 11/04/07 06/24/19 Angel Luis Rodgers DO PCP - General Internal Medicine 06/25/19 12/19/23 Alhaji Mendez MD PCP - General Family Practice 12/20/23 documented as of this encounter
--- OUTSIDE RECORDS SUMMARY | 2025-07-07 01:06 | XMS_ITS | Encounter Summary ---
Author Organization [facility] Address [address] [place] [address] Care Team Providers Care Washroom Attendant Name Role Phone Alhaji Mendez MD Primary Care Provider [phone] Encounter Details Date Type Department Care Team (Late st Contact Info) Description 06/18/2002 Outpatient Historical [facility] Internal Medicine - [place] [address] [place] [address] [place] [address] [facility] [place] [address] Social History Tobacco Use Types Packs/Day Years Used Date Smoking Tobacco: Never Assessed Comments Unknown Sex and Gender Information Value Date Recorded Sex Assigned at Not on file Legal Sex Female 4:52 AM PRECINCT COMMANDING OFFICER Gender Identity Not on file Sexual Orientation Not on file documented as of this encounter Plan of Treatment Not on file documented as of this encounter Visit Diagnoses Not on filedocumented in this encounter Care Teams Washroom Attendant Relationship Specialty Start Date End Date Alhaji Mendez MD [address] [place] [address] PCP - General Family Practice 06/04/24 documented as of this encounter
--- OUTSIDE RECORDS SUMMARY | 2025-07-07 01:06 | XMS_ITS | Encounter Summary ---
Author Organization [facility] Address [address] [place] [address] Care Team Providers Care Induction Machine Operator Name Role Phone Alhaji Mendez MD Primary Care Provider [phone] Encounter Details Date Type Department Care Team (Late st Contact Info) Description 12/19/2002 Outpatient Historical [facility] Juan Luis Morales CYST OF THYROID (Primary Dx) Social History Tobacco Use Types Packs/Day Years Used Date Smoking Tobacco: Never Assessed Comments Unknown Sex and Gender Information Value Date Recorded Sex Assigned at Not on file Legal Sex Female 4:52 AM HAND EMBROIDERER Gender Identity Not on file Sexual Orientation Not on file documented as of this encounter Plan of Treatment Not on file documented as of this encounter Visit Diagnoses Diagnosis Cyst of thyroid- Primary documented in this encounter Care Teams Induction Machine Operator Relationship Specialty Start Date End Date Alhaji Mendez MD [address] [place] [address] PCP - General Family Practice 06/04/24 documented as of this encounter
--- OUTSIDE RECORDS SUMMARY | 2025-07-07 01:06 | XMS_ITS | Encounter Summary ---
Author Organization [facility] Address [address] [place] [address] Care Team Providers Care Can Reconditioner Name Role Phone Alhaji Mendez MD Primary Care Provider [phone] Encounter Details Date Type Department Care Team [...] on file Legal Sex Female 4:52 AM SCANNER SUPERVISOR Gender Identity Not on file Sexual Orientation Not on file documented as of this encounter Plan of Treatment Not on file documented as of this encounter Visit Diagnoses Diagnosis Cellulitis and abscess of trunk- Primary documented in this encounter Care Teams Can Reconditioner Relationship Specialty Start Date End Date Alhaji Mendez MD [address] [place] [address] PCP - General Family Practice 06/04/24 documented as of this encounter
--- OUTSIDE RECORDS SUMMARY | 2025-07-07 01:06 | XMS_ITS | Clinical Summary ---
Author Organization [facility] [address] Address [address] [place] [address] Care Team Providers Care Customs Compliance Director Name Role Phone Alhaji Mendez MD Primary Care Provider [phone] Allergies Active Allergy Reactions Criticality Noted Date [...] 05/03/2017 Dietary counseling 05/03/2017 Coronary arteriosclerosis in [place] artery 08/28 Overview (02/23/2017): Coronary arteriosclerosis in [place] artery Non-toxic multinodular goiter 04/04/2014 Overview (02/22/2017): [...] on file Legal Sex Female 8:53 PM DOCK SUPERVISOR Gender Identity Not on file Sexual [...] Last Done Comments Breast Cancer Screening-Mammogram 1959 Colon Cancer Screening-Colonoscopy 1959 Depression Screening 1959 Fall Risk Assessment 1959 Hepatitis C Screening 1959 Osteoporosis Screening-Bone Density Scan 1959 DTaP/Tdap/Td Vaccine (1 - Tdap) 1970 Hepatitis B Screening 1977 Zoster Vaccine (3 of 3) 05/24/2018 03/29/20 18, 12/31/2017, 12/24/2017 Pneumococcal vaccine 65+ (2 of 2 - PCV) 01/23/2019 01/23/2018 Well Visit 65+ 2024 Influenza Vaccine (#1) 2025 08/06/[address] [facility] Member Subscriber Plan / Payer (Ef fective 2014-Present) Name:ROSEANNA BARRIENTOS Relation to Subscriber:Self Name:Roseanna Barrientos Payer ID:[id number] (NAIC) Type:MEDICARE RISK OTHER Address: [place] [id number] Care Teams Customs Compliance Director Relationship Specialty Start Date End Date Alhaji Mendez MD PCP - General Family Practice 12/20/23
--- OUTSIDE RECORDS SUMMARY | 2025-07-07 01:06 | XMS_ITS | Encounter Summary ---
Author Organization [facility] Address [address] [place] [address] Care Team Providers Care Windows Vmware Engineer Name Role Phone Alhaji Mendez MD Primary Care Provider [phone] Encounter Details Date Type Department Care Team (Late st Contact Info) Description 04/29/2004 Outpatient Historical [facility] [place] [facility] [address] [phone] Husam Ware MD NO ADDRESS ON FILE Social History Tobacco Use Types Packs/Day Years Used Date Smoking Tobacco: Never Assessed Comments Unknown Sex and Gender Information Value Date Recorded Sex Assigned at Not on file Legal Sex Female 4:52 AM RETINAL ANGIOGRAPHER Gender Identity Not on file Sexual Orientation Not on file documented as of this encounter Plan of Treatment Not on file documented as of this encounter Visit Diagnoses Not on filedocumented in this encounter Care Teams Windows Vmware Engineer Relationship Specialty Start Date End Date Alhaji Mendez MD [address] [place] [address] PCP - General Family Practice 06/04/24 documented as of this encounter
--- OUTSIDE RECORDS SUMMARY | 2025-07-07 01:06 | XMS_ITS | Encounter Summary ---
Author Organization [facility] Address [address] [place] [address] Care Team Providers Care Operations And Maintenance Technician Name Role Phone Alhaji Mendez MD Primary Care Provider [phone] Encounter Details Date Type Department Care Team (Late st Contact Info) Description 08/21/2005 Outpatient Historical [facility] Internal Medicine - [place] [address] [place] [address] [place] [address] [facility] [place] [address] Social History Tobacco Use Types Packs/Day Years Used Date Smoking Tobacco: Never Assessed Comments Unknown Sex and Gender Information Value Date Recorded Sex Assigned at Not on file Legal Sex Female 4:52 AM RECOVERY ENGINEER Gender Identity Not on file Sexual [...] on filedocumented in this encounter Care Teams Operations And Maintenance Technician Relationship Specialty Start Date End Date Alhaji Mendez MD [address] [place] [address] PCP - General Family Practice 06/04/24 documented as of this encounter
--- OUTSIDE RECORDS SUMMARY | 2025-07-07 01:06 | XMS_ITS | Encounter Summary ---
Author Organization [facility] Address [address] [place] [address] Care Team Providers Care Photo Stylist Name Role Phone Alhaji Mendez MD Primary Care Provider [phone] Encounter Details Date Type Department Care Team (Late st Contact Info) Description 08/08/2005 Outpatient Historical [facility] Internal Medicine - [place] [address] [place] [address] [place] [address] [facility] [place] [address] Social History Tobacco Use Types Packs/Day Years Used Date Smoking Tobacco: Never Assessed Comments Unknown Sex and Gender Information Value Date Recorded Sex Assigned at Not on file Legal Sex Female 4:52 AM SEO STRATEGIST Gender Identity Not on file Sexual Orientation Not on file documented as of this encounter Plan of Treatment Not on file documented as of this encounter Visit Diagnoses Not on filedocumented in this encounter Care Teams Photo Stylist Relationship Specialty Start Date End Date Alhaji Mendez MD [address] [place] [address] PCP - General Family Practice 06/04/24 documented as of this encounter
--- OUTSIDE RECORDS SUMMARY | 2025-07-07 01:06 | XMS_ITS | Encounter Summary ---
Author Organization [facility] Address [address] [place] [address] Care Team Providers Care Director Of Intercollegiate Athletics Name Role Phone Alhaji Mendez MD Primary Care Provider [phone] Encounter Details Date Type Department Care Team (Late st Contact Info) Description 07/04/2003 Outpatient Historical [facility] Internal Medicine - [place] [address] [place] [address] [place] [address] [facility] [place] [address] Social History Tobacco Use Types Packs/Day Years Used Date Smoking Tobacco: Never Assessed Comments Unknown Sex and Gender Information Value Date Recorded Sex Assigned at Not on file Legal Sex Female 4:52 AM SENIOR MOBILE WEB DEVELOPER Gender Identity Not on file Sexual Orientation Not on file documented as of this encounter Plan of Treatment Not on file documented as of this encounter Visit Diagnoses Not on filedocumented in this encounter Care Teams Director Of Intercollegiate Athletics Relationship Specialty Start Date End Date Alhaji Mendez MD [address] [place] [address] PCP - General Family Practice 06/04/24 documented as of this encounter
--- OUTSIDE RECORDS SUMMARY | 2025-07-07 01:06 | XMS_ITS | Encounter Summary ---
Author Organization [facility] Address [address] [place] [address] Care Team Providers Care Labview Programmer Name Role Phone Alhaji Mendez MD Primary Care Provider [phone] Encounter Details Date Type Department Care Team (Late st Contact Info) Description 04/28/[address] [facility] Internal Medicine - [place] [address] [place] [address] [place] [address] [place] [address] Social History Tobacco Use Types Packs/Day Years Used Date Smoking Tobacco: Never Assessed Comments Unknown Sex and Gender Information Value Date Recorded Sex Assigned at Not on file Legal Sex Female 4:52 AM SNORKELLING INSTRUCTOR Gender Identity Not on file Sexual Orientation [...] on filedocumented in this encounter Care Teams Labview Programmer Relationship Specialty Start Date End Date Alhaji Mendez MD [address] [place] [address] PCP - General Family Practice 06/04/24 documented as of this encounter
--- OUTSIDE RECORDS SUMMARY | 2025-07-07 01:06 | XMS_ITS | Encounter Summary ---
Author Organization [facility] Address [address] [place] [address] Care Team Providers Care Spring Upholsterer Name Role Phone Alhaji Mendez MD Primary Care Provider [phone] Encounter Details Date Type Department Care Team (Late st Contact Info) Description 06/26/2004 Outpatient Historical [facility] (Adt Cardiology-[facility]) [address] [facility] [place] [address] Rohith Hill MD NO ADDRESS ON FILE Social History Tobacco Use Types Packs/Day Years Used Date Smoking Tobacco: Never Assessed Comments Unknown Sex and Gender Information Value Date Recorded Sex Assigned at Not on file Legal Sex Female 4:52 AM AVIATION ELECTRONIC WARFARE OPERATOR Gender Identity Not on file Sexual Orientation Not on file documented as of this encounter Plan of Treatment Not on file documented as of this encounter Visit Diagnoses Not on filedocumented in this encounter Care Teams Spring Upholsterer Relationship Specialty Start Date End Date Alhaji Mendez MD [address] [place] [address] PCP - General Family Practice 06/04/24 documented as of this encounter
--- OUTSIDE RECORDS SUMMARY | 2025-07-07 01:06 | XMS_ITS | Encounter Summary ---
Author Organization [facility] Address [address] [place] [address] Care Team Providers Care Business Continuity Strategy Director Name Role Phone Alhaji Mendez MD Primary Care Provider [phone] [phone] Encounter Details Date Type Department Care Team (Late st Contact Info) Description 07/04/2003 Outpatient Historical [facility] Internal Medicine - [place] [address] [place] [address] [place] [address] [facility] [place] [address] Social History Tobacco Use Types Packs/Day Years Used Date Smoking Tobacco: Never Assessed Comments Unknown Sex and Gender Information Value Date Recorded Sex Assigned at Not on file Legal Sex Female 4:52 AM RN PERINATAL Gender Identity Not on file Sexual Orientation Not on file documented as of this encounter Plan of Treatment Not on file documented as of this encounter Visit Diagnoses Not on filedocumented in this encounter Care Teams Business Continuity Strategy Director Relationship Specialty Start Date End Date Alhaji Mendez MD [address] [place] [address] PCP - General Family Practice 06/04/24 documented as of this encounter
--- OUTSIDE RECORDS SUMMARY | 2025-07-07 01:06 | XMS_ITS | Encounter Summary ---
Author Organization [facility] Address [address] [place] [address] Care Team Providers Care Metallurgical Technician Name Role Phone Alhaji Mendez MD Primary Care Provider +[phone] Encounter Details Date Type Department Care Team (Late st Contact Info) Description 04/24/2006 Outpatient Historical [facility] Internal Medicine - [place] [address] [place] [address] [place] [address] [facility] [place] [address] Social History Tobacco Use Types Packs/Day Years Used Date Smoking Tobacco: Never Assessed Comments Unknown Sex and Gender Information Value Date Recorded Sex Assigned at Not on file Legal Sex Female 4:52 AM KOSHER DIETARY SERVICE SUPERVISOR Gender Identity Not on file Sexual Orientation Not on file documented as of this encounter Plan of Treatment Not on file documented as of this encounter Visit Diagnoses Not on filedocumented in this encounter Care Teams Metallurgical Technician Relationship Specialty Start Date End Date Alhaji Mendez MD [address] [place] [address] PCP - General Family Practice 06/04/24 documented as of this encounter
--- OUTSIDE RECORDS SUMMARY | 2025-07-07 01:06 | XMS_ITS | Encounter Summary ---
Author Organization [facility] Address [address] [place] [address] Care Team Providers Care Global Marketing Operations Manager Name Role Phone Alhaji Mendez MD Primary Care Provider [phone] Encounter Details Date Type Department Care Team (Late st Contact Info) Description 04/24/2006 Outpatient Historical [facility] Internal Medicine - [place] [address] [place] [address] [place] [address] [facility] [place] [address] Social History Tobacco Use Types Packs/Day Years Used Date Smoking Tobacco: Never Assessed Comments Unknown Sex and Gender Information Value Date Recorded Sex Assigned at Not on file Legal Sex Female 4:52 AM SAXOPHONE TEACHER Gender Identity Not on file Sexual Orientation Not on file documented as of this encounter Plan of Treatment Not on file documented as of this encounter Visit Diagnoses Not on filedocumented in this encounter Care Teams Global Marketing Operations Manager Relationship Specialty Start Date End Date Alhaji Mendez MD [address] [place] [address] PCP - General Family Practice 06/04/24 documented as of this encounter
--- OUTSIDE RECORDS SUMMARY | 2025-07-07 01:06 | XMS_ITS | Encounter Summary ---
Author Organization [facility] Address [address] [place] [address] Care Team Providers Care Banding Machine Operator Name Role Phone Alhaji Mendez MD Primary Care Provider [phone] Encounter Details Date Type Department Care Team (Late st Contact Info) Description 05/11/2004 Outpatient Historical [facility] Internal Medicine - [place] [address] [place] [address] [place] [address] [facility] [place] [address] Social History Tobacco Use Types Packs/Day Years Used Date Smoking Tobacco: Never Assessed Comments Unknown Sex and Gender Information Value Date Recorded Sex Assigned at Not on file Legal Sex Female 4:52 AM PRINCIPAL SYSTEMS ARCHITECT Gender Identity Not on file Sexual [...] on filedocumented in this encounter Care Teams Banding Machine Operator Relationship Specialty Start Date End Date Alhaji Mendez MD [address] [place] [address] PCP - General Family Practice 06/04/24 documented as of this encounter
--- OUTSIDE RECORDS SUMMARY | 2025-07-07 01:06 | XMS_ITS | Clinical Summary ---
Author Organization [employer] [id number] [facility] Address [address] [place] [address] Care Team Providers Care Fish Tender Name Role Phone Alhaji Mendez MD Primary Care Provider +1 [phone] Allergies Active Allergy Reactions Criticality Noted Date [...] Encounters Date Type Department Care Team Description 06/24/2025 External Device Data STL ABSTRACTION Provider, Abstract 06/23/2025 External Device Data ST[place] ABSTRACTION Provider, Abstract 06/03/2025 External Device Data [place] ABSTRACTION Provider, Abstract 06/03/2025 External Device Data [place] ABSTRACTION Provider, Abstract 06/02/2025 External Device Data [place] ABSTRACTION Provider, Abstract 04/07/2025 External Device Data ST[place] ABSTRACTION Provider, [...] Date Smoking Tobacco: Former Cigarettes Q uit: 2005 Smokeless Tobacco: Never Tobacco Cessation:Counseling Given: Not Answered Alcohol Use Standard Drinks/Week Comments Never 0 (1 standard drink = 0.6 oz pur e alcohol) Comments Unknown Sex and Gender Information Value Date Recorded Sex Assigned at Not on file Legal Sex Female 4:52 AM MIG TIG WELDER Gender Identity Not on file Sexual Orientation Not on file Last Filed Vital Signs Vital Sign Reading Time Taken Comments Blood Pressure 103/66 10/22/2024 2:31 PM MIG TIG WELDER Pulse 82 10/22/2024 2:31 PM MIG TIG WELDER Temperature 36.5 C (97.7 F) 10/22/2024 2:31 PM MIG TIG WELDER Respiratory Rate 16 10/22/2024 2:31 PM MIG TIG WELDER Oxygen Saturation 94% 10/22/2024 2:31 PM MIG TIG WELDER Inhaled Oxygen Concentration - - Weight 93.5 [...] 2019 OSTEOPOROSIS SCREENING 2024 INFLUENZA VACCINE (#1) 2025 Insurance [facility] Care Teams Fish Tender Relationship Specialty Start Date End Date Alhaji Mendez MD [address] [place] [address] PCP - General Family Practice 06/04/24
[2025-07-07 11:21] VITALS: BP 116/70; PULSE 92; RESP 20; TEMP 36.6; O2SAT 94
--- NOTE | 2025-07-07 11:24 | WPDANESEPPF ---
Anes - Initial Pre Proc Eval Procedure: Operation Date: 07/07/25 13:00 Proposed Procedures p Esophagogastroduodenoscopy - Rinku Zavala MD Date/Time: 07/07/25 11:24 Surgeon: Rinku Zavala MD Pre Op Diagnosis: Dysphagia, unspecified Patient Data Age: 65 Gender: F Height: 1.6 m Weight: 79.9 kg Last Vital Signs Temp 36.6 C 07/07/25 11:21 Pulse 92 07/07/25 11:21 Resp 20 07/07/25 11:21 BP 116/70 07/07/25 11:21 Pulse Ox 94 07/07/25 11:21 O2 Del Method Room Air 07/07/25 11:21 Allergies Allergy/AdvReac Type Severity Reaction Status Date / Time Sulfa (Sulfonamide Allergy Intermediate Itching Verified 06/29/25 15:23 Antibiotics) Home Medications ?Medication ?Instructions ?Recorded ?Confirmed ?Type clobetasol 0.05 % scalp solution 1 applic topical PRN PRN Rash 06/19/23 06/29/25 History budesonide 160 mcg-glycopyr 9 2 inh inhalation BID 06/03/24 07/07/25 History mcg-formot 4.8 mcg/actuation HFA inhaler (Breztri Aerosphere) vitamin B12 500 mcg-folic acid 400 1 tablet PO DAILY #90 tabs 09/09/24 07/07/25 Rx mcg tablet folic acid 1 mg tablet 1 mg PO DAILY #90 tabs 09/15/24 07/07/25 Rx blood sugar diagnostic (Contour #100 strips 10/24/24 12/03/24 Rx Next Test Strips) albuterol sulfate 90 mcg/actuation 2 puff inhalation QID PRN 12/03/24 06/29/25 Rx aerosol inhaler Shortness Of Breath #8.5 grams duloxetine 60 mg capsule,delayed See Rx Instructions .Route 01/15/25 07/07/25 Rx release .COMPLEX #90 caps metformin 1,000 mg tablet See Rx Instructions .Route 02/25/25 07/07/25 Rx .COMPLEX #180 tabs metoprolol tartrate 50 mg tablet See Rx Instructions .Route 02/25/25 07/07/25 Rx .COMPLEX #180 tabs pantoprazole 40 mg tablet,delayed See Rx Instructions .Route 02/25/25 07/07/25 Rx release .COMPLEX #90 tabs gabapentin 800 mg tablet 800 mg PO TID #300 tabs 03/18/25 07/07/25 Rx atorvastatin 10 mg tablet 10 mg PO HS #90 tabs 03/19/25 07/07/25 Rx clopidogrel 75 mg tablet See Rx Instructions .Route 03/19/25 07/07/25 Rx .COMPLEX #90 tabs nortriptyline 50 mg capsule 50 mg PO HS #90 caps 03/19/25 07/07/25 Rx cetirizine 10 mg tablet (Zyrtec) 10 mg PO DAILY #90 tabs 04/14/25 07/07/25 Rx tirzepatide 15 mg/0.5 mL 15 mg (0.5 mL) subcut WEEKLY #2 mL 05/13/25 07/07/25 Rx subcutaneous pen injector (Johnunervinro) duloxetine 30 mg capsule,delayed See Rx Instructions .Route 05/20/25 07/07/25 Rx release .COMPLEX #90 caps baclofen 10 mg tablet See Rx Instructions .Route 06/22/25 07/07/25 Rx .COMPLEX #180 tabs fluticasone propionate 50 1 spray intranasal Q12H PRN nasal 06/29/25 07/07/25 History mcg/actuation nasal congestion spray,suspension (Flonase Allergy Relief) hydrocodone 7.5 mg-acetaminophen 1 tablet PO Q6H PRN pain #120 tabs 07/02/25 07/07/25 Rx 325 mg tablet ferrous sulfate 325 mg (65 mg See Rx Instructions .Route 07/05/25 07/07/25 Rx iron) tablet .COMPLEX #180 tabs Patient hx anesthesia problems: none Family hx anesthesia problems: none Results Review: All pre-operative results and documents have been reviewed as part of the pre-operative evaluation. [facility] Past Medical History Medical History (Updated 07/06/25 @ 13:55 by Merritt Olivera DO) Chronic, continuous use of opioids PVD (peripheral vascular disease) Diabetic polyneuropathy Adenomatous colon polyp CAD (coronary artery disease) Screening for breast cancer Postmenopausal Degenerative joint disease (DJD) of hip Right hip pain Chronic obstructive pulmonary disease, unspecified Essential (primary) hypertension Fibromyalgia (06/17/19) GERD without esophagitis (06/17/19) Hyperlipidemia, unspecified Nontoxic multinodular goiter Restless legs syndrome Type 2 diabetes mellitus with diabetic neuropathy, unspecified Vitamin D deficiency (06/17/19) Surgical History Surgical History History of total right hip arthroplasty Hx of section H/O oophorectomy S/P MARY-BSO History of total left hip arthroplasty History of coronary artery stent placement x1 2006, x1 2017 Family History Family History Sibling Patient's sister is in good health Patient's brother is in good health Father Family history of heart disease in male family member before age 55 Patient's father is Family history of cardiovascular disease Diabetes mellitus Mother Patient's mother is Family history of cardiovascular disease Diabetes mellitus Other Family history of arthritis Family history of malignant neoplasm Family history of tuberculosis Hypertension Social History Social History Social History: Patient smoked a pack a day for 30 years and quit in 2003. No alcohol use. No drug use history. Lives at home with her . She is a full code. She nominates her to be the individual would make medical decisions for her if she is unable. Smoking packs per day: 1 Smoking cigarettes per day: 20.0 Years smoked: 30 Smoking pack-years: 30.00 Smoking status: Former smoker Tobacco type: cigarettes Second hand tobacco smoke exposure: Yes Smoking end date: 11/19/03 Alcohol intake: never Substance use: never Substance use type: does not use Lack of Transportation: No Lack of Food: Never True Current Housing: I Have Housing Concerned About Future Housing: No Difficulty Paying Gas/Electric Bills: No Difficulty Paying for Meds: No Currently Unemployed: No Education: Grade School Difficulty w/ Childcare or Family Care: No Living arrangements: with family Additional living arrangements comments: Lives with Occupation/Education: retired 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: disabled [employer] Gender identity (if verbalized by the patient): Female Spiritual care concerns: No Anes - Eval Final PreProcedure Day of Procedure 07/07/25 11:24 Patient weight: obese Heart: regular rate and rhythm Lungs: clear to auscultation Airway: Mallampati scale class II Neurological: alert and oriented Last oral intake: >/= 8 hours ASA classification: III Emergent: no Anesthetic plan: proceed Anesthesia type and monitoring: general GIVS and standard monitoring Results Review: All pre-operative results and documents have been reviewed as part of the pre-operative evaluation. Informed Consent: The patient's anesthetic plan and its attendant risks and benefits were discussed with the patient/family/POA. Questions were solicited and answers provided to the satisfaction of the patient/family/POA.
[2025-07-07] MEDS: LACTATED RINGERS 1,000 ML 150 ML IV CONT (11:30)
--- NOTE | 2025-07-07 12:15 | PM.HPGS ---
History of Present Illness History of Present Illness Consent: Risks, benefits, and alternatives have been discussed and questions answered. Patient agrees to proceed with procedure. Chief complaint: Dysphagia, unspecified Narrative: Roseanna Blackwell is a 65 year old female here for egd, h/o dysphagia Review of Systems Review of Systems: All systems reviewed & are unremarkable except as noted in HPI and below PMFSH Past Medical History Medical History (Updated 07/06/25 @ 13:55 by Merritt Olivera, ) Chronic, continuous use of opioids PVD (peripheral vascular disease) Diabetic polyneuropathy Adenomatous colon polyp CAD (coronary artery disease) Screening for breast cancer Postmenopausal Degenerative joint disease (DJD) of hip Right hip pain Chronic obstructive pulmonary disease, unspecified Essential (primary) hypertension Fibromyalgia (06/17/19) GERD without esophagitis (06/17/19) Hyperlipidemia, unspecified Nontoxic multinodular goiter Restless legs syndrome Type 2 diabetes mellitus with diabetic neuropathy, unspecified Vitamin D deficiency (06/17/19) Surgical History Surgical History History of total right hip arthroplasty Hx of section H/O oophorectomy S/P MARY-BSO History of total left hip arthroplasty History of coronary artery stent placement x1 2006, x1 2017 Family History Family History Sibling Patient's sister is in good health Patient's brother is in good health Father Family history of heart disease in male family member before age 55 Patient's father is Family history of cardiovascular disease Diabetes mellitus Mother Patient's mother is Family history of cardiovascular disease Diabetes mellitus Other Family history of arthritis Family history of malignant neoplasm Family history of tuberculosis Hypertension Social History Social History Social History: Patient smoked a pack a day for 30 years and quit in 2003. No alcohol use. No drug use history. Lives at home with her . She is a full code. She nominates her to be the individual would make medical decisions for her if she is unable. Smoking packs per day: 1 Smoking cigarettes per day: 20.0 Years smoked: 30 Smoking pack-years: 30.00 Smoking status: Former smoker Tobacco type: cigarettes Second hand tobacco smoke exposure: Yes Smoking end date: 11/19/03 Alcohol intake: never Substance use: never Substance use type: does not use Lack of Transportation: No Lack of Food: Never True Current Housing: I Have Housing Concerned About Future Housing: No Difficulty Paying Gas/Electric Bills: No Difficulty Paying for Meds: No Currently Unemployed: No Education: Grade School Difficulty w/ Childcare or Family Care: No Living arrangements: with family Additional living arrangements comments: Lives with Occupation/Education: retired 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: 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 Gender identity (if verbalized by the patient): Female Spiritual care concerns: No Meds Home Medications and Allergies Home Medications ?Medication ?Instructions ?Recorded ?Confirmed ?Type clobetasol 0.05 % scalp solution 1 applic topical PRN PRN Rash 06/19/23 06/29/25 History budesonide 160 mcg-glycopyr 9 2 inh inhalation BID 06/03/24 07/07/25 History mcg-formot 4.8 mcg/actuation HFA inhaler (Breztri Aerosphere) vitamin B12 500 mcg-folic acid 400 1 tablet PO DAILY #90 tabs 09/09/24 07/07/25 Rx mcg tablet folic acid 1 mg tablet 1 mg PO DAILY #90 tabs 09/15/24 07/07/25 Rx blood sugar diagnostic (Contour #100 strips 10/24/24 12/03/24 Rx Next Test Strips) albuterol sulfate 90 mcg/actuation 2 puff inhalation QID PRN 12/03/24 06/29/25 Rx aerosol inhaler Shortness Of Breath #8.5 grams duloxetine 60 mg capsule,delayed See Rx Instructions .Route 01/15/25 07/07/25 Rx release .COMPLEX #90 caps metformin 1,000 mg tablet See Rx Instructions .Route 02/25/25 07/07/25 Rx .COMPLEX #180 tabs metoprolol tartrate 50 mg tablet See Rx Instructions .Route 02/25/25 07/07/25 Rx .COMPLEX #180 tabs pantoprazole 40 mg tablet,delayed See Rx Instructions .Route 02/25/25 07/07/25 Rx release .COMPLEX #90 tabs gabapentin 800 mg tablet 800 mg PO TID #300 tabs 03/18/25 07/07/25 Rx atorvastatin 10 mg tablet 10 mg PO HS #90 tabs 03/19/25 07/07/25 Rx clopidogrel 75 mg tablet See Rx Instructions .Route 03/19/25 07/07/25 Rx .COMPLEX #90 tabs nortriptyline 50 mg capsule 50 mg PO HS #90 caps 03/19/25 07/07/25 Rx cetirizine 10 mg tablet (Zyrtec) 10 mg PO DAILY #90 tabs 04/14/25 07/07/25 Rx tirzepatide 15 mg/0.5 mL 15 mg (0.5 mL) subcut WEEKLY #2 mL 05/13/25 07/07/25 Rx subcutaneous pen injector (Mounjaro) duloxetine 30 mg capsule,delayed See Rx Instructions .Route 05/20/25 07/07/25 Rx release .COMPLEX #90 caps baclofen 10 mg tablet See Rx Instructions .Route 06/22/25 07/07/25 Rx .COMPLEX #180 tabs fluticasone propionate 50 1 spray intranasal Q12H PRN nasal 06/29/25 07/07/25 History mcg/actuation nasal congestion spray,suspension (Flonase Allergy Relief) hydrocodone 7.5 mg-acetaminophen 1 tablet PO Q6H PRN pain #120 tabs 07/02/25 07/07/25 Rx 325 mg tablet ferrous sulfate 325 mg (65 mg See Rx Instructions .Route 07/05/25 07/07/25 Rx iron) tablet .COMPLEX #180 tabs Allergies Allergy/AdvReac Type Severity Reaction Status Date / Time Sulfa (Sulfonamide Allergy Intermediate Itching Verified 06/29/25 15:23 Antibiotics) Vital Signs Vital Signs - 24 hr 07/07/25 11:21 Temperature 97.9 F Pulse Rate 92 Respiratory Rate 20 Blood Pressure 116/70 Pulse Oximetry 94 Oxygen Delivery Room Air Exam Const: General: comfortable and no acute distress HENMT: Face/Nose/Sinus: Normal nares present Eyes: General: appearance normal, both eyes and all related structures Neck: Neck: no JVD Resp: Auscultation: clear to auscultation bilaterally Cardio: Rate: regular rate Rhythm: regular rhythm GI: Inspection: non-distended GI Palp: Yes Soft to palpation Skin: General skin exam: normal color Neuro: Speech: normal speech Extrem: General: normal to inspection Psych: Mental Status: mental status grossly normal Assessment and Plan Assessment and plan (1) Dysphagia: Qualifiers: Dysphagia type: unspecified Qualified Code(s): R13.10 - Dysphagia, unspecified Code(s): R13.10 - Dysphagia, unspecified Status: Acute Assessment and Plan: egd using pantoprazole
--- NOTE | 2025-07-07 12:21 | S_PTH ---
PATIENT: Roseanna Blackwell LOC: [facility]#:[id number] AGE/SX: 65/F ROOM: RE07/07/[address]: Rinku Zavala MD : 1960 BED: DIS: 07/07/2025 SPEC #: [id number] RECD: 07/07/25 12:41 STATUS: ARI REJoanne #: [id number] USHA: 07/07/25 12:[address]: Rinku Zavala DEPT: [facility] Surgical RECD BY: Den Lancaster ENTERED: 07/07/25 12:42 SP TYPE: Surgical OTHR DR: Alhaji Mendez MD Tissues: A - Gastric Biopsy B - Esophageal Biopsy Procedures: Hematoxylin and Eosin Stain Gross and Microscopic Level 4 H.Pylori
[2025-07-07 12:23] VITALS: BP 97/61; PULSE 70; RESP 21; O2SAT 97
[2025-07-07 12:33] VITALS: BP 102/65; PULSE 78; RESP 12; O2SAT 95
[2025-07-07 12:43] VITALS: BP 108/63; PULSE 74; RESP 15; O2SAT 98
== END 2025-07-07 12:55 | disposition home or self-care (01) ==
PROVIDERS: PCP Family Medicine; Referring Provider Family Medicine; Visit Provider Internal Medicine Gastroenterology
PROC: 0DJ08ZZ Inspection of Upper Intestinal Tract, Via Natural or Artificial Opening Endoscopic (ICD-10-PCS; CPT 43239; principal; 2025-07-07 13:00)
DX: K29.50 Unspecified chronic gastritis without bleeding (principal); K31.89 Other diseases of stomach and duodenum; E78.5 Hyperlipidemia, unspecified; I10 Essential (primary) hypertension; M79.7 Fibromyalgia; K21.9 Gastro-esophageal reflux disease without esophagitis; G25.81 Restless legs syndrome; E55.9 Vitamin D deficiency, unspecified; E11.42 Type 2 diabetes mellitus with diabetic polyneuropathy; I25.10 Atherosclerotic heart disease of native coronary artery without angina pectoris; J44.9 Chronic obstructive pulmonary disease, unspecified; I73.9 Peripheral vascular disease, unspecified; M16.10 Unilateral primary osteoarthritis, unspecified hip; E66.9 Obesity, unspecified; Z68.31 Body mass index [BMI] 31.0-31.9, adult; Z79.51 Long term (current) use of inhaled steroids; Z79.84 Long term (current) use of oral hypoglycemic drugs; Z79.02 Long term (current) use of antithrombotics/antiplatelets; Z79.85 Long-term (current) use of injectable non-insulin antidiabetic drugs; Z79.891 Long term (current) use of opiate analgesic; Z98.890 Other specified postprocedural states; Z95.5 Presence of coronary angioplasty implant and graft; Z86.0100 Personal history of colon polyps, unspecified; Z87.891 Personal history of nicotine dependence; Z80.9 Family history of malignant neoplasm, unspecified; Z82.49 Family history of ischemic heart disease and other diseases of the circulatory system
CPT/HCPCS: 43239; 82948; 88305; 88342; J2704; J7120